=== PATIENT | male | born 1940 | race Caucasian/White ===

== ENCOUNTER → 2019-09-29 15:50 | Outpatient (BNVA) | payer MEDICARE, SELFPAY | PROVIDERS: Family Provider Internal Medicine; Visit Provider Nurse Practitioner Family | DX: N40.1 Benign prostatic hyperplasia with lower urinary tract symptoms (principal); N48.1 Balanitis; N41.1 Chronic prostatitis | CPT/HCPCS: 80053; 81001 ==

== ENCOUNTER 2020-02-07 10:56 | Inpatient (IN) | payer MEDICARE, SELFPAY ==
[2020-02-07] VITALS (21 sets, daily range): BP systolic 113–157; BP diastolic 75–99; PULSE 70–108; RESP 18–31; TEMP 36.5–37.3; O2SAT 87–95; BMI 27.8
--- NOTE | 2020-02-07 11:23 | XRR_ITS ---
PROCEDURE INFORMATION: Exam: XR Chest, 1 View Exam date and time: 02/07/2020 11:25 AM Age: 79 years old Clinical indication: Dyspnea; Patient HX: Positive covid TECHNIQUE: Imaging protocol: XR of the chest Views: 1 view. COMPARISON: CR Chest 1 [place] [id number] 09/14/2018 1:31 AM FINDINGS: Lungs: Bilateral pulmonary opacities predominantly peripherally oriented. No lobar consolidation. Pleural space: No pleural effusion. No pneumothorax. Heart/Mediastinum: Unremarkable. No cardiomegaly. Vasculature: Tortuosity of the thoracic aorta. Bones/joints: No acute findings. Sternotomy. XR/XR chest 1V portable [id number] IMPRESSION: Bilateral pneumonia consistent with COVID-19 pneumonia.
--- NOTE | 2020-02-07 11:24 | ECG_ITS ---
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 Measurements Intervals [place] Rate: 87 P: 11 SD: 190 QRS: -75 QRSD: 146 T: -9 QT: 394 QTc: 476 Interpretive Statements SINUS RHYTHM RIGHT BUNDLE BRANCH BLOCK [120+ ms QRS DURATION, UPRIGHT V1, 40+ ms S IN I/aVL/V4/V5/V6] POSSIBLE ANTERIOR MYOCARDIAL INFARCTION , OF INDETERMINATE AGE [30 ms Q WAVE IN V3/V4, OR R < 0.2 mV IN V4] INFERIOR MYOCARDIAL INFARCTION , OF INDETERMINATE AGE [40+ ms Q WAVE AND/OR ST/T ABNORMALITY IN II/aVF] Compared to ECG 09/14/2018 03:11:01 Sinus tachycardia no longer present Myocardial infarct finding still present Electronically Signed On 02-07-2020 18:30:41 CDT by Zaid Sharpe M.D. [id number]
--- NOTE | 2020-02-07 11:44 | ED_ITS ---
HPI - SOB/Dyspnea General: Chief Complaint: Shortness of Breath/Dyspnea Stated Complaint: SOB, POSITIVE COVID Time Seen by Provider: 02/07/20 11:16 History of Present Illness: HPI Narrative: This patient presents today with shortness of breath and weakness. Being that he is on covered precautions he presented alone and I had to call to later get history from his . He told me that he been tested for COVID but it was negative. Apparently that is not th e case. He has had a positive COVID test and is presenting today with worsening symptoms. MD elicited complaint: shortness of breath and cough Pertinent past history: diabetes Review of Systems General: Reports: ROS unobtainable due to mental status PFSH ED PFSH: Medical History Balanitis BPH NOS w ur obs/LUTS Chronic prostatitis Diabetes Erectile dysfunction GERD (gastroesophageal reflux disease) History of brain tumor Urinary incontinence Surgical History Hx of heart artery stent Hx of umbilical hernia repair S/P CABG (coronary artery bypass graft) Family History Father CAD (coronary artery disease) Diabetes Mother CAD (coronary artery disease) Diabetes Social History Smoking and tobacco status: never smoked Alcohol intake: current Alcohol intake frequency: 0-2 Drinks per Day Adopted: No Caregiver/support person: No Lives independently: No Household members: spouse Marital status: Current occupational status: retired History of recent travel: No Current gender identity: Male Physical Exam Const: COMMON NORMALS: no limitations and alert GENERAL APPEARANCE: cooperative ORIENTATION/CONSCIOUSNESS: Yes oriented to person and Yes oriented to place HENMT: HEAD & SCALP: normal to inspection FACE & SINUS: normal facial exam Eye: GENERAL EYE: appearance normal, both eyes and all related structures Neck/C-Spine: COMMON NORMALS: supple, no meningeal signs and no JVD Chest: COMMONS NORMALS: normal inspection of the chest Resp: EFFORT & INSPECTION: Yes tachypneic, Yes labored and Yes uses accessory muscles AUSCULTATION: diminished lung sounds Cardio: COMMON NORMALS: no JVD, regular rate, regular rhythm and No murmurs present (Cardio) RATE: regular rate RHYTHM: regular rhythm GI: COMMON NORMALS: Normal to inspection, nondistended, normoactive bowel sounds present, Soft to palpation and non-tender INSPECTION: Yes normal to inspection AUSCULTATION: Yes normoactive bowel sounds PALPATION: Yes Soft to palpation Back/Pelvis: COMMON NORMALS: thoracic and lumbar spine normal to inspection Extremity: COMMON NORMALS: normal to inspection Neuro: COMMON NORMALS: moves all extremities, no focal motor deficits and no sensory deficits noted SENSORIUM/ORIENTATION: Yes alert, Yes oriented to person and Yes oriented to place MENINGEAL SIGNS: Yes no meningeal signs Psych: COMMON NORMALS: mental status grossly normal, cooperative and normal affect Skin: COMMON NORMALS: no rashes or lesions noted and turgor normal GENERAL SKIN EXAM: no rashes or lesions noted and turgor normal Course ED course: This patient is COVID positive and is hypoxic. He reportedly was positive on the although I am working on getting the paper documentation of that test. He will require admission. I already started Decadron. I may start Lovenox and remdesivir based on lab values and report of his home medications. He meets criteria for admission to the COVID unit. Vital Signs: Vital signs: Vital Signs Temperature 99.1 F 02/07/20 11:02 Pulse Rate 80 02/07/20 13:30 Respiratory Rate 22 H 02/07/20 13:30 Blood Pressure 139/90 02/07/20 13:30 Pulse Oximetry 91 02/07/20 13:30 MDM - SOB/Dyspnea Lab Data: Labs: Lab Results 02/07/20 02/07/20 02/07/20 Range/Units 12:23 12:23 12:23 WBC 9.4 (4.0-10.0) 10^3/ uL RBC 4.76 (4.1-5.3) 10^6/u L Hgb 13.9 (11.7-16.6) g/dL Hct 42.4 (42.0-52.0) % MCV 89.1 (80-94) fL MCH 29.2 (28.0-34.0) pg MCHC 32.8 (30.0-36.0) g/dL RDW 13.6 (12.1-15.1) % Plt Count 224 (130-400) 10^3/c mm MPV 11.7 H (7.4-10.4) fL Neut % (Auto) 84.3 % Lymph % (Auto) 9.6 % [place] % (Auto) 5.3 % Eos % (Auto) 0.4 % Baso % (Auto) 0.2 % Neut # (Auto) 7.91 H (1.8-7.7) 10^3/u L Lymph # (Auto) 0.9 (0.8-4.8) 10^3/u L [place] # (Auto) 0.5 (0.2-0.9) 10^3/u L Eos # (Auto) 0.0 (0.0-0.8) 10^3/u L Baso # (Auto) 0.0 (0.0-0.1) 10^3/u L Nucleated RBC % (a uto) 0 % Nucleated RBCs # 0.0 /100WBC PT 13.60 (12.1-14.9) SECO NDS INR 1.01 (0.8-1.2) D-Dimer 1.49 H (0-0.59) ug/mIFE U Sodium 138 (136-145) mmol/L Potassium 4.0 (3.5-5.1) mmol/L Chloride 102 (98-107) mmol/L Carbon Dioxide 20 L (22-29) mmol/L Anion Gap 20.0 H (5-19) BUN 23 (8-23) mg/dL Creatinine 0.9 (0.7-1.2) mg/dL GFR Calculation Not Reportable Glucose 179 H (65-115) mg/dL Calculated Osmolal ity 294 (285-295) mOsm/k g Lactic Acid (0.5-2.2) mmol/L Calcium 8.6 (8.5-10.5) mg/dL Total Bilirubin 0.6 (0.15-1.2) mg/dL AST 59 H (0-40) U/L ALT 52 H (0-41) U/L Alkaline Phosphata se 61 (40-130) IU/L Troponin T Baselin e (0-15) ng/L Troponin T 120 Min [place] (0-15) ng/L Delta Troponin T (0-10) ABS# C-Reactive Protein 175.3 H (0.0-4.9) mg/L NT-Pro-B Natriuret Pep 1331 H (0-450) pg/mL Total Protein 7.8 (6.6-8.7) g/dL Albumin 3.3 L (3.5-5.2) g/dL Globulin 4.5 (1.3-4.6) g/dL Procalcitonin 0.10 (0-0.5) ng/mL Influenza Type A A g (Negative) Influenza Type B A g (Negative) 02/07/20 02/07/20 02/07/20 Range/Units 12:23 12:23 12:45 WBC (4.0-10.0) 10^3/ uL RBC (4.1-5.3) 10^6/u L Hgb (11.7-16.6) g/dL Hct (42.0-52.0) % MCV (80-94) fL MCH (28.0-34.0) pg MCHC (30.0-36.0) g/dL RDW (12.1-15.1) % Plt Count (130-400) 10^3/c mm MPV (7.4-10.4) fL Neut % (Auto) % Lymph % (Auto) % [place] % (Auto) % Eos % (Auto) % Baso % (Auto) % Neut # (Auto) (1.8-7.7) 10^3/u L Lymph # (Auto) (0.8-4.8) 10^3/u L [place] # (Auto) (0.2-0.9) 10^3/u L Eos # (Auto) (0.0-0.8) 10^3/u L Baso # (Auto) (0.0-0.1) 10^3/u L Nucleated RBC % (a uto) % Nucleated RBCs # /100WBC PT (12.1-14.9) SECO NDS INR (0.8-1.2) D-Dimer (0-0.59) ug/mIFE U Sodium (136-145) mmol/L Potassium (3.5-5.1) mmol/L Chloride (98-107) mmol/L Carbon Dioxide (22-29) mmol/L Anion Gap (5-19) BUN (8-23) mg/dL Creatinine (0.7-1.2) mg/dL GFR Calculation Glucose (65-115) mg/dL Calculated Osmolal ity (285-295) mOsm/k g Lactic Acid 1.7 (0.5-2.2) mmol/L Calcium (8.5-10.5) mg/dL Total Bilirubin (0.15-1.2) mg/dL AST (0-40) U/L ALT (0-41) U/L Alkaline Phosphata se (40-130) IU/L Troponin T Baselin e 22 H (0-15) ng/L Troponin T 120 Min [place] (0-15) ng/L Delta Troponin T (0-10) ABS# C-Reactive Protein (0.0-4.9) mg/L NT-Pro-B Natriuret Pep (0-450) pg/mL Total Protein (6.6-8.7) g/dL Albumin (3.5-5.2) g/dL Globulin (1.3-4.6) g/dL Procalcitonin (0-0.5) ng/mL Influenza Type A A g Negative (Negative) Influenza Type B A g Negative (Negative) 02/07/20 Range/Units 15:00 WBC (4.0-10.0) 10^3/ uL RBC (4.1-5.3) 10^6/u L Hgb (11.7-16.6) g/dL Hct (42.0-52.0) % MCV (80-94) fL MCH (28.0-34.0) pg MCHC (30.0-36.0) g/dL RDW (12.1-15.1) % Plt Count (130-400) 10^3/c mm MPV (7.4-10.4) fL Neut % (Auto) % Lymph % (Auto) % [place] % (Auto) % Eos % (Auto) % Baso % (Auto) % Neut # (Auto) (1.8-7.7) 10^3/u L Lymph # (Auto) (0.8-4.8) 10^3/u L [place] # (Auto) (0.2-0.9) 10^3/u L Eos # (Auto) (0.0-0.8) 10^3/u L Baso # (Auto) (0.0-0.1) 10^3/u L Nucleated RBC % (a uto) % Nucleated RBCs # /100WBC PT (12.1-14.9) SECO NDS INR (0.8-1.2) D-Dimer (0-0.59) ug/mIFE U Sodium (136-145) mmol/L Potassium (3.5-5.1) mmol/L Chloride (98-107) mmol/L Carbon Dioxide (22-29) mmol/L Anion Gap (5-19) BUN (8-23) mg/dL Creatinine (0.7-1.2) mg/dL GFR Calculation Glucose (65-115) mg/dL Calculated Osmolal ity (285-295) mOsm/k g Lactic Acid (0.5-2.2) mmol/L Calcium (8.5-10.5) mg/dL Total Bilirubin (0.15-1.2) mg/dL AST (0-40) U/L ALT (0-41) U/L Alkaline Phosphata se (40-130) IU/L Troponin T Baselin e (0-15) ng/L Troponin T 120 Min [place] 18.31 H (0-15) ng/L Delta Troponin T -3.69 L (0-10) ABS# C-Reactive Protein (0.0-4.9) mg/L NT-Pro-B Natriuret Pep (0-450) pg/mL Total Protein (6.6-8.7) g/dL Albumin (3.5-5.2) g/dL Globulin (1.3-4.6) g/dL Procalcitonin (0-0.5) ng/mL Influenza Type A A g (Negative) Influenza Type B A g (Negative) Discharge Plan Discharge Condition: Good Prescriptions: No Action famotidine 20 mg tablet 20 mg PO BID RF: 0 tamsulosin 0.4 mg capsule 0.4 mg PO BID RF: 0 Brilinta 90 mg tablet 90 mg PO BID RF: 0 metformin 500 mg tablet 500 mg PO BID RF: 0 metoprolol tartrate 50 mg tablet 50 mg PO DAILY RF: 0 finasteride 5 mg tablet 5 mg PO DAILY RF: 0 aspirin [Adult Low Dose Aspirin] 81 mg tablet,delayed release (DR/EC) 81 mg PO DAILY RF: 0 acetaminophen [Tylenol Extra Strength] 500 mg tablet 500 mg PO Q6H PRN (Reason: Pain) RF: 0 ciprofloxacin HCl 500 mg tablet 500 mg PO BID Qty: 60 RF: 1 zinc eik-idrcft-glp palm-gnsg 15-2-160 mg capsule 1 cap PO DAILY RF: 0 melatonin 10 mg capsule 10 mg PO DAILY RF: 0 triamcinolone acetonide 0.1 % cream 1 applic TOPICAL BID Qty: 30 RF: 1 nystatin 100,000 unit/gram cream 1 applic TOPICAL BID Qty: 30 RF: 1 vitamin A 8,000 unit Capsule 1 unit PO DAILY RF: 0 Cold and Flu Severe 4-80-349-200 mg Tablet 2 tab PO Q4H PRN (Reason: Cold Symptoms) RF: 0 Vitamin D3 25 mcg (1,000 unit) Tablet 25 mcg PO DAILY RF: 0 elderberry fruit-honey 0.7-3 gram/7.5 mL Liquid 7.5 ml PO DAILY RF: 0 Coding Level of Care Code ED Ob Scrub Tech for Chg Fwd Exam Comprehensive
[2020-02-07 12:30] LABS: Basophils % 0.2 %; Eosinophils % 0.4 %; Hematocrit 42.4 % (42.0-52.0); Hemoglobin 13.9 g/dL (11.7-16.6); Lymphocytes # 0.9 10^3/uL (0.8-4.8); Lymphocytes % 9.6 %; Mean Corpuscular HGB Conc 32.8 g/dL (30.0-36.0); Mean Corpuscular Hemoglobin 29.2 pg (28.0-34.0); Mean Corpuscular Volume 89.1 fL (80-94); Mean Platelet Volume 11.7 fL (7.4-10.4); Monocytes # 0.5 10^3/uL (0.2-0.9); Monocytes % 5.3 %; Neutrophils # 7.91 10^3/uL (1.8-7.7); Neutrophils % 84.3 %; Nucleated Red Blood Cells % 0 %; Platelet Count 224 10^3/cmm (130-400); Red Blood Count 4.76 10^6/uL (4.1-5.3); Red Cell Distribution Width 13.6 % (12.1-15.1); White Blood Count 9.4 10^3/uL (4.0-10.0)
[2020-02-07 12:39] LABS: INR 1.01 (0.8-1.2)
[2020-02-07 12:42] LABS: D Dimer 1.49 ug/mIFEU (0-0.59)
[2020-02-07 12:45] LABS: Lactic Sepsis W/Reflex 1.7 mmol/L (0.5-2.2)
[2020-02-07 12:50] LABS: Troponin(5th) Baseline 22 ng/L (0-15)
[2020-02-07] MEDS: sodium chloride 0.9% 1,000 ML 75 ML IV (12:50)
[2020-02-07] MEDS: acetaminophen 325 mg Tablet 650 MG PO (12:50)
[2020-02-07] MEDS: dexamethasone 10 mg/mL INJ IVP (12:50)
[2020-02-07 12:58] LABS: NT Pro B Type Natriuretic Pept 1331 pg/mL (0-450)
[2020-02-07 13:09] LABS: Alanine Aminotransferase 52 U/L (0-41); Albumin Level 3.3 g/dL (3.5-5.2); Alkaline Phosphatase 61 IU/L (40-130); Aspartate Amino Transferase 59 U/L (0-40); Blood Urea Nitrogen 23 mg/dL (8-23); C Reactive Protein 175.3 mg/L (0.0-4.9); Calcium 8.6 mg/dL (8.5-10.5); Carbon Dioxide 20 mmol/L (22-29); Chloride 102 mmol/L (98-107); Globulin 4.5 g/dL (1.3-4.6); Glucose 179 mg/dL (65-115); Osmolality Calculated 294 mOsm/kg (285-295); Sodium 138 mmol/L (136-145); Total Bilirubin 0.6 mg/dL (0.15-1.2); Total Protein 7.8 g/dL (6.6-8.7)
[2020-02-07 13:17] LABS: Influenza A by IFA Negative (Negative); Influenza B by IFA Negative (Negative)
--- NOTE | 2020-02-07 13:24 | ECG_ITS ---
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 Measurements Intervals [place] Rate: 71 P: 14 MO: 178 QRS: -69 QRSD: 155 T: -5 QT: 421 QTc: 460 Interpretive Statements SINUS RHYTHM RIGHT BUNDLE BRANCH BLOCK [120+ ms QRS DURATION, UPRIGHT V1, 40+ ms S IN I/aVL/V4/V5/V6] LEFT ANTERIOR FASCICULAR BLOCK [QRS AXIS <= -45, QR IN I, RS IN II] Compared to ECG 02/07/2020 12:17:16 Left anterior fascicular block now present Myocardial infarct finding no longer present Electronically Signed On 02-07-2020 18:39:28 CDT by Zaid Sharpe M.D. [id number]
[2020-02-07 15:24] LABS: Troponin 5 2HR 18.31 ng/L (0-15)
[2020-02-07 15:29] LABS: Troponin 5 2HR Delta -3.69 ABS# (0-10)
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
[2020-02-07] MEDS: enoxaparin 100 mg/mL Syringe 90 MG SUBCUT (18:40)
[2020-02-07 19:17] LABS: Glucose Point of Care 309 mg/dL (70-110)
[2020-02-07] MEDS: ciprofloxacin 500 mg Tablet PO (20:39)
[2020-02-07] MEDS: tamsulosin 0.4 mg Capsule PO (20:39)
[2020-02-07] MEDS: nystatin cream 30 gm 1 APPLIC TOPICAL (21:19)
[2020-02-07 21:55] LABS: Troponin 5 6HR 15.23 ng/L (0-15)
[2020-02-08] VITALS (27 sets, daily range): BP systolic 107–164; BP diastolic 73–108; PULSE 67–96; RESP 17–34; TEMP 36.1–37.1; O2SAT 90–95
--- NOTE | 2020-02-08 00:09 | PC.NURSE ---
Excoriation to scrotum, groin, coccyx. Nystatin cream mixed with Triamcinolone 1% cream 50/50 applied to the affected areas.
--- NOTE | 2020-02-08 00:15 | PC.NURSE ---
Oxygen changed to 8 liter/minute high flow.
--- NOTE | 2020-02-08 00:24 | PC.NURSE ---
Transferred patient care to Gen Mulligan RN @ 0000
[2020-02-08] MEDS: enoxaparin 100 mg/mL Syringe 90 MG SUBCUT ×2 (06:44→17:37)
[2020-02-08 07:17] LABS: Hemoglobin 13.3 g/dL (11.7-16.6); Lymphocytes # 0.6 10^3/uL (0.8-4.8); Lymphocytes % 11.8 %; Mean Corpuscular HGB Conc 32.4 g/dL (30.0-36.0); Mean Corpuscular Hemoglobin 29.1 pg (28.0-34.0); Mean Corpuscular Volume 89.7 fL (80-94); Mean Platelet Volume 12.3 fL (7.4-10.4); Monocytes # 0.3 10^3/uL (0.2-0.9); Monocytes % 6.4 %; Neutrophils # 4.33 10^3/uL (1.8-7.7); Neutrophils % 81.4 %; Nucleated Red Blood Cells % 0 %; Platelet Count 227 10^3/cmm (130-400); Red Blood Count 4.57 10^6/uL (4.1-5.3); Red Cell Distribution Width 13.7 % (12.1-15.1); White Blood Count 5.3 10^3/uL (4.0-10.0)
[2020-02-08 07:26] LABS: Glucose Point of Care 186 mg/dL (70-110)
[2020-02-08 07:29] LABS: Alanine Aminotransferase 53 U/L (0-41); Albumin Level 2.9 g/dL (3.5-5.2); Alkaline Phosphatase 63 IU/L (40-130); Aspartate Amino Transferase 47 U/L (0-40); Blood Urea Nitrogen 23 mg/dL (8-23); Calcium 8.9 mg/dL (8.5-10.5); Carbon Dioxide 20 mmol/L (22-29); Chloride 107 mmol/L (98-107); Globulin 3.9 g/dL (1.3-4.6); Glucose 199 mg/dL (65-115); Osmolality Calculated 295 mOsm/kg (285-295); Sodium 138 mmol/L (136-145); Total Bilirubin 0.3 mg/dL (0.15-1.2); Total Protein 6.8 g/dL (6.6-8.7)
[2020-02-08] MEDS: famotidine 20 mg Tablet PO ×2 (08:03→17:37)
[2020-02-08] MEDS: tamsulosin 0.4 mg Capsule PO ×2 (08:03→17:37)
[2020-02-08] MEDS: aspirin 81 mg EC Tablet PO (08:03)
[2020-02-08] MEDS: metoprolol tartrate 50 mg Tablet 25 MG PO (08:03)
[2020-02-08] MEDS: ciprofloxacin 500 mg Tablet PO ×2 (08:03→17:36)
[2020-02-08] MEDS: nystatin cream 30 gm 1 APPLIC TOPICAL ×2 (08:04→17:39)
[2020-02-08] MEDS: finasteride 5 mg Tablet PO (08:04)
[2020-02-08] MEDS: triamcinolone 0.1% cream 15 gm 1 APPLIC TOPICAL ×2 (08:04→17:40)
[2020-02-08] MEDS: cholecalciferol (vitamin D3) 1,000 unit Tablet 1000 UNIT PO (08:05)
[2020-02-08 11:17] LABS: Glucose Point of Care 180 mg/dL (70-110)
[2020-02-08 14:04] LABS: SARS Covid-2 Antigen Positive (Negative)
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
--- NOTE | 2020-02-08 15:31 | PC.NURSE ---
Report given to HAYDER Garcia, to assume care of this patient at this time.
[2020-02-08 16:32] LABS: Glucose Point of Care 110 mg/dL (70-110)
[2020-02-08] MEDS: dexamethasone 4 mg/mL INJ 6 MG IVP (17:35)
[2020-02-08 21:01] LABS: Glucose Point of Care 237 mg/dL (70-110)
[2020-02-09] VITALS (27 sets, daily range): BP systolic 111–166; BP diastolic 70–108; PULSE 63–112; RESP 12–30; TEMP 36.6–36.9; O2SAT 88–96
[2020-02-09 05:29] LABS: Hematocrit 41.3 % (42.0-52.0); Hemoglobin 13.5 g/dL (11.7-16.6); Lymphocytes # 0.6 10^3/uL (0.8-4.8); Lymphocytes % 7.2 %; Mean Corpuscular HGB Conc 32.7 g/dL (30.0-36.0); Mean Corpuscular Hemoglobin 29.5 pg (28.0-34.0); Mean Corpuscular Volume 90.2 fL (80-94); Mean Platelet Volume 12.5 fL (7.4-10.4); Monocytes # 0.3 10^3/uL (0.2-0.9); Monocytes % 3.2 %; Neutrophils # 7.07 10^3/uL (1.8-7.7); Neutrophils % 89.2 %; Nucleated Red Blood Cells % 0 %; Platelet Count 253 10^3/cmm (130-400); Red Blood Count 4.58 10^6/uL (4.1-5.3); Red Cell Distribution Width 13.8 % (12.1-15.1); White Blood Count 7.9 10^3/uL (4.0-10.0)
[2020-02-09 06:00] LABS: Alanine Aminotransferase 59 U/L (0-41); Albumin Level 2.9 g/dL (3.5-5.2); Alkaline Phosphatase 58 IU/L (40-130); Aspartate Amino Transferase 40 U/L (0-40); Blood Urea Nitrogen 27 mg/dL (8-23); Calcium 8.2 mg/dL (8.5-10.5); Carbon Dioxide 19 mmol/L (22-29); Chloride 106 mmol/L (98-107); Globulin 4.5 g/dL (1.3-4.6); Glucose 219 mg/dL (65-115); Osmolality Calculated 296 mOsm/kg (285-295); Sodium 137 mmol/L (136-145); Total Bilirubin 0.3 mg/dL (0.15-1.2); Total Protein 7.4 g/dL (6.6-8.7)
[2020-02-09 06:02] LABS: Anion Gap 16.2 (5-19); Potassium 4.2 mmol/L (3.5-5.1)
[2020-02-09] MEDS: enoxaparin 120 mg/0.8 mL Syringe 90 MG SUBCUT (06:03)
[2020-02-09] MEDS: OLANZapine 10 mg VIAL 2.5 MG IM (07:48)
[2020-02-09] MEDS: finasteride 5 mg Tablet PO (08:26)
[2020-02-09] MEDS: ciprofloxacin 500 mg Tablet PO ×2 (08:26→17:36)
[2020-02-09] MEDS: aspirin 81 mg EC Tablet PO (08:26)
[2020-02-09] MEDS: cholecalciferol (vitamin D3) 1,000 unit Tablet 1000 UNIT PO (08:26)
[2020-02-09] MEDS: metoprolol tartrate 50 mg Tablet 25 MG PO (08:26)
[2020-02-09] MEDS: nystatin cream 30 gm 1 APPLIC TOPICAL ×2 (08:26→17:36)
[2020-02-09] MEDS: famotidine 20 mg Tablet PO ×2 (08:26→17:36)
[2020-02-09] MEDS: tamsulosin 0.4 mg Capsule PO ×2 (08:27→17:36)
[2020-02-09] MEDS: triamcinolone 0.1% cream 15 gm 1 APPLIC TOPICAL ×2 (08:27→17:37)
[2020-02-09 08:39] LABS: Glucose Point of Care 213 mg/dL (70-110)
--- NOTE | 2020-02-09 08:45 | PC.NURSE ---
Patient agitated at shift change, refusing heart monitor, oxygen, and requesting to go home. Multiple attempts to redirect were unsuccessful. Medication given per MAR. Patient is now calm and cooperative. Patient was asked if his claustrophobia is causing him anxiety, he denied this. States, I'm claustrophobic on an airplane I can't get off of, not in this room.
--- NOTE | 2020-02-09 08:48 | PC.NURSE ---
Pt agitated at the beginning of shift, around 0700. Refused tie sawyer, oxygen, and hospital gown. Also removed IV. Multiple attempts to redirect were unsuccessful, medication given per MAR. Pt presently alert and calm. Asked patient if his claustrophobia was contributing to his agitation this morning, he denies that this is a factor. States, I'm claustrophobic if I'm somewhere like a plane I can't get out of, the hospital is ok. Asked patient he would like to move to a larger room if one becomes available later today, patient said, No, this room is ok unless my has to come in too.
[2020-02-09 11:15] LABS: Glucose Point of Care 215 mg/dL (70-110)
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
[2020-02-09 17:02] LABS: Glucose Point of Care 127 mg/dL (70-110)
[2020-02-09] MEDS: dexamethasone 4 mg/mL INJ 6 MG IVP (17:04)
[2020-02-09] MEDS: enoxaparin 100 mg/mL Syringe 90 MG SUBCUT (17:36)
[2020-02-09 20:55] LABS: Glucose Point of Care 308 mg/dL (70-110)
--- NOTE | 2020-02-09 21:30 | PC.NURSE ---
Shift Events: Rounded on patient and his upon arrival to unit. Patient's behavior fluctuates between angry, agitation and cooperative. No known triggers. states that he will frequently become agitated, verbally abusive and angry with her for no known reason when they are at home and has questions as to whether or not this is dementia. Patient knows he is in a hospital but states that no doctors have done a damn thing for me . Patient also refused his insulin with a blood sugar of 309. Educated patient and about the importance of keeping blood sugar within a normal range. Patient stated that he was going to one day . Asked patient why he feels this way but patient did not answer this specific questions. Patient has several times this shift disconnected ECG leads, SpO2, blood pressure cuff and stated that he was leaving and going home. States that we are not doing anything for him and has begun to mock this nurse when I ask him what he is doing. Attempts to redirect are not successful. Dr. Wahl notified and will try Benadryl IV for this agitation. Geodon was offered but was afraid that this would make things worse. Will continue to monitor.
[2020-02-09] MEDS: ziprasidone 20 mg/mL SDV 10 MG IM (23:00)
[2020-02-09] MEDS: diphenhydrAMINE 50 mg/mL SDV 1mL 25 MG IVP (23:30)
--- NOTE | 2020-02-09 23:30 | PC.NURSE ---
Shift Event: At approximately 2230, patient's called out using the call light to have this nurse assist with patient getting up to use the bathroom. When I went into the room, patient was standing at the bedside commode with the urinal and told me to get out of here . Patient's told patient that she had called me to help him with using the bathroom because he had almost fallen when getting up out of bed. When patient was finished, he put the urinal on the bedside table, sat down on the bed and started putting his shoes on. When asked what he was doing, he stated that he was walking home . I told patient that it would not be advisable for him to leave because he was sick and that he would be potentially infecting others with Covid. Patient stated good, I hope they all get sick . Attempted to redirect patient by asking him what was wrong and how I could help him. Patient continued to insist that he was leaving. I did not block patient from leaving the room but again told him that it was best if he stayed. Patient's told patient that he would be there, indicating home, by himself and she could not help him. Patient stated that a 22 gun could help me out . I asked patient if he was having thoughts about harming himself and he stated that it was none of your business . I told him that it was and that It was my job to keep him safe. Charge nurse, Miles, notified of suicidal ideation and that patient would need prn Geodon; informed patient that he would need to have a sitter to watch over him to keep him safe. Patient stated that no one loves me anyhow Patient and started arguing. Dr. Wahl notified that patient was very agitated and has suicidal ideations. No new orders received. Ning, powerhouse mechanic supervisor, notified of patient's intentions and resulting phone call to Dr. Whal. At this time, this nurse is sitting with patient and his to ensure safety for both.
[2020-02-10] VITALS (29 sets, daily range): BP systolic 133–191; BP diastolic 92–123; PULSE 64–112; RESP 14–29; TEMP 36.1–36.9; O2SAT 89–95
--- NOTE | 2020-02-10 01:19 | PC.NURSE ---
Due to patient's agitation and aggression, personal hygiene deferred.
[2020-02-10] MEDS: trazodone 50 mg Tablet PO (01:24)
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
[2020-02-10 05:30] LABS: Hematocrit 41.2 % (42.0-52.0); Hemoglobin 12.9 g/dL (11.7-16.6); Lymphocytes # 0.9 10^3/uL (0.8-4.8); Lymphocytes % 12.8 %; Mean Corpuscular HGB Conc 31.3 g/dL (30.0-36.0); Mean Corpuscular Volume 92.6 fL (80-94); Mean Platelet Volume 12.5 fL (7.4-10.4); Monocytes # 0.4 10^3/uL (0.2-0.9); Monocytes % 5.2 %; Neutrophils # 5.86 10^3/uL (1.8-7.7); Neutrophils % 81.6 %; Nucleated Red Blood Cells % 0 %; Platelet Count 280 10^3/cmm (130-400); Red Blood Count 4.45 10^6/uL (4.1-5.3); Red Cell Distribution Width 13.9 % (12.1-15.1); White Blood Count 7.2 10^3/uL (4.0-10.0)
[2020-02-10] MEDS: haloperidol inj 5 mg/mL INJ 1 mL 2 MG IM (05:30)
[2020-02-10 05:54] LABS: C Reactive Protein 48.7 mg/L (0.0-4.9)
[2020-02-10 05:55] LABS: Alanine Aminotransferase 45 U/L (0-41); Alkaline Phosphatase 58 IU/L (40-130); Blood Urea Nitrogen 26 mg/dL (8-23); Calcium 8.7 mg/dL (8.5-10.5); Carbon Dioxide 22 mmol/L (22-29); Chloride 106 mmol/L (98-107); Globulin 4.1 g/dL (1.3-4.6); Glucose 313 mg/dL (65-115); Osmolality Calculated 309 mOsm/kg (285-295); Sodium 141 mmol/L (136-145); Total Bilirubin 0.3 mg/dL (0.15-1.2); Total Protein 7.1 g/dL (6.6-8.7)
[2020-02-10] MEDS: enoxaparin 100 mg/mL Syringe 90 MG SUBCUT ×2 (05:57→17:12)
[2020-02-10 06:00] LABS: Anion Gap 17.2 (5-19); Aspartate Amino Transferase 28 U/L (0-40); Potassium 4.2 mmol/L (3.5-5.1)
[2020-02-10 06:50] LABS: D Dimer 0.92 ug/mIFEU (0-0.59)
[2020-02-10 07:46] LABS: Slide Review Slide Review Perform
[2020-02-10 07:47] LABS: Glucose Point of Care 230 mg/dL (70-110)
[2020-02-10] MEDS: aspirin 81 mg EC Tablet PO (08:33)
[2020-02-10] MEDS: metoprolol tartrate 50 mg Tablet 25 MG PO (08:33)
[2020-02-10] MEDS: famotidine 20 mg Tablet PO ×2 (08:33→17:13)
[2020-02-10] MEDS: tamsulosin 0.4 mg Capsule PO ×2 (08:33→17:13)
[2020-02-10] MEDS: cholecalciferol (vitamin D3) 1,000 unit Tablet 1000 UNIT PO (08:35)
[2020-02-10] MEDS: finasteride 5 mg Tablet PO (08:44)
[2020-02-10] MEDS: ciprofloxacin 500 mg Tablet PO ×2 (08:44→17:13)
[2020-02-10] MEDS: triamcinolone 0.1% cream 15 gm 1 APPLIC TOPICAL ×2 (08:44→17:15)
[2020-02-10] MEDS: nystatin cream 30 gm 1 APPLIC TOPICAL ×2 (08:45→17:15)
[2020-02-10 11:13] LABS: Glucose Point of Care 246 mg/dL (70-110)
[2020-02-10] MEDS: dexamethasone 4 mg/mL INJ 6 MG IVP (15:36)
--- NOTE | 2020-02-10 15:45 | PC.NURSE ---
pt woke up this morning calm and cooperative.remains confused to date,time,year.restraints removed for breakfast and have remained off all day.took all oral and subq meds.sat is chair.visited with in her room.has tried to get up out of bed several times.1:1 staff remains.
[2020-02-10 16:55] LABS: Glucose Point of Care 145 mg/dL (70-110)
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
[2020-02-10] MEDS: OLANZapine 10 mg VIAL 2.5 MG IM (17:43)
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
[2020-02-10 21:17] LABS: Glucose Point of Care 258 mg/dL (70-110)
[2020-02-10] MEDS: cetirizine 10 mg Tablet PO (21:34)
[2020-02-11] VITALS (27 sets, daily range): BP systolic 105–168; BP diastolic 67–108; PULSE 54–106; RESP 10–28; TEMP 36.2–36.9; O2SAT 91–97
[2020-02-11] MEDS: trazodone 100 mg Tablet PO (00:41)
[2020-02-11] MEDS: OLANZapine 10 mg VIAL 2.5 MG IM ×2 (02:07→21:52)
[2020-02-11] MEDS: LORazepam 2 mg/mL INJ 1 mL 1 MG IVP (02:58)
--- NOTE | 2020-02-11 03:01 | PC.NURSE ---
Pt recieved 1mg Lorazepam IVP, witnessed and documented by this nurse. Rosana Chawla RN administered medication.
[2020-02-11] MEDS: enoxaparin 100 mg/mL Syringe 90 MG SUBCUT ×2 (05:42→17:14)
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
[2020-02-11] MEDS: dexmedetomidine 400 MCG in sodium chloride 0.9% (100 ml) 100 ML 7.7 MCG IV (07:27)
[2020-02-11 07:57] LABS: Glucose Point of Care 209 mg/dL (70-110)
[2020-02-11] MEDS: finasteride 5 mg Tablet PO (08:57)
[2020-02-11] MEDS: ciprofloxacin 500 mg Tablet PO ×2 (08:57→17:16)
[2020-02-11] MEDS: aspirin 81 mg EC Tablet PO (08:57)
[2020-02-11] MEDS: famotidine 20 mg Tablet PO ×2 (08:57→17:15)
[2020-02-11] MEDS: cholecalciferol (vitamin D3) 1,000 unit Tablet 1000 UNIT PO (08:57)
[2020-02-11] MEDS: metoprolol tartrate 50 mg Tablet 25 MG PO (08:58)
[2020-02-11] MEDS: tamsulosin 0.4 mg Capsule PO ×2 (08:58→17:15)
[2020-02-11 09:56] LABS: D Dimer 0.81 ug/mIFEU (0-0.59)
[2020-02-11] MEDS: nystatin cream 30 gm 1 APPLIC TOPICAL ×2 (10:11→17:15)
[2020-02-11 10:12] LABS: Alanine Aminotransferase 52 U/L (0-41); Albumin Level 3.1 g/dL (3.5-5.2); Alkaline Phosphatase 61 IU/L (40-130); Anion Gap 14.9 (5-19); Aspartate Amino Transferase 38 U/L (0-40); Blood Urea Nitrogen 22 mg/dL (8-23); C Reactive Protein 27.5 mg/L (0.0-4.9); Calcium 8.8 mg/dL (8.5-10.5); Carbon Dioxide 22 mmol/L (22-29); Chloride 108 mmol/L (98-107); Globulin 3.9 g/dL (1.3-4.6); Glucose 206 mg/dL (65-115); Osmolality Calculated 301 mOsm/kg (285-295); Potassium 3.9 mmol/L (3.5-5.1); Sodium 141 mmol/L (136-145); Total Bilirubin 0.6 mg/dL (0.15-1.2)
[2020-02-11] MEDS: triamcinolone 0.1% cream 15 gm 1 APPLIC TOPICAL ×2 (10:12→17:15)
[2020-02-11 12:18] LABS: Glucose Point of Care 182 mg/dL (70-110)
[2020-02-11] MEDS: haloperidol inj 5 mg/mL INJ 1 mL IVP (13:44)
[2020-02-11] MEDS: dexamethasone 4 mg/mL INJ 6 MG IVP (16:17)
--- NOTE | 2020-02-11 16:44 | PM.PSYCN ---
Providers/Reason for Consult Consulting Physican/Specialty*: David Mclean M.D. Psychiatry. Reason for Consult*: Psychosis/delirium question of dementia. Attending Physician: Fran Pagan Primary Care Provider: APARNA Hernandez Psych Consult HPI History of Present Illness Delta Aparicio is a 79 year old male who presented to the ED with the following report: This patient presents today with shortness of breath and weakness. Being that he is on covered precautions he presented alone and I had to call to later get history from his . He told me that he been tested for COVID but it was negative. Apparently that is not the case. He has had a positive COVID test and is presenting today with worsening symptoms. MD elicited complaint: shortness of breath and cough Pertinent past history: diabetes. Delta was admitted the [facility] ICU for definitive treatment of his issues. Once in the ICU, he has had combative behavior, talking about fires and the hospital burning down, and a psychiatric consult was requested to evaluate his cognitive functioning. Additional information included that his was reporting that he has been more aggressive, in the past few months, and then the last week has been especially bad. She reports problems like him waking her up in the middle of the night, around 2 in the morning, and demanding sex. She reports that he has always been aggressive and demanding and in control of there relationship, but things have gotten even worse recently. She reports that there was some issue involving a gun, where he made some comment, and so she has been concerned recently with issues surrounding the gun, but supposedly one of the children is going to go in the house and get the guns. She reports that there was an incident recently where a person who they rent some farmland to came to pay the bill, and she reports that he was so nasty with him that she was embarrassed. Notable medical issues that could also be impacting her concerns about a dementing process are that he also had a tumor resection in his frontal lobe, in the past decade for sure, but the last several years nonetheless. So concerns were raised about a recurrence of something in the frontal lobe given his personality changes. She reports that things got worse then, when he had the resection. She was very tearful as she reports going to see him, from her room in the [facility] ICU to his room, just to tell him that she loves him and have him chew her out and yell at her and get derailed talking about fire and things burning down, and things not being safe. He was out of sorts during our conversation, basically saying he was kidnapped, upset that he was in soft restraints, and not having much respect for this investigative writer, but then asking this investigative writer to get close to him because I must be important and if there is a fire, and he is close to me, he might have a chance of making it. The steam of the fire talk continued throughout the interview. Ultimately, he did not have a real understanding of why he was there. He knew, in a sense, that it was COVID, but very much spoke in a conspiracy theory type fashion, that everyone was out to get him, and that he did not know if the hospital was the best place to be, and if left to his own device he would just go home. Tried to explore the tenets of capacity, but he really had no insight into options, what his condition was, what the challenges were, and so he was unable to demonstrate capacity, at this time. He denies any history of psychiatric care. He denies any history of depression. PSYCHIATRIC HISTORY: As above. SUBSTANCE ABUSE HISTORY: As above. They deny any significant addiction history in his past. FAMILY HISTORY: Non-contributory. There is no one with any issues of mental health or psychosis, or suicide attempts or completions. DEVELOPMENTAL HISTORY: The patient denies any issues with his mother?s or delivery of him. The patient met all developmental milestones on time. The patient denies speech therapy, learning support, emotional support, or special education classes. PSYCHOSOCIAL HISTORY: He and his have reportedly been for nearly sixty years. He could not identify how many times he had been but believes this is his second marriage, because he has a stepson with his . He was unable to tell me how many children he has, but he has children. He has never been in the . He has no significant lutheran belief system. 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 He currently lives in a house with his . LEGAL HISTORY: Denied. MEDICAL HISTORY: COVID positive. Diabetes. High blood pressure. History of BPH. Coronary artery disease. Meds Current Medications: Current Medications Generic Name Dose Route Start Last Admin Trade Name Freyaya PRN Reason Stop Dose Admin Aspirin 81 mg 02/08/20 09:00 02/10/20 08:33 Aspirin Ec PO 81 mg DAILY MALCOLM Administration Cetirizine HCl 10 mg 02/10/20 21:00 02/10/20 21:34 Zyrtec PO 10 mg BEDTIME MALCOLM Administration Ciprofloxacin HCl 500 mg 02/07/20 18:00 02/10/20 17:13 Cipro PO 500 mg BID MALCOLM Administration Protocol Dexamethasone 6 mg 02/08/20 15:45 02/10/20 15:36 Decadron IVP 6 mg Q24H MALCOLM Administration Enoxaparin Sodium 90 mg 02/09/20 18:00 02/10/20 17:12 Lovenox 1 mg/kg (90 mg) 90 mg SUBCUT Administration Q12H MALCOLM Famotidine 20 mg 02/08/20 09:00 02/10/20 17:13 Pepcid Tab PO 20 mg BID MALCOLM Administration Finasteride 5 mg 02/08/20 09:00 02/10/20 08:44 Proscar PO 5 mg DAILY MALCOLM Administration remdesivir (EUA) 1 00 mg/ 100 mls @ 100 mls /hr 02/08/20 15:00 02/10/20 15:07 Sodium Chloride IV 02/11/20 15:59 100 mls/hr Q24H MALCOLM Administration Insulin Aspart 0 unit 02/08/20 18:00 02/10/20 21:34 Novolog SUBCUT 8 unit WM&BEDTIME MALCOLM Administration Protocol Metoprolol Tartrat e 25 mg 02/08/20 09:00 02/10/20 08:33 Lopressor PO 25 mg DAILY MALCOLM Administration Non-Formulary Medi cation 10 mg 02/08/20 09:00 02/10/20 08:36 Melatonin PO Not Given DAILY MALCOLM Nystatin 1 applic 02/07/20 18:00 02/10/20 17:15 Nystatin Cream TOPICAL 1 applic BID MALCOLM Administration Olanzapine 2.5 mg 02/09/20 13:13 02/10/20 17:43 Zyprexa IM 2.5 mg TID PRN Administration SEVERE AGITATION Tamsulosin HCl 0.4 mg 02/07/20 18:00 02/10/20 17:13 Flomax PO 0.4 mg BID MALCOLM Administration Triamcinolone Acet onide 1 applic 02/08/20 09:00 02/10/20 17:15 Triamcinolone 0. 1% Cream TOPICAL 1 applic BID MALCOLM Administration Vitamin D 1,000 unit 02/08/20 09:00 02/10/20 08:35 Vitamin D3 PO 1,000 unit DAILY MALCOLM Administration PFSH NPU PFSH: Medical History (Updated 02/12/20 @ 12:46 by David Mclean MD) Balanitis BPH NOS w ur obs/LUTS Chronic prostatitis Diabetes Erectile dysfunction GERD (gastroesophageal reflux disease) History of brain tumor Urinary incontinence Surgical History (Updated 02/07/20 @ 17:21 by Fran Pagan MD) H/O brain surgery 2010 meningioma R Hx of heart artery stent Hx of umbilical hernia repair S/P CABG (coronary artery bypass graft) 2011 Family History Father CAD (coronary artery disease) Diabetes Mother CAD (coronary artery disease) Diabetes Social History Smoking and tobacco status: never smoked Alcohol intake: current Alcohol intake frequency: 0-2 Drinks per Day Adopted: No Caregiver/support person: No Lives independently: No Household members: spouse Marital status: Current occupational status: retired History of recent travel: No Current gender identity: Male Mental Status Exam MSE Comments: This is an obese, elderly, white male, in a hospital gown with a nasal cannula on, somewhat sweating and unkempt, with adequate eye contact. Limited cooperation with exam in mild to moderate distress. Speech was limited but decreased rate and volume, with some slurring. Mood described as frustrated; affect irritable. Thought process, linear to organized. Thought content: patient denied any suicidal or homicidal ideation; there were no delusions reported but clear paranoid and persecutory thinking existed that could represent delirium; some visual hallucinations were noted, no auditory hallucinations reported. Attention and concentration were limited, and memory was unreliable, but none were formally tested. He is alert and oriented times three. Insight and judgment are impaired. Impulse control is impaired. Vitals/I&O/Wt Last Vital Signs Temp 98.5 F 02/10/20 16:00 Pulse 85 02/11/20 00:00 Resp 24 H 02/11/20 00:00 BP 127/79 02/11/20 00:00 Pulse Ox 91 02/10/20 21:41 02/10/20 02/10/20 02/11/20 14:59 22:59 06:59 Intake Total 480 / 480 480 / 960 Output Total 200 / 200 Balance 480 / 480 280 / 760 Weight last 48 hrs Weight 111.13 kg Weight 99.337 kg A&P Assessment and plan (1) Suicidal ideation: Status: Acute (2) Agitation: Status: Acute (3) Dementia: Status: Acute (4) Delirium: Status: Acute Additional A&P Information This is an 79 year old, white male, with multiple medical comorbidities, who presents COVID positive with some breathing difficulties, and with some aggression and hostility as well as delusions, versus delirium, in the viral ICU. Continue current medication. I would feel comfortable giving Haldol q 6 hours with a max of 10 mg every 24 hours, he can get 5 mg increments of medication. Presentation could represent delirium, most likely with his illness( Covid-19) or the steroids he is being given being the culprits, this is likely superimposed on a dementing process, but could not rule out the fact that with his previous resection of a tumor in his frontal lobe, that there could be a recurrence of some frontal lobe phenomena. Would utilize the soft restraints but would use the Haldol primarily to help manage his acting out and aggressiveness. Patient lacks capacity for informed consent right now, and it is unclear whether this represents a phenomena in the hospital right now, and this is just his current presentation and he will resolve significantly and have full capacity once well. Will continue to follow. Attestations NPU Medical Necessity Statement*: N/A. Please see primary team note for decision on medical necessity for hospitalization. 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
[2020-02-11 17:27] LABS: Glucose Point of Care 107 mg/dL (70-110)
--- NOTE | 2020-02-11 18:24 | PM.PN ---
Subjective Subjective: Interval history: This morning again agitated, combative, making confused statements that the building is going to catch on fire, trying to grab and hit the nurse. Trying to kick. Had to be started on Precedex drip, however, oversedated, very lethargic, weaned off, awake, and again becoming hostile and agitated. Per psychiatry recommendation received Haldol. During my visit he is calm, resting, wakes up to voice, cooperates with exam, denies shortness of breath with nasal cannula, denies chest pain or pressure. No nausea vomiting or diarrhea. No headache. Vitals/I&O/Wt Last Vital Signs Temp 98.5 F 02/11/20 16:00 Pulse 80 02/11/20 17:05 Resp 18 02/11/20 17:05 BP 163/98 02/11/20 16:00 Pulse Ox 95 02/11/20 17:05 02/11/20 02/11/20 02/11/20 06:59 14:59 22:59 Intake Total 116.351 / 116.351 0 / 116.351 Balance 116.351 / 116.351 0 / 116.351 Weight last 48 hrs Weight 98.883 kg Weight 111.13 kg Physical Exam Narrative: EXAM NARRATIVE: One-to-one sitter at the entrance. Const: COMMON NORMALS: no acute distress GENERAL APPEARANCE: cooperative NUTRITIONAL APPEARANCE: overweight OTHER: Irritable, but answers review of systems questions and cooperates with exam. HENMT: COMMON NORMALS: oropharynx normal Neck/C-Spine: COMMON NORMALS: no JVD Resp: COMMON NORMALS: normal respiratory effort AUSCULTATION: rales (Minimal amount of scattered crackles at bases.) Cardio: COMMON NORMALS: no JVD, regular rhythm, S1 normal heart sound present, S2 normal heart sound present and No murmurs present (Cardio) RHYTHM: regular rhythm HEART SOUNDS: S1 normal heart sound present and S2 normal heart sound present GI: COMMON NORMALS: Normal to inspection, nondistended, normoactive bowel sounds present, Soft to palpation and non-tender PALPATION: Yes Soft to palpation Extremity: COMMON NORMALS: no joint enlargement and no pedal edema Neuro: COMMON NORMALS: moves all extremities Skin: COMMON NORMALS: no rashes or lesions noted GENERAL SKIN EXAM: no rashes or lesions noted Data : 02/10/20 04:15 02/11/20 08:27 A&P Assessment and plan (1) Agitation: Agitated again this morning, violent towards nursing staff. Started on Precedex drip, but too sedating for him even at lower rate. Discontinued. Again becoming hostile, received Haldol per psychiatry which appears to have helped. Ongoing psychiatric evaluation. Suspected delirium superimposed on perhaps developing chronic cognitive impairment or early dementia. Also has remote history of excision of meningioma from right frontal lobe. Appears to have some perhaps paranoid ideation. Status: Acute (2) Suicidal ideation: states they do have multiple guns at the house which she says her son has now taken out. Per report of nighttime physician vague with his plans when declared SI. Continue one-to-one sitter. Appreciate psychiatric assessment. Status: Acute (3) Pneumonia due to COVID-19 virus: Intermittently on oxygen, other times refuses to wear it. Sometimes actually does okay on room air with about 91% saturation. Denies chest pain or pressure. Denies subjective shortness of breath. Condition appears to be complicated with acute encephalopathy due to infection, possibly intermittent hypoxia leading to delirium superimposed on possibly chronic cognitive impairment, with history of also right frontal meningioma excision. D-dimer appears to be improving. CRP improving. Severe COVID-19 pneumonia. Intermittent hypoxia, but better. Completed remdesivir, will see if we can discontinue Decadron in case this may be contributing to his encephalopathy. Albuterol as needed. Haldol if severely agitated. Psychiatric assessment. Appears he has been having some more memory issues recently, possibly secondary to some mild encephalopathy. Has been irritable at baseline, and does report history of meningioma removal from right frontal lobe. Memory issues appears been somewhat worse with viral illness, poor oral intake. Appears with superimposed delirium. Discussed with his . Avoid Richardson if possible. He is also claustrophobic and has been in a bigger room. For now we will hold off on any antibiotics as suspicion is low for concomitant bacterial pneumonia, but monitor condition. He continues to be afebrile, without leukocytosis. Lovenox for DVT prophylaxis. Status: Acute (4) CAD (coronary artery disease): History of bypass surgery 2011. 1 year ago history of stent. Continue cardiac medications. Status: Acute (5) Chest pain: Mild elevation of troponin without positive delta. He has not had any chest pain here on multiple reassessments. says in the evenings he has been taking a nitroglycerin tablet due to some chest discomfort, although this appears to be triggered while sleeping on the left side. He gets a little bit more dyspneic that way. He does not have any chest pain currently. Troponin is minimally elevated. Monitor for any change in symptoms. Follow-up with cardiology after discharge. Status: Acute (6) Transaminitis: Minimal. Improving. No abdominal pain. With improvement. Normal alk phos, T bili. does say he drinks occasional beer at home. This may be secondary to COVID-19. Monitor while he is receiving Remdesivir. Status: Acute Additional A&P Information Diabetes: Sliding scale insulin, increase to moderate. Add nighttime dosing. BPH: Continue finasteride, tamsulosin. Avoid Richardson if possible. Monitor for any retention. Chronic prostatitis: Continue follow-up with urology. Continue Cipro. GERD: Continue famotidine History of brain tumor Attestations Medical Necessity Statement*: Continue admission for assessment management of severe COVID-19 pneumonia, encephalopathy and delirium. SI. 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
[2020-02-11] MEDS: diphenhydrAMINE 50 mg Capsule PO (21:38)
--- NOTE | 2020-02-11 21:57 | PC.NURSE ---
Pt was calm at initial assessment, pt had some intermittent agitation where pt was removing oxygen and wires and trying to shove past this nurse. pt had asked to see his , but was rude to when she came to visit. pt was able to be verbally redirected and pt sat back down in bed. pt had been calm again but had asked this nurse, Why don't you crawl over here in this bed and keep me warm? Pt was educated about being appropriate and nurse:patient relationship, pt was informed that pt could have another blanket if he was cold. Pt closed his eyes for a few minutes, then began trying to remove oxygen and wires again. This nurse let pt know that this nurse had pt's meds and that he would be helped to sat up. Pt began kicking at this nurse, stating, I'm tired of you farting around. Pt began addressing this nurse as, Bitch and was reeducated to this nurse's name. Pt was redirected when notified that this nurse had pt's sleeping pill.
[2020-02-12] VITALS (30 sets, daily range): BP systolic 87–158; BP diastolic 59–98; PULSE 61–128; RESP 13–31; TEMP 36.6–37; O2SAT 89–95
--- NOTE | 2020-02-12 03:48 | PC.NURSE ---
pt woken up for morning lab draw. pt stated he wanted a drink of water, in which this nurse raised the head of bed and handed pt his water. pt then stated he needed to pee. this nurse asked pt to allow this nurse to offer help. pt was struggling to move the edge of the bed from being caught on his gown. this nurse offered pt a hand to assist pt to side of bed and pt slapped this nurse's hand away. this nurse educated pt that this nurse was just trying to help. pt just replied, Uh huh, sure you are. This nurse offered the urinal to pt while pt was lying in bed, pt stated, You know I can't pee laying in bed, I have to stand. this nurse again offered pt a hand and pt slapped it away, stating, Now I'm peeing on myself. pt was cooperative enough to allow this nurse to change pt's brief without any aggression. pt offered another drink of water and was tucked back into bed.
[2020-02-12 04:44] LABS: Basophils % 0.1 %; Hematocrit 39.7 % (42.0-52.0); Hemoglobin 12.8 g/dL (11.7-16.6); Lymphocytes # 0.9 10^3/uL (0.8-4.8); Lymphocytes % 11.9 %; Mean Corpuscular HGB Conc 32.2 g/dL (30.0-36.0); Mean Corpuscular Hemoglobin 29.3 pg (28.0-34.0); Mean Corpuscular Volume 90.8 fL (80-94); Mean Platelet Volume 12.9 fL (7.4-10.4); Monocytes # 0.3 10^3/uL (0.2-0.9); Monocytes % 4.4 %; Neutrophils # 6.08 10^3/uL (1.8-7.7); Neutrophils % 83.2 %; Nucleated Red Blood Cells % 0 %; Platelet Count 281 10^3/cmm (130-400); Red Blood Count 4.37 10^6/uL (4.1-5.3); Red Cell Distribution Width 14.2 % (12.1-15.1); White Blood Count 7.3 10^3/uL (4.0-10.0)
[2020-02-12 05:00] LABS: D Dimer 0.61 ug/mIFEU (0-0.59)
[2020-02-12] MEDS: enoxaparin 100 mg/mL Syringe 90 MG SUBCUT ×2 (06:10→17:15)
[2020-02-12 06:31] LABS: Glucose Point of Care 213 mg/dL (70-110)
[2020-02-12] MEDS: aspirin 81 mg EC Tablet PO (08:18)
[2020-02-12] MEDS: tamsulosin 0.4 mg Capsule PO ×2 (08:18→17:15)
[2020-02-12] MEDS: metoprolol tartrate 50 mg Tablet 25 MG PO (08:18)
[2020-02-12] MEDS: famotidine 20 mg Tablet PO ×2 (08:18→17:15)
[2020-02-12] MEDS: finasteride 5 mg Tablet PO (08:18)
[2020-02-12] MEDS: ciprofloxacin 500 mg Tablet PO ×2 (08:18→17:14)
[2020-02-12] MEDS: cholecalciferol (vitamin D3) 1,000 unit Tablet 1000 UNIT PO (08:18)
[2020-02-12] MEDS: triamcinolone 0.1% cream 15 gm 1 APPLIC TOPICAL ×2 (08:19→17:15)
[2020-02-12] MEDS: nystatin cream 30 gm 1 APPLIC TOPICAL ×2 (08:19→17:15)
[2020-02-12] MEDS: albuterol 8 gm MDI 2 PUFF INHALATION ×2 (08:20→13:00)
[2020-02-12 08:52] LABS: Alanine Aminotransferase 60 U/L (0-41); Albumin Level 2.9 g/dL (3.5-5.2); Alkaline Phosphatase 55 IU/L (40-130); Anion Gap 14.2 (5-19); Aspartate Amino Transferase 37 U/L (0-40); Blood Urea Nitrogen 26 mg/dL (8-23); Calcium 8.6 mg/dL (8.5-10.5); Carbon Dioxide 22 mmol/L (22-29); Chloride 110 mmol/L (98-107); Globulin 3.5 g/dL (1.3-4.6); Glucose 232 mg/dL (65-115); Osmolality Calculated 306 mOsm/kg (285-295); Potassium 4.2 mmol/L (3.5-5.1); Sodium 142 mmol/L (136-145); Total Bilirubin 0.4 mg/dL (0.15-1.2); Total Protein 6.4 g/dL (6.6-8.7)
--- NOTE | 2020-02-12 09:03 | PC.SOCIAL ---
IMM Update Pg. 2 of IMM updated and reviewed with patient's via phone, who verbalized understanding.
[2020-02-12 10:04] LABS: Glucose Point of Care 255 mg/dL (70-110)
[2020-02-12 11:27] LABS: Glucose Point of Care 236 mg/dL (70-110)
[2020-02-12] MEDS: haloperidol inj 5 mg/mL INJ 1 mL IVP (13:31)
--- NOTE | 2020-02-12 13:57 | PC.NURSE ---
Dr Mclean evaluated patient. He advised that we could use haldol to help patient relax and be more cooperative. Patient has been better today, becoming a little more agitated this afternoon. Haldol was given and the sitter was DCd for the time being. Will continue to monitor closely.
[2020-02-12] MEDS: dexamethasone 4 mg/mL INJ 6 MG IVP (15:40)
[2020-02-12] MEDS: OLANZapine 10 mg VIAL 2.5 MG IM (17:17)
[2020-02-12 18:18] LABS: Glucose Point of Care 225 mg/dL (70-110)
--- NOTE | 2020-02-12 20:50 | PM.PN ---
Subjective Subjective: Interval history: He was again irritable this morning, but currently is doing better. Received a dose of Haldol several hours prior to my visit. Reports he does not have any chest pain. He is not short of breath on nasal cannula. No nausea vomiting or diarrhea. No headache. Intermittently has to be redirected by nursing staff back into his room after making trips into the hallway without a mask. Vitals/I&O/Wt Last Vital Signs Temp 98.6 F 02/12/20 20:00 Pulse 94 02/12/20 19:54 Resp 18 02/12/20 19:54 BP 106/89 02/12/20 17:00 Pulse Ox 94 02/12/20 19:54 02/12/20 02/12/20 02/12/20 06:59 14:59 22:59 Intake Total 360 / 476.351 500 / 500 520 / 1020 Output Total 275 / 450 200 / 200 380 / 580 Balance 85 / 26.351 300 / 300 140 / 440 Weight last 48 hrs Weight 98.838 kg Weight 98.883 kg Physical Exam Narrative: EXAM NARRATIVE: He is awake, alert. Appears calm. Reclined in bed. Const: COMMON NORMALS: no acute distress GENERAL APPEARANCE: cooperative NUTRITIONAL APPEARANCE: overweight OTHER: Does cooperate with exam today. HENMT: COMMON NORMALS: oropharynx normal Neck/C-Spine: COMMON NORMALS: no JVD Resp: COMMON NORMALS: normal respiratory effort and clear to auscultation bilaterally AUSCULTATION: clear to auscultation bilaterally and no wheezes Cardio: COMMON NORMALS: no JVD, regular rhythm, S1 normal heart sound present, S2 normal heart sound present and No murmurs present (Cardio) RHYTHM: regular rhythm HEART SOUNDS: S1 normal heart sound present and S2 normal heart sound present GI: COMMON NORMALS: Normal to inspection, nondistended, normoactive bowel sounds present, Soft to palpation and non-tender PALPATION: Yes Soft to palpation Extremity: COMMON NORMALS: no joint enlargement and no pedal edema Neuro: COMMON NORMALS: moves all extremities Skin: COMMON NORMALS: no rashes or lesions noted GENERAL SKIN EXAM: no rashes or lesions noted Data : 02/12/20 03:30 02/12/20 07:03 A&P Assessment and plan (1) Agitation: Today he is doing somewhat better, although still required Haldol. During my visit he is more cooperative. His was discharging from the hospital today, with him making a statement I will raise hell . Discussed with psychiatry. Continue to monitor and psychiatric reassessments. Haldol for episodes of agitation. Discussed with his . Suspected delirium superimposed on perhaps developing chronic cognitive impairment or early dementia. Also has remote history of excision of meningioma from right frontal lobe. Appears to have some perhaps paranoid ideation. Status: Acute (2) Suicidal ideation: states they do have multiple guns at the house which she says her son has now taken out. Per report of nighttime physician vague with his plans when declared SI. Continue one-to-one sitter. Appreciate psychiatric assessment. Status: Acute (3) Pneumonia due to COVID-19 virus: Today allowed himself to be examined. Lungs are sounding clear. Still requiring about 2 L of oxygen. Requirement appears to be gradually decreasing. Denies chest pain or pressure. Denies subjective shortness of breath. Condition appears to be complicated with acute encephalopathy due to infection, possibly intermittent hypoxia leading to delirium superimposed on possibly chronic cognitive impairment, with history of also right frontal meningioma excision. D-dimer appears to be improving. CRP improving. Severe COVID-19 pneumonia. Intermittent hypoxia, but better. Completed remdesivir, discontinued Decadron in case this may be contributing to his encephalopathy. Albuterol as needed. Continue supportive care. Haldol if severely agitated. Psychiatric assessment. Appears he has been having some more memory issues recently, possibly secondary to some mild encephalopathy. Has been irritable at baseline, and does report history of meningioma removal from right frontal lobe. Memory issues appears been somewhat worse with viral illness, poor oral intake. Appears with superimposed delirium. Discussed with his . Avoid Richardson if possible. He is also claustrophobic and has been in a bigger room. For now we will hold off on any antibiotics as suspicion is low for concomitant bacterial pneumonia, but monitor condition. He continues to be afebrile, without leukocytosis. Lovenox for DVT prophylaxis. Status: Acute (4) CAD (coronary artery disease): History of bypass surgery 2011. 1 year ago history of stent. Continue cardiac medications. Status: Acute (5) Chest pain: Mild elevation of troponin without positive delta. He has not had any chest pain here on multiple reassessments. says in the evenings he has been taking a nitroglycerin tablet due to some chest discomfort, although this appears to be triggered while sleeping on the left side. He gets a little bit more dyspneic that way. He does not have any chest pain currently. Troponin is minimally elevated. Monitor for any change in symptoms. Follow-up with cardiology after discharge. Status: Acute (6) Transaminitis: Minimal. Improving. No abdominal pain. With improvement. Normal alk phos, T bili. does say he drinks occasional beer at home. This may be secondary to COVID-19. Monitor while he is receiving Remdesivir. Status: Acute Additional A&P Information Diabetes: Sliding scale insulin, increase to moderate. Add nighttime dosing. BPH: Continue finasteride, tamsulosin. Avoid Richardson if possible. Monitor for any retention. Chronic prostatitis: Continue follow-up with urology. Continue Cipro. GERD: Continue famotidine History of brain tumor Attestations Medical Necessity Statement*: Continue admission for assessment and management of COVID-19 pneumonia, delirium with episodes of agitation, suicidal ideation. 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
[2020-02-12 21:12] LABS: Glucose Point of Care 315 mg/dL (70-110)
[2020-02-12] MEDS: cetirizine 10 mg Tablet PO (22:04)
[2020-02-12] MEDS: trazodone 100 mg Tablet PO (23:33)
[2020-02-13] VITALS (19 sets, daily range): BP systolic 97–143; BP diastolic 58–94; PULSE 70–111; RESP 6–28; TEMP 36.7–37.1; O2SAT 90–108
--- NOTE | 2020-02-13 02:01 | PC.NURSE ---
INTERACTION/ACTIVITY Nurse received in change of shift report that patient had been easily agitated throughout the day. Patient and nurse interactions have been pleasant and patient has been calm. Patient up to side of bed to urinate with nurse with minimal assistance. Patient requested sleeping pill shortly after. Physician notified and put in one time order for PO trazadone 100 MG. Patient received and has been resting since.
--- NOTE | 2020-02-13 02:04 | PC.NURSE ---
O2 TITRATION Patient weaned down to 1L NC from 2L at 0130. Patient has been at 93% since titration. Will continue to evaluate and attempt to turn O2 off to assess how patient does.
[2020-02-13] MEDS: haloperidol inj 5 mg/mL INJ 1 mL IVP (03:12)
[2020-02-13 04:16] LABS: Basophils % 0.1 %; Hematocrit 39.3 % (42.0-52.0); Hemoglobin 12.7 g/dL (11.7-16.6); Lymphocytes % 11.2 %; Mean Corpuscular HGB Conc 32.3 g/dL (30.0-36.0); Mean Corpuscular Volume 89.7 fL (80-94); Mean Platelet Volume 12.4 fL (7.4-10.4); Monocytes # 0.4 10^3/uL (0.2-0.9); Monocytes % 4.7 %; Neutrophils # 7.56 10^3/uL (1.8-7.7); Neutrophils % 83.3 %; Nucleated Red Blood Cells % 0 %; Platelet Count 342 10^3/cmm (130-400); Red Blood Count 4.38 10^6/uL (4.1-5.3); Red Cell Distribution Width 13.8 % (12.1-15.1); White Blood Count 9.1 10^3/uL (4.0-10.0)
[2020-02-13 04:45] LABS: Alanine Aminotransferase 54 U/L (0-41); Albumin Level 2.8 g/dL (3.5-5.2); Alkaline Phosphatase 56 IU/L (40-130); Aspartate Amino Transferase 29 U/L (0-40); Blood Urea Nitrogen 27 mg/dL (8-23); Calcium 8.6 mg/dL (8.5-10.5); Carbon Dioxide 21 mmol/L (22-29); Chloride 107 mmol/L (98-107); Globulin 3.5 g/dL (1.3-4.6); Glucose 206 mg/dL (65-115); Osmolality Calculated 295 mOsm/kg (285-295); Sodium 137 mmol/L (136-145); Total Bilirubin 0.4 mg/dL (0.15-1.2); Total Protein 6.3 g/dL (6.6-8.7)
[2020-02-13 04:53] LABS: Anion Gap 13.2 (5-19)
[2020-02-13 04:54] LABS: Potassium 4.2 mmol/L (3.5-5.1)
[2020-02-13 05:31] LABS: D Dimer 0.72 ug/mIFEU (0-0.59)
[2020-02-13 05:58] LABS: C Reactive Protein 15.6 mg/L (0.0-4.9)
[2020-02-13] MEDS: enoxaparin 100 mg/mL Syringe 90 MG SUBCUT (06:38)
[2020-02-13 07:57] LABS: Glucose Point of Care 232 mg/dL (70-110)
[2020-02-13] MEDS: albuterol 8 gm MDI 2 PUFF INHALATION (08:52)
[2020-02-13] MEDS: ciprofloxacin 500 mg Tablet PO ×2 (09:11→17:09)
[2020-02-13] MEDS: aspirin 81 mg EC Tablet PO (09:11)
[2020-02-13] MEDS: metoprolol tartrate 50 mg Tablet 25 MG PO (09:11)
[2020-02-13] MEDS: finasteride 5 mg Tablet PO (09:11)
[2020-02-13] MEDS: famotidine 20 mg Tablet PO ×2 (09:11→17:09)
[2020-02-13] MEDS: nystatin cream 30 gm 1 APPLIC TOPICAL ×2 (09:12→17:09)
[2020-02-13] MEDS: triamcinolone 0.1% cream 15 gm 1 APPLIC TOPICAL ×2 (09:12→17:10)
[2020-02-13] MEDS: tamsulosin 0.4 mg Capsule PO ×2 (09:12→17:09)
[2020-02-13] MEDS: cholecalciferol (vitamin D3) 1,000 unit Tablet 1000 UNIT PO (09:12)
[2020-02-13 10:59] LABS: Glucose Point of Care 233 mg/dL (70-110)
--- NOTE | 2020-02-13 11:56 | PM.PN ---
Subjective Subjective: Interval history: No acute events overnight. Patient is lying comfortably in bed. He is not agitated during visit with the patient. Denies of having any nausea, vomiting, headache. Still feels weak. Wants to go home. Discussed patient's care in detail with Dr. Mclean from psychiatry. As per Dr. Mlcean patient is not an imminent threat to himself. He does not have any active suicidal ideation. Patient is depressed but is most likely safe to be discharged home. Vitals/I&O/Wt Last Vital Signs Temp 98.0 F 02/12/20 23:23 Pulse 73 02/13/20 10:00 Resp 17 02/13/20 10:00 BP 127/94 02/13/20 10:00 Pulse Ox 90 02/13/20 10:00 02/12/20 02/13/20 02/13/20 22:59 06:59 14:59 Intake Total 760 / 1260 240 / 240 Output Total 520 / 720 200 / 920 Balance 240 / 540 -200 / 340 240 / 240 Weight last 48 hrs Weight 99.11 kg Weight 98.838 kg Physical Exam Narrative: EXAM NARRATIVE: He is awake, alert. Appears calm. Reclined in bed. Const: COMMON NORMALS: no acute distress GENERAL APPEARANCE: cooperative NUTRITIONAL APPEARANCE: overweight OTHER: Does cooperate with exam today. HENMT: COMMON NORMALS: oropharynx normal Neck/C-Spine: COMMON NORMALS: no JVD Resp: COMMON NORMALS: normal respiratory effort and clear to auscultation bilaterally AUSCULTATION: clear to auscultation bilaterally and no wheezes Cardio: COMMON NORMALS: no JVD, regular rhythm, S1 normal heart sound present, S2 normal heart sound present and No murmurs present (Cardio) RHYTHM: regular rhythm HEART SOUNDS: S1 normal heart sound present and S2 normal heart sound present GI: COMMON NORMALS: Normal to inspection, nondistended, normoactive bowel sounds present, Soft to palpation and non-tender PALPATION: Yes Soft to palpation Extremity: COMMON NORMALS: no joint enlargement and no pedal edema Neuro: COMMON NORMALS: moves all extremities Skin: COMMON NORMALS: no rashes or lesions noted GENERAL SKIN EXAM: no rashes or lesions noted Data : 02/13/20 04:00 02/13/20 04:00 A&P Assessment and plan (1) Pneumonia due to COVID-19 virus: Today allowed himself to be examined. Lungs are sounding clear. Patient saturating more than 90% on room air today.Denies chest pain or pressure. Denies subjective shortness of breath. He is already completed his course of antibiotic treatment for 5 days. Patient is on dexamethasone 6 mg IV daily. We will switch to prednisone 40 mg daily. Will most likely require slow steroid taper as an outpatient. Start patient on Advair, Spiriva. Vitamin C, zinc, Tessalon Perles. Oxygen supplementation keeping saturation over 90%. Patient is on full dose Lovenox. We will switch over to Eliquis. 5 mg twice daily. Patient's inflammatory markers are improving. D-dimer stable. CRP improving. Continue with incentive spirometry, flutter valve. Status: Acute (2) Agitation: Today he is doing somewhat better, although still required Haldol. During my visit he is more cooperative. Encephalopathy due to infection, possibly intermittent hypoxia leading to delirium superimposed on possibly chronic cognitive impairment, with history of also right frontal meningioma excision. Discussed with psychiatry. Continue to monitor and psychiatric reassessments. Haldol for episodes of agitation. Discussed with his . Status: Acute (3) Suicidal ideation: states they do have multiple guns at the house which she says her son has now taken out. Continue one-to-one sitter. Care discussed with Dr. Mclean of psychiatry. He states patient is most likely safe to be discharged home. States patient does not have any active suicidal or homicidal ideation. Also states that he is spoken to the and guns have been taken care of at home by the son. He states that patient's mentation is most likely due to given the current conditions from his stay in the viral ICU, delirium due to chronic steroids, delirium due to's sickness from COVID-19. Appreciate psychiatric assessment. Status: Acute (4) CAD (coronary artery disease): History of bypass surgery 2012. 1 year ago history of stent. Continue home dose of aspirin, metoprolol. For now we will hold off on Brilinta as patient would be on full dose Eliquis. Status: Acute (5) Chest pain: Mild elevation of troponin without positive delta. He has not had any chest pain here on multiple reassessments. says in the evenings he has been taking a nitroglycerin tablet due to some chest discomfort, although this appears to be triggered while sleeping on the left side. He gets a little bit more dyspneic that way. He does not have any chest pain currently. Troponin is minimally elevated. Monitor for any change in symptoms. Follow-up with cardiology after discharge. Status: Acute (6) Transaminitis: Minimal. Improving. No abdominal pain. With improvement. Normal alk phos, T bili. does say he drinks occasional beer at home. This may be secondary to COVID-19. Monitor while he is receiving Remdesivir. Status: Acute Additional A&P Information Diabetes: Continue with insulin sliding scale at moderate dose. BPH: Continue finasteride, tamsulosin. Avoid Richardson if possible. Monitor for any retention. Chronic prostatitis: Continue follow-up with urology. Continue Cipro. GERD: Continue famotidine History of brain tumor. Full code. Eliquis for also for DVT prophylaxis. Carb consistent cardiac diet. Famotidine for PUD prophylaxis. Discharge plan: If patient continues to remain on room air in next 24 to 48 hours will most likely discharge patient home if cleared from psychiatric point of view. Attestations Medical Necessity Statement*: Agitation, COVID-19 pneumonia, hypoxia Time Spent in Patient Care: Greater than 35 minutes (>than 50% of time spent in counselling and/or direct pt care on unit). Coding Level of Care Code Acute Geriatric Physical Therapist for [facility] Diagnoses Pneumonia due to COVID-19 virus U07.1; J12.89 Agitation R45.1 Suicidal ideation R45.851 CAD (coronary artery disease) I25.10 Chest pain R07.9 Transaminitis R74.0
[2020-02-13] MEDS: predniSONE 20 mg Tablet 40 MG PO (13:05)
[2020-02-13] MEDS: ascorbic acid 500 mg Tablet PO (13:05)
[2020-02-13] MEDS: benzonatate 100 mg Capsule PO ×2 (14:48→21:17)
[2020-02-13 17:00] LABS: Glucose Point of Care 195 mg/dL (70-110)
[2020-02-13] MEDS: apixaban 5 mg Tablet PO (17:09)
[2020-02-13 20:00] LABS: Glucose Point of Care 315 mg/dL (70-110)
[2020-02-13] MEDS: cetirizine 10 mg Tablet PO (21:18)
[2020-02-13] MEDS: trazodone 100 mg Tablet PO (22:25)
[2020-02-14] VITALS (11 sets, daily range): BP systolic 115–159; BP diastolic 67–88; PULSE 65–108; RESP 10–29; TEMP 36.4–36.8; O2SAT 89–96
[2020-02-14 06:01] LABS: Basophils % 0.1 %; Eosinophils % 0.1 %; Hematocrit 40.2 % (42.0-52.0); Hemoglobin 12.8 g/dL (11.7-16.6); Lymphocytes # 1.4 10^3/uL (0.8-4.8); Mean Corpuscular HGB Conc 31.8 g/dL (30.0-36.0); Mean Corpuscular Hemoglobin 29.2 pg (28.0-34.0); Mean Corpuscular Volume 91.8 fL (80-94); Mean Platelet Volume 13.4 fL (7.4-10.4); Monocytes # 0.5 10^3/uL (0.2-0.9); Monocytes % 5.8 %; Neutrophils # 7.31 10^3/uL (1.8-7.7); Neutrophils % 78.4 %; Nucleated Red Blood Cells % 0 %; Platelet Count 282 10^3/cmm (130-400); Red Blood Count 4.38 10^6/uL (4.1-5.3); Red Cell Distribution Width 14.4 % (12.1-15.1); White Blood Count 9.3 10^3/uL (4.0-10.0)
[2020-02-14 06:38] LABS: Slide Review Slide Review Perform
[2020-02-14 06:58] LABS: Glucose Point of Care 185 mg/dL (70-110)
[2020-02-14 08:38] LABS: Glucose Point of Care 209 mg/dL (70-110)
[2020-02-14 09:02] LABS: D Dimer 0.93 ug/mIFEU (0-0.59)
[2020-02-14 09:15] LABS: Alanine Aminotransferase 48 U/L (0-41); Albumin Level 2.7 g/dL (3.5-5.2); Alkaline Phosphatase 55 IU/L (40-130); Anion Gap 14.8 (5-19); Aspartate Amino Transferase 22 U/L (0-40); Blood Urea Nitrogen 29 mg/dL (8-23); C Reactive Protein 10.5 mg/L (0.0-4.9); Calcium 8.4 mg/dL (8.5-10.5); Carbon Dioxide 20 mmol/L (22-29); Chloride 109 mmol/L (98-107); Ferritin 692 ng/mL (30-400); Globulin 3.6 g/dL (1.3-4.6); Glucose 192 mg/dL (65-115); Lactate Dehydrogenase 340 U/L (135-225); Osmolality Calculated 301 mOsm/kg (285-295); Potassium 3.8 mmol/L (3.5-5.1); Sodium 140 mmol/L (136-145); Total Bilirubin 0.6 mg/dL (0.15-1.2); Total Protein 6.3 g/dL (6.6-8.7)
[2020-02-14] MEDS: metoprolol tartrate 50 mg Tablet 25 MG PO (09:28)
[2020-02-14] MEDS: ciprofloxacin 500 mg Tablet PO (09:28)
[2020-02-14] MEDS: zinc gluconate 50 mg Tablet PO (09:28)
[2020-02-14] MEDS: ascorbic acid 500 mg Tablet PO (09:28)
[2020-02-14] MEDS: tamsulosin 0.4 mg Capsule PO (09:28)
[2020-02-14] MEDS: aspirin 81 mg EC Tablet PO (09:28)
[2020-02-14] MEDS: apixaban 5 mg Tablet PO (09:28)
[2020-02-14] MEDS: finasteride 5 mg Tablet PO (09:28)
[2020-02-14] MEDS: cholecalciferol (vitamin D3) 1,000 unit Tablet 1000 UNIT PO (09:28)
[2020-02-14] MEDS: benzonatate 100 mg Capsule PO ×2 (09:28→14:22)
[2020-02-14] MEDS: famotidine 20 mg Tablet PO (09:29)
[2020-02-14] MEDS: predniSONE 20 mg Tablet 40 MG PO (09:29)
[2020-02-14] MEDS: nystatin cream 30 gm 1 APPLIC TOPICAL (09:31)
--- NOTE | 2020-02-14 09:32 | P.CONIM_ITS ---
Providers/Reason for Consult Consulting Physican/Specialty*: Psychiatry ; Stephane Hale MD Reason for Consult*: Assess for imminent risk to self or others Attending Physician: Pancho Yoo MD Primary Care Provider: APARNA Hernandez Psych Consult HPI History of Present Illness Delta Aparicio is a 79 year old male who was encountered by this physician in the intensive care unit on hospital day #9 at the request of treating staff. Details regarding his admission and progress are listed below. Apparently, psychiatry was engaged because of some delirium resulting in agitation that threatened the status of his care while he was in the intensive care unit. The agitation has resolved. He is approaching a state of medical stability that would allow him to be discharged. I have been asked to assess the patient whether he is an imminent risk to himself or others. Admission note:Delta Aparicio is a 79 year old male tested positive on thu for COVID19, has been weak, has had diarrhea. Poor appetite. Diarrhea. Has needed to take nitro pills in the evening for several nights. Laying on L side struggles with breathing a litte, breathes better on R side. Does not normally wear oxygen. Has not needed to sleep in a chair. No edema. If laying on L side that's when he gets chest pain. has not been measuring temperature. He has been overall feeling bad for over a week. His had tested positive for coronavirus as well but has been doing well. says he has had some mild memory issues and this has been worse recently with his viral illness and not eating. has beenhaving to force feed him scrambled eggs this morning. Has chronic urinary bladder problems and gets very irritated with urinary catheter. states he also gets very easily claustrophobic. says that he does not get irritated somewhat easily, and has always been a grumpy old man . Has not taken his medications in the last 2-3 days. Most of the history obtained from ER physician and patient's . He himself when asked why he is here stated because he had let his document coming here. States that he has been feeling unwell for several days, but does not provide more information. says that he did not want to come to the hospital, and finally agreed today after several days of feeling worse. In ER found to have pneumonia on chest x-ray, low-grade temp 99.1. No leukocytosis. Initially hypoxic 89% on room air, with some improvement up to mid 90s on low flow oxygen. Rapid flu is negative. Minimal elevation of troponin. The patient was seen on hospital day #6 by the psychiatry service and recommendations were given to deal with delirium and agitation. Hospital day #7: Care discussed with Dr. Mclean of psychiatry. He states patient is most likely safe to be discharged home. States patient does not have any active suicidal or homicidal ideation. Also states that he is spoken to the and guns have been taken care of at home by the son. He states that patient's mentation is most likely due to given the current conditions from his stay in the viral ICU, delirium due to chronic steroids, delirium due to's sickness from COVID-19. Discharge plan: If patient continues to remain on room air in next 24 to 48 hours will most likely discharge patient home if cleared from psychiatric point of view. On interview today, the patient states that he is ready to be discharged. He feels uncomfortable in the setting and is looking forward to going home and having his truck fixed. 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 He stated accurately his reasons for coming into the hospital though he believed he had been here 2 weeks. He says that his left a few days ago and he is looking forward to getting home and being with her. Meds Current Medications: Current Medications Generic Name Dose Route Start Last Admin Trade Name Radha PRN Reason Stop Dose Admin Albuterol Sulfate 2 puff 02/08/20 00:22 02/13/20 08:52 Ventolin INHALATION 2 puff Q4H.RESPIRATORY P RN Administration SHORTNESS OF OLGA TH Apixaban 5 mg 02/13/20 18:00 02/14/20 09:28 Eliquis PO 5 mg BID MALCOLM Administration Ascorbic Acid 500 mg 02/13/20 12:15 02/14/20 09:28 Vitamin C PO 500 mg DAILY MALCOLM Administration Aspirin 81 mg 02/08/20 09:00 02/14/20 09:28 Aspirin Ec PO 81 mg DAILY MALCOLM Administration Benzonatate 100 mg 02/13/20 15:00 02/14/20 09:28 Tessalon Pearls PO 100 mg TID MALCOLM Administration Cetirizine HCl 10 mg 02/10/20 21:00 02/13/20 21:18 Zyrtec PO 10 mg BEDTIME MALCOLM Administration Ciprofloxacin HCl 500 mg 02/07/20 18:00 02/14/20 09:28 Cipro PO 500 mg BID MALCOLM Administration Protocol Famotidine 20 mg 02/08/20 09:00 02/14/20 09:29 Pepcid Tab PO 20 mg BID MALCOLM Administration Finasteride 5 mg 02/08/20 09:00 02/14/20 09:28 Proscar PO 5 mg DAILY MALCOLM Administration Haloperidol Lactat e 5 mg 02/12/20 02:00 02/13/20 03:12 Haldol Inj IVP 5 mg Q12H PRN Administration AGITATION Dexmedetomidine HC l 400 mcg/ 104 mls @ 0 mls/h r 02/11/20 07:30 02/11/20 12:20 Sodium Chloride IV 0 mcg/kg/hr .Q0M MALCOLM 0 mls/hr Titration Protocol Per Protocol Insulin Aspart 0 unit 02/08/20 18:00 02/14/20 09:29 Novolog SUBCUT 6 unit WM&BEDTIME MALCOLM Administration Protocol Metoprolol Tartrat e 25 mg 02/08/20 09:00 02/14/20 09:28 Lopressor PO 25 mg DAILY MALCOLM Administration Non-Formulary Medi cation 10 mg 02/08/20 09:00 02/14/20 09:30 Melatonin PO Not Given DAILY MALCOLM Nystatin 1 applic 02/07/20 18:00 02/14/20 09:31 Nystatin Cream TOPICAL 1 applic BID MALCOLM Administration Olanzapine 2.5 mg 02/09/20 13:13 02/12/20 17:17 Zyprexa IM 2.5 mg TID PRN Administration SEVERE AGITATION Prednisone 40 mg 02/13/20 12:15 02/14/20 09:29 Prednisone PO 40 mg DAILY MALCOLM Administration Fluticasone/Salmet yg 1 puff 02/13/20 20:00 02/13/20 20:16 Advair Diskus 25 0-50 INHALATION 1 puff BID.RESPIRATORY S CH Administration Tamsulosin HCl 0.4 mg 02/07/20 18:00 02/14/20 09:28 Flomax PO 0.4 mg BID MALCOLM Administration Trazodone HCl 100 mg 02/13/20 20:52 02/13/20 22:25 Desyrel PO 100 mg BEDTIME PRN Administration INSOMNIA Triamcinolone Acet onide 1 applic 02/08/20 09:00 02/13/20 17:10 Triamcinolone 0. 1% Cream TOPICAL 1 applic BID MALCOLM Administration Vitamin D 1,000 unit 02/08/20 09:00 02/14/20 09:28 Vitamin D3 PO 1,000 unit DAILY MALCOLM Administration Zinc Gluconate 50 mg 02/14/20 09:00 02/14/20 09:28 Zinc Gluconate PO 50 mg DAILY MALCOLM Administration PFSH NPU PFSH: Medical History (Updated 02/12/20 @ 12:46 by David Mclean MD) Balanitis BPH NOS w ur obs/LUTS Chronic prostatitis Diabetes Erectile dysfunction GERD (gastroesophageal reflux disease) History of brain tumor Urinary incontinence Surgical History (Updated 02/07/20 @ 17:21 by Fran Pagan MD) H/O brain surgery 2010 meningioma R Hx of heart artery stent Hx of umbilical hernia repair S/P CABG (coronary artery bypass graft) 2011 Family History Father CAD (coronary artery disease) Diabetes Mother CAD (coronary artery disease) Diabetes Social History Smoking and tobacco status: never smoked Alcohol intake: current Alcohol intake frequency: 0-2 Drinks per Day Adopted: No Caregiver/support person: No Lives independently: No Household members: spouse Marital status: Current occupational status: retired History of recent travel: No Current gender identity: Male Mental Status Exam MSE Comments: This is an elderly, white male, in a hospital gown laying in bed in viral isolation. Eye contact is good. He is interpersonally engaged. Speech is of normal rate and rhythm and easily understood.. He is oriented in all spheres. Memory was not fully tested but immediate and short-term memory are intact. Mood described as normal; affect is consistent though constricted in range. Thought process, linear and organized. Thought content: patient denied any suicidal or homicidal ideation; there were no delusions reported . He was no longer demonstrating paranoid or persecutory thinking. no auditory hallucinations reported. Attention and concentration were within normal limits, He is alert and oriented times three. Insight and judgment are adequate for safety. Impulse control is within normal limits Vitals/I&O/Wt Last Vital Signs Temp 98.2 F 02/14/20 04:57 Pulse 101 H 02/14/20 09:27 Resp 10 L 02/14/20 09:27 BP 115/88 02/14/20 09:27 Pulse Ox 89 L 02/14/20 09:27 02/13/20 02/14/20 02/14/20 22:59 06:59 14:59 Intake Total 240 / 680 240 / 240 Output Total 650 / 650 100 / 100 Balance -410 / 30 140 / 140 Weight last 48 hrs Weight 99.337 kg Weight 99.11 kg A&P Additional A&P Information Assessment: Patient's delirium appears to have been resolved coincident with improved medical status. The patient is not an imminent risk to self or others. No diagnosis at this time. Attestations NPU Medical Necessity Statement*: Further medical attention will be assessed by physician of record. 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
[2020-02-14] MEDS: triamcinolone 0.1% cream 15 gm 1 APPLIC TOPICAL (10:00)
[2020-02-14] MEDS: albuterol 8 gm MDI 2 PUFF INHALATION (10:10)
[2020-02-14 11:39] LABS: Glucose Point of Care 235 mg/dL (70-110)
--- NOTE | 2020-02-14 12:57 | PC.RESP ---
Patient refused home O2 eval. Patient stated that he did not need home oxygen at home and that it was ridiculous.
--- NOTE | 2020-02-14 13:25 | PC.SOCIAL ---
IMM Updated Updated pt's on Pg 2 IMM. No questions voiced. Signed, dated, & timed the copy in chart.
--- NOTE | 2020-02-14 13:45 | P.DS_ITS ---
Discharge Providers Date of Admission: 02/07/20 13:28 Date of Discharge: February 14, 2020 Attending Provider at Admission: Fran Pagan Attending Provider at Discharge: Pancho Yoo MD Consults: Psych: Dr. Mclean/Dr. Hale Primary Care Provider: APARNA Hernandez Diagnoses at Discharge Discharge Diagnosis (1) Pneumonia due to COVID-19 virus: Status: Acute (2) Agitation: Status: Acute (3) Suicidal ideation: Status: Acute (4) CAD (coronary artery disease): Status: Acute (5) Chest pain: Status: Acute (6) Transaminitis: Status: Acute (7) Dementia: Status: Acute (8) Delirium: Status: Acute Reason for Visit Reason for Visit: SOB, POSITIVE COVID Hospital Course Discharge Summary: Delta Aparicio is a 79 year old male tested positive on thu for COVID19, has been weak, has had diarrhea. Poor appetite. Diarrhea. Has needed to take nitro pills in the evening for several nights. Laying on L side struggles with breathing a litte, breathes better on R side. Does not normally wear oxygen. Has not needed to sleep in a chair. No edema. If laying on L side that's when he gets chest pain. has not been measuring temperature. He has been overall feeling bad for over a week. His had tested positive for coronavirus as well but has been doing well. says he has had some mild memory issues and this has been worse recently with his viral illness and not eating. has beenhaving to force feed him scrambled eggs this morning. Has chronic urinary bladder problems and gets very irritated with urinary catheter. states he also gets very easily claustrophobic. says that he does not get irritated somewhat easily, and has always been a grumpy old man . Has not taken his medications in the last 2-3 days. Most of the history obtained from ER physician and patient's . He himself when asked why he is here stated because he had let his document coming here. States that he has been feeling unwell for several days, but does not provide more information. says that he did not want to come to the hospital, and finally agreed today after several days of feeling worse. In ER found to have pneumonia on chest x-ray, low-grade temp 99.1. No leukocytosis. Initially hypoxic 89% on room air, with some improvement up to mid 90s on low flow oxygen. Rapid flu is negative. He is admitted to the viral ICU. He had at least moderate COVID-19 pneumonia as per the oxygen requirement. He was started on antiviral treatment with Remdesevir along with Decadron and finished a 5-day course. He responded to the treatment well and was on room air for last 3 days. During hospitalization patient was extremely irritable and wanted to go home regularly. His was also admitted with COVID-19 pneumonia and they were both sharing the same room. His hospital stay was complicated with patient having agitation, belligerent behavior and some suicidal ideation when he stated he has guns at home which he can use. Psychiatry was consulted. 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 His behavior improved quite a bit once the dose of steroid was decreased. And he has been calm without any agitation or repeat suicidal ideation for last 2 to 3 days. As per patient's guns have been removed out of the house by the son. Patient has remained hemodynamically stable, afebrile and on room air for last 2 to 3 days. He is been discharged hemodynamically stable condition after clearance from psychiatry with advice to take anticoagulation with Eliquis for next 2 weeks along with Advair and Spiriva for next 2 weeks. Discharge planning has been discussed in detail with patient's . Home oxygen evaluation was done prior to discharge and patient did not qualify any oxygen as he is saturating around 93% both at rest and on exertion. Physical Exam Narrative: EXAM NARRATIVE: He is awake, alert. Appears calm. Reclined in bed. Const: COMMON NORMALS: no acute distress GENERAL APPEARANCE: cooperative NUTRITIONAL APPEARANCE: overweight OTHER: Does cooperate with exam today. HENMT: COMMON NORMALS: oropharynx normal Neck/C-Spine: COMMON NORMALS: no JVD Resp: COMMON NORMALS: normal respiratory effort and clear to auscultation bilaterally AUSCULTATION: clear to auscultation bilaterally and no wheezes Cardio: COMMON NORMALS: no JVD, regular rhythm, S1 normal heart sound present, S2 normal heart sound present and No murmurs present (Cardio) RHYTHM: regular rhythm HEART SOUNDS: S1 normal heart sound present and S2 normal heart sound present GI: COMMON NORMALS: Normal to inspection, nondistended, normoactive bowel sounds present, Soft to palpation and non-tender PALPATION: Yes Soft to palpation Extremity: COMMON NORMALS: no joint enlargement and no pedal edema Neuro: COMMON NORMALS: moves all extremities Skin: COMMON NORMALS: no rashes or lesions noted GENERAL SKIN EXAM: no rashes or lesions noted Discharge Data Data Completed and Pending: Completed Studies During Hospitalization Category Date Time Status XR chest 1V mauricio ble [id number] Stat Exams 02/07/20 11:23 Completed Pending at discharge Category Date Time Status C Reactive Protei n AM LABS Lab 02/15/20 04:00 Ordered C Reactive Protei n AM LABS Lab 02/16/20 04:00 Ordered Comprehensive Met abolic Panel AM LA BS Lab 02/15/20 04:00 Ordered Comprehensive Met abolic Panel AM LA BS Lab 02/16/20 04:00 Ordered D Dimer AM LABS Lab 02/15/20 04:00 Ordered D Dimer AM LABS Lab 02/16/20 04:00 Ordered Ferritin AM LABS Lab 02/15/20 04:00 Ordered Ferritin AM LABS Lab 02/16/20 04:00 Ordered Lactate Dehydroge nase AM LABS Lab 02/15/20 04:00 Ordered Lactate Dehydroge nase AM LABS Lab 02/16/20 04:00 Ordered Labs from last 24 hours 02/14/20 02/14/20 02/14/20 11:01 08:22 07:58 WBC RBC Hgb Hct MCV MCH MCHC RDW Plt Count MPV Neut % (Auto) Lymph % (Auto) [place] % (Auto) Eos % (Auto) Baso % (Auto) Neut # (Auto) Lymph # (Auto) [place] # (Auto) Eos # (Auto) Baso # (Auto) Nucleated RBC % (a uto) Nucleated RBCs # D-Dimer 0.93 H Sodium Potassium Chloride Carbon Dioxide Anion Gap BUN Creatinine GFR Calculation Glucose POC Glucose 235 209 Calculated Osmolal ity Calcium Ferritin Total Bilirubin AST ALT Alkaline Phosphata se Lactate Dehydrogen ase C-Reactive Protein Total Protein Albumin Globulin 02/14/20 02/14/20 02/14/20 07:58 06:52 05:10 WBC RBC Hgb Hct MCV MCH MCHC RDW Plt Count MPV Neut % (Auto) Lymph % (Auto) [place] % (Auto) Eos % (Auto) Baso % (Auto) Neut # (Auto) Lymph # (Auto) [place] # (Auto) Eos # (Auto) Baso # (Auto) Nucleated RBC % (a uto) Nucleated RBCs # D-Dimer Sodium 140 Potassium 3.8 Chloride 109 H Carbon Dioxide 20 L Anion Gap 14.8 BUN 29 H Creatinine 0.8 GFR Calculation Not Reportable Glucose 192 H POC Glucose 185 Calculated Osmolal ity 301 H Calcium 8.4 L Ferritin 692 H Cancelled Total Bilirubin 0.6 AST 22 ALT 48 H Alkaline Phosphata se 55 Lactate Dehydrogen ase 340 H Cancelled C-Reactive Protein 10.5 H Cancelled Total Protein 6.3 L Albumin 2.7 L Globulin 3.6 02/14/20 02/14/20 02/14/20 05:10 05:10 05:10 WBC 9.3 RBC 4.38 Hgb 12.8 Hct 40.2 L MCV 91.8 MCH 29.2 MCHC 31.8 RDW 14.4 Plt Count 282 MPV 13.4 H Neut % (Auto) 78.4 Lymph % (Auto) 15.0 [place] % (Auto) 5.8 Eos % (Auto) 0.1 Baso % (Auto) 0.1 Neut # (Auto) 7.31 Lymph # (Auto) 1.4 [place] # (Auto) 0.5 Eos # (Auto) 0.0 Baso # (Auto) 0.0 Nucleated RBC % (a uto) 0 Nucleated RBCs # 0.0 D-Dimer Cancelled Sodium Cancelled Potassium Cancelled Chloride Cancelled Carbon Dioxide Cancelled Anion Gap Cancelled BUN Cancelled Creatinine Cancelled GFR Calculation Cancelled Glucose Cancelled POC Glucose Calculated Osmolal ity Cancelled Calcium Cancelled Ferritin Total Bilirubin Cancelled AST Cancelled ALT Cancelled Alkaline Phosphata se Cancelled Lactate Dehydrogen ase C-Reactive Protein Total Protein Cancelled Albumin Cancelled Globulin Cancelled 02/13/20 02/13/20 19:55 16:46 WBC RBC Hgb Hct MCV MCH MCHC RDW Plt Count MPV Neut % (Auto) Lymph % (Auto) [place] % (Auto) Eos % (Auto) Baso % (Auto) Neut # (Auto) Lymph # (Auto) [place] # (Auto) Eos # (Auto) Baso # (Auto) Nucleated RBC % (a uto) Nucleated RBCs # D-Dimer Sodium Potassium Chloride Carbon Dioxide Anion Gap BUN Creatinine GFR Calculation Glucose POC Glucose 315 195 Calculated Osmolal ity Calcium Ferritin Total Bilirubin AST ALT Alkaline Phosphata se Lactate Dehydrogen ase C-Reactive Protein Total Protein Albumin Globulin Vitals: Last Vital Signs Temp 97.6 F 02/14/20 12:00 Pulse 107 H 02/14/20 10:07 Resp 18 02/14/20 10:07 BP 120/88 02/14/20 10:07 Pulse Ox 90 02/14/20 10:07 Discharge Plan Discharge Patient Disposition: Home Condition: Stable Prescriptions: New Advair Diskus 250-50 mcg/dose Blister With Device 1 puff inhalation BID.RESPIRATORY Qty: 30 RF: 0 Vitamin C 500 mg Tablet 500 mg PO DAILY Qty: 30 RF: 0 trazodone 100 mg Tablet 100 mg PO BEDTIME PRN (Reason: Insomnia) Qty: 10 RF: 0 benzonatate 100 mg Capsule 100 mg PO TID PRN (Reason: Cough) Qty: 15 RF: 0 zinc gluconate 50 mg Tablet 50 mg PO DAILY Qty: 30 RF: 0 Spiriva with HandiHaler 18 mcg Capsule, W/Inhalation Device 18 mcg inhalation DAILY.RESPIRATORY Qty: 30 RF: 0 Eliquis 5 mg Tablet 5 mg PO BID 14 Days Qty: 28 RF: 0 Medrol (Stanley) 4 mg tablets,dose pack See Rx Instructions .ROUTE .COMPLEX Qty: 21 RF: 0 Continued famotidine 20 mg tablet 20 mg PO BID RF: 0 tamsulosin 0.4 mg capsule 0.4 mg PO BID RF: 0 metformin 500 mg tablet 500 mg PO BID RF: 0 metoprolol tartrate 50 mg tablet 50 mg PO DAILY RF: 0 finasteride 5 mg tablet 5 mg PO DAILY RF: 0 aspirin [Adult Low Dose Aspirin] 81 mg tablet,delayed release (DR/EC) 81 mg PO DAILY RF: 0 acetaminophen [Tylenol Extra Strength] 500 mg tablet 500 mg PO Q6H PRN (Reason: Pain) RF: 0 ciprofloxacin HCl 500 mg tablet 500 mg PO BID Qty: 60 RF: 1 zinc [id number]-ksz palm-gnsg 15-2-160 mg capsule 1 cap PO DAILY RF: 0 melatonin 10 mg capsule 10 mg PO DAILY RF: 0 triamcinolone acetonide 0.1 % cream 1 applic TOPICAL BID Qty: 30 RF: 1 nystatin 100,000 unit/gram cream 1 applic TOPICAL BID Qty: 30 RF: 1 vitamin A 8,000 unit Capsule 1 unit PO DAILY RF: 0 Cold and Flu Severe [id number] mg Tablet 2 tab PO Q4H PRN (Reason: Cold Symptoms) RF: 0 Vitamin D3 25 mcg (1,000 unit) Tablet 25 mcg PO DAILY RF: 0 elderberry fruit-honey 0.7-3 gram/7.5 mL Liquid 7.5 ml PO DAILY RF: 0 Held Brilinta 90 mg tablet 90 mg PO BID RF: 0 Hold Instructions: Resume on 02/29/20. Discharge Orders: Discharge Order (Routine); Ordered 02/14/20 Ordered By: Pancho oYo Referrals: Delicia Finn MD [Family Provider] - 1-3 days Cherry Abraham FNP [Primary Care Provider] - 4-7 days Discharge Diet: Cardiac Discharge Activity: Resume usual activity Activity Restrictions/Additional Instructions: Please follow-up with a primary care provider within next 1 to 3 days. Please follow-up at behavioral health clinic within next 1 month. You will be on Eliquis which is a blood thinner for next 14 days. Till then Hold off on Brilinta but to continue taking aspirin. You will be on 2 inhalation treatment for next 2 weeks. Those medications are Spiriva and Advair. Please continue to maintain social distancing. Whenever you are in company with anybody else please make sure that you are wearing a mask. Discharge Attestations Time Spent in Discharge Care*: greater than 30 min Specific Discharge Activities: Specific discharge activities: educating patient, educating and/or supporting family/caregiver, discussing with pcp/other providers, discussing with shelter case manager/social workers/dc planners, documenting/other paperwork and evaluating patient/reviewing data Status at Discharge: Cognitive status at discharge: mildly impaired cognition , Behavioral status at discharge: cooperative and can be uncooperative , Func tional status at discharge: uses cane/walker Overall status at discharge: patient is progressing back to baseline Quality Metrics Clinical Quality Measures During this hospital stay, did patient experience: None Coding Level of Care Code Acute Radiophone Operator for [facility] Fwd Diagnoses Pneumonia due to COVID-19 virus U07.1; J12.89 Agitation R45.1 Suicidal ideation R45.851 CAD (coronary artery disease) I25.10 Chest pain R07.9 Transaminitis R74.0 Dementia F03.90 Delirium R41.0
--- NOTE | 2020-02-14 14:56 | PC.NURSE ---
[facility] and requested the medications be delivered to the room.
--- NOTE | 2020-02-14 16:39 | PC.NURSE ---
patient taken to private vehicle via wheelchair. medications were delivered [place] [facility] and patient has meds in hand on discharge
--- NOTE | 2020-02-16 12:21 | PC.SOCIAL ---
This music writer spoke with the patients Simi [phone]. She stated that her was a little better today compared to last night. Last night the patient was refusing to use his inhaler and spit out his medications as he was having trouble taking them. I asked if the patient was set up with his PCP Cherry Abraham, she stated that there was not an appointment set up because her told them he sees a [facility]lita at [facility], Dr. Finn. This is not right, the patient sees Cherry BARUN at [facility] [phone]. I asked the if the patient had been set up at all with Home Health, she stated that he did not but she would not mind if he was to help her out with him taking his meds and such. This music writer informed her that I would call over to his PCP and see if I can update them and possibly get Mrs. Abraham to write an order for HH for nursing at least. The was fine with this action. while on the phone I discussed ways to help prevent the spread of COVID 29. we discussed social distancing especially while out in public, washing hands for 20 seconds or longer with a good lather, wearing a mask either a disposable mask or washable mask, if washable, wash often and allow to air dry before use. We discussed the benefits of sanitizing surfaces, avoiding contact such as hand shaking or touching own face. It was also discussed what signs and symptoms to look for that can be troublesome and could use a call top the PCP or a visit to the ED. these signs were trouble breathing or shortness of breath, fever of 104 or higher, pain or tightness in chest lasting longer than 5 minutes, confusion or trouble waking up, if lips or face turn blue. The stated that he was having a lot of difficulty breathing last night and refused the inhaler but is doing better today. I asked if she was able to check his oxygen level at this time, she stated that she was not but would have her son buy an O2 checkerer hand. This music writer spoke w while about way to help improve his immune system. I asked if he was drinking and eating okay, she stated that he has been eating well, she made him potato soup and he has been eating it well, as for his drinking, she is concerned because he wants to drink beer instead. I asked if she was pushing the fluids on him other than the beer, she stated that she was trying. I asked if it would be possible to see if he would at least drink a glass of water with each beer he takes, she stated that she would try to ask but do not foresee him agreeing o that. These concerns have all been addressed with his PCP office. I spoke with Josefa. I gained permission from the to speak with them. I also faxed over the patients H&P ad DC paperwork so they could be informed about the patients hospital stay. Cherry Abraham does not currently see COVID patients and does not do teleheath at this time but Josefa stated that she will be calling often and following up with the patient and his as well as working on getting HH in the home. She also stated that the patients son is very involved with his care, she will also be touching base with him. At the end of the call with the patients , this music writer discussed the benefits of Plasms donation. She stated that they will have to pass at this time as she knows for a fact her would not be interested in giving plasma.
== END 2020-02-14 16:42 | disposition home or self-care (01) | DRG 177 ==
LOC: ER 11:16 → ICU 18:02
PROVIDERS: Emergency Medicine; Admitting Provider Internal Medicine; Family Provider Internal Medicine; PCP Nurse Practitioner Family; Visit Provider Student in an Organized Health Care Education/Training Program
DX: U07.1 COVID-19 (principal); J12.89 Other viral pneumonia; J96.91 Respiratory failure, unspecified with hypoxia; R45.851 Suicidal ideations; G93.40 Encephalopathy, unspecified; I25.10 Atherosclerotic heart disease of native coronary artery without angina pectoris; F03.90 Unspecified dementia, unspecified severity, without behavioral disturbance, psychotic disturbance, mood disturbance, and anxiety; N41.1 Chronic prostatitis; R19.7 Diarrhea, unspecified; Z79.82 Long term (current) use of aspirin; Z79.84 Long term (current) use of oral hypoglycemic drugs; E11.9 Type 2 diabetes mellitus without complications; K21.9 Gastro-esophageal reflux disease without esophagitis; Z95.1 Presence of aortocoronary bypass graft
CPT/HCPCS: 12345; 36415; 36416; 71045; 80053; 82728; 82962; 83605; 83615; 83880; 84145; 84484; 85025; 85378; 85610; 86140; 87426; 87804; 93005; 94640; 94664; 96372; 96375; 99284; A4570; J1100; J1200; J1630; J1650; J1815; J2060; J3486; J3490; J7030; J7512; Q0163

== ENCOUNTER 2020-07-27 11:58 | Emergency (ER) | payer MEDICARE, SELFPAY ==
[2020-07-27 12:03] VITALS: BP 149/102; PULSE 101; RESP 15; TEMP 36.6; O2SAT 92; BMI 32.3
--- NOTE | 2020-07-27 12:28 | CT_ITS ---
WS: [id number] CT HEAD TECHNIQUE: Noncontrast CT of the head obtained from the skullbase to the vertex. CLINICAL INFORMATION: AMS/hx brain CA COMPARISON: MRI May 17, 2015 DLP: 949.[address] scans at [facility] use at least one of these dose optimization techniques: automat ed exposure control; mA and/or kV adjustment per patient size (includes targeted exams where dose is matched to clinical indication); or iterative reconstruction. FINDINGS: Prior postoperative changes right frontotemporal craniotomy. Postoperative changes resection cavity i n right frontal lobe. Encephalomalacia in the right frontal lobe with ex vacuo dilatation right front al horn. Dural calcification overlying the right frontal lobe due to treatment-related changes. Chronic lacunar infarcts left cerebellum. Encephalomalacia left cerebellum likely due to prior infarc t. Cavernous carotid calcification. Paranasal sinuses and mastoid air cells are well aerated. .Normal visualized soft tissues. CT/CT head wo con* [id number] IMPRESSION: 1. Postoperative changes right frontal craniotomy with resection cavity in the right frontal lobe. Encephalomalacia right frontal lobe. This is similar in ap pearance to 2015. 2. No evidence of increasing edema or mass effect. 3. Chronic infarct with encephalomalacia left cerebellum. 4. Moderate small vessel changes with moderate parenchymal volume loss. 5. Chronic lacunar infarcts left cerebellum. 6. No acute intracranial findings.
--- NOTE | 2020-07-27 12:28 | ECG_ITS ---
[facility] Test Date: 2020-07-27 Pat Name: Delta Aparicio Department: Room: Gender: Male School Secretary: : 1940 Requested By: Duc Hines Order Number: [id number] Reading MD: CAITLYN CASIANO Measurements Intervals Hope Rate: 96 P: 46 WI: 211 QRS: -75 QRSD: 157 T: 43 QT: 383 QTc: 485 Interpretive Statements SINUS RHYTHM WITH FIRST DEGREE AV BLOCK WITH OCCASIONAL VENTRICULAR PREMATURE COMPLEXES LEFT AXIS DEVIATION [QRS AXIS < -30] RIGHT BUNDLE BRANCH BLOCK [120+ ms QRS DURATION, UPRIGHT V1, 40+ ms S IN I/aVL/V4/V5/V6] Compared to ECG 02/07/2020 15:49:54 Ventricular premature complex(es) now present First degree AV block now present Left-axis deviation now present Left anterior fascicular block no longer present Electronically Signed On 07-27-2020 19:23:53 CHIEF NURSE ANESTHETIST by CAITLYN CASIANO [id number]
--- NOTE | 2020-07-27 12:29 | XR_ITS ---
WS: [id number] Portable AP upright chest, 07/27/2020 Clinical Data: dyspnea/cough Comparison: Portable chest, 02/07/2020. Findings: No nodules, masses or effusions are seen. The heart is enlarged. The pulmonary vascularity is not increased. No pneumonia or pneumothorax is seen. There is minimal opacity in both costophrenic angles which is probably chronic change. The aortic arch and descending aorta are tortuous. Midline sternotomy sutures are present. Monitor leads are on the chest wall. 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 XR/XR chest 1V portable [id number] Impression: Cardiomegaly and atherosclerosis.
--- NOTE | 2020-07-27 12:30 | ED_ITS ---
HPI - Seizure General: Chief Complaint: Seizure Stated Complaint: SEIZURE Time Seen by Provider: 07/27/20 12:06 History of Present Illness: HPI Narrative: 79-year-old male presents emergency room after reported seizure at home. He was sitting on his in a chair aches tended his neck and back and had shaking of his head arms and legs for approximately a minute. He also supposedly bit his tongue. He is confused and disoriented does not remember any of these episodes today. He has a history of an unknown type of brain cancer per the he also has a history of heart disease. He denies any difficulty breathing denies any shortness of breath or abdominal pain. No history of previous seizures no history of headaches or recent neurologic deficits MD complaint: possible seizure Onset (ago): minute(s) Description of Episode: loss of consciousness and tonic-clonic movement Duration of episode: 1 -: minutes(s) Witnessed: Yes - by Bystander Trauma: No Seizure History: No Place: Home Possible Precipitating Event: none Associated symptoms: Deny chest pain, chills, confusion, cough, diaphoresis, fever(s), anorexia, malaise, rash, short of breath, syncope or weakness Treatments prior to arrival: none Review of Systems Const: Denies: fever(s), chills, malaise or diaphoresis ENMT: Denies: throat pain, ear or mastoid pain, nasal discharge or nasal congestion Card: Denies: chest pain or syncope Resp: Denies: dyspnea, productive cough or non-productive cough GI: Denies: abdominal pain, nausea, vomiting, hematemesis, coffee ground emesis, diarrhea, constipation, bloating, hematochezia or melena : Denies: flank pain, dysuria, urinary frequency or urinary urgency Skin/Breast: Denies: rash or pruritus Neuro: Denies: confusion PFSH ED PFSH: Medical History Balanitis BPH NOS w ur obs/LUTS Chronic prostatitis Diabetes Erectile dysfunction GERD (gastroesophageal reflux disease) History of brain tumor Urinary incontinence Surgical History H/O brain surgery 2010 meningioma R Hx of heart artery stent Hx of umbilical hernia repair S/P CABG (coronary artery bypass graft) 2011 Family History Father CAD (coronary artery disease) Diabetes Mother CAD (coronary artery disease) Diabetes Social History Smoking and tobacco status: never smoked Alcohol intake: current Alcohol intake frequency: 0-2 Drinks per Day Adopted: No Caregiver/support person: No Lives independently: No Household members: spouse Marital status: Current occupational status: retired History of recent travel: No Current gender identity: Male Physical Exam Const: COMMON NORMALS: no acute distress GENERAL APPEARANCE: cooperative and comfortable ORIENTATION/CONSCIOUSNESS: Yes awake, Yes oriented to person, Yes oriented to place and Yes oriented to time HENMT: COMMON NORMALS: normocephalic, atraumatic and hearing grossly normal bilaterally HEAD & SCALP: normocephalic and atraumatic Neck/C-Spine: COMMON NORMALS: no JVD Resp: COMMON NORMALS: normal respiratory effort, No retractions, No use of accessory muscles and clear to auscultation bilaterally AUSCULTATION: clear to auscultation bilaterally Cardio: COMMON NORMALS: no JVD, regular rate, regular rhythm and No murmurs present (Cardio) RATE: regular rate RHYTHM: regular rhythm GI: COMMON NORMALS: Soft to palpation and No hepatosplenomegaly present AUSCULTATION: Yes normoactive bowel sounds PALPATION: Yes Soft to palpation, No Tenderness to palpation present (GI), No Guarding due to palpation present (GI) and Yes No hepatosplenomegaly present Extremity: COMMON NORMALS: normal to inspection, capillary refill normal, no clubbing, cyanosis or edema, no calf tenderness and no pedal edema Neuro: SENSORIUM/ORIENTATION: Yes oriented to person, Yes oriented to place and Yes oriented to time Skin: COMMON NORMALS: no rashes or lesions noted GENERAL SKIN EXAM: no rashes or lesions noted Course Vital Signs: Vital signs: Vital Signs Temperature 98 F 07/27/20 12:03 Pulse Rate 103 H 07/27/20 14:00 Respiratory Rate 15 07/27/20 14:00 Blood Pressure 173/93 07/27/20 14:00 Pulse Oximetry 96 07/27/20 14:00 MDM - Seizure MDM Narrative: Medical decision making narrative: I recommended the patient be admitted with new onset seizures with loaded him with Keppra and made arrangements for admission orders are written. He had agreed to stay and then after this he changed his mind and wished to leave. Extensive discussion with him and his his was encouraging him to stay as well he continues to refuse and insists upon leaving he expressed understanding that he may get worse may have a recurrent seizure. He is aware of the risks and wishes to go anyway. He is alert oriented he can answer questions regarding his history recalls all the details his previous hospitalization in January of last year and does not want to be hospitalized again. mentions he is having trouble with his urine and we were attempting to collect a urine sample but he left without leaving a sample Lab Data: Labs: Lab Results 07/27/20 07/27/20 Range/Units 11:40 11:40 WBC 10.3 H (4.0-10.0) 10^3/ uL RBC 5.12 (4.1-5.3) 10^6/u L Hgb 15.2 (11.7-16.6) g/dL Hct 46.4 (42.0-52.0) % MCV 90.6 (80-94) fL MCH 29.7 (28.0-34.0) pg MCHC 32.8 (30.0-36.0) g/dL RDW 13.4 (12.1-15.1) % Plt Count 271 (130-400) 10^3/c mm MPV 12.1 H (7.4-10.4) fL Neut % (Auto) 67.0 % Lymph % (Auto) 20.4 % [place] % (Auto) 8.1 % Eos % (Auto) 3.2 % Baso % (Auto) 0.6 % Neut # (Auto) 6.91 (1.8-7.7) 10^3/u L Lymph # (Auto) 2.1 (0.8-4.8) 10^3/u L [place] # (Auto) 0.8 (0.2-0.9) 10^3/u L Eos # (Auto) 0.3 (0.0-0.8) 10^3/u L Baso # (Auto) 0.1 (0.0-0.1) 10^3/u L Nucleated RBC % (a uto) 0 % Nucleated RBCs # 0.0 /100WBC Sodium 134 L (136-145) mmol/L Potassium 4.4 (3.5-5.1) mmol/L Chloride 100 (98-107) mmol/L Carbon Dioxide 13 L (22-29) mmol/L Anion Gap 25.4 H (5-19) BUN 22 (8-23) mg/dL Creatinine 1.1 (0.7-1.2) mg/dL GFR Calculation Not Reportable Glucose 169 H (65-115) mg/dL Calculated Osmolal ity 285 (285-295) mOsm/k g Calcium 8.9 (8.5-10.5) mg/dL Total Bilirubin 0.3 (0.15-1.2) mg/dL AST 13 (0-40) U/L ALT 13 (0-41) U/L Alkaline Phosphata se 92 (40-130) IU/L Creatine Kinase 71 (39-308) U/L Total Protein 7.5 (6.6-8.7) g/dL Albumin 3.8 (3.5-5.2) g/dL Globulin 3.7 (1.3-4.6) g/dL Discharge Plan Discharge Patient Disposition: Left Against Medical Advice Clinical Impression: New onset seizure Condition: Stable Coding Level of Care Code ED Shot[employer] 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
[2020-07-27 12:50] LABS: Basophils # 0.1 10^3/uL (0.0-0.1); Basophils % 0.6 %; Eosinophils # 0.3 10^3/uL (0.0-0.8); Eosinophils % 3.2 %; Hematocrit 46.4 % (42.0-52.0); Hemoglobin 15.2 g/dL (11.7-16.6); Lymphocytes # 2.1 10^3/uL (0.8-4.8); Lymphocytes % 20.4 %; Mean Corpuscular HGB Conc 32.8 g/dL (30.0-36.0); Mean Corpuscular Hemoglobin 29.7 pg (28.0-34.0); Mean Corpuscular Volume 90.6 fL (80-94); Mean Platelet Volume 12.1 fL (7.4-10.4); Monocytes # 0.8 10^3/uL (0.2-0.9); Monocytes % 8.1 %; Neutrophils # 6.91 10^3/uL (1.8-7.7); Nucleated Red Blood Cells % 0 %; Platelet Count 271 10^3/cmm (130-400); Red Blood Count 5.12 10^6/uL (4.1-5.3); Red Cell Distribution Width 13.4 % (12.1-15.1); White Blood Count 10.3 10^3/uL (4.0-10.0)
[2020-07-27 13:01] LABS: Alanine Aminotransferase 13 U/L (0-41); Albumin Level 3.8 g/dL (3.5-5.2); Alkaline Phosphatase 92 IU/L (40-130); Anion Gap 25.4 (5-19); Aspartate Amino Transferase 13 U/L (0-40); Blood Urea Nitrogen 22 mg/dL (8-23); Calcium 8.9 mg/dL (8.5-10.5); Carbon Dioxide 13 mmol/L (22-29); Chloride 100 mmol/L (98-107); Creatine Phosphokinase 71 U/L (39-308); Globulin 3.7 g/dL (1.3-4.6); Glucose 169 mg/dL (65-115); Osmolality Calculated 285 mOsm/kg (285-295); Potassium 4.4 mmol/L (3.5-5.1); Sodium 134 mmol/L (136-145); Total Bilirubin 0.3 mg/dL (0.15-1.2); Total Protein 7.5 g/dL (6.6-8.7)
[2020-07-27 13:13] VITALS: BP 123/80; PULSE 90; RESP 16; O2SAT 92
[2020-07-27] MEDS: sodium chloride 0.9% 500 ML IV (13:46)
[2020-07-27 14:00] VITALS: BP 173/93; PULSE 103; RESP 15; O2SAT 96
[2020-07-27 15:00] VITALS: BP 139/69; PULSE 103; RESP 15; O2SAT 99
[2020-07-27 15:42] VITALS: BP 160/90; PULSE 95; RESP 18; O2SAT 96
[2020-07-27 15:44] VITALS: BP 160/90; PULSE 95; RESP 18; O2SAT 96
[2020-07-27 15:57] LABS: Lactic Sepsis W/Reflex 2.4 mmol/L (0.5-2.2)
[2020-07-27 16:18] LABS: Procalcitonin 0.07 ng/mL (0-0.5)
[2020-07-27 17:16] LABS: Reflex Lactate Order REFLEX LACTIC ORDERD
== END 2020-07-27 15:44 | disposition left against medical advice (07) ==
LOC: ER 14:42 → ICU 15:21
PROVIDERS: Emergency Provider Family Medicine; PCP Family Medicine
DX: G40.89 Other seizures (principal); Z53.21 Procedure and treatment not carried out due to patient leaving prior to being seen by health care provider; E11.9 Type 2 diabetes mellitus without complications
CPT/HCPCS: 36415; 70450; 71045; 80053; 82550; 83605; 84145; 85025; 87040; 93005; 96361; 96374; 99284; J1953; J7040

== ENCOUNTER → 2020-09-13 11:34 | Outpatient (BNVA) | payer MEDICARE, SELFPAY | PROVIDERS: PCP Family Medicine; Visit Provider Urology | DX: N41.1 Chronic prostatitis (principal); R33.9 Retention of urine, unspecified; N40.1 Benign prostatic hyperplasia with lower urinary tract symptoms; N48.1 Balanitis | CPT/HCPCS: 81003; 87086 ==

== ENCOUNTER → 2020-09-26 08:23 | Outpatient (BNVA) | payer MEDICARE, SELFPAY | PROVIDERS: PCP Family Medicine; Visit Provider Urology | DX: N41.1 Chronic prostatitis (principal); R33.9 Retention of urine, unspecified; N40.1 Benign prostatic hyperplasia with lower urinary tract symptoms | CPT/HCPCS: 81003; 87086 ==

== ENCOUNTER → 2020-10-10 16:58 | Outpatient (BNVA) | payer MEDICARE, SELFPAY | PROVIDERS: PCP Family Medicine; Visit Provider Urology | DX: R33.9 Retention of urine, unspecified (principal) | CPT/HCPCS: 81003; 87086 ==

== ENCOUNTER 2020-10-31 14:39 | Outpatient (CLI) | payer MEDICARE, SELFPAY ==
--- NOTE | 2020-10-31 14:00 | XR_ITS ---
WS: [id number] Exam: XR KUB [id number] Date/Time of Exam: 10/31/2020 2:00 PM Reason For Exam: R33.9 - Retention of urine, unspecified No bowel obstruction or free air. Visualized organ margins are intact. Tiny calcifications superimpos e both renal silhouettes and may represent renal calculi. Nonspecific pelvic calcifications. Advanced degenerative changes and dextroscoliosis of lumbar spine. XR/XR KUB [id number] IMPRESSION: 1. No acute finding. 2. Small calcification superimpose both kidneys and may represent renal calculi .
== END 2020-10-31 14:40 | disposition home or self-care (01) ==
LOC: RAD 14:48
PROVIDERS: PCP Family Medicine; Visit Provider Urology
DX: R33.9 Retention of urine, unspecified (principal); N20.0 Calculus of kidney
CPT/HCPCS: 74018; 81003

== ENCOUNTER → 2020-11-21 14:17 | Outpatient (BNVA) | payer MEDICARE, SELFPAY | PROVIDERS: PCP Family Medicine; Visit Provider Urology | DX: R31.0 Gross hematuria (principal); N30.20 Other chronic cystitis without hematuria; R33.9 Retention of urine, unspecified; N40.1 Benign prostatic hyperplasia with lower urinary tract symptoms; R82.81 Pyuria | CPT/HCPCS: 81003 ==

== ENCOUNTER → 2020-12-21 16:08 | Outpatient (BNVA) | payer MEDICARE, SELFPAY | PROVIDERS: PCP Family Medicine; Visit Provider Urology | DX: R33.9 Retention of urine, unspecified (principal) | CPT/HCPCS: 81003 ==

== ENCOUNTER → 2021-08-20 10:51 | Outpatient (BNVA) | payer MEDICARE, SELFPAY | PROVIDERS: PCP Family Medicine; Visit Provider Urology | DX: R33.9 Retention of urine, unspecified (principal); N41.1 Chronic prostatitis; N40.1 Benign prostatic hyperplasia with lower urinary tract symptoms; B37.49 Other urogenital candidiasis | CPT/HCPCS: 81003; 87077; 87086; 87184 ==

== ENCOUNTER → 2021-09-27 09:53 | Outpatient (BNVA) | payer MEDICARE, SELFPAY | PROVIDERS: PCP Family Medicine; Visit Provider Urology | DX: N40.1 Benign prostatic hyperplasia with lower urinary tract symptoms (principal); N30.20 Other chronic cystitis without hematuria; B37.49 Other urogenital candidiasis; R33.9 Retention of urine, unspecified; F03.90 Unspecified dementia, unspecified severity, without behavioral disturbance, psychotic disturbance, mood disturbance, and anxiety; Z78.9 Other specified health status | CPT/HCPCS: 81003; 87077; 87086; 87186; 99213 ==

== ENCOUNTER → 2022-04-24 15:28 | Outpatient (BNVA) | payer MEDICARE, SELFPAY | PROVIDERS: PCP Family Medicine; Visit Provider Family Medicine | DX: J02.9 Acute pharyngitis, unspecified (principal); U07.1 COVID-19 | CPT/HCPCS: 87400; 87426; 87880 ==

== ENCOUNTER 2022-08-16 19:55 | Observation (INO) | payer MEDICARE, SELFPAY ==
[2022-08-16 20:14] VITALS: BP 166/95; PULSE 126; RESP 18; TEMP 36.6; O2SAT 94; BMI 35.9
--- NOTE | 2022-08-16 20:20 | ED_ITS ---
HPI - Male Genitourinary General: Chief complaint: Urogenital-Male Stated complaint: can not urinate Time Seen by Provider: 08/16/22 20:20 History of Present Illness: Mr. Aparicio is an 82-year-old gentleman with history of chronic cystitis with self cath at home presenting department due to inability to urinate. He reports increased penile pain and suprapubic pain started yesterday. That was last time that he was able to urinate. He reports being able to pass a catheter however still not had any urine output. Intensity symptoms is moderate. Course has worsened. No other specific changes in health, exacerbating, or alleviating factors identified. Onset (ago): day(s) Duration: progressively worsening Location: penis Radiation: abdomen Severity: moderate Quality: aching, burning and sharp Relieving factors: none Exacerbating factors: none Associated symptoms: Reports urinary retention Review of Systems General: Reports: 10 or more systems reviewed and unremarkable except in HPI and below PFSH ED PFSH: Medical History Balanitis BPH NOS w ur obs/LUTS Chronic cystitis Chronic prostatitis Diabetes Erectile dysfunction GERD (gastroesophageal reflux disease) History of brain tumor Incomplete bladder emptying Pyuria Urinary incontinence Urinary retention Surgical History H/O brain surgery 2010 meningioma R Hx of heart artery stent Hx of umbilical hernia repair S/P CABG (coronary artery bypass graft) 2011 Family History Father CAD (coronary artery disease) Diabetes Cancer unknown Mother CAD (coronary artery disease) Diabetes Other Dementia Denies family history of Clotting disorder Hyperlipidemia Psychiatric illness Chronic kidney disease (CKD) Anesthesia complication Bleeding disorder Lung disease Hypertension Stroke Social History Smoking and tobacco status: never smoked Alcohol intake: current Alcohol intake frequency: 0-2 Drinks per Day Adopted: No Caregiver/support person: No Lives independently: No Household members: spouse Marital status: Current occupational status: retired Current gender identity: Male Physical Exam Const: COMMON NORMALS: alert GENERAL APPEARANCE: cooperative and well developed HENMT: COMMON NORMALS: normocephalic and atraumatic HEAD & SCALP: normocephalic and atraumatic Eye: COMMON NORMALS: conjunctivae normal CONJUNCTIVA: Yes conjunctivae normal SCLERA: sclerae normal Neck/C-Spine: COMMON NORMALS: supple GENERAL: Yes trachea midline Resp: COMMON NORMALS: clear to auscultation bilaterally EFFORT & INSPECTION: Yes able to speak in complete sentences AUSCULTATION: clear to auscultation bilaterally Cardio: COMMON NORMALS: regular rhythm RATE: tachycardic RHYTHM: regular rhythm GI: COMMON NORMALS: Soft to palpation PALPATION: Yes Soft to palpation, Yes Tenderness to palpation present (GI) (Suprapubic), No Guarding due to palpation present (GI) and No Rigid due to palpation : OTHER: Mild balanoposthitis Extremity: GENERAL: Yes normal exam except as noted and No edema Neuro: COMMON NORMALS: moves all extremities SENSORIUM/ORIENTATION: Yes alert and No Orientation impaired Psych: COMMON NORMALS: mental status grossly normal and Normal thought process present THOUGHT PROCESS: Normal thought process present Course Vital Signs: Vital signs: Vital Signs Temperature 98.7 F 08/18/22 08:00 Pulse Rate 109 H 08/18/22 14:25 Respiratory Rate 24 H 08/18/22 14:25 Blood Pressure 130/83 08/18/22 14:25 Pulse Oximetry 93 08/17/22 20:00 Oxygen Delivery Me thod Room Air 08/17/22 20:00 Oxygen Flow Rate 2 08/17/22 00:20 [facility] - Male Medical Decision Making 82-year-old gentleman with complex history presenting to the emergency depart ment for inability to urinate/not producing urine in the context of intermittent self cath. Exam as above with tachycardia and generalized illness. Labs notable for leukocytosis, normal hemoglobin and platelet count. Metabolic panel with hyponatremia, anion gap elevation with decreased bicarb, elevated creatinine and blood glucose. Initial lactic acid is elevated with improvement on repeat. Ketones are negative and ABG pH is normal. Urinalysis is concerning for urinary tract infection. Chest x-ray with left basilar pneumonia and right basilar pneumonia which is new. No pneumothorax. Patient treated during ED course with IV fluids, broad-spectrum antibiotics, antifungal, analgesia. Most likely etiology of patient's symptoms is multifactorial including uncontrolled hyperglycemia in the context of elevated creatinine, UTI, pneumonia with sepsis. The results of ED evaluation were discussed with the patient including plan for admission due to requirement for level of care not available if discharged to prevent significant worsening/deterioration. Patient agreeable with plan. Discussed with hospitalist service who was agreeable to admit patient. Medical Records I reviewed the patient's medical records. Lab Data I reviewed the patient's lab results. 08/17/22 06:35 08/18/22 10:40 Radiology Impressions Chest X-Ray 08/16/22 21:17 IMPRESSION: Stable mild left basilar pneumonia with interval appearance of mild right basilar pneumonia. Renal Ultrasound 08/16/22 22:42 IMPRESSION: 1. 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 2. Richardson balloon catheter in the urinary bladder. 3. Simple bilateral renal cysts. 4. No medical renal disease or hydronephrosis. Laboratory Results WBC 11.2 10^3/uL (4.0-10.0) H 08/16/22 20:55 RBC 5.14 10^6/uL (4.1-5.3) 08/16/22 20:55 Hgb 15.3 g/dL (11.7-16.6) 08/16/22 20:55 Hct 47.7 % (42.0-52.0) 08/16/22 20:55 MCV 92.8 fl (80-94) 08/16/22 20:55 MCH 29.8 pg (28.0-34.0) 08/16/22 20:55 MCHC 32.1 g/dL (30.0-36.0) 08/16/22 20:55 RDW 13.1 % (12.1-15.1) 08/16/22 20:55 Plt Count 213 10^3/cmm (130-400) 08/16/22 20:55 MPV 12.5 fL (7.4-10.4) H 08/16/22 20:55 Neut % (Auto) 84.0 % 08/16/22 20:55 Lymph % (Auto) 9.1 % 08/16/22 20:55 [place] % (Auto) 6.0 % 08/16/22 20:55 Eos % (Auto) 0.2 % 08/16/22 20:55 Baso % (Auto) 0.3 % 08/16/22 20:55 Neut # (Auto) 9.37 10^3/uL (1.8-7.7) H 08/16/22 20:55 Lymph # (Auto) 1.0 10^3/uL (0.8-4.8) 08/16/22 20:55 [place] # (Auto) 0.7 10^3/uL (0.2-0.9) 08/16/22 20:55 Eos # (Auto) 0.0 10^3/uL (0.0-0.8) 08/16/22 20:55 Baso # (Auto) 0.0 10^3/uL (0.0-0.1) 08/16/22 20:55 Nucleated RBC % (auto) 0 % 08/16/22 20:55 Nucleated RBCs # 0.0 /100WBC 08/16/22 20:55 Specimen Type Arterial 08/16/22 21:45 Sample Site Radial, right 08/16/22 21:45 ABG pH 7.36 (7.35-7.45) 08/16/22 21:45 ABG pCO2 35.3 mmHg (35-45) 08/16/22 21:45 ABG pO2 89.4 mmHg (80.0-100.0) 08/16/22 21:45 ABG HCO3 19.9 mmol/L (22-26) L 08/16/22 21:45 ABG Base Excess -4.8 mmol/L (-2.0-2.0) L 08/16/22 21:45 Rao Test Pos 08/16/22 21:45 Hematocrit 46.2 % (42-52) 08/16/22 21:45 O2 Delivery Device Nc 08/16/22 21:45 O2 Liters/Min 2.0 % 08/16/22 21:45 [employer]orer [employer] ID Kae 08/16/22 21:45 Sodium 128 mmol/L (136-145) L 08/16/22 20:55 Potassium 4.1 mmol/L (3.5-5.1) 08/16/22 20:55 Chloride 94 mmol/L (98-107) L 08/16/22 20:55 Carbon Dioxide 16 mmol/L (22-29) L 08/16/22 20:55 Anion Gap 22.1 (5-19) H 08/16/22 20:55 BUN 18 mg/dL (8-23) 08/16/22 20:55 Creatinine 1.3 mg/dL (0.7-1.2) H 08/16/22 20:55 GFR Calculation Not Reportable 08/16/22 20:55 Glucose 630 mg/dL (65-115) H* 08/16/22 20:55 Calculated Osmolality 297 mOsm/kg (285-295) H 08/16/22 20:55 Lactic Acid 3.4 mmol/L (0.5-2.2) H 08/16/22 20:55 Calcium 8.9 mg/dL (8.5-10.5) 08/16/22 20:55 Total Bilirubin 0.5 mg/dL (0.15-1.2) 08/16/22 20:55 AST 11 U/L (0-40) 08/16/22 20:55 ALT 8 U/L (0-41) 08/16/22 20:55 Alkaline Phosphatase 136 U/L (40-130) H 08/16/22 20:55 Total Protein 7.4 g/dL (6.6-8.7) 08/16/22 20:55 Albumin 3.3 g/dL (3.5-5.2) L 08/16/22 20:55 Globulin 4.1 g/dL (1.3-4.6) 08/16/22 20:55 Lipase 14 U/L (13-60) 08/16/22 20:55 Urine Color Colorless (Yellow) 08/16/22 20:55 Urine Appearance Cloudy (CLEAR) A 08/16/22 20:55 Urine pH 5 (5-7) 08/16/22 20:55 Ur Specific [place] 1.015 (1.005-1.030) 08/16/22 20:55 Urine Protein Trace (Negative) 08/16/22 20:55 Urine Glucose (UA) 4+ (Normal) H 08/16/22 20:55 Urine Ketones 1+ (Negative) H 08/16/22 20:55 Urine Blood 2+ (Negative) H 08/16/22 20:55 Urine Nitrate Positive (Negative) H 08/16/22 20:55 Urine Bilirubin Neg (Negative) 08/16/22 20: Urine Urobilinogen Norm mg/dL (Negative) 08/16/22 20:55 Ur Leukocyte Esterase 2+ (Negative) H 08/16/22 20:55 Urine RBC 5-10 /hpf (0-2) H 08/16/22 20:55 Urine WBC >100 /hpf (0-5) H 08/16/22 20:55 Ur Squamous Epith Cells 0-4 /hpf (0-5) H 08/16/22 20:55 Amorphous Sediment Not Reportable 08/16/22 20:55 Urine Bacteria 3+ /hpf (NONE) H 08/16/22 20:55 Urine Yeast 4+ /hpf H 08/16/22 20:55 Serum Ketones Negative (Negative) 08/16/22 20:55 Critical Care Time Critical Care Time: Critical Care Time: Yes Total Critical Care Time: 35 Attestation: Due to a high probability of clinically significant, possibly life threatening deterioration, the patient required my highest level of attention and preparedness to intervene emergently and I personally spent this critical care time directly and personally managing the patient. This critical care time included obtaining a history; examining the patient; pulse oximetry; ordering and review of laboratory and imaging studies; arranging urgent treatment with development of a management plan; evaluation of patient's response to treatment; frequent reassessment; and, discussions with other providers as applicable. It was exclusive of separately billable procedures. Primary system involved is infectious disease Discharge Plan Discharge Patient Disposition: Admitted As Inpatient Admit Provider: Kaela Pham Clinical Impression: Pneumonia, Urinary tract infection, Sepsis, Hyperglycemia due to type 2 diabetes mellitus, Acidosis, lactic, Candidal balanoposthitis Condition: Fair Discharge Diet: Usual diet Discharge Activity: Resume usual activity Coding Level of Care Code ED Manager Systems for Starr Cobb
[2022-08-16] MEDS: sodium chloride 0.9% 500 ML IV (20:58)
[2022-08-16 21:05] VITALS: RESP 19
[2022-08-16] MEDS: morphine 4 mg/mL SDV 1 mL IVP (21:05)
[2022-08-16 21:06] LABS: Basophils % 0.3 %; Eosinophils % 0.2 %; Hematocrit 47.7 % (42.0-52.0); Hemoglobin 15.3 g/dL (11.7-16.6); Lymphocytes % 9.1 %; Mean Corpuscular HGB Conc 32.1 g/dL (30.0-36.0); Mean Corpuscular Hemoglobin 29.8 pg (28.0-34.0); Mean Corpuscular Volume 92.8 fl (80-94); Mean Platelet Volume 12.5 fL (7.4-10.4); Monocytes # 0.7 10^3/uL (0.2-0.9); Neutrophils # 9.37 10^3/uL (1.8-7.7); Nucleated Red Blood Cells % 0 %; Platelet Count 213 10^3/cmm (130-400); Red Blood Count 5.14 10^6/uL (4.1-5.3); Red Cell Distribution Width 13.1 % (12.1-15.1); White Blood Count 11.2 10^3/uL (4.0-10.0)
--- NOTE | 2022-08-16 21:17 | XRR_ITS ---
PROCEDURE INFORMATION: Exam: XR Chest Exam date and time: 08/16/2022 9:23 PM Age: 82 years old Clinical indication: Other: Tachycardia TECHNIQUE: Imaging protocol: Radiologic exam of the chest. Views: 1 view. COMPARISON: CR XR chest 1V portable [id number] 07/27/2020 1:51 PM FINDINGS: Lungs: Stable mild left basilar pneumonia with interval appearance of mild right basilar pneumonia. Pleural spaces: Unremarkable. No pleural effusion. No pneumothorax. Heart/Mediastinum: Unremarkable. No cardiomegaly. Bones/joints: Stable sternotomy. Moderate left primary glenohumeral osteoarthritis. XR/XR chest 1V portable [id number] IMPRESSION: Stable mild left basilar pneumonia with interval appearance of mild right basilar pneumonia.
[2022-08-16 21:18] LABS: Add Urine Microscopic? YES; Bilirubin Urine Neg (Negative); Blood Urine 2+ (Negative); Glucose Urine UA 4+ (Normal); Ketones Urine 1+ (Negative); Leukocyte Esterase Urine 2+ (Negative); Nitrate Urine Positive (Negative); Protein Urine Trace (Negative); Specific Gravity, Urine 1.015 (1.005-1.030); Urine Appearance Cloudy (CLEAR); Urine Color Colorless (Yellow); Urobilinogen Urine Norm (Negative); pH Urine 5 (5-7)
[2022-08-16 21:21] VITALS: BP 157/97; PULSE 115; RESP 20; O2SAT 94
[2022-08-16 21:24] LABS: Alanine Aminotransferase 8 U/L (0-41); Albumin Level 3.3 g/dL (3.5-5.2); Alkaline Phosphatase 136 U/L (40-130); Anion Gap 22.1 (5-19); Aspartate Amino Transferase 11 U/L (0-40); Blood Urea Nitrogen 18 mg/dL (8-23); Calcium 8.9 mg/dL (8.5-10.5); Carbon Dioxide 16 mmol/L (22-29); Chloride 94 mmol/L (98-107); Globulin 4.1 g/dL (1.3-4.6); Lactic Sepsis W/Reflex 3.4 mmol/L (0.5-2.2); Lipase 14 U/L (13-60); Osmolality Calculated 297 mOsm/kg (285-295); Potassium 4.1 mmol/L (3.5-5.1); Sodium 128 mmol/L (136-145); Total Bilirubin 0.5 mg/dL (0.15-1.2); Total Protein 7.4 g/dL (6.6-8.7); WBC Urine >100 /hpf (0-5)
[2022-08-16 21:26] LABS: Bacteria Urine 3+ /hpf; Squamous Epithelial Cell Urine 0-4 /hpf (0-5)
[2022-08-16 21:29] LABS: Add Urine Culture? Yes
[2022-08-16 21:39] LABS: Glucose 630 mg/dL (65-115)
[2022-08-16] MEDS: piperacillin-tazobactam 4.5 GM in sodium chloride 0.9% (plus) 50 ML IV (21:49)
[2022-08-16 21:56] LABS: ABG PCO2 35.3 mmHg (35-45); ABG PH Result 7.36 (7.35-7.45); Arterial Blood Gas Hematocrit 46.2 % (42-52); Base Excess ABG -4.8 mmol/L (-2.0-2.0); Blood Gas Allen Test Pos; Blood Gas Sample Site Radial, right; Blood Gas Sample Type Arterial; HCO3 ABG 19.9 mmol/L (22-26); Oxygen Device NC; PO2 ABG 89.4 mmHg (80.0-100.0)
[2022-08-16 22:12] LABS: Ketone (Acetest) Serum Negative (Negative)
--- NOTE | 2022-08-16 22:20 | P.HP_ITS ---
Providers/Chief Complaint Chief Complaint: can not urinate History of Present Illness 82-year-old male with history of chronic cystitis with self catheterizes at home, CAD, Dementia, chronic prostatitis, diabetes, GERD, urinary retention, BPH, diabetes, alcohol drinker 2 drinks per day presented to the hospital today due to inability urinate. He reported pain in this penis and also had suprapubic pain associated with it that started yesterday. His last time when he voided was yesterday. He says he can still pass a urinary catheter however has had no urine output. He feels worse compared to yesterday and therefore presented to the hospital. Patient is oriented but somewhat confused. Unable to confirm code status at this time. Very poor historian ED course: Blood pressure 166/95, pulse oximetry 94% on room air, respirate 18, tachycardic at 126, temperature 97.9, WBC 128, chloride 94, bicarb 16, anion gap 22.1, creatinine 1.3, glucose 630. Lactic acid 3.4, UA shows WBC greater than 100, RBC 5-10, 3+ bacteria, 4+ yeast, nitrates positive, positive leukocyte esterase, WBC 11.2, hemoglobin 15.3, serum ketones are pending at this time. ABG checked pH 7.36 CO2 35.3, PO2 89.4, bicarb 19.9. Patient is on 2 L nasal cannula. Chest x-ray shows stable mild left basilar pneumonia with interval appearance of mild right basilar pneumonia. Blood cultures were obtained in the ER. Urine culture was sent to the lab. He was given fluconazole 400 mg IV x1, sepsis bolus, vancomycin, Zosyn, morphine [address] abdomen pelvis without contrast was ordered stat however patient refused to have that done. Medications/Allergies Home Medications Medication Instructions Recorded Confirmed Last Taken Type acetaminophen 500 mg tablet 500 mg PO Q6H PRN Pain 09/01/19 04/24/22 07/27/20 History (Tylenol Extra Strength) aspirin 81 mg tablet,delayed 81 mg PO DAILY@0730 09/01/19 09/27/21 07/27/20 H istory release (Adult Low Dose Aspirin) famotidine 20 mg tablet 20 mg PO BID 09/01/19 09/27/21 07/27/20 History melatonin 10 mg capsule 10 mg PO DAILY@2100 05/09/27/21 07/27/20 History cholecalciferol (vitamin D3) 25 25 mcg PO DAILY@0730 02/07/20 09/27/21 07/27/20 History mcg (1,000 unit) tablet (Vitamin D3) vitamin A 2,400 mcg capsule 1 unit PO DAILY@0730 02/07/20 09/27/21 07/27/20 History ascorbic acid (vitamin C) 500 mg 500 mg PO DAILY@0730 07/27/20 09/27/21 Unknown History tablet (Vitamin C) cetirizine 10 mg tablet (Allergy 10 mg PO DAILY PRN Allergy Symptoms 07/27/20 09/27/21 07/27/20 History Relief (cetirizine)) nitroglycerin 0.4 mg sublingual 0.4 mg sublingual Q2M PRN Chest 07/27/20 09/27/21 Unknown History tablet Pain metformin 500 mg tablet 500 mg PO BID@0730,2100 09/13/20 08/20/21 Unknown History metoprolol succinate 50 mg 25 mg PO DAILY@0730 09/13/20 08/20/21 Unknown History tablet,extended release 24 hr nystatin 100,000 unit/gram topical See Rx Instructions .Route 02/04/21 09/27/21 Unknown Rx cream .COMPLEX #30 grams triamcinolone acetonide 0.1 % See Rx Instructions .Route 02/04/21 09/27/21 Unknown Rx topical cream .COMPLEX #30 grams fluconazole 100 mg tablet 100 mg PO DAILY 21 days #21 tabs 08/20/21 08/20/21 Unknown Rx prostate vitamin PO DAILY 08/20/21 09/27/21 Unknown History finasteride 5 mg tablet 5 mg PO DAILY@0730 #30 tabs 09/27/21 09/27/21 Unknown Rx tamsulosin 0.4 mg capsule 0.4 mg PO BID #60 caps 09/27/21 09/27/21 Unknown Rx zinc 50 mg tablet 50 mg PO DAILY 09/27/21 09/27/21 Unknown History doxycycline hyclate 100 mg capsule 100 mg PO BID #60 caps 10/04/21 Unknown Rx Allergies Allergy/AdvReac Type Severity Reaction Status Date / Time erythromycin base Allergy ALGY-Hives Verified 09/27/21 10:11 [From E-Mycin] sulfamethoxazole Allergy ALGY-Bliste Verified 09/27/21 10:11 [From Bactrim] r trimethoprim [From Bactrim] Allergy CIPRIANOY-Bliste Verified 09/27/21 10:11 r PFSH Acute PFSH: Medical History Balanitis BPH NOS w ur obs/LUTS Chronic cystitis Chronic prostatitis Diabetes Erectile dysfunction GERD (gastroesophageal reflux disease) History of brain tumor Incomplete bladder emptying Pyuria Urinary incontinence Urinary retention Surgical History H/O brain surgery 2010 meningioma R Hx of heart artery stent Hx of umbilical hernia repair S/P CABG (coronary artery bypass graft) 2011 Family History Father CAD (coronary artery disease) Diabetes Mother CAD (coronary artery disease) Diabetes Social History Smoking and tobacco status: never smoked Alcohol intake: current Alcohol intake frequency: 0-2 Drinks per Day Adopted: No Caregiver/support person: No Lives independently: No Household members: spouse Marital status: Current occupational status: retired Current gender identity: Male Vitals/I&O/Wt Last Vital Signs Temp 97.9 F 08/16/22 20:14 Pulse 115 H 08/16/22 21:21 Resp 20 H 08/16/22 21:21 BP 157/97 08/16/22 21:21 Pulse Ox 94 08/16/22 21:21 O2 Del Method 08/16/22 21:21 O2 Flow Rate 2 08/16/22 21:21 Weight last 48 hrs Weight 113.398 kg Physical Exam Narrative: General: Alert oriented x2, patient seen laying in bed, somewhat confused. underlying dementia HEENT: Normocephalic, atraumatic, EOMI, breathing normally Cardio: Regular rate rhythm, normal S1-S2 Respiratory: CTA b/l, no wheezes or ronchi GI: Abdomen soft, nontender, nondistended, bowel sounds + Extremities: no edema Mild swelling noted at penile head Urinary Catheter Management: Richardson: Cath Placed During This Visit: yes Reason for Continuing Indwelling Catheter: Acute Urinary Retention or Obstruction Urinary Catheter Date of Insertion: 08/16/22 Urinary Catheter Time of Insertion: 21:03 Data 08/16/22 20:55 08/16/22 20:55 Micro: Microbiology 08/16/22 20:59 Blood Culture - Preliminary Blood SPECIMEN COLLECTED 08/16/22 20:55 Blood Culture - Preliminary Blood SPECIMEN COLLECTED A&P Assessment and plan (1) Chronic prostatitis: (2) BPH NOS w ur obs/LUTS: (3) CAD (coronary artery disease): (4) Chest pain: (5) Dementia: (6) Delirium: (7) Incomplete bladder emptying: (8) Chronic cystitis: (9) Urinary retention: (10) Balanitis: (11) UTI (urinary tract infection): (12) Sepsis: (13) Hyponatremia: (14) Diabetes mellitus: (15) Elevated lactic acid level: (16) Alcohol use: (17) Acute kidney injury: (18) High anion gap metabolic acidosis: (19) Pneumonia: (20) Admitted to intensive care unit: (21) Yeast infection: (22) Hyperglycemia: Plan #Sepsis secondary to UTI #Bilateral pneumonia #Chronic UTI history #Neurogenic bladder, self catheterizes at home #Chronic prostatitis history #Diabetes mellitus type 2 #GERD #BPH #Alcohol use, drinks 2 drinks per day #Hyponatremia secondary to hyperglycemia #Hyperglycemia with elevated anion gap, [place], ketones negative #Elevated lactic acid #High anion gap metabolic acidosis secondary to high blood sugar and acute renal failure #Acute kidney injury with oliguria, creatinine 1.3, baseline 1.1 #Dementia ? WBC 11.1. Patient has not had much urine output since yesterday possibly secondary to sepsis however obstruction cannot be ruled out at this time. ? Patient has refused CT abdomen pelvis. We will check a renal ultrasound to rule out hydronephrosis or any other pathology ? We will admit to ICU at this time and start on insulin drip protocol ? BMP every 4 hours ? Sodium 128. Corrected sodium 136 ? Continue aspirin, famotidine, finasteride, metoprolol succinate 25 mg daily, tamsulosin 0.4 twice daily. ? Hold metformin at this time, hold cetirizine, zinc vitamin A ? Check blood cultures, urine culture, sputum Gram stain culture ? Renally dose vancomycin, Zosyn, till culture data available. Antibiotics to cover pneumonia and UTI - fluconazole 200 IV daily x10 days ? Blood sugar check as per insulin drip protocol. ? Monitor for alcohol withdrawal. May need to add on CIWA protocol at a later time ? Place Richardson catheter for accurate urine output ? Consider nephrology consult ? Check hemoglobin A1c, TSH, lipid profile - Place on IV fluids DVT prophylaxis: Heparin SQ twice daily, SCDs Full code. Code status to be confirmed from family. Attestations Medical Necessity Statement*: admit to icu will cross > 2 midnight stay for management of [place], sepsis 2/2 UTI Other Coding Information Focused coding review requested Diagnoses Chronic prostatitis N41.1 BPH NOS w ur obs/LUTS N40.1 CAD (coronary artery disease) I25.10 Chest pain R07.9 Dementia F03.90 Delirium R41.0 Incomplete bladder emptying R33.9 Chronic cystitis N30.20 Urinary retention R33.9 Balanitis N48.1 UTI (urinary tract infection) N39.0 Sepsis A41.9 Hyponatremia E87.1 Diabetes mellitus E11.9 Elevated lactic acid level R79.89 Alcohol use Z78.9 Acute kidney injury N17.9 High anion gap metabolic acidosis E87.29 Pneumonia J18.9 Admitted to intensive care unit Z78.9 Yeast infection B37.9 Hyperglycemia R73.9
--- NOTE | 2022-08-16 22:42 | USR_ITS ---
PROCEDURE INFORMATION: Exam: US Retroperitoneal; Complete; Kidneys and Bladder Exam date and time: 08/16/2022 11:01 PM Age: 82 years old Clinical indication: Condition or disease; Kidney or ureter condition; Acute renal insufficiency and other: Oliguric; Additional info: Oluguric gina TECHNIQUE: Imaging protocol: Real-time ultrasound of the retroperitoneum with image documentation. Complete exam focused on the kidneys and bladder. COMPARISON: US renal BI* [id number] 11/16/2018 1:41 PM FINDINGS: Right kidney: 12.7 x 6.1 x 6.8 cm right kidney with 1.2 cm right renal cortex. Partially exophytic 3.1 x 3.9 cm simple cyst upper pole right kidney. Left kidney: 12.5 x 5.5 x 8.3 cm left kidney with 1.5 cm left renal cortex. Small 1.5 cm simple left renal cyst with the larger 2.5 cm simple left renal cyst. Urinary bladder: Large 6.0 x 5.0 x 2.2 cm right posterolateral urinary bladder diverticulum. Richardson balloon catheter in the urinary bladder. Other findings: Smaller 1.5 x 1.5 x 1.4 cm midpole kidney simple cyst. US/US renal BI* [id number] IMPRESSION: 1. 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 2. Richardson balloon catheter in the urinary bladder. 3. Simple bilateral renal cysts. 4. No medical renal disease or hydronephrosis.
[2022-08-16 22:51] LABS: Reflex Lactate Order REFLEX LACTIC ORDERD
[2022-08-16] MEDS: sodium chloride 0.9% 2,190 ML 2190 ML IV (22:55)
[2022-08-16] MEDS: fluconazole premix 400 MG/200 ML PIGGYBACK 200 MG IV (22:56)
[2022-08-16 23:11] VITALS: BP 157/97; PULSE 103; RESP 32; O2SAT 98
[2022-08-16 23:18] LABS: Glucose Point of Care 445 mg/dL (70-110)
[2022-08-17] VITALS (101 sets, daily range): BP systolic 89–154; BP diastolic 52–93; PULSE 62–124; RESP 11–39; TEMP 36.4–36.9; O2SAT 87–98; BMI 25.7
[2022-08-17] MEDS: insulin regular-human 250 UNIT in sodium chloride 0.9% 250 ML 11.6 UNIT IV (00:38)
[2022-08-17] MEDS: sodium chlor 0.9% + KCl 20 mEq 20 MEQ/1,000 ML BAG 125 MEQ IV (00:40)
[2022-08-17 00:58] LABS: Lactic Acid level (Lactate) 2.1 mmol/L (0.5-2.2)
[2022-08-17 01:05] LABS: Procalcitonin 0.43 ng/mL (0-0.5)
[2022-08-17 01:17] LABS: Anion Gap 17.2 (5-19); Blood Urea Nitrogen 17 mg/dL (8-23); Calcium 8.4 mg/dL (8.5-10.5); Carbon Dioxide 21 mmol/L (22-29); Chloride 100 mmol/L (98-107); Glucose 462 mg/dL (65-115); Osmolality Calculated 300 mOsm/kg (285-295); Potassium 4.2 mmol/L (3.5-5.1); Sodium 134 mmol/L (136-145)
[2022-08-17 01:47] LABS: Glucose Point of Care 544 mg/dL (70-110)
--- NOTE | 2022-08-17 02:35 | PC.NURSE ---
Patient arrived on unit from ED, AOX4 w/ delayed speech. Patient is hard of hearing and denies any current treatment for Diabetes. BG 630 on admission.
[2022-08-17 02:42] LABS: Glucose Point of Care > 600 mg/dL (70-110)
[2022-08-17 02:49] LABS: Glucose Point of Care 234 mg/dL (70-110)
[2022-08-17 03:19] LABS: Blood Urea Nitrogen 15 mg/dL (8-23); Calcium 8.4 mg/dL (8.5-10.5); Carbon Dioxide 16 mmol/L (22-29); Chloride 101 mmol/L (98-107); Glucose 230 mg/dL (65-115); Magnesium 1.9 mg/dL (1.7-2.3); Osmolality Calculated 278 mOsm/kg (285-295); Phosphorus 2.3 mg/dL (2.5-4.5); Sodium 130 mmol/L (136-145)
[2022-08-17] MEDS: piperacillin-tazobactam 3.375 GM in sodium chloride 0.9% (plus) 50 ML IV ×3 (03:27→19:43)
[2022-08-17] MEDS: dextrose 5%-ns + KCl 20 20 MEQ/1,000 ML BAG 125 MEQ IV (03:27)
[2022-08-17 03:40] LABS: Anion Gap 17.2 (5-19); Potassium 4.2 mmol/L (3.5-5.1)
[2022-08-17 04:01] LABS: Glucose Point of Care 218 mg/dL (70-110)
[2022-08-17 04:52] LABS: Glucose Point of Care 139 mg/dL (70-110)
[2022-08-17 04:53] LABS: Adenovirus Not Detected (NOT DETECT); Chlamydia Pneumoniae Not Detected (NOT DETECT); Coronavirus 229E,HKU1,NL63,OC4 Not Detected (NOT DETECT); Human Metapneumovirus Not Detected (NOT DETECT); Human Rhinovirus/Enterovirus Not Detected (NOT DETECT); Influenza A Not Detected (NOT DETECT); Influenza A H1 Not Detected (NOT DETECT); Influenza A H1-2009 Not Detected (NOT DETECT); Influenza A H3 Not Detected (NOT DETECT); Influenza B Not Detected (NOT DETECT); Mycoplasma Pneumoniae Not Detected (NOT DETECT); Parainfluenza Virus Type 1 Not Detected (NOT DETECT); Parainfluenza Virus Type 2 Not Detected (NOT DETECT); Parainfluenza Virus Type 3 Not Detected (NOT DETECT); Parainfluenza Virus Type 4 Not Detected (NOT DETECT); Respiratory Syncytial Virus A Not Detected (NOT DETECT); Respiratory Syncytial Virus B Not Detected (NOT DETECT); SARS-COV-2 Not Detected (NOT DETECT)
[2022-08-17 06:00] LABS: Glucose Point of Care 109 mg/dL (70-110)
--- NOTE | 2022-08-17 06:01 | PC.NURSE ---
Patient asked for a drink and was offered sponge as diet order was NPO except meds. Patient responded with foul language and disbelief. Verbalized I might as well just leave then . Hospitalist was notified and order to advance to diet to water only received. Patient has remained solemn since this instance.
[2022-08-17 06:51] LABS: Basophils % 0.4 %; Eosinophils # 0.1 10^3/uL (0.0-0.8); Eosinophils % 0.9 %; Hematocrit 42.4 % (42.0-52.0); Hemoglobin 13.3 g/dL (11.7-16.6); Lymphocytes # 1.4 10^3/uL (0.8-4.8); Lymphocytes % 12.2 %; Mean Corpuscular HGB Conc 31.4 g/dL (30.0-36.0); Mean Corpuscular Hemoglobin 29.6 pg (28.0-34.0); Mean Corpuscular Volume 94.2 fl (80-94); Monocytes # 1.1 10^3/uL (0.2-0.9); Monocytes % 9.6 %; Neutrophils # 8.68 10^3/uL (1.8-7.7); Neutrophils % 76.5 %; Nucleated Red Blood Cells % 0 %; Platelet Count 200 10^3/cmm (130-400); Red Cell Distribution Width 13.2 % (12.1-15.1); White Blood Count 11.3 10^3/uL (4.0-10.0)
--- NOTE | 2022-08-17 07:19 | PC.NURSE ---
Dr. Pham requested to hold Insulin until 0600 BMP results. Contact Daytime hospitalist for confirmation on continuation care. See critical message to nurse.
[2022-08-17 07:32] LABS: ABG PH Result 7.45 (7.35-7.45); Arterial Blood Gas Hematocrit 43.4 % (42-52); Base Excess ABG -0.1 mmol/L (-2.0-2.0); Blood Gas Allen Test Pos; Blood Gas Operator Identificat MONRO; Blood Gas Sample Site Radial, right; Blood Gas Sample Type Arterial; HCO3 ABG 23.4 mmol/L (22-26); Oxygen Device ROOM AIR; PO2 ABG 77.7 mmHg (80.0-100.0)
[2022-08-17 07:41] LABS: Anion Gap 11.3 (5-19); Blood Urea Nitrogen 14 mg/dL (8-23); Calcium 8.2 mg/dL (8.5-10.5); Carbon Dioxide 24 mmol/L (22-29); Chloride 111 mmol/L (98-107); Glucose 95 mg/dL (65-115); Osmolality Calculated 296 mOsm/kg (285-295); Potassium 3.3 mmol/L (3.5-5.1); Sodium 143 mmol/L (136-145)
[2022-08-17] MEDS: pantoprazole 40 mg SDV IVP (07:59)
[2022-08-17] MEDS: finasteride 5 mg Tablet PO (07:59)
[2022-08-17] MEDS: heparin 5,000 unit/mL INJ 1 mL 5000 UNIT SUBCUT ×2 (07:59→19:44)
[2022-08-17] MEDS: tamsulosin 0.4 mg Capsule PO ×2 (07:59→18:13)
[2022-08-17] MEDS: aspirin 81 mg EC Tablet PO (07:59)
[2022-08-17] MEDS: D5-NS 0.45% + KCL 20 mEq 20 MEQ/1,000 ML BAG 150 MEQ IV (08:00)
[2022-08-17 08:16] LABS: Glucose Point of Care 136 mg/dL (70-110)
[2022-08-17 08:49] LABS: Estmated Average Glucose 372; Hemoglobin A1C 14.6 % (4.0-6.0)
--- NOTE | 2022-08-17 08:49 | PC.PHAR ---
pts amando [phone] verified pts medications-states the pt hasnt been taking his otc meds for 2-3 days-states the pt is only taking rx meds of finasteride 5mg qam and flomax 0.4mg bid-pts states the pt dced his metformin 500mg bid and metoprolol succinate 25mg qam states pt not taken for a year-states the pt has been out of nystatin and triamcinolone cream for a while-
[2022-08-17 10:59] LABS: Glucose Point of Care 268 mg/dL (70-110)
[2022-08-17 11:05] LABS: Anion Gap 17.1 (5-19); Blood Urea Nitrogen 13 mg/dL (8-23); Calcium 8.2 mg/dL (8.5-10.5); Carbon Dioxide 19 mmol/L (22-29); Chloride 111 mmol/L (98-107); Creatinine Clr Calc Pharmacy 67.9736; Glucose 255 mg/dL (65-115); Osmolality Calculated 305 mOsm/kg (285-295); Potassium 4.1 mmol/L (3.5-5.1); Sodium 143 mmol/L (136-145)
[2022-08-17] MEDS: insulin lispro 100 unit/1 mL SUBCUT ×3 (11:29→20:53)
[2022-08-17 14:01] LABS: Glucose Point of Care 195 mg/dL (70-110)
[2022-08-17] MEDS: acetaminophen 325 mg Tablet 650 MG PO (14:51)
--- NOTE | 2022-08-17 17:41 | PM.PN ---
Subjective Subjective: Patient was seen and examined this morning, initially was lethargic, but later it was the day he started, becoming very agitated, pulling his lines, asking to leave the hospital, and go home, he was counseled that, he needs to stay in the hospital for treatment, as going home will not be a good idea, once he become more stable he can always go home. Medications: Medication Review Details: Generic Name Dose Route Start Last Admin Trade Name Radha PRN Reason Stop Dose Admin Acetaminophen 650 mg 08/16/22 22:42 08/17/22 14:51 Acetaminophen 32 5 Mg Tablet PO 650 mg Q6H PRN Administration MILD PAIN Aspirin 81 mg 08/17/22 07:30 08/17/22 07:59 Aspirin 81 Mg Ec Tablet PO 81 mg DAILY@0730 MALCOLM Administration Finasteride 5 mg 08/17/22 07:30 08/17/22 07:59 Finasteride 5 Mg Tablet PO 5 mg DAILY@0730 [facility] Administration Heparin Sodium (Po rcine) 5,000 unit 08/17/22 07:30 08/17/22 07:59 Heparin 5,000 Un it/Ml Inj 1 Ml SUBCUT 5,000 unit Q12H [facility] Administration Piperacillin Sod/T azobactam 50 mls @ 12.5 mls /hr 08/17/22 04:00 08/17/22 15:29 Sod 3.375 gm/ So dium Chloride IV Infused Q8H MALCOLM Infusion Insulin Human Lisp ro 0 unit 08/17/22 12:00 08/17/22 11:29 Insulin Lispro 1 00 Unit/1 Ml SUBCUT 1 unit WM&BEDTIME MALCOLM Administration Protocol Pantoprazole Sodiu m 40 mg 08/17/22 09:00 08/17/22 07:59 Pantoprazole 40 Mg Sdv IVP 40 mg DAILY MALCOLM Administration Tamsulosin HCl 0.4 mg 08/17/22 09:00 08/17/22 07:59 Tamsulosin 0.4 M g Capsule PO 0.4 mg BID MALCOLM Administration Vitals/I&O/Wt Last Vital Signs Temp 98.4 F 08/17/22 07:30 Pulse 89 08/17/22 15:00 Resp 19 H 08/17/22 15:00 BP 109/66 08/17/22 15:30 Pulse Ox 94 08/17/22 12:00 O2 Del Method 08/17/22 07:26 O2 Flow Rate 2 08/17/22 00:20 08/17/22 08/17/22 08/17/22 06:59 14:59 22:59 Intake Total 987.958 / 987.958 Output Total 1450 / 1450 Balance -462.042 / -462.042 Weight last 48 hrs Weight 83.688 kg Weight 83.688 kg Weight 113.398 kg Physical Exam Const: COMMON NORMALS: patient oriented x3 HENMT: COMMON NORMALS: normocephalic and atraumatic HEAD & SCALP: normocephalic and atraumatic Resp: COMMON NORMALS: clear to auscultation bilaterally AUSCULTATION: clear to auscultation bilaterally Cardio: COMMON NORMALS: regular rate, regular rhythm, S1 normal heart sound present, S2 normal heart sound present, No gallops present (Cardio), No murmurs present (Cardio), No rub (Cardio) and Peripheral pulses 2+ throughout RATE: regular rate RHYTHM: regular rhythm HEART SOUNDS: S1 normal heart sound present and S2 normal heart sound present PERIPHERAL PULSES: Peripheral pulses 2+ throughout GI: COMMON NORMALS: Normal to inspection, nondistended, normoactive bowel sounds present, Soft to palpation, non-tender, No hepatosplenomegaly present and no masses AUSCULTATION: Yes normoactive bowel sounds PALPATION: Yes Soft to palpation and Yes No hepatosplenomegaly present RECTAL EXAM: Yes deferred Extremity: COMMON NORMALS: no clubbing, cyanosis or edema and no pedal edema Neuro: COMMON NORMALS: patient oriented x3 Urinary Catheter Management: Richardson: Cath Placed During This Visit: yes Reason for Continuing Indwelling Catheter: Accurate Measurement of Urinary Output in Critically Ill Patients Urinary Catheter Date of Insertion: 08/16/22 Urinary Catheter Time of Insertion: 21:03 Data 08/17/22 06:35 08/17/22 10:15 Micro: Microbiology 08/16/22 20:55 Legionella Urinary Antigen - Final Urine,Clean Catch Bacterial Antigens - Final 08/17/22 02:50 MRSA Culture - Final Nose 08/16/22 20:59 Blood Culture - Preliminary Blood SPECIMEN COLLECTED 08/16/22 20:55 Blood Culture - Preliminary Blood SPECIMEN COLLECTED A&P Assessment and plan (1) Chronic prostatitis: (2) BPH NOS w ur obs/LUTS: (3) CAD (coronary artery disease): (4) Chest pain: (5) Dementia: (6) Delirium: (7) Incomplete bladder emptying: (8) Chronic cystitis: (9) Urinary retention: (10) Balanitis: (11) UTI (urinary tract infection): (12) Sepsis: (13) Hyponatremia: (14) Diabetes mellitus: (15) Elevated lactic acid level: (16) Alcohol use: (17) Acute kidney injury: (18) High anion gap metabolic acidosis: (19) Pneumonia: (20) Admitted to intensive care unit: (21) Yeast infection: (22) Hyperglycemia: Plan 82-year-old male with past medical history of CAD, chronic cystitis with self-catheterization, diabetes BPH, alcohol use 2 drinks per day, chronic prostatitis, dementia was brought in with chief complaint of inability to urinate since yesterday, associated with suprapubic pain. Currently is being managed for: Assessment: Severe sepsis secondary to UTI: Possible pneumonia Patient meets sepsis criteria currently as he has elevated white count hypotensive, elevated lactic acid, tachycardic, tachypneic, endorgan dysfunction in the presence of GWEN. Patient has received aggressive fluid resuscitation, so far blood pressure has appropriately responded. Patient refused CT abdomen and pelvis Renal ultrasound has shown: Large 6.0 x 5.0 x 2.2 cm right posterolateral urinary bladder diverticulum. Will need urology input on the finding. Can be discussed tomorrow Follow urine culture Blood culture Continue broad-spectrum antibiotics Vanco and Zosyn for now Possible pneumonia: X-ray chest has shown: Stable mild left basilar pneumonia with interval appearance of mild right basilar pneumonia. Appropriately covered with broad-spectrum antibiotics Hyperglycemia: Due to uncontrolled diabetes: HbA1c is around 14 Initially was on insulin drip, has been discontinued. Monitor fingerstick glucose Continue LDSSI GWEN: Admission serum creatinine is 1.3 Baseline serum creatinine is normal Monitor intake output charting Monitor BMP Avoid nephrotoxic's Pseudohyponatremia secondary to hyperglycemia: Monitor serum sodium for now #Neurogenic bladder, self catheterizes at home #Chronic prostatitis history #Diabetes mellitus type 2 #GERD #BPH #Alcohol use, drinks 2 drinks per day: Monitor CIWA #Hyperglycemia with elevated anion gap, [place], ketones negative #Elevated lactic acid #High anion gap metabolic acidosis secondary to high blood sugar and acute renal failure #Dementia ? DVT prophylaxis: Heparin SQ twice daily, SCDs Full code. Code status to be confirmed from family. Attestations Medical Necessity Statement*: Patient is in hospital for management of sepsis, need for IV antibiotics. Critical Care Time: The high probability of a clinically significant, sudden or life threatening deterioration of the patient's [] system(s) required my full and direct attention, intervention and personal management. The critical care time is as shown. This time is in addition to time spent performing any reported procedures but includes the following: [x] Data and vital sign review and interpretation [x] Patient assessment, examination and intervention [x] Documentation [x] Medication orders and management Critical Care Time (min): 35 Coding Level of Care Code Critical Care >/= 30 minutes Diagnoses Chronic prostatitis N41.1 BPH NOS w ur obs/LUTS N40.1 CAD (coronary artery disease) I25.10 Chest pain R07.9 Dementia F03.90 Delirium R41.0 Incomplete bladder emptying R33.9 Chronic cystitis N30.20 Urinary retention R33.9 Balanitis N48.1 UTI (urinary tract infection) N39.0 Sepsis A41.9 Hyponatremia E87.1 Diabetes mellitus E11.9 Elevated lactic acid level R79.89 Alcohol use Z78.9 Acute kidney injury N17.9 High anion gap metabolic acidosis E87.29 Pneumonia J18.9 Admitted to intensive care unit Z78.9 Yeast infection B37.9 Hyperglycemia R73.9
[2022-08-17 18:05] LABS: Glucose Point of Care 190 mg/dL (70-110)
[2022-08-17 19:49] LABS: Anion Gap 14.6 (5-19); Blood Urea Nitrogen 13 mg/dL (8-23); Calcium 8.1 mg/dL (8.5-10.5); Carbon Dioxide 20 mmol/L (22-29); Chloride 109 mmol/L (98-107); Creatinine Clr Calc Pharmacy 67.9736; Glucose 265 mg/dL (65-115); Osmolality Calculated 299 mOsm/kg (285-295); Potassium 3.6 mmol/L (3.5-5.1); Sodium 140 mmol/L (136-145)
[2022-08-17] MEDS: fluconazole premix 200 MG/100 ML PREMIX 100 MG IV (22:08)
[2022-08-17 23:20] LABS: Anion Gap 12.3 (5-19); Blood Urea Nitrogen 12 mg/dL (8-23); Calcium 8.3 mg/dL (8.5-10.5); Carbon Dioxide 22 mmol/L (22-29); Chloride 110 mmol/L (98-107); Glucose 130 mg/dL (65-115); Osmolality Calculated 294 mOsm/kg (285-295); Potassium 3.3 mmol/L (3.5-5.1); Sodium 141 mmol/L (136-145)
[2022-08-18] VITALS (29 sets, daily range): BP systolic 101–136; BP diastolic 62–83; PULSE 80–109; RESP 12–38; TEMP 36.7–37.1; BMI 25.7
[2022-08-18] MEDS: vancomycin 1,500 MG/300 ML PIGGYBACK 200 MG IV (00:10)
[2022-08-18 03:24] LABS: Anion Gap 14.8 (5-19); Blood Urea Nitrogen 13 mg/dL (8-23); Calcium 8.1 mg/dL (8.5-10.5); Carbon Dioxide 19 mmol/L (22-29); Chloride 106 mmol/L (98-107); Creatinine Clr Calc Pharmacy 67.9736; Glucose 238 mg/dL (65-115); Osmolality Calculated 290 mOsm/kg (285-295); Potassium 3.8 mmol/L (3.5-5.1); Sodium 136 mmol/L (136-145)
[2022-08-18] MEDS: piperacillin-tazobactam 3.375 GM in sodium chloride 0.9% (plus) 50 ML IV (03:47)
[2022-08-18 06:42] LABS: Anion Gap 17.9 (5-19); Blood Urea Nitrogen 13 mg/dL (8-23); Calcium 8.2 mg/dL (8.5-10.5); Carbon Dioxide 17 mmol/L (22-29); Chloride 106 mmol/L (98-107); Glucose 275 mg/dL (65-115); Osmolality Calculated 294 mOsm/kg (285-295); Potassium 3.9 mmol/L (3.5-5.1); Sodium 137 mmol/L (136-145)
[2022-08-18 07:17] LABS: Glucose Point of Care 247 mg/dL (70-110)
[2022-08-18] MEDS: insulin lispro 100 unit/1 mL SUBCUT ×2 (07:39→11:56)
[2022-08-18] MEDS: aspirin 81 mg EC Tablet PO (07:39)
[2022-08-18] MEDS: heparin 5,000 unit/mL INJ 1 mL 5000 UNIT SUBCUT (07:39)
[2022-08-18] MEDS: finasteride 5 mg Tablet PO (07:39)
[2022-08-18 08:20] LABS: Glucose Point of Care 246 mg/dL (70-110)
[2022-08-18] MEDS: pantoprazole 40 mg SDV IVP (09:01)
[2022-08-18] MEDS: tamsulosin 0.4 mg Capsule PO (09:01)
[2022-08-18 11:28] LABS: Blood Urea Nitrogen 13 mg/dL (8-23); Calcium 8.2 mg/dL (8.5-10.5); Carbon Dioxide 15 mmol/L (22-29); Chloride 104 mmol/L (98-107); Creatinine Clr Calc Pharmacy 76.5586; Glucose 316 mg/dL (65-115); Osmolality Calculated 286 mOsm/kg (285-295); Sodium 132 mmol/L (136-145)
[2022-08-18 11:29] LABS: Anion Gap 16.8 (5-19); Potassium 3.8 mmol/L (3.5-5.1)
[2022-08-18 11:43] LABS: Glucose Point of Care 333 mg/dL (70-110)
--- NOTE | 2022-08-18 12:56 | P.DS_ITS ---
Discharge Providers Date of Admission: 08/16/22 22:26 Date of Discharge: August 18, 2022 Attending Provider at Admission: Kaela Pham MD Attending Provider at Discharge: Sindhu Arana MD Diagnoses at Discharge Discharge Diagnosis (1) Chronic prostatitis: Status: Acute (2) BPH NOS w ur obs/LUTS: Status: Acute (3) CAD (coronary artery disease): Status: Acute (4) Chest pain: Status: Acute (5) Dementia: Status: Acute (6) Delirium: Status: Acute (7) Incomplete bladder emptying: Status: Acute (8) Chronic cystitis: Status: Acute (9) Urinary retention: Status: Acute (10) Balanitis: Status: Acute (11) UTI (urinary tract infection): Status: Acute (12) Sepsis: Status: Acute (13) Hyponatremia: Status: Acute (14) Diabetes mellitus: Status: Acute (15) Elevated lactic acid level: Status: Acute (16) Alcohol use: Status: Acute (17) Acute kidney injury: Status: Acute (18) High anion gap metabolic acidosis: Status: Acute (19) Pneumonia: Status: Acute (20) Admitted to intensive care unit: Status: Acute (21) Yeast infection: Status: Acute (22) Hyperglycemia: Status: Acute Reason for Visit Reason for Visit: can not urinate Hospital Course Hospital Course 82-year-old male with history of chronic cystitis with self catheterizes at home, CAD, Dementia, chronic prostatitis, diabetes, GERD, urinary retention, BPH, diabetes, alcohol drinker 2 drinks per day presented to the hospital today due to inability urinate. ED course: Blood pressure 166/95, pulse oximetry 94% on room air, respirate 18, tachycardic at 126, temperature 97.9, WBC 128, chloride 94, bicarb 16, anion gap 22.1, creatinine 1.3, glucose 630.? Lactic a thomas 3.4, UA shows WBC greater than 100, RBC 5-10, 3+ bacteria, 4+ yeast, nitrates positive, positive leukocyte esterase, WBC 11.2, hemoglobin 15.3. CT abdomen pelvis without contrast was ordered stat however patient refused to have that done. He is grossly noncompliant with his medications at home. He does not take the Flomax and finasteride as prescribed by urology. He takes them when he feels they are necessary which is not often. He has not been taking his medications at least over the last 1 week. He also has a history of diabetes mellitus, however refuses to take any medications for the same. On this current admission he had high anion gap hyperosmolar state for which he was started on an insulin drip upon admission. His anion gap resolved and he was taken off the drip on August 17, 2022. His HbA1c is at 14. Again he is not interested in taking any medications. He declined a CT abdomen but did agree to a renal ultrasound which showed bladder diverticulum posteriorly. Urology consult was offered, however patient and declined. Per discussion with and review of prior inpatient notes from 2019 when patient was admitted for COVID, patient has a history of making extremely poor medical decisions, he likely has underlying dementia with behavior issues. He was confused upon admission. Though he is able to answer all orientation questions correctly, he does not appear to have insight into his medical conditions at all. I raised the issue of him having capacity to deny medical interventions, however his is a surrogate decision maker who is currently at bedside and states that she will ensure he takes his medications provided he is able to leave the hospital today. She believes he will do better from a behavior standpoint at home and is eager to take him home today. She states that patient has always had a difficult behavior and does not trust medicines or physicians. She states that he has always been an angry old man who is depressed , however she does not specify any specific reason. I offered to consult psychiatry, however declines the same. I have explained that with an HbA1c of 14, ideally patient should be started on a long-acting and short-acting Premeal insulin, however does not believe that she will be able to convince him to do insulin 4 times a day. Therefore we will start him currently on metformin 500 mg daily and Lantus 10 units once a day, with the understanding that this may very well be suboptimal. I have also recommended that she get a glucometer and check his blood sugar at least twice a day. Explained the symptoms of hypoglycemia and indication for glucose for blood sugar less than 60. He should follow-up with his primary care physician as scheduled on August 21, 2022. I have also explained extensively to the that starting insulin and other medications for diabetes without any monitoring there after could be a dangerous intervention and it is very important that she follows up with appropriate physicians. She agrees to take him to his primary care physician on the scheduled appointment. Explained to patient and quite extensively the risk of stroke, and adverse cardiovascular outcomes with uncontrolled diabetes. With regards to his urine culture, it is showing gram-negative rods, 2 separate species, not identified till date. I have explained to the that in the a bsence of a urine culture, I can only choose an antibiotic empirically to go home with. Based on the prior culture data I am going to select levofloxacin 750 mg p.o. daily. However it is possible that the empiric choice may not be the appropriate choice once urine culture returns. If this is the case then patient will probably need to return to the hospital. Ideally he should stay until urine culture is resulted so we can select the appropriate antibiotic for him, however again patient's believes that patient will continue to be increasingly agitated if he remains in the hospital and request to just take him home. Patient's CODE STATUS was clarified with the , he is a DNR and DNI. It has accordingly been changed in the system. Highly encouraged to discuss his overall halfway goals of care at home. Again extensively counseled that discharged today on oral antibiotics and once daily insulin is likely suboptimal, expresses understanding of the situation and limitations, however again states that she believes it would be best to take him home today in the interest of his agitation and unhappiness at being in the hospital. Physical Exam Narrative: General: No acute distress, AO x3 HEENT: PERRLA, pupils bilaterally equal and reactive, pallors not present Chest: Normal vesicular breath sounds, no added sounds, equal good air entry bilaterally CVS: S1-S2 regular, no murmurs, no tachycardia, no gallops, no rubs Abdomen: Soft, nontender, no organomegaly, bowel sounds present Neuro: No focal deficits, no facial deformity, AO x3, power 5/5 in all limbs Urinary Catheter Management: Richardson: Cath Placed During This Visit: yes Reason for Continuing Indwelling Catheter: Accurate Measurement of Urinary Output in Critically Ill Patients Urinary Catheter Date of Insertion: 08/16/22 Urinary Catheter Time of Insertion: 21:03 Discharge Data Studies Completed and Pending Completed Studies During Hospitalization Category Date Time Status XR chest 1V portable [id number] Stat Exams 08/16/22 21:17 Completed US renal BI* [id number] Urgent Ultrasound 08/16/22 22:42 Completed Pending at discharge Category Date Time Status Blood Culture Stat Lab 08/16/22 20:59 Results Sputum Culture and Gram Stain Stat Lab 08/16/22 22:42 Uncollected Urine Culture Stat Lab 08/16/22 20:55 Results Vancomycin Trough Timed Lab 08/19/22 22:00 Ordered Radiology Impressions Chest X-Ray 08/16/22 21:17 IMPRESSION: Stable mild left basilar pneumonia with interval appearance of mild right basilar pneumonia. Renal Ultrasound 08/16/22 22:42 IMPRESSION: 1. 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 2. Richardson balloon catheter in the urinary bladder. 3. Simple bilateral renal cysts. 4. No medical renal disease or hydronephrosis. Laboratory Results WBC 11.3 10^3/uL (4.0-10.0) H 08/17/22 06:35 Corrected WBC Cancelled 08/17/22 02:50 RBC 4.50 10^6/uL (4.1-5.3) 08/17/22 06:35 Hgb 13.3 g/dL (11.7-16.6) 08/17/22 06:35 Hct 42.4 % (42.0-52.0) 08/17/22 06:35 MCV 94.2 fl (80-94) H 08/17/22 06:35 MCH 29.6 pg (28.0-34.0) 08/17/22 06:35 MCHC 31.4 g/dL (30.0-36.0) 08/17/22 06:35 RDW 13.2 % (12.1-15.1) 08/17/22 06:35 Plt Count 200 10^3/cmm (130-400) 08/17/22 06:35 MPV 12.0 fL (7.4-10.4) H 08/17/22 06:35 Gran % Cancelled 08/17/22 02:50 Neut % (Auto) 76.5 % 08/17/22 06:35 Lymph % (Auto) 12.2 % 08/17/22 06:35 [place] % (Auto) 9.6 % 08/17/22 06:35 Eos % (Auto) 0.9 % 08/17/22 06:35 Baso % (Auto) 0.4 % 08/17/22 06:35 Neut # (Auto) 8.68 10^3/uL (1.8-7.7) H 08/17/22 06:35 Lymph # (Auto) 1.4 10^3/uL (0.8-4.8) 08/17/22 06:35 [place] # (Auto) 1.1 10^3/uL (0.2-0.9) H 08/17/22 06:35 Eos # (Auto) 0.1 10^3/uL (0.0-0.8) 08/17/22 06:35 Baso # (Auto) 0.0 10^3/uL (0.0-0.1) 08/17/22 06:35 Absolute Gran (auto) Cancelled 08/17/22 02:50 Nucleated RBC % (auto) 0 % 08/17/22 06:35 Nucleated RBCs # 0.0 /100WBC 08/17/22 06:35 Specimen Type Arterial 08/17/22 07:19 Sample Site Radial, right 08/17/22 07:19 ABG pH 7.45 (7.35-7.45) 08/17/22 07:19 ABG pCO2 34.0 mmHg (35-45) L 08/17/22 07:19 ABG pO2 77.7 mmHg (80.0-100.0) L 08/17/22 07:19 ABG HCO3 23.4 mmol/L (22-26) 08/17/22 07:19 ABG Base Excess -0.1 mmol/L (-2.0-2.0) 08/17/22 07:19 Rao Test Pos 08/17/22 07:19 Hematocrit 43.4 % (42-52) 08/17/22 07:19 O2 Delivery Device Room air 08/17/22 07:19 O2 Liters/Min 2.0 % 08/16/22 21:45 FiO2 21.0 % 08/17/22 07:19 [employer] Safety Engineer ID [place] 08/17/22 07:19 Sodium 132 mmol/L (136-145) L 08/18/22 10:40 Potassium 3.8 mmol/L (3.5-5.1) 08/18/22 10:40 Chloride 104 mmol/L (98-107) 08/18/22 10:40 Carbon Dioxide 15 mmol/L (22-29) L 08/18/22 10:40 Anion Gap 16.8 (5-19) 08/18/22 10:40 BUN 13 mg/dL (8-23) 08/18/22 10:40 Creatinine 0.8 mg/dL (0.7-1.2) 08/18/22 10:40 GFR Calculation Not Reportable 08/18/22 10:40 Glucose 316 mg/dL (65-115) H 08/18/22 10:40 POC Glucose 333 mg/dL (70-110) H 08/18/22 11:38 Estimat Average Glucose 372 08/17/22 06:35 Hemoglobin A1c 14.6 % (4.0-6.0) H 08/17/22 06:35 Calculated Osmolality 286 mOsm/kg (285-295) 08/18/22 10:40 Lactic Acid 3.4 mmol/L (0.5-2.2) H 08/16/22 20:55 Lactic Acid (Sepsis) 2.1 mmol/L (0.5-2.2) 08/16/22 23:44 Calcium 8.2 mg/dL (8.5-10.5) L 08/18/22 10:40 Phosphorus 2.3 mg/dL (2.5-4.5) L 08/17/22 02:50 Magnesium 1.9 mg/dL (1.7-2.3) 08/17/22 02:50 Total Bilirubin 0.5 mg/dL (0.15-1.2) 08/16/22 20:55 AST 11 U/L (0-40) 08/16/22 20:55 ALT 8 U/L (0-41) 08/16/22 20:55 Alkaline Phosphatase 136 U/L (40-130) H 08/16/22 20:55 Total Protein 7.4 g/dL (6.6-8.7) 08/16/22 20:55 Albumin 3.3 g/dL (3.5-5.2) L 08/16/22 20:55 Globulin 4.1 g/dL (1.3-4.6) 08/16/22 20:55 Lipase 14 U/L (13-60) 08/16/22 20:55 Procalcitonin 0.43 ng/mL (0-0.5) 08/16/22 23:44 Urine Color Colorless (Yellow) 08/16/22 20:55 Urine Appearance Cloudy (CLEAR) A 08/16/22 20:55 Urine pH 5 (5-7) 08/16/22 20:55 Ur Specific [place] 1.015 (1.005-1.030) 08/16/22 20:55 Urine Protein Trace (Negative) 08/16/22 20:55 Urine Glucose (UA) 4+ (Normal) H 08/16/22 20:55 Urine Ketones 1+ (Negative) H 08/16/22 20:55 Urine Blood 2+ (Negative) H 08/16/22 20:55 Urine Nitrate Positive (Negative) H 08/16/22 20:55 Urine Bilirubin Neg (Negative) 08/16/22 20:55 Urine Urobilinogen Norm mg/dL (Negative) 08/16/22 20:55 Ur Leukocyte Esterase 2+ (Negative) H 08/16/22 20:55 Urine RBC 5-10 /hpf (0-2) H 08/16/22 20:55 Urine WBC >100 /hpf (0-5) H 08/16/22 20:55 Ur Squamous Epith Cells 0-4 /hpf (0-5) H 08/16/22 20:55 Amorphous Sediment Not Reportable 08/16/22 20:55 Urine Bacteria 3+ /hpf (NONE) H 08/16/22 20:55 Urine Yeast 4+ /hpf H 08/16/22 20:55 Nasal Influ A H1 2008 PCR Not detected (NOT DETECT) 08/17/22 02:50 Serum Ketones Negative (Negative) 08/16/22 20:55 Adenovirus (PCR) Not detected (NOT DETECT) 08/17/22 02:50 C. pneumoniae DNA (PCR) Not detected (NOT DETECT) 08/17/22 02:50 Coronavirus 229E (PCR) Not detected (NOT DETECT) 08/17/22 02:50 Human Metapneumovir PCR Not detected (NOT DETECT) 08/17/22 02:50 Influenza A (H1) PCR Not detected (NOT DETECT) 08/17/22 02:50 Influenza A (H3) PCR Not detected (NOT DETECT) 08/17/22 02:50 Influenza Type A (PCR) Not detected (NOT DETECT) 08/17/22 02:50 Influenza Type B (PCR) Not detected (NOT DETECT) 08/17/22 02:50 M. pneumoniae (PCR) Not detected (NOT DETECT) 08/17/22 02:50 Parainfluenza 1 (PCR) Not detected (NOT DETECT) 08/17/22 02:50 Parainfluenza 2 (PCR) Not detected (NOT DETECT) 08/17/22 02:50 Parainfluenza 3 (PCR) Not detected (NOT DETECT) 08/17/22 02:50 Parainfluenza 4 (PCR) Not detected (NOT DETECT) 08/17/22 02:50 RSV Type A (PCR) Not detected (NOT DETECT) 08/17/22 02:50 RSV Type B (PCR) Not detected (NOT DETECT) 08/17/22 02:50 Entero/Rhino (PCR) Not detected (NOT DETECT) 08/17/22 02:50 SARS-CoV-2 (PCR) Not detected (NOT DETECT) 08/17/22 02:50 Vitals Last Vital Signs Temp 98.7 F 08/18/22 08:00 Pulse 99 08/18/22 10:00 Resp 26 H 08/18/22 10:00 BP 136/80 08/18/22 10:00 Pulse Ox 93 08/17/22 20:00 O2 Del Method 08/17/22 20:00 O2 Flow Rate 2 08/17/22 00:20 Discharge Plan Discharge Patient Disposition: Home Condition: Fair Prescriptions: New levofloxacin 750 mg tablet 750 mg PO DAILY 7 Days Qty: 7 0RF metformin 500 mg tablet 500 mg PO DAILY Qty: 30 0RF Lantus Solostar U-100 Insulin 100 unit/mL (3 mL) insulin pen 10 unit SUBCUT QAM 30 Days Qty: 3 0RF (DME) Pen Needle 29 gauge x 1/2 needle See Rx Instructions .Route Qty: 100 0RF Rx Instructions: As directed Continued acetaminophen [Tylenol Extra Strength] 500 mg tablet 500 mg PO Q6H PRN (Reason: Pain) melatonin 10 mg capsule 10 mg PO BEDTIME PRN (Reason: Sleep) prostate vitamin 1 cap PO DAILY tamsulosin 0.4 mg capsule 0.4 mg PO BID Qty: 60 12RF finasteride 5 mg tablet 5 mg PO DAILY@0730 Qty: 30 12RF ascorbic acid (vitamin C) [Vitamin C] 500 mg tablet 500 mg PO QAM cetirizine [Allergy Relief (cetirizine)] 10 mg Tablet 10 mg PO BEDTIME cholecalciferol (vitamin D3) [Vitamin D3] 25 mcg (1,000 unit) Tablet 25 mcg PO QAM zinc acetate 50 mg (zinc) Capsule 50 mg PO QAM Vitamin B-12 1,000 mcg Tablet 2,000 mcg PO QAM Nitrostat 0.4 mg Tablet, Sublingual 0.4 mg SUBLINGUAL Q5M PRN (Reason: Chest Pain) Rx Instructions: do not exceed 3 doses per episode vitamin B complex Tablet 1 tab PO QAM Discharge Orders: Discharge Order (Routine); Ordered 08/18/22 Ordered By: Sindhu Arana Referrals: Byron Donis MD [Physician] - 08/21/22 1:00 pm Discharge Diet: Usual diet Discharge Activity: Resume usual activity Patient Instructions: Metformin (By mouth), Levofloxacin (By mouth), Insulin Glargine (By injection) (Lantus, Lantus SoloStar, Toujeo, Semglee), Hyperglycemia, Pneumonia (DC), Opioid Safety Discharge Attestations Time Spent in Discharge Care*: greater than 30 min Status at Discharge: Cognitive status at discharge: mildly impaired cognition , Behavioral status at discharge: cooperative and can be uncooperative , Quality Metrics Clinical Quality Measures [ No reported AMI, CVA or VTE this stay] Coding Level of Care Code Acute Code for Chg Fwd Diagnoses Chronic prostatitis N41.1 BPH NOS w ur obs/LUTS N40.1 CAD (coronary artery disease) I25.10 Chest pain R07.9 Dementia F03.90 Delirium R41.0 Incomplete bladder emptying R33.9 Chronic cystitis N30.20 Urinary retention R33.9 Balanitis N48.1 UTI (urinary tract infection) N39.0 Sepsis A41.9 Hyponatremia E87.1 Diabetes mellitus E11.9 Elevated lactic acid level R79.89 Alcohol use Z78.9 Acute kidney injury N17.9 High anion gap metabolic acidosis E87.29 Pneumonia J18.9 Admitted to intensive care unit Z78.9 Yeast infection B37.9 Hyperglycemia R73.9
--- NOTE | 2022-08-18 14:48 | PC.NURSE ---
Discharged Patient. Richardson removed. IV catheter removed. Upcoming appointments, new medications, and activity/diet education provided to . Patient was very resistant to teaching, not listening to medication instructions, and stated he will refuse to go to the followup anointment. Discharge teaching discussed with .
== END 2022-08-18 14:56 | disposition home or self-care (01) ==
LOC: ER 22:21 → ICU 08-17 00:36
PROVIDERS: Internal Medicine; Admitting Provider Internal Medicine; Emergency Provider Emergency Medicine; Visit Provider Student in an Organized Health Care Education/Training Program
DX: N30.20 Other chronic cystitis without hematuria (principal); N40.1 Benign prostatic hyperplasia with lower urinary tract symptoms; N39.498 Other specified urinary incontinence; R33.8 Other retention of urine; R39.14 Feeling of incomplete bladder emptying; F10.90 Alcohol use, unspecified, uncomplicated; Z79.82 Long term (current) use of aspirin; Z79.84 Long term (current) use of oral hypoglycemic drugs; R00.0 Tachycardia, unspecified; J18.9 Pneumonia, unspecified organism; K21.9 Gastro-esophageal reflux disease without esophagitis; N31.9 Neuromuscular dysfunction of bladder, unspecified; Z87.440 Personal history of urinary (tract) infections; E87.1 Hypo-osmolality and hyponatremia; E11.65 Type 2 diabetes mellitus with hyperglycemia; E87.20 Acidosis, unspecified; N17.9 Acute kidney failure, unspecified; R34 Anuria and oliguria; F03.90 Unspecified dementia, unspecified severity, without behavioral disturbance, psychotic disturbance, mood disturbance, and anxiety; R82.71 Bacteriuria; B96.1 Klebsiella pneumoniae [K. pneumoniae] as the cause of diseases classified elsewhere; Z66 Do not resuscitate
CPT/HCPCS: 36415; 36416; 36600; 51702; 51798; 71045; 76770; 80048; 80053; 81001; 82009; 82803; 82962; 83036; 83605; 83690; 83735; 84100; 84145; 85025; 86403; 87040; 87077; 87086; 87106; 87186; 87205; 87449; 87486; 87581; 87633; 87641; 96365; 96366; 96367; 96372; 96375; 96376; 99285; C9113; G0378; J1450; J1644; J1815; J2270; J2543; J3370; J3480; J7030; J7040; J7050

== ENCOUNTER 2022-09-01 21:31 | Inpatient (IN) | payer MEDICARE, SELFPAY ==
[2022-09-01 21:35] VITALS: BP 110/74; PULSE 113; RESP 20; TEMP 36.7; O2SAT 93
[2022-09-01 21:44] VITALS: BP 96/72; PULSE 111; RESP 20; O2SAT 93
--- NOTE | 2022-09-01 21:54 | W.ED.MALEGU ---
HPI - Male Genitourinary General: Chief complaint: Urogenital-Male Stated complaint: cant void Time Seen by Provider: 09/01/22 21:54 History of Present Illness: Mr. Aparicio is an 82-year-old gentleman with history of chronic cystitis with self cath at home presenting department due to inability to urinate.? He reports increased penile pain and suprapubic pain started earlier today. Last urine output approximately 4 PM today.? That was last time that he was able to urinate.? He reports being able to pass a catheter however still not had any urine output and does have increased discomfort. also noticed generalized weakness, fevers, cough, congestion.? Intensity symptoms is moderate.? Course has worsened.? No other specific changes in health, exacerbating, or alleviating factors identified. Patient was discharged to complete a 7-day course of Levaquin which he did. Subsequently also saw primary care and has a prescription for cefuroxime 500 mg twice daily which includes 60 tabs. Onset (ago): hour(s) Duration: progressively worsening Location: penis and abdomen Severity: moderate Relieving factors: none Exacerbating factors: palpation and other Context: other Review of Systems General: Reports: 10 or more systems reviewed and unremarkable except in HPI and below PFSH ED PFSH: Medical History Ascending aortic aneurysm Balanitis BPH NOS w ur obs/LUTS Chronic cystitis Chronic prostatitis Diabetes Erectile dysfunction GERD (gastroesophageal reflux disease) History of brain tumor Incomplete bladder emptying Pyuria Urinary incontinence Urinary retention Surgical History H/O brain surgery 2010 meningioma R Hx of heart artery stent Hx of umbilical hernia repair S/P CABG (coronary artery bypass graft) 2012 Family History Father CAD (coronary artery disease) Diabetes Cancer unknown Mother CAD (coronary artery disease) Diabetes Other Dementia Denies family history of Clotting disorder Hyperlipidemia Psychiatric illness Chronic kidney disease (CKD) Anesthesia complication Bleeding disorder Lung disease Hypertension Stroke Social History Smoking and tobacco status: never smoked Alcohol intake: current Alcohol intake frequency: 0-2 Drinks per Day Substance/Drug Use: never Adopted: No Caregiver/support person: No Lives independently: No Household members: spouse Marital status: Current occupational status: retired Current gender identity: Male Physical Exam Const: COMMON NORMALS: alert GENERAL APPEARANCE: cooperative and well developed HENMT: COMMON NORMALS: normocephalic and atraumatic HEAD & SCALP: normocephalic and atraumatic Eye: COMMON NORMALS: conjunctivae normal CONJUNCTIVA: Yes conjunctivae normal SCLERA: sclerae normal Neck/C-Spine: COMMON NORMALS: supple GENERAL: Yes trachea midline Resp: COMMON NORMALS: clear to auscultation bilaterally EFFORT & INSPECTION: Yes able to speak in complete sentences AUSCULTATION: clear to auscultation bilaterally Cardio: COMMON NORMALS: regular rhythm RATE: tachycardic RHYTHM: regular rhythm GI: COMMON NORMALS: Soft to palpation PALPATION: Yes Soft to palpation, Yes Tenderness to palpation present (GI), No Guarding due to palpation present (GI) and No Rigid due to palpation Back/Pelvis: OTHER: Stage I pressure injury on the gluteal region Extremity: GENERAL: Yes normal exam except as noted and No edema Neuro: COMMON NORMALS: moves all extremities SENSORIUM/ORIENTATION: Yes alert and No Orientation impaired Psych: COMMON NORMALS: mental status grossly normal and Normal thought process present THOUGHT PROCESS: Normal thought process present Course Vital Signs: Vital signs: Vital Signs Temperature 98.6 F 09/04/22 04:00 Pulse Rate 112 H 09/04/22 18:00 Respiratory Rate 27 H 09/04/22 18:00 Blood Pressure 143/102 09/04/22 18:00 Pulse Oximetry 84 L 09/04/22 18:00 Oxygen Delivery Me thod Room Air 09/04/22 08:01 Oxygen Flow Rate 5 09/03/22 09:23 [facility] - Male Medical Decision Making 82-year-old gentleman with complex history presenting due to concern about inability to urinate. Patient intermittent self cath at home. He recently was hospitalized for UTI and appears to not be on chronic suppressive therapy though somewhat unclear. provides most clinical history. He is ill in appearance, tachycardia is noted as well as supplemental oxygen. EKG demonstrates atrial fibrillation with rapid ventricular response. No STEMI Labs demonstrate leukocytosis, normal hemoglobin and platelet count. Metabolic panel demonstrates dehydration with metabolic stress. Lactic acid is elevated with improvement after fluid resuscitation. Hypomagnesemia present. Initial troponin elevated likely secondary to demand ischemia in the absence of chest pain. Urinalysis is once again concerning for urinary tract infection. Chest x-ray with cardiomegaly and mild pulmonary vascular congestion. CT with no PE, possible patchy bilateral infiltrate for atelectasis, urinary bladder edema consistent with cystitis, incidental findings noted. Most likely etiology of patient's symptoms is recurrent urosepsis with A-fib with RVR. Given relatively sustained rate in the 110 region I will hold on her control as the patient may have physiologic increase in and for cardiac output given illness. Patient treated with antibiotics, IV fluids meeting 30 cc/kg requirement, magnesium replenishment. The results of ED evaluation were discussed with the patient including plan for admission due to requirement for level of care not available if discharged to prevent significant worsening/deterioration. Patient agreeable with plan. Discussed with hospitalist service who was agreeable to admit patient. Medical Records I reviewed the patient's medical records. Lab Data I reviewed the patient's lab results. 09/04/22 01:45 09/04/22 01:45 Radiology Impressions Chest/Abdomen/Pelvis CT 09/01/22 22:52 IMPRESSION: 1. Negative for pulmonary embolus. 2. Cardiomegaly. 3. Sternotomy wires. 4. Coronary artery atherosclerotic calcifications. 5. Patchy bilateral atelectasis versus minimal infiltrate. 6. Scattered prominent subcentimeter short axis nonspecific mediastinal lymph nodes. 7. Ascending thoracic aorta dilated to 4.3 cm. IMPRESSION: 1. Edema seen about the urinary bladder, please correlate for cystitis. 2. Richardson catheter in the urinary bladder with air presumed iatrogenic. 3. Prostate gland enlarged with a 6.8 cm cystic component, perhaps reflecting an infectious process, please correlate clinically. 4. Cholelithiasis. 5. Constipation. 6. Bilateral renal cysts, negative for follow up advised. 7. Diverticulosis without diverticulitis. 8. Small hiatal hernia. 9. Right adrenal 2.7 cm indeterminate nodule, dedicated nonemergent adrenal imaging could further characterize this. COMMENTS: Consistent with the [employer]'s Incidental Findings Committee white paper (J Am Leilani Radiol 2018): Any incidental renal lesion less than 1 cm or classified as too small to characterize, or any incidental cystic renal lesion characterized as simple-appearing, is likely benign. No follow-up imaging is recommended for these lesions per consensus recommendations based on imaging criteria. Chest X-Ray 09/03/22 17:52 IMPRESSION: No acute findings. Laboratory Results WBC 23.8 10^3/uL (4.0-10.0) H 09/01/22 22:20 RBC 4.53 10^6/uL (4.1-5.3) 09/01/22 22:20 Hgb 13.7 g/dL (11.7-16.6) 09/01/22 22:20 Hct 42.2 % (42.0-52.0) 09/01/22 22:20 MCV 93.2 fl (80-94) 09/01/22 22:20 MCH 30.2 pg (28.0-34.0) 09/01/22 22:20 MCHC 32.5 g/dL (30.0-36.0) 09/01/22 22:20 RDW 13.2 % (12.1-15.1) 09/01/22 22:20 Plt Count 239 10^3/cmm (130-400) 09/01/22 22:20 MPV 11.3 fL (7.4-10.4) H 09/01/22 22:20 Neut % (Auto) 93.0 % 09/01/22 22:20 Lymph % (Auto) 1.2 % 09/01/22 22:20 Stark % (Auto) 4.3 % 09/01/22 22:20 Eos % (Auto) 0.2 % 09/01/22 22:20 Baso % (Auto) 0.3 % 09/01/22 22:20 Neut # (Auto) 22.17 10^3/uL (1.8-7.7) H 09/01/22 22:20 Lymph # (Auto) 0.3 10^3/uL (0.8-4.8) L 09/01/22 22:20 Stark # (Auto) 1.0 10^3/uL (0.2-0.9) H 09/01/22 22:20 Eos # (Auto) 0.1 10^3/uL (0.0-0.8) 09/01/22 22:20 Baso # (Auto) 0.1 10^3/uL (0.0-0.1) 09/01/22 22:20 Nucleated RBC % (auto) 0 % 09/01/22 22:20 Nucleated RBCs # 0.0 /100WBC 09/01/22 22:20 Sodium 134 mmol/L (136-145) L 09/01/22 22:20 Potassium 4.4 mmol/L (3.5-5.1) 09/01/22 22:20 Chloride 97 mmol/L (98-107) L 09/01/22 22:20 Carbon Dioxide 20 mmol/L (22-29) L 09/01/22 22:20 Anion Gap 21.4 (5-19) H 09/01/22 22:20 BUN 28 mg/dL (8-23) H 09/01/22 22:20 Creatinine 1.1 mg/dL (0.7-1.2) 09/01/22 22:20 GFR Calculation Not Reportable 09/01/22 22:20 Glucose 278 mg/dL (65-115) H 09/01/22 22:20 POC Glucose 270 mg/dL (70-110) H 09/01/22 22:20 Calculated Osmolality 293 mOsm/kg (285-295) 09/01/22 22:20 Lactic Acid 3.0 mmol/L (0.5-2.2) H 09/01/22 22:20 Lactic Acid (Sepsis) 2.2 mmol/L (0.5-2.2) 09/02/22 00:38 Calcium 9.1 mg/dL (8.5-10.5) 09/01/22 22:20 Magnesium 1.4 mg/dL (1.7-2.3) L 09/01/22 22:20 Total Bilirubin 0.3 mg/dL (0.15-1.2) 09/01/22 22:20 AST 20 U/L (0-40) 09/01/22 22:20 ALT 15 U/L (0-41) 09/01/22 22:20 Alkaline Phosphatase 87 U/L (40-130) 09/01/22 22:20 Troponin T Baseline 120 ng/L (0-15) H* 09/01/22 22:20 Troponin T 120 Minute 150.2 ng/L (0-15) H 09/02/22 00:38 Delta Troponin T 30.2 ABS# (0-10) H* 09/02/22 00:38 Total Protein 6.3 g/dL (6.6-8.7) L 09/01/22 22:20 Albumin 2.9 g/dL (3.5-5.2) L 09/01/22 22: Globulin 3.4 g/dL (1.3-4.6) 09/01/22 22: TSH 2.39 uIU/mL (0.27-4.20) 09/01/22 22:20 Urine Color Yellow (Yellow) 09/01/22 22: Urine Appearance Turbid (CLEAR) A 09/01/22: Urine pH 5 (5-7) 09/01/22 22: Ur Specific [place] 1.015 (1.005-1.030) 09/01/22 22: Urine Protein Trace (Negative) 09/01/22 22: Urine Glucose (UA) 2+ (Normal) H 09/01/22 22: Urine Ketones 1+ (Negative) H 09/01/22 22: Urine Blood 3+ (Negative) H 09/01/22 22: Urine Nitrate Negative (Negative) 09/01/22 22: Urine Bilirubin Neg (Negative) 09/01/22 22: Urine Urobilinogen Norm mg/dL (Negative) 09/01/22 22:29 Ur Leukocyte Esterase 2+ (Negative) H 09/01/22 22:29 Urine RBC 0-4 /hpf (0-2) H 09/01/22 22:29 Urine WBC Too numerous to cnt /hpf (0-5) H 09/01/22 22:29 Ur Squamous Epith Cells 0-4 /hpf (0-5) H 09/01/22 22: Amorphous Sediment Not Reportable 09/01/22 22: Urine Bacteria Trace /hpf (NONE) 09/01/22: Urine Yeast 4+ /hpf H 09/01/22 22:29 Critical Care Time Critical Care Time: Critical Care Time: Yes Total Critical Care Time: 50 Attestation: Due to a high probability of clinically significant, possibly life threatening deterioration, the patient required my highest level of attention and preparedness to intervene emergently and I personally spent this critical care time directly and personally managing the patient. This critical care time included obtaining a history; examining the patient; pulse oximetry; ordering and review of laboratory and imaging studies; arranging urgent treatment with development of a management plan; evaluation of patient's response to treatment; frequent reassessment; and, discussions with other providers as applicable. It was exclusive of separately billable procedures. Primary system involved is infectious disease and cardiac Discharge Plan Discharge Patient Disposition: Admitted As Inpatient Admit Provider: Trell Champagne Clinical Impression: UTI (urinary tract infection), Chronic prostatitis, Sepsis, Elevated lactic acid level, Acute kidney injury, Bed sore, Atrial fibrillation with rapid ventricular response Condition: Stable Coding Level of Care Code ED Flying I Instructor for Starr Cobb
--- NOTE | 2022-09-01 22:02 | XRR_ITS ---
PROCEDURE INFORMATION: Exam: XR Chest Exam date and time: 09/01/2022 10:11 PM Age: 82 years old Clinical indication: Other: Cant void; Prior surgery; Surgery date: 6+ months; Surgery type: Open heart; Additional info: Cough TECHNIQUE: Imaging protocol: Radiologic exam of the chest. Views: 1 view. COMPARISON: CR (CHEST, ) 08/16/2022 9:23 PM FINDINGS: Lungs: Left mid lung calcified granuloma. Pleural spaces: Unremarkable. No pleural effusion. No pneumothorax. Heart/Mediastinum: Cardiomegaly and mild pulmonary vascular congestion. Bones/joints: Sternotomy wires. XR/XR chest 1V portable [id number] IMPRESSION: 1. Cardiomegaly and mild pulmonary vascular congestion. 2. Sternotomy wires. 3. Left mid lung calcified granuloma.
--- NOTE | 2022-09-01 22:03 | ECG_ITS ---
[facility] Test Date: 2022-09-01 Pat Name: Delta Aparicio Department: Room: Gender: Male Curriculum And Instruction Specialist: : [id number] Requested By: Jose A Stone Order Number: [id number] Tiffanei MD: Adolfo Hardin M.D. Measurements Intervals [place] Rate: 133 P: 0 MA: 0 QRS: -75 QRSD: 149 T: 75 QT: 336 QTc: 501 Interpretive Statements ATRIAL FIBRILLATION WITH RAPID VENTRICULAR RESPONSE WITH ABERRANT CONDUCTION OR VENTRICULAR PREMATURE COMPLEXES LEFT AXIS DEVIATION [QRS AXIS < -30] RIGHT BUNDLE BRANCH BLOCK [120+ ms QRS DURATION, UPRIGHT V1, 40+ ms S IN I/aVL/V4/V5/V6] Compared to ECG 07/27/2020 13:01:07 Ventricular premature complex(es) now present Aberrant conduction of supraventricular beat(s) now present Sinus rhythm no longer present First degree AV block no longer present Electronically Signed On 09-02-2022 14:49:52 CDT by Adolfo Hardin M.D. [email or web address]
[2022-09-01 22:34] LABS: Glucose Point of Care 270 mg/dL (70-110)
[2022-09-01] MEDS: sodium chloride 0.9% 1,000 ML 999 ML IV (22:37)
[2022-09-01 22:41] LABS: Basophils # 0.1 10^3/uL (0.0-0.1); Basophils % 0.3 %; Eosinophils # 0.1 10^3/uL (0.0-0.8); Eosinophils % 0.2 %; Hematocrit 42.2 % (42.0-52.0); Hemoglobin 13.7 g/dL (11.7-16.6); Lymphocytes # 0.3 10^3/uL (0.8-4.8); Lymphocytes % 1.2 %; Mean Corpuscular HGB Conc 32.5 g/dL (30.0-36.0); Mean Corpuscular Hemoglobin 30.2 pg (28.0-34.0); Mean Corpuscular Volume 93.2 fl (80-94); Mean Platelet Volume 11.3 fL (7.4-10.4); Monocytes % 4.3 %; Neutrophils # 22.17 10^3/uL (1.8-7.7); Nucleated Red Blood Cells % 0 %; Platelet Count 239 10^3/cmm (130-400); Red Blood Count 4.53 10^6/uL (4.1-5.3); Red Cell Distribution Width 13.2 % (12.1-15.1); White Blood Count 23.8 10^3/uL (4.0-10.0)
[2022-09-01 22:49] LABS: Urine Appearance Turbid (CLEAR); Urine Color Yellow (Yellow); pH Urine 5 (5-7)
[2022-09-01 22:50] LABS: Add Urine Culture? Yes; Add Urine Microscopic? YES; Bacteria Urine TRACE /hpf; Bilirubin Urine Neg (Negative); Blood Urine 3+ (Negative); Glucose Urine UA 2+ (Normal); Ketones Urine 1+ (Negative); Leukocyte Esterase Urine 2+ (Negative); Nitrate Urine Negative (Negative); Protein Urine Trace (Negative); RBC Urine 0-4 /hpf (0-2); Specific Gravity, Urine 1.015 (1.005-1.030); Squamous Epithelial Cell Urine 0-4 /hpf (0-5); Urobilinogen Urine Norm (Negative); WBC Urine TOO NUMEROUS TO CNT /hpf (0-5)
--- NOTE | 2022-09-01 22:52 | CTR_ITS ---
PROCEDURE INFORMATION: Exam: CTA Chest With Contrast Exam date and time: 09/01/2022 11:24 PM Age: 82 years old Clinical indication: Abdominal pain; Acute; Chest pressure; Prior surgery; Surgery date: 6+ months; Surgery type: Open heart; Additional info: Cough, SOB, tachycardia, abd pain TECHNIQUE: Imaging protocol: Computed tomographic angiography of the chest with contrast. 3D rendering (Not supervised by radiologist): MIP and/or 3D reconstructed images were created by the technologist. Radiation optimization: All CT scans at this facility use at least one of these dose optimization techniques: automated exposure control; mA and/or kV adjustment per patient size (includes targeted exams where dose is matched to clinical indication); or iterative reconstruction. Contrast material: OMNI 350; Contrast volume: 100 ml; Contrast route: INTRAVENOUS (IV); REPORTING DATA: Count of CT and Cardiac NM exams in prior 12 months: This patient has received 0 known CTs and 0 known cardiac nuclear medicine studies in the 12 months prior to the current study. COMPARISON: CR (CHEST, ) 09/01/2022 10:11 PM RADIATION DOSE METRICS: Total DLP (mGy-cm): 1359.85 FINDINGS: Pulmonary arteries: Normal. No pulmonary emboli. Aorta: Ascending thoracic aorta dilated to 4.3 cm. Lungs: Patchy bilateral atelectasis versus minimal infiltrate. Pleural spaces: Unremarkable. No pneumothorax. No pleural effusion. Heart: Cardiomegaly. Coronary arteries: Coronary artery atherosclerotic calcifications. Lymph nodes: Scattered prominent subcentimeter short axis nonspecific mediastinal lymph nodes. Bones/joints: Sternotomy wires. Soft tissues: Unremarkable. PROCEDURE INFORMATION: Exam: CT Abdomen And Pelvis With Contrast Exam date and time: 09/01/2022 11:24 PM Age: 82 years old Clinical indication: Abdominal pain; Acute; Chest pressure; Prior surgery; Surgery date: 6+ months; Surgery type: Open heart; Additional info: Cough, SOB, tachycardia, abd pain TECHNIQUE: Imaging protocol: Computed tomography of the abdomen and pelvis with contrast. Radiation optimization: All CT scans at this facility use at least one of these dose optimization techniques: automated exposure control; mA and/or kV adjustment per patient size (includes targeted exams where dose is matched to clinical indication); or iterative reconstruction. Contrast material: OMNI 350; Contrast volume: 100 ml; Contrast route: INTRAVENOUS (IV); REPORTING DATA: Count of CT and Cardiac NM exams in prior 12 months: This patient has received 0 known CTs and 0 known cardiac nuclear medicine studies in the 12 months prior to the current study. COMPARISON: CR XR KUB [id number] 10/31/2020 3:12 PM RADIATION DOSE METRICS: Total DLP (mGy-cm): 1359.85 FINDINGS: Liver: Normal. No mass. Gallbladder and bile ducts: Cholelithiasis. Pancreas: Normal. No ductal dilation. Spleen: Normal. No splenomegaly. Adrenal glands: Right adrenal 2.7 cm indeterminate nodule, dedicated nonemergent adrenal imaging could further characterize this. Kidneys and ureters: Bilateral renal cysts, negative for follow up advised. Stomach and bowel: Constipation. Diverticulosis without diverticulitis. Small hiatal hernia. Appendix: No evidence of appendicitis. Intraperitoneal space: Unremarkable. No free air. No significant fluid collection. Vasculature: Unremarkable. No abdominal aortic aneurysm. Lymph nodes: Unremarkable. No enlarged lymph nodes. Urinary bladder: Edema seen about the urinary bladder, please correlate for cystitis. Richardson catheter in the urinary bladder with air presumed iatrogenic. Reproductive: Prostate gland enlarged with a 6.8 cm cystic component, perhaps reflecting an infectious process, please correlate clinically. Bones/joints: Unremarkable. No acute fracture. Soft tissues: Unremarkable. CT/CT angio chest w abd pel w con IMPRESSION: 1. Negative for pulmonary embolus. 2. Cardiomegaly. 3. Sternotomy wires. 4. Coronary artery atherosclerotic calcifications. 5. Patchy bilateral atelectasis versus minimal infiltrate. 6. Scattered prominent subcentimeter short axis nonspecific mediastinal lymph nodes. 7. Ascending thoracic aorta dilated to 4.3 cm. IMPRESSION: 1. Edema seen about the urinary bladder, please correlate for cystitis. 2. Richardson catheter in the urinary bladder with air presumed iatrogenic. 3. Prostate gland enlarged with a 6.8 cm cystic component, perhaps reflecting an infectious process, please correlate clinically. 4. Cholelithiasis. 5. Constipation. 6. Bilateral renal cysts, negative for follow up advised. 7. Diverticulosis without diverticulitis. 8. Small hiatal hernia. 9. Right adrenal 2.7 cm indeterminate nodule, dedicated nonemergent adrenal imaging could further characterize this. COMMENTS: Consistent with the [employer]'s Incidental Findings Committee white paper (J Am Leilani Radiol 2018): Any incidental renal lesion less than 1 cm or classified as too small to characterize, or any incidental cystic renal lesion characterized as simple-appearing, is likely benign. No follow-up imaging is recommended for these lesions per consensus recommendations based on imaging criteria.
[2022-09-01] MEDS: meropenem 1,000 MG in sodium chloride 0.9% (plus) 50 ML 100 MG IV (23:11)
[2022-09-01 23:14] VITALS: BP 116/70; PULSE 124; RESP 18; O2SAT 93
[2022-09-01 23:14] LABS: Troponin(5th) Baseline 120 ng/L (0-15)
[2022-09-01 23:17] LABS: Alanine Aminotransferase 15 U/L (0-41); Albumin Level 2.9 g/dL (3.5-5.2); Alkaline Phosphatase 87 U/L (40-130); Anion Gap 21.4 (5-19); Aspartate Amino Transferase 20 U/L (0-40); Blood Urea Nitrogen 28 mg/dL (8-23); Calcium 9.1 mg/dL (8.5-10.5); Carbon Dioxide 20 mmol/L (22-29); Chloride 97 mmol/L (98-107); Globulin 3.4 g/dL (1.3-4.6); Glucose 278 mg/dL (65-115); Magnesium 1.4 mg/dL (1.7-2.3); Osmolality Calculated 293 mOsm/kg (285-295); Potassium 4.4 mmol/L (3.5-5.1); Sodium 134 mmol/L (136-145); Thyroid Stimulating Hormone 2.39 uIU/mL (0.27-4.20); Total Bilirubin 0.3 mg/dL (0.15-1.2); Total Protein 6.3 g/dL (6.6-8.7)
[2022-09-01] MEDS: iohexol 350 mg/mL 500 mL Btl (per mL) IV (23:30)
[2022-09-01] MEDS: magnesium sulfate premix 2 GM/50 ML PIGGYBACK IV (23:55)
[2022-09-01 23:57] VITALS: BP 115/54; PULSE 121; RESP 24; O2SAT 92
[2022-09-02] VITALS (156 sets, daily range): BP systolic 76–124; BP diastolic 49–86; PULSE 61–120; RESP 12–36; TEMP 36.5–37.1; O2SAT 90–98; BMI 11.2
[2022-09-02] MEDS: sodium chloride 0.9% 1,000 ML 999 ML IV (00:09)
[2022-09-02 00:15] LABS: Reflex Lactate Order REFLEX LACTIC ORDERD
[2022-09-02] MEDS: sodium chloride 0.9% 500 ML 999 ML IV (00:30)
--- NOTE | 2022-09-02 00:51 | P.HP_ITS ---
Providers/Chief Complaint Admitting Physician: Trell Champagne MD Primary Care Provider: Byron Donis MD Chief Complaint: cant void History of Present Illness Delta Aparicio is a 82 year old male with a past medical history of BPH, chronic cystitis, self caths, CAD, dementia,Chronic prostatitis, GERD, urinary retention, noninsulin-dependent type 2 diabetes mellitus, recent hospitalization for urinary tract infection who presents to [facility] due to weakness, fatigue, poor appetite, chills, inability to self catheterize, increased confusion. Patient's tells me that over the last few days he has been feeling increasingly fatigued, loss of taste, poor appetite, chills, intermittent episodes of confusion. Today he was not able to self catheterize himself, increased confusion, more significant weakness. Currently patient is alert to person, to place, not to time, he can follow commands, but most of the history was provided by at bedside, he denies any chest pain, denies any shortness of breath, but does report increased cough, productive cough, has been complaining of back pain, Review of Systems Const: Reports: chills Eyes: Denies: change in vision Card: Denies: chest pain Resp: Reports: productive cough GI: Denies: abdominal pain, nausea or vomiting : Reports: flank pain and difficulty urinating Musc: Reports: back pain Neuro: Reports: dizziness and confusion Medications/Allergies Home Medications Medication Instructions Recorded Confirmed Last Taken Type acetaminophen 500 mg tablet 500 mg PO Q6H PRN Pain 09/01/19 08/27/22 07/27/20 History (Tylenol Extra Strength) melatonin 10 mg capsule 10 mg PO BEDTIME PRN Sleep 09/29/19 08/27/22 07/27/20 History cholecalciferol (vitamin D3) 25 25 mcg PO QAM 02/07/20 08/27/22 3 Days Ago History mcg (1,000 unit) tablet (Vitamin ~08/14/22 D3) ascorbic acid (vitamin C) 500 mg 500 mg PO QAM 07/27/20 08/27/22 3 Days Ago History tablet (Vitamin C) ~08/14/22 cetirizine 10 mg tablet (Allergy 10 mg PO BEDTIME 07/27/20 08/27/22 3 Days Ago History Relief (cetirizine)) ~08/14/22 prostate vitamin 1 cap PO DAILY 08/20/21 08/27/22 2 Weeks Ago History ~08/03/22 finasteride 5 mg tablet 5 mg PO DAILY@0730 #30 tabs 09/27/21 08/27/22 Unknown Rx tamsulosin 0.4 mg capsule 0.4 mg PO BID #60 caps 09/27/21 08/27/22 Unknown Rx cyanocobalamin (vitamin B-12) 2,000 mcg PO QAM 08/17/22 08/27/22 Unknown History 1,000 mcg tablet (Vitamin B-12) nitroglycerin 0.4 mg sublingual 0.4 mg sublingual Q5M PRN Chest 08/17/22 08/27/22 Unknown History tablet (Nitrostat) Pain vitamin B complex 1 tab PO QAM 08/17/22 08/27/22 3 Days Ago History ~08/14/22 zinc acetate 50 mg (zinc) capsule 50 mg PO QAM 08/17/22 08/27/22 3 Days Ago History ~08/14/22 metformin 500 mg tablet 500 mg PO DAILY #30 tabs 08/18/22 08/27/22 Unknown Rx pen needle, diabetic 29 gauge x #100 ea 08/18/22 08/27/22 Unknown Rx 1/2 (Pen Needle) cefuroxime axetil 500 mg tablet 500 mg PO BID #60 tabs 08/27/22 08/27/22 Unknown Rx fluconazole 100 mg tablet 100 mg PO DAILY 21 days #21 tabs 08/27/22 08/27/22 Unknown Rx insulin glargine 100 unit/mL (3 25 unit (0.25 mL) SUBCUT QAM 30 08/27/22 3 Unknown Rx mL) subcutaneous pen (Lantus days #7.5 mL Solostar U-100 Insulin) Allergies Allergy/AdvReac Type Severity Reaction Status Date / Time erythromycin base Allergy ALGY-Hives Verified 08/27/22 10:03 [From E-Mycin] sulfamethoxazole Allergy ALGY-Bliste Verified 08/27/22 10:03 [From Bactrim] r trimethoprim [From Bactrim] Allergy ALGY-Bliste Verified 08/27/22 10:03 r PFSH Acute PFSH: Medical History Balanitis BPH NOS w ur obs/LUTS Chronic cystitis Chronic prostatitis Diabetes Erectile dysfunction GERD (gastroesophageal reflux disease) History of brain tumor Incomplete bladder emptying Pyuria Urinary incontinence Urinary retention Surgical History H/O brain surgery 2010 meningioma R Hx of heart artery stent Hx of umbilical hernia repair S/P CABG (coronary artery bypass graft) 2011 Family History Father CAD (coronary artery disease) Diabetes Cancer unknown Mother CAD (coronary artery disease) Diabetes Other Dementia Denies family history of Clotting disorder Hyperlipidemia Psychiatric illness Chronic kidney disease (CKD) Anesthesia complication Bleeding disorder Lung disease Hypertension Stroke Social History Smoking and tobacco status: never smoked Alcohol intake: current Alcohol intake frequency: 0-2 Drinks per Day Adopted: No Caregiver/support person: No Lives independently: No Household members: spouse Marital status: Current occupational status: retired Current gender identity: Male Vitals/I&O/Wt Last Vital Signs Temp 98.0 F 09/01/22 21:35 Pulse 120 H 09/02/22 00:00 Resp 30 H 09/02/22 00:00 BP 124/68 09/02/22 00:00 Pulse Ox 95 09/02/22 00:00 O2 Del Method Room Air 09/02/22 00:00 Physical Exam Const: COMMON NORMALS: no acute distress HENMT: COMMON NORMALS: normocephalic HEAD & SCALP: normocephalic Eye: COMMON NORMALS: Equal, round and reactive pupils present and EOMs intact bilaterally Neck/C-Spine: COMMON NORMALS: full ROM and no lymphadenopathy Lymph: LYMPHATIC: no lymphadenopathy noted Chest: COMMONS NORMALS: normal inspection of the chest Resp: COMMON NORMALS: normal respiratory effort, No retractions, No use of accessory muscles and clear to auscultation bilaterally AUSCULTATION: clear to auscultation bilaterally Cardio: COMMON NORMALS: S1 normal heart sound present and S2 normal heart sound present RATE: tachycardic RHYTHM: abnormal rhythm irregularly irregular HEART SOUNDS: S1 normal heart sound present and S2 normal heart sound present GI: COMMON NORMALS: Normal to inspection, nondistended, normoactive bowel sounds present, Soft to palpation and non-tender : COMMON NORMALS: Yes no CVA tenderness Back/Pelvis: OTHER: Sacral DTI, stage I Extremity: COMMON NORMALS: no pedal edema Neuro: OTHER: Does not follow neurologic testing Data 09/01/22 22:20 09/01/22 22:20 Other data: EKG reviewed by me shows A-fib with RVR Chest x-ray no focal pneumonia Blood work was reviewed A&P Assessment and plan (1) Atrial fibrillation with rapid ventricular response: (2) Deep tissue injury: (3) Dementia: (4) Acute kidney injury: (5) Diabetes mellitus: Qualifiers: Diabetes mellitus type: type 2 Diabetes mellitus skilled nursing insulin use: without skilled nursing use (6) Sepsis: (7) UTI (urinary tract infection): (8) Chronic prostatitis: (9) BPH NOS w ur obs/LUTS: (10) CAD (coronary artery disease): (11) Acute encephalopathy: (12) NSTEMI (non-ST elevated myocardial infarction): (13) Hypomagnesemia: (14) Prostate abscess: (15) Lactic acidosis: (16) High anion gap metabolic acidosis: (17) Goals of care, counseling/discussion: Plan Acute encephalopathy -Likely sec to urinary tract infection, sepsis -Monitor mentation closely -Neurochecks, aspiration precautions Urinary tract infection -Recurrent -Continue meropenem, vancomycin -We will add fluconazole -IV fluids Sepsis -Evidence of sepsis given leukocytosis, elevated troponin, A-fib with RVR, acute encephalopathy, evidence of UTI -Follow urine cultures, blood cultures CT scan shows Prostate gland enlarged with a 6.8 cm cystic component, perhaps reflecting an infectious process, -Possible prostatic abscess? -We will have to discuss with urology in the morning A-fib with RVR -Likely secondary to sepsis -Continue Cardizem 30 mg every 6 hours Non-ST elevation IA -Likely type II NSTEMI, related to A-fib with RVR, sepsis, UTI -However cannot rule out underlying cardiac etiology -Serial EKGs, troponins, telemetry monitoring Lactic acidosis -Likely secondary to sepsis, UTI High anion gap metabolic acidosis History of CAD, no complaints of chest pain Hypomagnesemia, monitor has been replaced Type 2 diabetes mellitus -Lantus 10 units every morning -Low-dose sliding scale Goals of care discussion patient and 's states that he is a DNR/DNI Lovenox for DVT prophylaxis We will monitor in ICU Attestations Medical Necessity Statement*: Patient requires hospitalization, inpatient, greater than 2 midnights for sepsis, urinary tract infection, acute encephalopathy, lactic acidosis, A-fib with RVR, NSTEMI, Diagnoses Atrial fibrillation with rapid ventricular response I48.91 Deep tissue injury T14.8XXA Dementia F03.90 Acute kidney injury N17.9 Diabetes mellitus E11.9 Diabetes mellitus type: type 2 Diabetes mellitus skilled nursing insulin use: without ferry terminal supervisor use Sepsis A41.9 UTI (urinary tract infection) N39.0 Chronic prostatitis N41.1 BPH NOS w ur obs/LUTS N40.1 CAD (coronary artery disease) I25.10 Acute encephalopathy G93.40 NSTEMI (non-ST elevated myocardial infarction) I21.4 Hypomagnesemia E83.42 Prostate abscess N41.2 Lactic acidosis E87.20 High anion gap metabolic acidosis E87.29 Goals of care, counseling/discussion Z71.89
--- NOTE | 2022-09-02 01:00 | USCV_ITS ---
Delta Aparicio Age: 82 Gender: M : 1940 Exam Date: 09/02/2022 11:49 Ordering Phys: Trell Champagne MD Technologist: PATRICIO Exam Location: [facility] [place] Indication: NSTEMI BP: 96 / 59 HR: 65 Rhythm: Atrial fibrillation Technical Quality: Adequate MEASUREMENTS (Male / Female) Normal Values 2D ECHO LVOT Diameter 2.0 cm LV Ejection Fraction MOD 2C 78.0 % LV Ejection Fraction 2C AL 78.9 % LA Diameter 4.0 cm LA Width 2.5 cm LA Height 5.6 cm RA Width 3.9 cm RA Height 5.1 cm Aorta at Sinotubular Diameter 2.9 cm IVC Diameter 1.3 cm M-MODE Aortic Annulus Diameter 3.9 cm LA Ao Ratio MM 1.0 MV E Point Septal Separation 0.6 cm DOPPLER AV Peak Velocity 130.3 cm/s LVOT Peak Velocity 72.0 cm/s AV Area Cont Eq vti 1.9 cm squared AV Area Cont Eq pk 1.7 cm squared MV Peak Velocity 88.0 cm/s MV Area PHT 3.1 cm squared Mitral E to A Ratio 1.5 MV E' Velocity 57.0 cm/s Mitral E to MV E' Ratio 7.9 Mitral E to LV E' Lateral Ratio 9.6 Mitral E to LV E' Septal Ratio 6.8 TR Peak Velocity 224.6 cm/s TR Peak Gradient 20.2 mmHg TR Mean Velocity 190.2 cm/s TR Mean Gradient 15.1 mmHg TR Velocity Time Integral 77.4 cm TV Peak E Velocity 44.0 cm/s Right Atrial Pressure 3.0 mmHg Pulmonary Artery Systolic Pressu 23.2 mmHg PV Peak Velocity 82.0 cm/s RV Acceleration Time 0.1 s RV Ejection Time 0.3 s RV AcT/ET 0.4 FINDINGS Left Ventricle The study is suboptimal due to the patient's inability to move. The rhythm is unknown. The ventricle appears to be at least mildly enlarged. There appears to be global hypokinesis though this is not well seen. The apex may be slightly more hypokinetic. A very rough estimate of the ejection fraction would be 35 to 40%. No specific wall motion abnormalities can be identified due to the poor quality of the study. Grade 2 diastolic dysfunction. Right Ventricle The right ventricle is poorly seen but appears to be mildly enlarged.normal right ventricular systolic pressure. Right Atrium Mildly increased right atrial size. Left Atrium Mildly increased left atrial size. Mitral Valve Mitral valve not well visualized. Structurally normal mitral valve. Mild mitral valve regurgitation. Aortic Valve The valve is poorly seen. No obvious regurgitation or stenosis. Tricuspid Valve Tricuspid valve not well visualized. Pulmonic Valve Pulmonic valve not well visualized. Pericardium Normal pericardium without effusion. Aorta Normal ascending aorta dimension. IVC Inferior vena cava not visualized. CONCLUSIONS The study is suboptimal due to the patient's inability to move. The rhythm is unknown. The ventricle appears to be at least mildly enlarged. There appears to be global hypokinesis though this is not well seen. The apex may be slightly more hypokinetic. A very rough estimate of the ejection fraction would be 35 to 40%. No specific wall motion abnormalities can be identified due to the poor quality of the study. Grade 2 diastolic dysfunction. Mildly increased right atrial size. Mildly increased left atrial size. Mitral valve not well visualized. Structurally normal mitral valve. Mild mitral valve regurgitation. There are no prior echocardiogram studies to compare. Dr. Alcides Vital MD (Electronically Signed) Final Date: 02 September 2022 16:31 S
[2022-09-02 01:04] LABS: Lactic Acid level (Lactate) 2.2 mmol/L (0.5-2.2)
[2022-09-02 01:05] LABS: Troponin 5 2HR 150.2 ng/L (0-15)
[2022-09-02 01:06] LABS: Troponin 5 2HR Delta 30.2 ABS# (0-10)
--- NOTE | 2022-09-02 01:45 | ECG_ITS ---
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 Measurements Intervals [place] Rate: 99 P: 0 GA: 0 QRS: -71 QRSD: 166 T: 18 QT: 385 QTc: 495 Interpretive Statements ATRIAL FIBRILLATION WITH ABERRANT CONDUCTION OR VENTRICULAR PREMATURE COMPLEXES LEFT AXIS DEVIATION [QRS AXIS < -30] RIGHT BUNDLE BRANCH BLOCK [120+ ms QRS DURATION, UPRIGHT V1, 40+ ms S IN I/aVL/V4/V5/V6] POSSIBLE ANTERIOR MYOCARDIAL INFARCTION , OF INDETERMINATE AGE [30 ms Q WAVE IN V3/V4, OR R < 0.2 mV IN V4] Compared to ECG 09/01/2022 22:17:02 Myocardial infarct finding now present Electronically Signed On 09-02-2022 15:05:57 CDT by Adolfo Hardin M.D. [id number]
[2022-09-02] MEDS: dilTIAZem 30 mg Tablet PO (01:52)
[2022-09-02] MEDS: pantoprazole 40 mg SDV IVP (01:53)
[2022-09-02] MEDS: sodium chloride 0.9% 1,000 ML 75 ML IV ×2 (01:53→14:05)
[2022-09-02] MEDS: fluconazole premix 200 MG/100 ML PREMIX 100 MG IV (01:54)
[2022-09-02] MEDS: heparin drip 25,000 UNIT/500 ML PREMIX 23 UNIT IV (02:38)
[2022-09-02] MEDS: heparin 5,000 unit/mL INJ 1 mL IV (02:39)
--- NOTE | 2022-09-02 02:51 | PC.PHAR ---
Pharmacokinetic dosing service Date: 09/02/22 Time: 251 Objective: Patient: Delta Aparicio Floor: ICU-7 Age: 82 yo Serum creatinine: 1.1 mg/dL Height: 72.0 Inches Weight (kg): 82.7 Diagnosis: Relevant medical/social history: Cultures and sensitivities: Other labs: Assessment: IBW (kg): 77.60 Dosing wt(kg): 82.7 Estimated Creatinine clearance (ml/min): 54.9 CRCL method: Cockcroft and Gault using ibw(default). Drug selected: Vancomycin Loading dose (mg): 0 Vd (liters): 74.4 (factor used: 0.9 L/kg) Aneudy (hr-1): 0.050 Half life (hrs): 13.86 Recommended dose: 1500 mg Interval: 18 hrs Infusion time (hrs): 1.5 Predicted peak (mcg/mL): 32.7 Predicted trough (mcg/mL): 14.33 Total body weight is being used for vancomycin dosing. Renal function is stable [ ] /unstable [ ] Recommendations: Give Vancomycin 1500 mg q 18 hrs with an expected Cpeak of 32.7 mcg/ml and an expected Ctrough of 14.33 mcg/ml Renal dosing of other antibiotics (review renal dosing of other medications and list guidelines here): Thank you for the consult, will continue to follow. Signature: Susan Mauro [facility]
[2022-09-02] MEDS: vancomycin 1,500 MG/300 ML PIGGYBACK 200 MG IV ×2 (03:29→21:25)
--- NOTE | 2022-09-02 03:32 | ECG_ITS ---
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 Measurements Intervals [place] Rate: 93 P: 0 GA: 0 QRS: -73 QRSD: 151 T: -11 QT: 402 QTc: 502 Interpretive Statements ATRIAL FIBRILLATION WITH ABERRANT CONDUCTION OR VENTRICULAR PREMATURE COMPLEXES LEFT AXIS DEVIATION [QRS AXIS < -30] RIGHT BUNDLE BRANCH BLOCK [120+ ms QRS DURATION, UPRIGHT V1, 40+ ms S IN I/aVL/V4/V5/V6] ANTEROSEPTAL MYOCARDIAL INFARCTION , OF INDETERMINATE AGE [40+ ms Q WAVE IN V1-V4] Compared to ECG 09/02/2022 01:45:38 No significant changes Electronically Signed On 09-02-2022 15:05:39 CDT by Adolfo Hardin M.D. [id number]
[2022-09-02] MEDS: meropenem 1,000 MG in sodium chloride 0.9% (plus) 50 ML 100 MG IV ×3 (05:35→21:30)
[2022-09-02] MEDS: ascorbic acid 500 mg Tablet PO (05:35)
[2022-09-02] MEDS: insulin glargine 100 units/1 mL 10 UNIT SUBCUT (05:40)
[2022-09-02 05:50] LABS: Troponin 5 6HR 267.5 ng/L (0-15); Troponin 5 6HR Delta 147.5 ng/L (0-12)
[2022-09-02 06:17] LABS: Glucose Point of Care 246 mg/dL (70-110)
[2022-09-02 07:16] LABS: Glucose Point of Care 247 mg/dL (70-110)
[2022-09-02] MEDS: lactated ringers 1,000 ML 999 ML IV (07:44)
[2022-09-02] MEDS: finasteride 5 mg Tablet PO (07:44)
--- NOTE | 2022-09-02 08:25 | PC.PHAR ---
pts amando [phone] verified pts medications-pts states she has been giving the pt lantus 24 units qam-rx written 08/27/22 25 units qam and ext shows last filled 08/18/22 10 units qam-
[2022-09-02] MEDS: aspirin 81 mg EC Tablet PO (08:43)
[2022-09-02] MEDS: insulin lispro 100 unit/1 mL SUBCUT ×3 (08:43→17:35)
[2022-09-02] MEDS: tamsulosin 0.4 mg Capsule PO ×2 (08:43→17:35)
[2022-09-02 09:23] LABS: Partial Thromboplastin Time 55.8 SECONDS (23.9-36.7)
[2022-09-02 09:33] LABS: Lactate (Lactic Acid level) 1.9 mmol/L (0.5-2.2)
[2022-09-02 11:16] LABS: Glucose Point of Care 201 mg/dL (70-110)
[2022-09-02 15:31] LABS: Partial Thromboplastin Time 66.2 SECONDS (23.9-36.7)
--- NOTE | 2022-09-02 17:29 | P.CONIM_ITS ---
Providers/Reason For Consult Consulting Physician/Specialty*: Cardiovascular medicine Reason for Consult*: Elevated troponin, presurgical evaluation. Requesting Physician: Hospitalist Attending Physician: Fran Pagan Primary Care Provider: Byron Donis MD History of Present Illness History of Present Illness Delta Aparicio is a 82 year old male who is chronically unwell. He sees Dr. Cowan regularly for a variety of urinary tract issues including prostatic hypertrophy, urinary incontinence, urinary retention, chronic cystitis, chronic prostatitis and balanitis. He performs self-catheterization. He has frequent visits to the urology clinic to manage all of this. Patient was admitted very early this morning with an encephalopathy associated with confusion, weakness, fatigue, poor appetite, chills and was unable to self catheterize. He was brought to the emergency room where he was found to be in atrial fibrillation with a rapid ventricular response and a creatinine of 1.1 elevated from previous baseline. He was found to be septic. He has been started on antibiotics. His troponin is elevated. The first 1 was 120, the second 150 and the third 267. It is unclear if the patient has been having chest pain. His daughter who was in the room says that he has been confused intermittently and his baseline confusion seems to be steadily getting a little worse. Whenever he has an infection or an acute illness the encephalopathy worsened significantly. He did mention to the jig builder that he had taken some nitroglycerin a couple nights ago. He had an echocardiogram a short while ago which was suboptimal because he was unable to move. His ejection fraction is about 40%. There are no obvious wall motion disturbances but it was a poor quality study. He had mild mitral regurgitation. His white blood cell count is almost 24,000 with a left shift. Serum bicarbonate is 20 with a creatinine of 1.1 and a glucose of 278. He has had a multitude of radiologic studies to include a chest x-ray shows mild pulmonary vascular congestion, renal ultrasound is negative other than a bladder diverticulum and a chest, abdomen and pelvis CT. There is no pulmonary embolism. There is an enlarged prostate with the possibility of an abscess. He has an ascending aortic aneurysm 4.3 cm. His EKG reveals atrial fibrillation with a rapid ventricular response, right bundle branch block, left axis deviation and possible old anterior wall [place]. Patient is a diabetic with a history of GERD, a brain tumor which I assume is a meningioma, coronary artery disease and bypass surgery approximately [address] [facility] in [place]. We do not have any of those details. He apparently had a stent placed after the bypass surgery. He told me in no uncertain terms he does not want any more angiograms or stents. Virtually the entire history is taken from his daughter who lives in a suburb of [place]. The patient is confused enough that he cannot provide a cogent history. Review of Systems Narrative: The review of systems cannot be taken due to the patient's mental status. Medications/Allergies Home Medications Medication Instructions Recorded Confirmed Last Taken Type acetaminophen 500 mg tablet 500 mg PO Q6H PRN Pain 09/01/19 09/02/22 07/27/20 History (Tylenol Extra Strength) melatonin 10 mg capsule 10 mg PO BEDTIME PRN Sleep 09/29/19 09/02/22 07/27/20 History cholecalciferol (vitamin D3) 25 25 mcg PO QAM 02/07/20 09/02/22 3 Days Ago History mcg (1,000 unit) tablet (Vitamin ~08/14/22 D3) ascorbic acid (vitamin C) 500 mg 500 mg PO QAM 07/27/20 09/02/22 3 Days Ago History tablet (Vitamin C) ~08/14/22 cetirizine 10 mg tablet (Allergy 10 mg PO BEDTIME 07/27/20 09/02/22 3 Days Ago History Relief (cetirizine)) ~08/14/22 finasteride 5 mg tablet 5 mg PO DAILY@0730 #30 tabs 09/27/21 09/02/22 Unknown Rx tamsulosin 0.4 mg capsule 0.4 mg PO BID #60 caps 09/27/21 09/02/22 Unknown Rx nitroglycerin 0.4 mg sublingual 0.4 mg sublingual Q5M PRN Chest 08/17/22 09/02/22 Unknown History tablet (Nitrostat) Pain vitamin B complex 1 tab PO QAM 08/17/22 09/02/22 3 Days Ago History ~08/14/22 zinc acetate 50 mg (zinc) capsule 50 mg PO QAM 08/17/22 09/02/22 3 Days Ago History ~08/14/22 metformin 500 mg tablet 500 mg PO DAILY #30 tabs 08/18/22 09/02/22 Unknown Rx pen needle, diabetic 29 gauge x #100 ea 08/18/22 09/02/22 Unknown Rx 1/2 (Pen Needle) cefuroxime axetil 500 mg tablet 500 mg PO BID #60 tabs 08/27/22 09/02/22 Unknown Rx fluconazole 100 mg tablet 100 mg PO DAILY 21 days #21 tabs 08/27/22 09/02/22 Unknown Rx cyanocobalamin (vitamin B-12) 2,500 mcg sublingual DAILY 09/02/22 09/02/22 Unknown History 2,500 mcg sublingual tablet (Vitamin B-12) insulin glargine 100 unit/mL (3 24 unit SUBCUT QAM 09/02/22 09/02/22 Unknown History mL) subcutaneous pen vitamin A 2,400 mcg capsule 2,400 mcg PO DAILY 09/02/22 09/02/22 Unknown History Allergies Allergy/AdvReac Type Severity Reaction Status Date / Time erythromycin base Allergy ALGY-Hives Verified 09/02/22 08:17 [From E-Mycin] sulfamethoxazole Allergy ALGY-Bliste Verified 09/02/22 08:17 [From Bactrim] r trimethoprim [From Bactrim] Allergy ALGY-Bliste Verified 09/02/22 08:17 r Current Medications Generic Name Dose Route Start Last Admin Trade Name Freq PRN Reason Stop Dose Admin Ascorbic Acid 500 mg 09/02/22 06:00 09/02/22 05:35 Ascorbic Acid 500 Mg Tablet PO 500 mg QAM MALCOLM Administration Aspirin 81 mg 09/02/22 09:00 09/02/22 08:43 Aspirin 81 Mg Ec Tablet PO 81 mg DAILY MALCOLM Administration Diltiazem HCl 30 mg 09/02/22 01:00 09/02/22 01:52 Diltiazem 30 Mg Tablet PO 30 mg Q6H MALCOLM Administration Finasteride 5 mg 09/02/22 07:30 09/02/22 07:44 Finasteride 5 Mg Tablet PO 5 mg DAILY@0730 MALCOLM Administration Heparin Sodium (Porcine) 0 unit 09/02/22 01:25 09/02/22 02:39 Heparin 5,000 Unit/Ml Inj 1 Ml IV 4,100 unit PRN PRN Administration Heparin weight-base protocol Protocol Sodium Chloride 1,000 mls @ 75 mls/hr 09/02/22 01:00 09/02/22 14:05 Sodium Chloride 0.9% IV 75 mls/hr .[id number] MALCOLM Administration Meropenem 1,000 mg/ Sodium 50 mls @ 100 mls/hr 09/02/22 06:00 09/02/22 14:44 Chloride IV Infused Q8H MALCOLM Infusion Protocol Fluconazole 200 mg in 100 mls @ 100 mls/hr 09/02/22 01:15 09/02/22 03:00 Diflucan Premix IV Infused Q24H MALCOLM Infusion Heparin Sodium/Sodium Chloride 25,000 unit in 500 mls @ 0 mls/hr 09/02/22 02:45 09/02/22 02:38 Heparin Drip IV 13.91 unit/kg/hr .Q0M MALCOLM 23 mls/hr Administration Protocol Per Protocol Vancomycin/PEG/NADA/Lysine/Water 1,500 mg in 300 mls @ 200 mls/hr 09/02/22 03:00 09/02/22 05:00 Vancocin IV Infused Q18H MALCOLM Infusion Insulin Glargine 10 unit 09/02/22 06:00 09/02/22 05:40 Insulin Glargine 100 Units/1 Ml SUBCUT 10 unit QAM MALCOLM Administration Insulin Human Lispro 0 unit 09/02/22 08:00 09/02/22 12:46 Insulin Lispro 100 Unit/1 Ml SUBCUT 4 unit TIDWM MALCOLM Administration Protocol Pantoprazole Sodium 40 mg 09/02/22 01:00 09/02/22 01:53 Pantoprazole 40 Mg Sdv IVP 40 mg Q24H MALCOLM Administration Tamsulosin HCl 0.4 mg 09/02/22 09:00 09/02/22 08:43 Tamsulosin 0.4 Mg Capsule PO 0.4 mg BID MALCOLM Administration PFSH Acute PFSH: Medical History (Updated 09/02/22 @ 17:40 by Alcides Vital MD) Ascending aortic aneurysm Balanitis BPH NOS w ur obs/LUTS Chronic cystitis Chronic prostatitis Diabetes Erectile dysfunction GERD (gastroesophageal reflux disease) History of brain tumor Incomplete bladder emptying Pyuria Urinary incontinence Urinary retention Surgical History (Updated 09/02/22 @ 17:40 by Alcides Vital MD) H/O brain surgery 2010 meningioma R Hx of heart artery stent Hx of umbilical hernia repair S/P CABG (coronary artery bypass graft) 2012 Family History Father CAD (coronary artery disease) Diabetes Cancer unknown Mother CAD (coronary artery disease) Diabetes Other Dementia Denies family history of Clotting disorder Hyperlipidemia Psychiatric illness Chronic kidney disease (CKD) Anesthesia complication Bleeding disorder Lung disease Hypertension Stroke Social History Smoking and tobacco status: never smoked Alcohol intake: current Alcohol intake frequency: 0-2 Drinks per Day Adopted: No Caregiver/support person: No Lives independently: No Household members: spouse Marital status: Current occupational status: retired Current gender identity: Male Vitals/I&O/Wt Last Vital Signs Temp 97.7 F 09/02/22 13:45 Pulse 82 09/02/22 16:15 Resp 21 H 09/02/22 16:15 BP 94/57 09/02/22 16:15 Pulse Ox 96 09/02/22 16:15 O2 Del Method Room Air 09/02/22 16:15 09/02/22 09/02/22 09/02/22 06:59 14:59 22:59 Intake Total 1550 / 1550 1964 Output Total 600 / 600 Balance 950 / 950 1964 Weight last 48 hrs Weight 182 lb 5.156 oz Weight 82 lb 11.2 oz Weight 216 lb 14.958 oz Physical Exam Narrative: GENERAL: In general he is confused but in no distress. He is not in any pain. HEENT: Exam within normal limits. NECK: Supple without jugular vein distention. The carotid upstroke is normal without bruits. BACK: Exam normal. LUNGS: Clear. HEART: Irregular rate and rhythm ABDOMEN: Benign without organomegaly or tenderness. EXTREMITIES: No edema. NEUROLOGIC: Exam not done SKIN: Unremarkable. Urinary Catheter Management: Richardson: Cath Placed During This Visit: yes Reason for Continuing Indwelling Catheter: Acute Urinary Retention or Obstruction Urinary Catheter Date of Insertion: 09/02/22 Urinary Catheter Time of Insertion: 00:59 Data 09/01/22 22:20 09/01/22 22:20 A&P Assessment and plan (1) Lactic acidosis: (2) Prostate abscess: (3) NSTEMI (non-ST elevated myocardial infarction): (4) Acute encephalopathy: (5) Atrial fibrillation with rapid ventricular response: (6) Dementia: (7) Hyperglycemia: (8) Acute kidney injury: (9) Elevated lactic acid level: (10) Diabetes mellitus: Qualifiers: Diabetes mellitus type: type 2 Diabetes mellitus chcf insulin use: without technician terminal and repeater use (11) Sepsis: (12) Chronic prostatitis: (13) BPH NOS w ur obs/LUTS: (14) Balanitis: (15) CAD (coronary artery disease): (16) Dementia: (17) Delirium: (18) Self-catheterizes urinary bladder: (19) Hx of heart artery stent: (20) S/P CABG (coronary artery bypass graft): (21) Ascending aortic aneurysm: Plan He has a complex set of problems. I think no matter what we do his risk of surgery will be high if it is necessary. Patient did tell me that he did not want any more angiograms. I am not sure he could tolerate a stress test given his underlying mental status. His troponin could be under coronary disease or graft disease given his history. It could also be a type II infarct related to the sepsis, urinary tract infection and atrial fibrillation with rapid rate. He has so many underlying comorbidities these alone make his risk of surgery high. His daughter tells me that he does not want any more angiograms especially if it involves a stent. I will need to speak with Dr. Cowan to see if he believes the patient needs surgery. If not, we will simplify things. If he does need surgery and the patient agrees to it, then we will likely send him to surgery without further testing as a high risk patient. I have warned him about this however I am not sure he understands it completely. His daughter is in the room and she does understand. Consult Attestations Medical Necessity Statement: Hospitalization for sepsis, atrial fibrillation, urinary tract infection, elevated troponin. and High Time for a total of 50 minutes, includes reviewing past or interval history, examining/interviewing patient, counseling patient/family/other support, updating patient/family/other support, discussing plan of care with staff, co mmunicating with other healthcare providers and documenting encounter Other Coding Information Prolonged care (total time indicated above or notated here) Diagnoses Lactic acidosis E87.20 Prostate abscess N41.2 NSTEMI (non-ST elevated myocardial infarction) I21.4 Acute encephalopathy G93.40 Atrial fibrillation with rapid ventricular response I48.91 Dementia F03.90 Hyperglycemia R73.9 Acute kidney injury N17.9 Elevated lactic acid level R79.89 Diabetes mellitus E11.9 Diabetes mellitus type: type 2 Diabetes mellitus technician terminal and repeater insulin use: without technician terminal and repeater use Sepsis A41.9 Chronic prostatitis N41.1 BPH NOS w ur obs/LUTS N40.1 Balanitis N48.1 CAD (coronary artery disease) I25.10 Delirium R41.0 Self-catheterizes urinary bladder Z78.9 Hx of heart artery stent Z95.5 S/P CABG (coronary artery bypass graft) Z95.1 Ascending aortic aneurysm I71.21 Time Spent (min) 50
[2022-09-02 17:33] LABS: Glucose Point of Care 167 mg/dL (70-110)
--- NOTE | 2022-09-02 18:15 | PC.NURSE ---
Shift Note Frequent safety and comfort rounds continue. Orders and/or nursing care completed as indicated. Patient monitored for response to intervention and treatment(s). Education provided includes blood pressure management, diet and I/O, importance of position changes to prevent pressure injury, lab work and importance of blood draws, heparin drip and all other medications given throughout this shift. Patient and/or cash posting representative verbalized understanding of all teachings. Patient and family at bedside had no questions. Overall uneventful shift. Patient to undergo procedure tomorrow morning to drain prostate abscess.
--- NOTE | 2022-09-02 18:16 | P.CONIM_ITS ---
Providers/Reason For Consult Consulting Physician/Specialty*: Urology/[place] Reason for Consult*: Prostate abscess Requesting Physician: Dr. Pagan Attending Physician: Fran Pagan Primary Care Provider: Byron Donis MD History of Present Illness History of Present Illness Delta Aparicio is a 82 year old male who I have followed in the past for BPH/obstruction with urinary retention and history of prostatitis. He has perform self-catheterization since initial evaluation in 2020 due to refractory chronic urinary retention. Had a terrible time with a previous catheter and struggled with self-catheteriz ation as well. There was concerned about the possibility of detrusor dysfunction secondary to potentially diabetes effect chronic distention etc. His last office visit was on 09/27/2021. He grew Enterobacter cloacae a sensitive to Cipro, Levaquin, tetracycline and Bactrim. Had been on CEFUROXIME and that was changed to DOXYCYCLINE. Was scheduled to follow-up in 3 months but it does not look like that occurred Last night he presented to the emergency department with complaints of increasing penile pain suprapubic pain beginning earlier that day. Was having decreased ability to spontaneously void and when he did pass catheter there was not much output. Also complained of increasing weakness, fever, decreased mentation. Work-up: * White count was 23.8, creatinine 1.1, normal LFTs. * Urinalysis: Too numerous to count white cells, nitrite negative, trace bacteria, 4+ yeast in the urine. * CT scan abdomen and pelvis: Evidence of a large prostatic abscess measuring almost 7 cm consistent still appeared to be contained within the prostatic capsule with some question of extension into the perineum Admitted for further evaluation and treatment. Was placed on IV antibiotics (meropenem and vancomycin) I was consulted this afternoon for further evaluation and treatment Cardiology was consulted for evaluation for preop considerations. Patient was deemed a very high risk related to general anesthesia. Was felt that MAC would be much preferred. Physical findings were bland. I could not see any obvious pointing of the abscess in the perineum. There was some hint of fluctuance on rectal exam but not as dramatic as I expected it would be based on the CT scan findings. Possibly some purulence on glove on rectal exam. No evidence of scrotal involvement. Catheter draining clear urine. I reviewed the films with the patient and his daughter. Reviewed the severity of prostatic abscess and the likelihood that if there was not spontaneous drainage that he would have to be drained surgically. Percutaneous route of transperineal versus transrectal with ultrasound guidance was discussed in detail. We also reviewed transurethral unroofing. The former 2 could be performed under MAC anesthesia the latter would require more extensive anesthesia. After detailed discussion of benefits risk potential complications expectations potential need for staged and repetitive draining it was decided to proceed with transrectal ultrasound of the prostate with drainage and cystoscopy under MAC anesthesia. Informed consent was obtained Review of Systems Const: Reports: fever(s), chills and malaise Eyes: Denies: change in vision or eye discharge ENMT: Denies: hoarseness Card: Denies: chest pain or palpitations Resp: Denies: productive cough GI: Reports: abdominal pain; Denies: vomiting : Reports: difficulty urinating, dysuria and other (Perineal pain, suprapubic pain); Denies: flank pain, penile discharge or scrotal swelling Musc: Reports: joint pain Skin/Breast: Denies: rash Neuro: Reports: confusion Psych: Reports: depression Tam/Lymph: Denies: easy bleeding All/Imm: Denies: acute wheezing Medications/Allergies Home Medications Medication Instructions Recorded Confirmed Last Taken Type acetaminophen 500 mg tablet 500 mg PO Q6H PRN Pain 09/01/19 09/02/22 07/27/20 History (Tylenol Extra Strength) melatonin 10 mg capsule 10 mg PO BEDTIME PRN Sleep 09/29/19 09/02/22 07/27/20 History cholecalciferol (vitamin D3) 25 25 mcg PO QAM 02/07/20 09/02/22 3 Days Ago History mcg (1,000 unit) tablet (Vitamin ~08/14/22 D3) ascorbic acid (vitamin C) 500 mg 500 mg PO QAM 07/27/20 09/02/22 3 Days Ago History tablet (Vitamin C) ~08/14/22 cetirizine 10 mg tablet (Allergy 10 mg PO BEDTIME 07/27/20 09/02/22 3 Days Ago History Relief (cetirizine)) ~08/14/22 finasteride 5 mg tablet 5 mg PO DAILY@0730 #30 tabs 09/27/21 09/02/22 Unknown Rx tamsulosin 0.4 mg capsule 0.4 mg PO BID #60 caps 09/27/21 09/02/22 Unknown Rx nitroglycerin 0.4 mg sublingual 0.4 mg sublingual Q5M PRN Chest 08/17/22 09/02/22 Unknown History tablet (Nitrostat) Pain vitamin B complex 1 tab PO QAM 08/17/22 09/02/22 3 Days Ago History ~08/14/22 zinc acetate 50 mg (zinc) capsule 50 mg PO QAM 08/17/22 09/02/22 3 Days Ago History ~08/14/22 metformin 500 mg tablet 500 mg PO DAILY #30 tabs 08/18/22 09/02/22 Unknown Rx pen needle, diabetic 29 gauge x #100 ea 08/18/22 09/02/22 Unknown Rx 1/2 (Pen Needle) cefuroxime axetil 500 mg tablet 500 mg PO BID #60 tabs 08/27/22 09/02/22 Unknown Rx fluconazole 100 mg tablet 100 mg PO DAILY 21 days #21 tabs 08/27/22 09/02/22 Unknown Rx cyanocobalamin (vitamin B-12) 2,500 mcg sublingual DAILY 09/02/22 09/02/22 Unknown History 2,500 mcg sublingual tablet (Vitamin B-12) insulin glargine 100 unit/mL (3 24 unit SUBCUT QAM 09/02/22 09/02/22 Unknown History mL) subcutaneous pen vitamin A 2,400 mcg capsule 2,400 mcg PO DAILY 09/02/22 09/02/22 Unknown History Allergies Allergy/AdvReac Type Severity Reaction Status Date / Time erythromycin base Allergy ALGY-Hives Verified 09/02/22 08:17 [From E-Mycin] sulfamethoxazole Allergy ALGY-Bliste Verified 09/02/22 08:17 [From Bactrim] r trimethoprim [From Bactrim] Allergy ALGY-Bliste Verified 09/02/22 08:17 r Current Medications Generic Name Dose Route Start Last Admin Trade Name Freq PRN Reason Stop Dose Admin Ascorbic Acid 500 mg 09/02/22 06:00 09/02/22 05:35 Ascorbic Acid 500 Mg Tablet PO 500 mg QAM MALCOLM Administration Aspirin 81 mg 09/02/22 09:00 09/02/22 08:43 Aspirin 81 Mg Ec Tablet PO 81 mg DAILY MALCOLM Administration Diltiazem HCl 30 mg 09/02/22 01:00 09/02/22 01:52 Diltiazem 30 Mg Tablet PO 30 mg Q6H MALCOLM Administration Finasteride 5 mg 09/02/22 07:30 09/02/22 07:44 Finasteride 5 Mg Tablet PO 5 mg DAILY@0730 MALCOLM Administration Heparin Sodium (Porcine) 0 unit 09/02/22 01:25 09/02/22 02:39 Heparin 5,000 Unit/Ml Inj 1 Ml IV 4,100 unit PRN PRN Administration Heparin weight-base protocol Protocol Sodium Chloride 1,000 mls @ 75 mls/hr 09/02/22 01:00 09/02/22 14:05 Sodium Chloride 0.9% IV 75 mls/hr .[id number] MALCOLM Administration Meropenem 1,000 mg/ Sodium 50 mls @ 100 mls/hr 09/02/22 06:00 09/02/22 14:44 Chloride IV Infused Q8H MALCOLM Infusion Protocol Fluconazole 200 mg in 100 mls @ 100 mls/hr 09/02/22 01:15 09/02/22 03:00 Diflucan Premix IV Infused Q24H [facility]COLM Infusion Heparin Sodium/Sodium Chloride 25,000 unit in 500 mls @ 0 mls/hr 09/02/22 02:45 09/02/22 02:38 Heparin Drip IV 13.91 unit/kg/hr .Q0M MALCOLM 23 mls/hr Administration Protocol Per Protocol Vancomycin/PEG/NADA/Lysine/Water 1,500 mg in 300 mls @ 200 mls/hr 09/02/22 03: 00 09/02/22 05:00 Vancocin IV Infused Q18H MALCOLM Infusion Insulin Glargine 10 unit 09/02/22 06:00 09/02/22 05:40 Insulin Glargine 100 Units/1 Ml SUBCUT 10 unit QAM MALCOLM Administration Insulin Human Lispro 0 unit 09/02/22 08:00 09/02/22 17:35 Insulin Lispro 100 Unit/1 Ml SUBCUT 2 unit TIDWM MALCOLM Administration Protocol Pantoprazole Sodium 40 mg 09/02/22 01:00 09/02/22 01:53 Pantoprazole 40 Mg Sdv IVP 40 mg Q24H MALCOLM Administration Tamsulosin HCl 0.4 mg 09/02/22 09:00 09/02/22 17:35 Tamsulosin 0.4 Mg Capsule PO 0.4 mg BID MALCOLM Administration PFSH Acute PFSH: Medical History Ascending aortic aneurysm Balanitis BPH NOS w ur obs/LUTS Chronic cystitis Chronic prostatitis Diabetes Erectile dysfunction GERD (gastroesophageal reflux disease) History of brain tumor Incomplete bladder emptying Pyuria Urinary incontinence Urinary retention Surgical History H/O brain surgery 2010 meningioma R Hx of heart artery stent Hx of umbilical hernia repair S/P CABG (coronary artery bypass graft) 2011 Family History Father CAD (coronary artery disease) Diabetes Cancer unknown Mother CAD (coronary artery disease) Diabetes Other Dementia Denies family history of Clotting disorder Hyperlipidemia Psychiatric illness Chronic kidney disease (CKD) Anesthesia complication Bleeding disorder Lung disease Hypertension Stroke Social History Smoking and tobacco status: never smoked Alcohol intake: current Alcohol intake frequency: 0-2 Drinks per Day Adopted: No Caregiver/support person: No Lives independently: No Household members: spouse Marital status: Current occupational status: retired Current gender identity: Male Vitals/I&O/Wt Last Vital Signs Temp 97.7 F 09/02/22 13:45 Pulse 82 09/02/22 16:15 Resp 21 H 09/02/22 16:15 BP 94/57 09/02/22 16:15 Pulse Ox 96 09/02/22 16:15 O2 Del Method Room Air 09/02/22 16:15 09/02/22 09/02/22 09/02/22 06:59 14:59 22:59 Intake Total 1550 / 1550 1964 / 1964 Output Total 600 / 600 600 / 600 Balance 950 / 950 1964 / 1965 -600 / 1365 Weight last 48 hrs Weight 182 lb 5.156 oz Weight 82 lb 11.2 oz Weight 216 lb 14.958 oz Physical Exam Const: COMMON NORMALS: no acute distress, alert and well nourished GENERAL APPEARANCE: well developed HENMT: COMMON NORMALS: normocephalic HEAD & SCALP: normocephalic Eye: COMMON NORMALS: no scleral icterus Neck/C-Spine: GENERAL: Yes normal visual inspection Resp: COMMON NORMALS: normal respiratory effort EFFORT & INSPECTION: Yes able to speak in complete sentences, No labored and No Actively coughing Cardio: OTHER: Irregular rhythm GI: COMMON NORMALS: Soft to palpation, non-tender and no masses PALPATION: Yes Soft to palpation : COMMON NORMALS: Yes no CVA tenderness BLADDER/KIDNEY EXAM: Yes no CVA tenderness OTHER: Normal phallus. Catheter in place. Clear urine. Scrotum grossly normal without evidence of fluctuance. Testicles descended. Perineum without any obvious fluctuance or pointing. Digital rectal exam: Normal sphincter tone, no gross blood. There was some mucousy discharge material on the glove. Prostate was enlarged. I could not feel definite fluctuance but there was fullness in the prostatic area Back/Pelvis: COMMON NORMALS: no CVA tenderness Neuro: COMMON NORMALS: no focal motor deficits SENSORIUM/ORIENTATION: Yes alert Psych: COMMON NORMALS: mental status grossly normal APPEARANCE: Yes grossly normal ATTITUDE: Yes calm and Yes engaged Skin: COMMON NORMALS: no jaundice Urinary Catheter Management: Richardson: Cath Placed During This Visit: yes Reason for Continuing Indwelling Catheter: Accurate Measurement of Urinary Output in Critically Ill Patients Urinary Catheter Date of Insertion: 09/02/22 Urinary Catheter Time of Insertion: 00:59 Data 09/01/22 22:20 09/01/22 22:20 A&P Assessment and plan (1) Prostate abscess: See HPI. Plan for transrectal ultrasound prostate with prostatic abscess drainage (2) Chronic retention of urine: Catheter in place currently. (3) Chronic prostatitis: (4) BPH NOS w ur obs/LUTS: (5) Yeast infection: Plan To the OR in the morning for drainage of prostate abscess. Consult Attestations Medical Necessity Statement: See attending Coding Level of Care Code Acute Code for g Fwd Diagnoses Prostate abscess N41.2 Chronic retention of urine R33.9 Chronic prostatitis N41.1 BPH NOS w ur obs/LUTS N40.1 Yeast infection B37.9 Time Spent (min) 75 Comment X-ray review, chart and old records review, exam and counseling (>50% face-to-fa ce), docum
[2022-09-02] MEDS: hyDROXYzine 25 mg Capsule PO (21:24)
[2022-09-02] MEDS: atorvastatin 40 mg Tablet PO (21:25)
[2022-09-02] MEDS: metoprolol tartrate 25 mg Tablet 12.5 MG PO (21:27)
[2022-09-02 21:43] LABS: Partial Thromboplastin Time 54.2 SECONDS (23.9-36.7)
--- NOTE | 2022-09-02 21:45 | P.PN_ITS ---
Subjective Subjective: Denies chest pain. Denies abdominal pain. Has been having pain on sitting down. Vitals/I&O/Wt Last Vital Signs Temp 97.7 F 09/02/22 13:45 Pulse 82 09/02/22 16:15 Resp 21 H 09/02/22 16:15 BP 94/57 09/02/22 16:15 Pulse Ox 96 09/02/22 16:15 O2 Del Method Room Air 09/02/22 16:15 09/02/22 09/02/22 09/02/22 06:59 14:59 22:59 Intake Total 1550 / 1550 1964 Output Total 600 / 600 600 / 600 Balance 950 / 950 1964 -600 / 1365 Weight last 48 hrs Weight 82.7 kg Weight 37.512 kg Weight 98.4 kg Physical Exam Narrative: Irritable. On second visit family, , daughter and son-in-law at bedside. Const: COMMON NORMALS: alert GENERAL APPEARANCE: cooperative ORIENTATION/CONSCIOUSNESS: Yes awake HENMT: COMMON NORMALS: oropharynx normal Neck/C-Spine: COMMON NORMALS: no JVD Resp: COMMON NORMALS: normal respiratory effort and clear to auscultation bilaterally AUSCULTATION: clear to auscultation bilaterally Cardio: COMMON NORMALS: no JVD, regular rhythm, S1 normal heart sound present, S2 normal heart sound present and No murmurs present (Cardio) RHYTHM: regular rhythm HEART SOUNDS: S1 normal heart sound present and S2 normal heart sound present GI: COMMON NORMALS: Normal to inspection, nondistended, normoactive bowel so unds present, Soft to palpation and non-tender PALPATION: Yes Soft to pal pation Extremity: COMMON NORMALS: no joint enlargement and no pedal edema Neuro: COMMON NORMALS: moves all extremities SENSORIUM/ORIENTATION: Yes alert Skin: COMMON NORMALS: no rashes or lesions noted GENERAL SKIN EXAM: no rashes or lesions noted Urinary Catheter Management: Richardson: Cath Placed During This Visit: yes Reason for Continuing Indwelling Catheter: Accurate Measurement of Urinary Output in Critically Ill Patients Urinary Catheter Date of Insertion: 09/02/22 Urinary Catheter Time of Insertion: 00:59 Data 09/01/22 22:20 09/01/22 22:20 A&P Assessment and plan (1) Atrial fibrillation with rapid ventricular response: (2) Deep tissue injury: (3) Dementia: (4) Acute kidney injury: (5) Diabetes mellitus: Qualifiers: Diabetes mellitus type: type 2 Diabetes mellitus joint terminal attack controller insulin use: without joint terminal attack controller use (6) Sepsis: (7) UTI (urinary tract infection): (8) Chronic prostatitis: (9) BPH NOS w ur obs/LUTS: (10) CAD (coronary artery disease): (11) Acute encephalopathy: (12) NSTEMI (non-ST elevated myocardial infarction): (13) Hypomagnesemia: (14) Prostate abscess: (15) Lactic acidosis: (16) High anion gap metabolic acidosis: (17) Goals of care, counseling/discussion: Plan Acute encephalopathy Continue treatment of underlying conditions as below. Reorient. Today visiting with family by bedside. History obtained from family. Urinary tract infection Complicated UTI with prostate abscess Clinical condition complicated also by history of CAD, NSTEMI, possible type I or type II. Continues on antibiotic with, but requires definitive treatment. Discussed with urology. Discussed with patient and family high risk for procedure given his multiple comorbidities including possible NSTEMI, discussed with family, obtaining c ardiology consultation, discussed with cardiology. Overall goals of care are also limited, discussed option of nonaggressive management and/or comfort measures, avoiding aggressive procedure, potentially complications, potential prolonged hospitalization, but likely would lead to spread of infection and monitor earlier demise. On further discussion by patient and family with cardiology and urology consensus is to proceed with transrectal ultrasound prostate drainage and cystoscopy under MAC anesthesia. -Continue meropenem, vancomycin fluconazole -IV fluids Heparin drip to be held before procedure. Urology note appreciated. Sepsis Source control, antibiotics as above. Follow-up cultures. New A-fib with RVR Blood pressure soft, held Cardizem. Switched to low-dose metoprolol. On heparin drip. Telemetry monitoring. Potassium noted 4.4, magnesium 1.4, received magnesium supplementation. Non-ST elevation CT Troponin noted elevated 120 and baseline up to 267.5 at 6 hours. Several days ago reports he had to take a nitroglycerin for chest pain. Currently chest pain-free. Discussed with cardiology, appreciate documentation. Possible type I and/or type II NSTEMI. On heparin drip, aspirin, BB, statin. Cardiology and patient and family considered options prior to proceeding to definitive source control. History of CAD, CABG, stent not on aspirin at home. Cardiology note appreciated. Lactic acidosis -Likely secondary to sepsis, UTI High anion gap metabolic acidosis History of CAD, no complaints of chest pain Hypomagnesemia, monitor has been replaced Type 2 diabetes mellitus -Lantus 10 units every morning -Low-dose sliding scale Ascending aortic aneurysm 4.3 cm will need follow-up. Goals of care discussion patient and 's states that he is a DNR/DNI Lovenox for DVT prophylaxis We will monitor in ICU Attestations Medical Necessity Statement*: Continue admission for assessment management of sepsis, prostate abscess, complicated UTI, NSTEMI Diagnoses Atrial fibrillation with rapid ventricular response I48.91 Deep tissue injury T14.8XXA Dementia F03.90 Acute kidney injury N17.9 Diabetes mellitus E11.9 Diabetes mellitus type: type 2 Diabetes mellitus joint terminal attack controller insulin use: without shelter use Sepsis A41.9 UTI (urinary tract infection) N39.0 Chronic prostatitis N41.1 BPH NOS w ur obs/LUTS N40.1 CAD (coronary artery disease) I25.10 Acute encephalopathy G93.40 NSTEMI (non-ST elevated myocardial infarction) I21.4 Hypomagnesemia E83.42 Prostate abscess N41.2 Lactic acidosis E87.20 High anion gap metabolic acidosis E87.29 Goals of care, counseling/discussion Z71.89
[2022-09-02] MEDS: morphine 4 mg/mL SDV 1 mL 1 MG IVP (22:39)
[2022-09-02] MEDS: heparin drip 25,000 UNIT/500 ML PREMIX 25 UNIT IV (22:39)
[2022-09-03] VITALS (24 sets, daily range): BP systolic 107–150; BP diastolic 66–93; PULSE 63–106; RESP 8–24; TEMP 36.3–36.9; O2SAT 90–99
[2022-09-03] MEDS: pantoprazole 40 mg SDV IVP (01:12)
[2022-09-03] MEDS: fluconazole premix 200 MG/100 ML PREMIX 100 MG IV (01:12)
[2022-09-03] MEDS: morphine 4 mg/mL SDV 1 mL 1 MG IVP (02:29)
[2022-09-03] MEDS: sodium chloride 0.9% 1,000 ML 75 ML IV ×2 (03:41→11:45)
[2022-09-03 04:00] LABS: Basophils # 0.1 10^3/uL (0.0-0.1); Basophils % 0.3 %; Eosinophils # 0.1 10^3/uL (0.0-0.8); Eosinophils % 0.7 %; Hematocrit 33.1 % (42.0-52.0); Hemoglobin 10.6 g/dL (11.7-16.6); Lymphocytes # 2.2 10^3/uL (0.8-4.8); Lymphocytes % 11.7 %; Mean Corpuscular Hemoglobin 29.3 pg (28.0-34.0); Mean Corpuscular Volume 91.4 fl (80-94); Mean Platelet Volume 12.4 fL (7.4-10.4); Monocytes # 1.1 10^3/uL (0.2-0.9); Monocytes % 6.1 %; Neutrophils # 14.86 10^3/uL (1.8-7.7); Neutrophils % 80.7 %; Nucleated Red Blood Cells % 0 %; Platelet Count 217 10^3/cmm (130-400); Red Blood Count 3.62 10^6/uL (4.1-5.3); Red Cell Distribution Width 13.3 % (12.1-15.1); White Blood Count 18.4 10^3/uL (4.0-10.0)
[2022-09-03 04:16] LABS: Partial Thromboplastin Time 54.8 SECONDS (23.9-36.7)
[2022-09-03 04:22] LABS: Lactic Sepsis W/Reflex 1.2 mmol/L (0.5-2.2)
[2022-09-03 04:33] LABS: NT Pro B Type Natriuretic Pept 4556 pg/mL (0-450); Procalcitonin 23.42 ng/mL (0-0.5); Thyroid Stimulating Hormone 2.06 uIU/mL (0.27-4.20)
[2022-09-03 04:44] LABS: Alanine Aminotransferase 11 U/L (0-41); Albumin Level 2.2 g/dL (3.5-5.2); Alkaline Phosphatase 75 U/L (40-130); Anion Gap 13.6 (5-19); Aspartate Amino Transferase 15 U/L (0-40); Blood Urea Nitrogen 15 mg/dL (8-23); C Reactive Protein 172.4 mg/L (0.0-4.9); Calcium 7.8 mg/dL (8.5-10.5); Carbon Dioxide 20 mmol/L (22-29); Chloride 105 mmol/L (98-107); Creatine Phosphokinase 28 U/L (39-308); Globulin 3.2 g/dL (1.3-4.6); Glucose 167 mg/dL (65-115); Magnesium 1.8 mg/dL (1.7-2.3); Osmolality Calculated 285 mOsm/kg (285-295); Potassium 3.6 mmol/L (3.5-5.1); Sodium 135 mmol/L (136-145); Total Bilirubin 0.3 mg/dL (0.15-1.2); Total Protein 5.4 g/dL (6.6-8.7)
[2022-09-03] MEDS: meropenem 1,000 MG in sodium chloride 0.9% (plus) 50 ML 100 MG IV ×3 (05:29→23:35)
[2022-09-03] MEDS: ascorbic acid 500 mg Tablet PO (05:31)
[2022-09-03] MEDS: insulin glargine 100 units/1 mL 10 UNIT SUBCUT (05:32)
--- NOTE | 2022-09-03 06:54 | ANES.PREANE2 ---
Pre-Anesthetic Assessment Height/Weight: Height 1.83 m Weight 82.7 kg Temp Pulse Resp BP Pulse Ox O2 Del Method 97.9 F 68 8 L 107/66 96 Room Air 09/03/22 03:00 09/03/22 06:00 09/03/22 04:00 09/03/22 04:00 09/03/22 04:00 09/02/22 16:15 Preop Diagnosis: prostate abcess and NSTEMI Operation Date: 09/03/22 07:00 Proposed Procedures p Transrectal Ultrasound Prostate W/Biospy- Abcess drainage and Cystoscopy(Not Applicable) - Gabe Cowan MD s Cystoscopy(Not Applicable) - Gabe Cowan MD Familial anesthetic complications: none Was Beta Kory taken within 24 hours: Yes Was Clonidine taken within 24 hours: N/A Last Intake: 23:00 Social No alcohol and No tobacco Exam alert and clear to auscultation bilaterally not orientated to place and time. afib noted on monitor with murmor noted Airway Submandibular: within normal limits Cervical ROM: within normal limits Mallampati: Class II Dentition: full Pulmonary None reported CV/HEM Atrial Fibrillation, Arrythmia, Coronary Artery Disease (HX CABG, stent with elevated troponin this am), Congestive Heart Failure, Hypertension and Murmur Chronic Renal Insufficiency prostate abcess Hepatic None reported GI None reported Metabolic Diabetes Mellitus Musc/skel Weakness Neuropsych Anxiety, Dementia and Depression Anesthetic Plan ASA status: 4E Anesthesia: MAC Other: Spoke with pt and family of high risk with anesthesia with NJ and . Family agreed to proceed Risk of > 500 ml blood loss (7ml/kg in children): No Medications/Allergies Home Medications Medication Instructions Recorded Confirmed Last Taken Type acetaminophen 500 mg tablet 500 mg PO Q6H PRN Pain 09/01/19 09/02/22 07/27/20 History (Tylenol Extra Strength) melatonin 10 mg capsule 10 mg PO BEDTIME PRN Sleep 09/29/19 09/02/22 07/27/20 History cholecalciferol (vitamin D3) 25 25 mcg PO QAM 02/07/20 09/02/22 3 Days Ago History mcg (1,000 unit) tablet (Vitamin ~08/14/22 D3) ascorbic acid (vitamin C) 500 mg 500 mg PO QAM 07/27/20 09/02/22 3 Days Ago History tablet (Vitamin C) ~08/14/22 cetirizine 10 mg tablet (Allergy 10 mg PO BEDTIME 07/27/20 09/02/22 3 Days Ago History Relief (cetirizine)) ~08/14/22 finasteride 5 mg tablet 5 mg PO DAILY@0730 #30 tabs 09/27/21 09/02/22 Unknown Rx tamsulosin 0.4 mg capsule 0.4 mg PO BID #60 caps 09/27/21 09/02/22 Unknown Rx nitroglycerin 0.4 mg sublingual 0.4 mg sublingual Q5M PRN Chest 08/17/22 09/02/22 Unknown History tablet (Nitrostat) Pain vitamin B complex 1 tab PO QAM 08/17/22 09/02/22 3 Days Ago History ~08/14/22 zinc acetate 50 mg (zinc) capsule 50 mg PO QAM 08/17/22 09/02/22 3 Days Ago History ~08/14/22 metformin 500 mg tablet 500 mg PO DAILY #30 tabs 08/18/22 09/02/22 Unknown Rx pen needle, diabetic 29 gauge x #100 ea 08/18/22 09/02/22 Unknown Rx 1/2 (Pen Needle) cefuroxime axetil 500 mg tablet 500 mg PO BID #60 tabs 08/27/22 09/02/22 Unknown Rx fluconazole 100 mg tablet 100 mg PO DAILY 21 days #21 tabs 08/27/22 09/02/22 Unknown Rx cyanocobalamin (vitamin B-12) 2,500 mcg sublingual DAILY 09/02/22 09/02/22 Unknown History 2,500 mcg sublingual tablet (Vitamin B-12) insulin glargine 100 unit/mL (3 24 unit SUBCUT QAM 09/02/22 09/02/22 Unknown History mL) subcutaneous pen vitamin A 2,400 mcg capsule 2,400 mcg PO DAILY 09/02/22 09/02/22 Unknown History Allergies Allergy/AdvReac Type Severity Reaction Status Date / Time erythromycin base Allergy ALGY-Hives Verified 09/02/22 08:17 [From E-Mycin] sulfamethoxazole Allergy ALGY-Bliste Verified 09/02/22 08:17 [From Bactrim] r trimethoprim [From Bactrim] Allergy ALGY-Bliste Verified 09/02/22 08:17 r Current Medications Generic Name Dose Route Start Last Admin Trade Name Freq PRN Reason Stop Dose Admin Ascorbic Acid 500 mg 09/02/22 06:00 09/03/22 05:31 Ascorbic Acid 500 Mg Tablet PO 500 mg QAM MALCOLM Administration Aspirin 81 mg 09/02/22 09:00 09/02/22 08:43 Aspirin 81 Mg Ec Tablet PO 81 mg DAILY MALCOLM Administration Atorvastatin Calcium 40 mg 09/02/22 21:00 09/02/22 21:25 Atorvastatin 40 Mg Tablet PO 40 mg BEDTIME MALCOLM Administration Diltiazem HCl 30 mg 09/02/22 01:00 09/02/22 01:52 Diltiazem 30 Mg Tablet PO 30 mg Q6H MALCOLM Administration Finasteride 5 mg 09/02/22 07:30 09/02/22 07:44 Finasteride 5 Mg Tablet PO 5 mg DAILY@0730 MALCOLM Administration Heparin Sodium (Porcine) 0 unit 09/02/22 01:25 09/02/22 02:39 Heparin 5,000 Unit/Ml Inj 1 Ml IV 4,100 unit PRN PRN Administration Heparin weight-base protocol Protocol Sodium Chloride 1,000 mls @ 75 mls/hr 09/02/22 01:00 09/03/22 03:41 Sodium Chloride 0.9% IV 75 mls/hr .[id number] MALCOLM Administration Meropenem 1,000 mg/ Sodium 50 mls @ 100 mls/hr 09/02/22 06:00 09/03/22 06:04 Chloride IV Infused Q8H MALCOLM Infusion Protocol Fluconazole 200 mg in 100 mls @ 100 mls/hr 09/02/22 01:15 09/03/22 02:30 Diflucan Premix IV Infused Q24H MALCOLM Infusion Heparin Sodium/Sodium Chloride 25,000 unit in 500 mls @ 0 mls/hr 09/02/22 02:45 09/03/22 03:00 Heparin Drip IV 0 unit/kg/hr .Q0M MALCOLM 0 mls/hr Titration Protocol Per Protocol Vancomycin/PEG/NADA/Lysine/Water 1,500 mg in 300 mls @ 200 mls/hr 09/02/22 03:00 09/02/22 23:15 Vancocin IV Infused Q18H MALCOLM Infusion Insulin Glargine 10 unit 09/02/22 06:00 09/03/22 05:32 Insulin Glargine 100 Units/1 Ml SUBCUT 10 unit QAM MALCOLM Administration Insulin Human Lispro 0 unit 09/02/22 08:00 09/02/22 17:35 Insulin Lispro 100 Unit/1 Ml SUBCUT 2 unit TIDWM MALCOLM Administration Protocol Metoprolol Tartrate 12.5 mg 09/02/22 21:00 09/02/22 21:27 Metoprolol Tartrate 25 Mg Tablet PO 12.5 mg BID@0900,2100 MALCOLM Administration Morphine Sulfate 1 mg 09/02/22 01:00 09/03/22 02:29 Morphine 4 Mg/Ml Sdv 1 Ml IVP 1 mg Q4H PRN Administration SEVERE PAIN Pantoprazole Sodium 40 mg 09/02/22 01:00 09/03/22 01:12 Pantoprazole 40 Mg Sdv IVP 40 mg Q24H MALCOLM Administration Tamsulosin HCl 0.4 mg 09/02/22 09:00 09/02/22 17:35 Tamsulosin 0.4 Mg Capsule PO 0.4 mg BID MALCOLM Administration PFSH Anesthesia Medical History Ascending aortic aneurysm Balanitis BPH NOS w ur obs/LUTS Chronic cystitis Chronic prostatitis Diabetes Erectile dysfunction GERD (gastroesophageal reflux disease) History of brain tumor Incomplete bladder emptying Pyuria Urinary incontinence Urinary retention Surgical History H/O brain surgery 2010 meningioma R Hx of heart artery stent Hx of umbilical hernia repair S/P CABG (coronary artery bypass graft) 2011 Family History Father CAD (coronary artery disease) Diabetes Cancer unknown Mother CAD (coronary artery disease) Diabetes Other Dementia Denies family history of Clotting disorder Hyperlipidemia Psychiatric illness Chronic kidney disease (CKD) Anesthesia complication Bleeding disorder Lung disease Hypertension Stroke Social History Smoking and tobacco status: never smoked Alcohol intake: current Alcohol intake frequency: 0-2 Drinks per Day Adopted: No Caregiver/support person: No Lives independently: No Household members: spouse Marital status: Current occupational status: retired Current gender identity: Male Data Anesthesia 09/03/22 03:16 09/03/22 03:16 Short CBC 09/01/22 09/03/22 Range/Units 22:20 03:16 WBC 23.8 H 18.4 H (4.0-10.0) 10^3/uL Hgb 13.7 10.6 L (11.7-16.6) g/dL Hct 42.2 33.1 L (42.0-52.0) % MCV 93.2 91.4 (80-94) fl Plt Count 239 217 (130-400) 10^3/cmm Neut % (Auto) 93.0 80.7 % Neut # (Auto) 22.17 H 14.86 H (1.8-7.7) 10^3/uL BMP 09/01/22 09/03/22 22:20 03:16 Sodium 134 L 135 L Potassium 4.4 3.6 Chloride 97 L 105 Carbon Dioxide 20 L 20 L BUN 28 H 15 Creatinine 1.1 0.6 L Glucose 278 H 167 H Calcium 9.1 7.8 L Cardiac Enzymes 09/01/22 09/02/22 09/02/22 Range/Units 22:20 00:38 05:15 Creatine Kinase (39-308) U/L Troponin T Baseline 120 H* (0-15) ng/L Troponin T 120 Minute 150.2 H (0-15) ng/L Delta Troponin T 30.2 H* (0-10) ABS# Troponin T Hi Sens 6Hr 267.5 H (0-15) ng/L Troponin T Hi Sens 6Hr Delta 147.5 H* (0-12) ng/L NT-Pro-B Natriuret Pep (0-450) pg/mL 09/03/22 Range/Units 03:16 Creatine Kinase 28 L (39-308) U/L Troponin T Baseline (0-15) ng/L Troponin T 120 Minute (0-15) ng/L Delta Troponin T (0-10) ABS# Troponin T Hi Sens 6Hr (0-15) ng/L Troponin T Hi Sens 6Hr Delta (0-12) ng/L NT-Pro-B Natriuret Pep 4556 H (0-450) pg/mL Liver Function 09/01/22 09/03/22 Range/Units 22:20 03:16 Total Bilirubin 0.3 0.3 (0.15-1.2) mg/dL AST 20 15 (0-40) U/L ALT 15 11 (0-41) U/L Alkaline Phosphatase 87 75 (40-130) U/L Albumin 2.9 L 2.2 L (3.5-5.2) g/dL Urine 09/01/22 Range/Units 22:29 Urine Color Yellow (Yellow) Urine Appearance Turbid A (CLEAR) Urine pH 5 (5-7) Ur Specific [place] 1.015 (1.005-1.030) Urine Protein Trace (Negative) Urine Glucose (UA) 2+ H (Normal) Urine Ketones 1+ H (Negative) Urine Nitrate Negative (Negative) Urine Bilirubin Neg (Negative) Ur Leukocyte Esterase 2+ H (Negative) Urine RBC 0-4 H (0-2) /hpf Urine WBC Too numerous to cnt H (0-5) /hpf Coags 09/02/22 09/02/22 09/02/22 08:58 15:07 21:23 APTT 55.8 H 66.2 H 54.2 H C-Reactive Protein 09/03/22 09/03/22 03:16 03:16 APTT 54.8 H C-Reactive Protein 172.4 H Cardiac Studies: Echocardiogram 09/02/22
[2022-09-03 07:11] LABS: Glucose Point of Care 136 mg/dL (70-110)
--- NOTE | 2022-09-03 07:19 | PC.NURSE ---
Patient in care of Surgery team at this time.
--- NOTE | 2022-09-03 07:43 | P.MISC_ITS ---
Miscellaneous Note Purpose of Documentation: Update Note: Last night after speaking to the patient and his family for quite some time he agreed to proceed with transrectal ultrasound and prostatic abscess drainage this AM. His white count has improved with continuation of antibiotics. His vital signs have been stable. There have been no significant cardiac events or infectious events last night. Apparently after his family left note last night he was telling the nurse that he did not want to do anything. He wanted to go home and . This morning when he was with his family in ICU before transport to the operating room he was in agreement to proceed as consented and explained last night. Upon arriving in the operative suite he stated that he did not want to do the procedure and wanted to go to [facility] to have it done. I spoke with the family and they wanted to proceed. I told him if I could not get to the same place we were last night with him agreeing to proceed (he has not been sedated) and that they still feel that he is competent to make his own decisions that I would not proceed.. They agreed to meet with him and talk with him so he was wheeled out of the operating room to a private area where he could discuss with the family. The family had a prolonged conversation with the patient and ultimately he agreed with them to proceed as planned.
[2022-09-03] MEDS: ceFAZolin 1,000 mg SDV 2000 MG IRRIGATION ×2 (09:00→09:26)
--- NOTE | 2022-09-03 09:06 | P.OP_ITS ---
Operative Report Date of procedure: September 03, 2022 Pre-op diagnosis: Large prostatic abscess, sepsis Post-op diagnosis: Large prostatic abscess, sepsis Procedure done: 1. Transrectal ultrasound of the prostate 2. Ultrasound-guided prostatic abscess drainage Implants: None Specimens removed/disposition: Approximately 150 cc of greenish purulent fluid drained Pathology: Cultures Surgeon: Camryn Silk Printer: Talia Wellington RN Estimated blood loss: Minimal Urine output: Not measured Complications: None Findings: Anesthesia: General Condition: Stable Disposition: PACU Intraoperative findings: * Large abscess easily defined on transrectal ultrasound of the prostate. Anatomy was consistent with the CT scan findings. * Abscess cavity was multiloculated. Required several areas aspirated to clear. * Approximately 150 cc of purulent material drained. * No significant bleeding Brief History: Mr. Aparicio is a very ill 82-year-old white male with severe cardiac disease who was found to have a prostatic abscess when evaluated for mental status changes and evidence of sepsis. He was initially treated with IV antibiotics and scheduled for prostatic abscess drainage via transrectal ultrasound the prostate. Was taken to the operating room where he demanded before being put to sleep to stop and to be transferred elsewhere. He was brought back to his family and they discussed the options and he ultimately relented to proceed with prostate abscess drainage as he had consented to previously. Procedure: After urgent evaluation examination and obtaining of informed consent he was taken to the operating suite on 09/03/2022 where MAC anesthesia was administered without difficulty after appropriate timeout was performed, SCDs confirmed to be functioning, preoperative antibiotics administered, beta-malachi protocol confirmed. Anesthesia was well aware of his cardiac conditions having prepared based on cardiology recommendations. Placed in left lateral decubitus position. Rectal exam revealed a fluctuance consistent with a persistent abscess. The bladder had about 180 cc of sterile water instilled and a catheter plug was placed. Transrectal ultrasound probe was then passed into the rectum and the anatomy was ascertained. The Richardson catheter was readily identified. The balloon was also identified easily. The normal prostatic tissue cephalad to the abscess was clearly distinguished from the large abscess cavity. Utilizing the biopsy guide an 18-gauge biopsy needle was passed to the more proximal aspect of the abscess and the inner trocar was removed. A total of about 100 cc of green purulent thickened fluid was drained. Minimal bleeding. The needle was positioned slightly more caudally with small amount of fluid obtained. There was a separate cavity identified more distally and this was drained in the same fashion. A total of about 150 cc was obtained. Proximally 125 cc of injectable saline with 2 g of Ancef mixed was prepared. A small amount was instilled into the abscess cavity with some irrigation. No additional purulent material was obtained. On final ultrasound evaluation no additional cavities could be identified. Rectal exam revealed no residual fluctuant findings Catheter was placed back to dependent drainage. He was awakened in the operating room and returned to the ICU in critical but stable condition PLANS: 1. Continue IV antibiotic 2. Consider reimaging pending clinical response.
--- NOTE | 2022-09-03 09:16 | PC.NURSE ---
Patient back to ICU 7, 5L via mask, patient temperature 97.7 Axillary. Patient is resting in bed with even respirations. Current vitals HR 74, Oxygen is 97%, BP 118/80.
[2022-09-03 11:10] LABS: Glucose Point of Care 166 mg/dL (70-110)
[2022-09-03] MEDS: metoprolol tartrate 25 mg Tablet 12.5 MG PO ×2 (11:43→23:34)
[2022-09-03] MEDS: vancomycin 1,500 MG/300 ML PIGGYBACK 200 MG IV ×3 (11:44→23:39)
[2022-09-03] MEDS: insulin lispro 100 unit/1 mL SUBCUT (11:44)
[2022-09-03] MEDS: finasteride 5 mg Tablet PO (11:44)
[2022-09-03] MEDS: tamsulosin 0.4 mg Capsule PO ×2 (11:44→18:14)
[2022-09-03] MEDS: aspirin 81 mg EC Tablet PO (11:44)
--- NOTE | 2022-09-03 12:36 | ANE.PACU2 ---
Inpatient post-anesthesia follow up: Airway intact: Yes Vital signs: Temperature 98.4 F Pulse Rate 96 Respiratory Rate 18 Blood Pressure 150/92 Pulse Oximetry 96 Oxygen Delivery Me thod [Rate & Nasal Cannula Delivery Changed T o] Oxygen Delivery Me thod [ Simple Mask Current Rate & Del roderick] Oxygen Delivery Me thod Room Air Oxygen Flow Rate [ Rate & 4 Delivery Changed T o] Oxygen Flow Rate [ Current Rate 5 & Delivery] Fraction of Inspir ed Oxygen Hydration adequate: Yes Nausea and vomiting: No Pain level: 2 Mental status: Baseline
--- NOTE | 2022-09-03 14:34 | P.PN_ITS ---
Subjective Subjective: I reviewed Dr. Cowan's note. Patient tolerated the procedure well. He does not have any recollection of it. There were no cardiac complications. No hemodynamic complications. Vitals/I&O/Wt Last Vital Signs Temp 98.4 F 09/03/22 12:19 Pulse 96 09/03/22 12:00 Resp 18 09/03/22 12:00 BP 150/92 09/03/22 12:00 Pulse Ox 96 09/03/22 11:00 O2 Del Method Simple Mask 09/03/22 09:23 O2 Flow Rate 5 09/03/22 09:23 09/02/22 09/03/22 09/03/22 22:59 06:59 14:59 Intake Total 512.683 / 2477.683 1558.75 / 4036.433 905 / 905 Output Total 600 / 600 Balance -87.317 / 2714.771 9733.75 / 3436.433 905 / 905 Weight last 48 hrs Weight 182 lb 5.156 oz Weight 82 lb 11.2 oz Weight 216 lb 14.958 oz Physical Exam Narrative: GENERAL: In general he is awake but sleepy. HEENT: Exam within normal limits. NECK: Supple without jugular vein distention. The carotid upstroke is normal without bruits. BACK: Exam normal. LUNGS: Clear. HEART: Irregular rate and rhythm ABDOMEN: Benign without organomegaly or tenderness. EXTREMITIES: No edema. NEUROLOGIC: Exam normal. SKIN: Unremarkable. Urinary Catheter Management: Richardson: Cath Placed During This Visit: yes Reason for Continuing Indwelling Catheter: Accurate Measurement of Urinary Output in Critically Ill Patients Urinary Catheter Date of Insertion: 09/02/22 Urinary Catheter Time of Insertion: 00:59 Data 09/03/22 03:16 09/03/22 03:16 Micro: Microbiology 09/03/22 08:45 Gram Stain - Final Prostate 09/01/22 22:29 Urine Culture - Final Urine,Clean Catch A&P Assessment and plan (1) Chronic prostatitis: (2) BPH NOS w ur obs/LUTS: (3) S/P CABG (coronary artery bypass graft): (4) Hx of heart artery stent: (5) CAD (coronary artery disease): (6) Transaminitis: (7) Agitation: (8) Dementia: (9) Sepsis: (10) Diabetes mellitus: Qualifiers: Diabetes mellitus type: type 2 Diabetes mellitus long term care phlebotomist insulin use: without long term care phlebotomist use (11) Elevated lactic acid level: (12) Atrial fibrillation with rapid ventricular response: (13) NSTEMI (non-ST elevated myocardial infarction): (14) Ascending aortic aneurysm: Plan Continue present plan. No changes. Fortunately he tolerated the procedure from a cardiac standpoint. Attestations Medical Necessity Statement*: Requires continued hospitalization for management of prostate abscess. Sepsis. Coding Level of Care Code Acute Code for g Fwd Diagnoses Chronic prostatitis N41.1 BPH NOS w ur obs/LUTS N40.1 S/P CABG (coronary artery bypass graft) Z95.1 Hx of heart artery stent Z95.5 CAD (coronary artery disease) I25.10 Transaminitis R74.0 Agitation R45.1 Dementia F03.90 Sepsis A41.9 Diabetes mellitus E11.9 Diabetes mellitus type: type 2 Diabetes mellitus long term care phlebotomist insulin use: without long term care phlebotomist use Elevated lactic acid level R79.89 Atrial fibrillation with rapid ventricular response I48.91 NSTEMI (non-ST elevated myocardial infarction) I21.4 Ascending aortic aneurysm I71.21
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
--- NOTE | 2022-09-03 17:46 | PM.PN ---
Subjective Subjective: When asked how he is feeling jokingly states not worth much, and different terms. He denies pain though. No chest pain or trouble breathing. He is visited by his son. Vitals/I&O/Wt Last Vital Signs Temp 98.4 F 09/03/22 12:19 Pulse 93 09/03/22 16:00 Resp 17 09/03/22 16:00 BP 121/86 09/03/22 16:00 Pulse Ox 97 09/03/22 16:00 O2 Del Method Simple Mask 09/03/22 09:23 O2 Flow Rate 5 09/03/22 09:23 09/03/22 09/03/22 09/03/22 06:59 14:59 22:59 Intake Total 1558.75 / 4036.433 905 / 905 50 / 955 Output Total 650 / 650 Balance 1558.75 / 3436.433 905 / 905 -600 / 305 Weight last 48 hrs Weight 82.7 kg Weight 37.512 kg Weight 98.4 kg Physical Exam Narrative: Son at bedside. Const: COMMON NORMALS: alert GENERAL APPEARANCE: cooperative ORIENTATION/CONSCIOUSNESS: Yes awake HENMT: COMMON NORMALS: oropharynx normal Neck/C-Spine: COMMON NORMALS: no JVD Resp: COMMON NORMALS: normal respiratory effort and clear to auscultation bilaterally AUSCULTATION: clear to auscultation bilaterally Cardio: COMMON NORMALS: no JVD, regular rhythm, S1 normal heart sound present, S2 normal heart sound present and No murmurs present (Cardio) RHYTHM: regular rhythm HEART SOUNDS: S1 normal heart sound present and S2 normal heart sound present GI: COMMON NORMALS: Normal to inspection, nondistended, normoactive bowel sounds present, Soft to palpation and non-tender PALPATION: Yes Soft to palpation Extremity: COMMON NORMALS: no joint enlargement and no pedal edema Neuro: COMMON NORMALS: moves all extremities SENSORIUM/ORIENTATION: Yes alert Skin: COMMON NORMALS: no rashes or lesions noted GENERAL SKIN EXAM: no rashes or lesions noted Urinary Catheter Management: Richardson: Cath Placed During This Visit: yes Reason for Continuing Indwelling Catheter: Acute Urinary Retention or Obstruction Urinary Catheter Date of Insertion: 09/02/22 Urinary Catheter Time of Insertion: 00:59 Data 09/03/22 03:16 09/03/22 03:16 Micro: Microbiology 09/03/22 08:45 Gram Stain - Final Prostate 09/01/22 22:29 Urine Culture - Final Urine,Clean Catch A&P Assessment and plan (1) Atrial fibrillation with rapid ventricular response: (2) Deep tissue injury: (3) Dementia: (4) Acute kidney injury: (5) Diabetes mellitus: Qualifiers: Diabetes mellitus type: type 2 Diabetes mellitus senior care insulin use: without technician terminal and repeater use (6) Sepsis: (7) UTI (urinary tract infection): (8) Chronic prostatitis: (9) BPH NOS w ur obs/LUTS: (10) CAD (coronary artery disease): (11) Acute encephalopathy: (12) NSTEMI (non-ST elevated myocardial infarction): (13) Hypomagnesemia: (14) Prostate abscess: (15) Lactic acidosis: (16) High anion gap metabolic acidosis: (17) Goals of care, counseling/discussion: Plan Acute encephalopathy Seems to be less irritable after the procedure. In better spirits. Continue treatment of underlying conditions as below. Reorient. Urinary tract infection Complicated UTI with prostate abscess Status post abscess drainage this morning. 150 mL purulent material. Follow-up specimen culture. Gram stain with moderate gram-negative rods. Continue broad-spectrum coverage for now with meropenem, vancomycin pending cultures. For now continue fluconazole. Stop IV fluid. Noted worsening in oxygen requirement, currently on 5 L. Check chest x-ray. Urology and cardiology documentation reviewed. Clinical condition complicated also by history of CAD, NSTEMI, possible type I or type II, but did well through the procedure. Heparin drip held for several hours following procedure as per discussion with urology. Resumed at 1 PM. Risk of bleeding with heparin drip. Monitor with PTT. Sepsis Cytosis noted with improvement down to 18.4. Afebrile. Source control, antibiotics as above. Follow-up cultures. On review so far no growth on blood culture. Urine culture final growth. Prostate abscess purulent drainage culture 09/03 Gram stain with few gram-negative rods. New A-fib with RVR Low-dose metoprolol. Resumed on heparin drip. Telemetry monitoring. Potassium noted 4.4, magnesium 1.4, received magnesium supplementation. Non-ST elevation NV Chest pain-free. Resumed on heparin drip, aspirin, BB, statin. Continue telemetry monitoring. History of CAD, CABG, stent not on aspirin at home. Cardiology note appreciated. Lactic acidosis -Likely secondary to sepsis, UTI High anion gap metabolic acidosis History of CAD, no complaints of chest pain Hypomagnesemia, monitor has been replaced Type 2 diabetes mellitus -Lantus 10 units every morning -Low-dose sliding scale Ascending aortic aneurysm 4.3 cm will need follow-up. Goals of care discussion patient and 's states that he is a DNR/DNI Lovenox for DVT prophylaxis We will monitor in ICU Attestations Medical Necessity Statement*: Continue admission for assessment and management of complicated GWEN, prostate abscess, improving sepsis, NSTEMI, and a gentleman with underlying coronary artery disease and other comorbidities as above. Diagnoses Atrial fibrillation with rapid ventricular response I48.91 Deep tissue injury T14.8XXA Dementia F03.90 Acute kidney injury N17.9 Diabetes mellitus E11.9 Diabetes mellitus type: type 2 Diabetes mellitus senior care insulin use: without senior care use Sepsis A41.9 UTI (urinary tract infection) N39.0 Chronic prostatitis N41.1 BPH NOS w ur obs/LUTS N40.1 CAD (coronary artery disease) I25.10 Acute encephalopathy G93.40 NSTEMI (non-ST elevated myocardial infarction) I21.4 Hypomagnesemia E83.42 Prostate abscess N41.2 Lactic acidosis E87.20 High anion gap metabolic acidosis E87.29 Goals of care, counseling/discussion Z71.89
--- NOTE | 2022-09-03 17:52 | XRR_ITS ---
PROCEDURE INFORMATION: Exam: XR Chest Exam date and time: 09/03/2022 5:11 PM Age: 82 years old Clinical indication: Shortness of breath; Additional info: Hypox TECHNIQUE: Imaging protocol: Radiologic exam of the chest. Views: 1 view. COMPARISON: CR (CHEST, ) 09/01/2022 10:11 PM FINDINGS: Lungs: Unremarkable. No consolidation. Pleural spaces: Unremarkable. No pleural effusion. No pneumothorax. Heart/Mediastinum: Unremarkable. No cardiomegaly. Bones/joints: Stable sternotomy. Stable moderate left primary glenohumeral osteoarthritis. XR/XR chest 1V portable [id number] IMPRESSION: No acute findings.
[2022-09-03 19:05] LABS: Glucose Point of Care 183 mg/dL (70-110)
[2022-09-03 19:24] LABS: Partial Thromboplastin Time 55.5 SECONDS (23.9-36.7)
--- NOTE | 2022-09-03 21:07 | PC.NURSE ---
Walked into patients room to give medications. Patient stated get out of my room now . Informed patient why I was in his room and the importance of him taking his medications. Informed patient I am here to help him. Patient repeatedly refused medications and yelled with profanity at nurse. Daughter witnessed at bedside. Medications marked as not done due to patient refusing ( metoprolol, Lipitor, merrem ) and finger stick blood glucose. Medications returned per policy.
[2022-09-03] MEDS: atorvastatin 40 mg Tablet PO ×2 (23:36→23:37)
--- NOTE | 2022-09-03 23:39 | PC.NURSE ---
Addendum entered by Maura Concepcion RN 09/04/22 06:37: Notified Dr. Champagne that since patient took meds last night. Merrem order was messed up and reading that 0600 am dose was given last night. Put in order for one time dose 0600 AM Merrem and charted. Original Note: Patients daughter came out of the room and stated patient has now agreed to take medications, but no sticks. Patient received Merrem, Vanc, Lipitor, and Metoprolol. Refused insulin.
[2022-09-04] VITALS (26 sets, daily range): BP systolic 116–157; BP diastolic 66–102; PULSE 77–112; RESP 12–30; TEMP 36.8–37; O2SAT 82–99; BMI 24.4
[2022-09-04] MEDS: pantoprazole 40 mg SDV IVP (01:39)
[2022-09-04] MEDS: fluconazole premix 200 MG/100 ML PREMIX 100 MG IV (01:39)
[2022-09-04 02:11] LABS: Basophils # 0.1 10^3/uL (0.0-0.1); Basophils % 0.4 %; Eosinophils # 0.1 10^3/uL (0.0-0.8); Hematocrit 34.8 % (42.0-52.0); Lymphocytes # 1.9 10^3/uL (0.8-4.8); Lymphocytes % 14.2 %; Mean Corpuscular HGB Conc 31.6 g/dL (30.0-36.0); Mean Corpuscular Hemoglobin 29.3 pg (28.0-34.0); Mean Corpuscular Volume 92.6 fl (80-94); Mean Platelet Volume 12.1 fL (7.4-10.4); Monocytes # 0.9 10^3/uL (0.2-0.9); Monocytes % 6.8 %; Neutrophils # 10.02 10^3/uL (1.8-7.7); Neutrophils % 77.1 %; Nucleated Red Blood Cells % 0 %; Platelet Count 213 10^3/cmm (130-400); Red Blood Count 3.76 10^6/uL (4.1-5.3); Red Cell Distribution Width 13.4 % (12.1-15.1)
[2022-09-04 02:28] LABS: Partial Thromboplastin Time 56.9 SECONDS (23.9-36.7)
[2022-09-04 02:30] LABS: Lactate (Lactic Acid level) 1.4 mmol/L (0.5-2.2)
[2022-09-04] MEDS: morphine 4 mg/mL SDV 1 mL 1 MG IVP (02:32)
[2022-09-04 02:40] LABS: NT Pro B Type Natriuretic Pept 6369 pg/mL (0-450); Procalcitonin 11.62 ng/mL (0-0.5)
[2022-09-04] MEDS: heparin drip 25,000 UNIT/500 ML PREMIX 25 UNIT IV ×2 (02:45→22:02)
[2022-09-04 02:52] LABS: Alanine Aminotransferase 12 U/L (0-41); Albumin Level 2.2 g/dL (3.5-5.2); Alkaline Phosphatase 96 U/L (40-130); Anion Gap 14.8 (5-19); Aspartate Amino Transferase 15 U/L (0-40); Blood Urea Nitrogen 12 mg/dL (8-23); C Reactive Protein 133.5 mg/L (0.0-4.9); Calcium 7.8 mg/dL (8.5-10.5); Carbon Dioxide 18 mmol/L (22-29); Chloride 107 mmol/L (98-107); Creatine Phosphokinase 19 U/L (39-308); Globulin 3.3 g/dL (1.3-4.6); Glucose 205 mg/dL (65-115); Magnesium 1.7 mg/dL (1.7-2.3); Osmolality Calculated 288 mOsm/kg (285-295); Phosphorus 1.6 mg/dL (2.5-4.5); Potassium 3.8 mmol/L (3.5-5.1); Sodium 136 mmol/L (136-145); Total Bilirubin 0.2 mg/dL (0.15-1.2); Total Protein 5.5 g/dL (6.6-8.7)
[2022-09-04] MEDS: ascorbic acid 500 mg Tablet PO (06:03)
[2022-09-04] MEDS: meropenem 1,000 MG in sodium chloride 0.9% (plus) 50 ML 100 MG IV ×3 (06:19→21:27)
--- NOTE | 2022-09-04 07:25 | PM.PN ---
Subjective Subjective: He has had an uneventful night. He is somewhat groggy today. He wants to go home. No cardiac problems. Blood pressure and heart rate have been stable. Remains in atrial fibrillation. Still on heparin. Vitals/I&O/Wt Last Vital Signs Temp 98.6 F 09/04/22 04:00 Pulse 86 09/04/22 06:00 Resp 13 09/04/22 06:00 BP 143/74 09/04/22 06:00 Pulse Ox 92 09/04/22 06:00 O2 Del Method Room Air 09/03/22 20:00 O2 Flow Rate 5 09/03/22 09:23 09/03/22 09/04/22 09/04/22 22:59 06:59 14:59 Intake Total 50 / 955 460 / 1415 Output Total 650 / 650 Balance -600 / 305 460 / 765 Weight last 48 hrs Weight 180 lb Physical Exam Narrative: GENERAL: In general he appears comfortable but is groggy and slightly confused. HEENT: Exam within normal limits. NECK: Supple without jugular vein distention. The carotid upstroke is normal without bruits. BACK: Exam normal. LUNGS: Clear. HEART: Irregular rate and rhythm ABDOMEN: Benign without organomegaly or tenderness. EXTREMITIES: No edema. NEUROLOGIC: Exam normal. SKIN: Unremarkable. Urinary Catheter Management: Richardson: Cath Placed During This Visit: yes Reason for Continuing Indwelling Catheter: Accurate Measurement of Urinary Output in Critically Ill Patients Urinary Catheter Date of Insertion: 09/02/22 Urinary Catheter Time of Insertion: 00:59 Data 09/04/22 01:45 09/04/22 01:45 Micro: Microbiology 09/01/22 22:22 Blood Culture - Preliminary Blood 09/01/22 22:20 Blood Culture - Preliminary Blood 09/03/22 08:45 Gram Stain - Final Prostate 09/01/22 22:29 Urine Culture - Final Urine,Clean Catch A&P Assessment and plan (1) S/P CABG (coronary artery bypass graft): (2) Balanitis: (3) BPH NOS w ur obs/LUTS: (4) Chronic prostatitis: (5) Hx of heart artery stent: (6) CAD (coronary artery disease): (7) Dementia: (8) Diabetes mellitus: Qualifiers: Diabetes mellitus type: type 2 Diabetes mellitus [facility] insulin use: without [facility] use (9) Acute kidney injury: (10) High anion gap metabolic acidosis: (11) Atrial fibrillation with rapid ventricular response: (12) Acute encephalopathy: (13) NSTEMI (non-ST elevated myocardial infarction): (14) Ascending aortic aneurysm: Plan No change. Spoke to the daughter and detail. Attestations Medical Necessity Statement*: Requires continued hospitalization for management of sepsis, prostatic abscess and atrial fibrillation. and Moderate Time for a total of 20 minutes, includes reviewing past or interval history, examining/interviewing patient, updating patient/family/other support and documenting encounter Diagnoses S/P CABG (coronary artery bypass graft) Z95.1 Balanitis N48.1 BPH NOS w ur obs/LUTS N40.1 Chronic prostatitis N41.1 Hx of heart artery stent Z95.5 CAD (coronary artery disease) I25.10 Dementia F03.90 Diabetes mellitus E11.9 Diabetes mellitus type: type 2 Diabetes mellitus [facility] insulin use: without long term care phlebotomist use Acute kidney injury N17.9 High anion gap metabolic acidosis E87.29 Atrial fibrillation with rapid ventricular response I48.91 Acute encephalopathy G93.40 NSTEMI (non-ST elevated myocardial infarction) I21.4 Ascending aortic aneurysm I71.21
--- NOTE | 2022-09-04 08:31 | PC.CHAP ---
Pastoral Care Encounter/Spiritual Assessment Type of Contact [] Declined rv body mechanic visit [] Patient/Family/Request visit [] Outpatient visit [] Follow-up visit [] Physician referral [] Code/Alert [x] Routine visit [] Staff referral [] Actively dying [] Patient sleeping [x] Family support [] [] Out of room [] Palliative care [] [] Receiving care in room [] Pre-surgical visit [] Trauma [] Long length of stay [] ICU visit [] Other: Relational/Emotional Strength [x] Patient feels connected with others/family/visitors/staff [] Distress [] Loneliness/isolation [] Abandonment Spirituality of Patient [x] Person of Rachell [] Attends Bahai of their Rachell [x] Believes in Prayer [] Reads Bible or Lutheran materials [] There are Spiritual issues to be addressed Senior Communications Engineer Interventions [x] Prayer [x] Active listening [x] Non-anxious presence [] Spiritual/emotional support [] Crisis/trauma care [] Spiritual counseling [] Bereavement support [] Provided bereavement packet [] Provided Bible/devotional materials [] Provided toy/stuffed animal, coloring book to patient or family member [] Provided Communion [] Anointing/[place] [] Salvation [x] Completed spiritual assessment [] Other: Impact on Illness or Injury [] Angry [] Fearful [] Anxious [] Often cries [] Exhaustion [] Unable to work [] Unable to attend confucianist [] Unable to walk/stand [] Unable to read [] Unable to drive [] Unable to eat/drink [] Unable to sleep [] Unable to be with family [] Patient intubated [] Other: Summary patient doing much better today Time spent with patient 10 min
[2022-09-04 09:52] LABS: Partial Thromboplastin Time 66.7 SECONDS (23.9-36.7)
[2022-09-04] MEDS: metoprolol tartrate 25 mg Tablet 12.5 MG PO ×2 (09:53→21:27)
[2022-09-04] MEDS: finasteride 5 mg Tablet PO (09:54)
[2022-09-04] MEDS: aspirin 81 mg EC Tablet PO (09:54)
[2022-09-04] MEDS: tamsulosin 0.4 mg Capsule PO ×2 (09:54→17:40)
[2022-09-04] MEDS: magnesium sulfate premix 2 GM/50 ML PIGGYBACK IV (09:57)
[2022-09-04] MEDS: phosphorus 250 mg Tablet PO ×2 (09:57→17:40)
[2022-09-04 11:06] LABS: Vancomycin Trough 13.2 ug/mL (10-15)
[2022-09-04] MEDS: vancomycin 1,500 MG/300 ML PIGGYBACK 200 MG IV ×2 (11:37→22:05)
--- NOTE | 2022-09-04 13:19 | PC.NURSE ---
pt continues to refuse accuchecks......or lab draws.able to pull labs through [facility].pt has taken daily meds by mouth and iv.
--- NOTE | 2022-09-04 15:28 | PC.OT ---
OT EVALUATION ATTEMPTED. PATIENT SLEEPING AND NURSING REQUEST HOLD AT THIS TIME.
[2022-09-04 15:33] LABS: Partial Thromboplastin Time 53.3 SECONDS (23.9-36.7)
--- NOTE | 2022-09-04 16:59 | PM.PN ---
Subjective Subjective: Urology follow-up: Significant clinical improvement since preop. Was hungry today. Ate a good meal. Seems to be in a little better mood. White count has decreased. His vital signs of been stable and he has been afebrile. No evidence of septic progression. Urine is clear Reviewed with patient and the findings. Discussed that he is in for a long course of antibiotics based on the severity of the infection. We will also review the options for bladder management. He has been doing self-catheterization and struggling with that. Would consider suprapubic tube long-term if he prefers. Vitals/I&O/Wt Last Vital Signs Temp 98.6 F 09/04/22 04:00 Pulse 79 09/04/22 13:00 Resp 20 H 09/04/22 13:00 BP 116/78 09/04/22 13:00 Pulse Ox 95 09/04/22 13:00 O2 Del Method Room Air 09/04/22 08:01 O2 Flow Rate 5 09/03/22 09:23 09/04/22 09/04/22 09/04/22 06:59 14:59 22:59 Intake Total 460 / 1415 50 / 50 Output Total 650 / 650 Balance 460 / 765 -600 / -600 Weight last 48 hrs Weight 180 lb Physical Exam Const: COMMON NORMALS: no acute distress, alert and well nourished GENERAL APPEARANCE: well developed Resp: COMMON NORMALS: normal respiratory effort EFFORT & INSPECTION: Yes able to speak in complete sentences, No labored and No Actively coughing GI: COMMON NORMALS: Soft to palpation, non-tender and no masses PALPATION: Yes Soft to palpation Neuro: COMMON NORMALS: no focal motor deficits SENSORIUM/ORIENTATION: Yes alert Psych: ATTITUDE: Yes calm and Yes engaged Urinary Catheter Management: Richardson: Cath Placed During This Visit: yes Reason for Continuing Indwelling Catheter: Accurate Measurement of Urinary Output in Critically Ill Patients Urinary Catheter Date of Insertion: 09/02/22 Urinary Catheter Time of Insertion: 00:59 Data 09/04/22 01:45 09/04/22 01:45 Micro: Microbiology 09/01/22 22:22 Blood Culture - Preliminary Blood 09/01/22 22:20 Blood Culture - Preliminary Blood 09/03/22 08:45 Gram Stain - Final Prostate A&P Assessment and plan (1) Prostate abscess: Doing better after drainage (2) Dementia: (3) Chronic retention of urine: (4) Chronic prostatitis: Attestations Medical Necessity Statement*: See attending Coding Level of Care Code Acute Code for g Fwd Diagnoses Prostate abscess N41.2 Dementia F03.90 Chronic retention of urine R33.9 Chronic prostatitis N41.1
--- NOTE | 2022-09-04 22:14 | P.PN_ITS ---
Subjective Subjective: When asked how he is feeling, states with my fingers . Denies chest pain or pressure. No shortness of breath. Denies abdominal pain or discomfort. Vitals/I&O/Wt Last Vital Signs Temp 98.6 F 09/04/22 04:00 Pulse 112 H 09/04/22 18:00 Resp 27 H 09/04/22 18:00 BP 143/102 09/04/22 18:00 Pulse Ox 84 L 09/04/22 18:00 O2 Del Method Room Air 09/04/22 08:01 O2 Flow Rate 5 09/03/22 09:23 09/04/22 09/04/22 09/04/22 06:59 14:59 22:59 Intake Total 460 / 1415 400 / 400 722.083 / 1122.083 Output Total 650 / 650 650 / 1300 Balance 460 / 765 -250 / -250 72.083 / -177.917 Weight last 48 hrs Weight 81.647 kg Physical Exam Narrative: Son at bedside. Const: COMMON NORMALS: alert GENERAL APPEARANCE: cooperative ORIENTATION/CONSCIOUSNESS: Yes awake HENMT: COMMON NORMALS: oropharynx normal Neck/C-Spine: COMMON NORMALS: no JVD Resp: COMMON NORMALS: normal respiratory effort and clear to auscultation bilaterally AUSCULTATION: clear to auscultation bilaterally Cardio: COMMON NORMALS: no JVD, regular rhythm, S1 normal heart sound present, S2 normal heart sound present and No murmurs present (Cardio) RHYTHM: regular rhythm HEART SOUNDS: S1 normal heart sound present and S2 normal heart sound present GI: COMMON NORMALS: Normal to inspection, nondistended, normoactive bowel sounds present, Soft to palpation and non-tender PALPATION: Yes Soft to palpation Extremity: COMMON NORMALS: no joint enlargement and no pedal edema Neuro: COMMON NORMALS: moves all extremities SENSORIUM/ORIENTATION: Yes alert Skin: COMMON NORMALS: no rashes or lesions noted GENERAL SKIN EXAM: no rashes or lesions noted Urinary Catheter Management: Richardson: Cath Placed During This Visit: yes Reason for Continuing Indwelling Catheter: Accurate Measurement of Urinary Output in Critically Ill Patients Urinary Catheter Date of Insertion: 09/02/22 Urinary Catheter Time of Insertion: 00:59 Data 09/04/22 01:45 09/04/22 01:45 Micro: Microbiology 09/03/22 08:45 Gram Stain - Final Prostate Abscess Culture - Preliminary Strep species, alpha hemolytic 09/01/22 22:22 Blood Culture - Preliminary Blood 09/01/22 22:20 Blood Culture - Preliminary Blood A&P Assessment and plan (1) Atrial fibrillation with rapid ventricular response: (2) Deep tissue injury: (3) Dementia: (4) Acute kidney injury: (5) Diabetes mellitus: Qualifiers: Diabetes mellitus type: type 2 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 Alert, cooperative. In better spirits. Continue treatment of underlying conditions as below. Reorient. Urinary tract infection Abscess drainage culture noted. Gram-negative rods on Gram stain, cultures so far growing heavy alphahemolytic strep species. Follow culture. Continue IV antibiotics. Will need a longer antibiotic course after discharge. Continue broad-spectrum coverage for now with meropenem, vancomycin pending cultures. For now continue fluconazole. Chest x-ray noted, unremarkable. Urology and cardiology documentation reviewed. Clinical condition complicated also by history of CAD, NSTEMI, possible type I or type II, but did well through the procedure. Remains chest pain-free. Sepsis Improving leukocytosis, WBC down to 13, neutrophils elevated at 10. Follow-up CBC. Afebrile. Source control, antibiotics as above. Follow-up cultures. On review so far no growth on blood culture. Urine culture final growth. Prostate abscess purulent drainage culture 09/03 Gram stain with few gram- negative rods. New A-fib with RVR Low-dose metoprolol. Resumed on heparin drip. Hemoglobin noted at 11. Follow-up CBC. Telemetry monitoring. Potassium 3.8. Magnesium 1.7. Given additional magnesium replacement. Follow- up chemistry and magnesium. Hypophosphatemia: Neutra-Phos Non-ST elevation DE Chest pain-free. Resumed on heparin drip, aspirin, BB, statin. Continue telemetry monitoring. History of CAD, CABG, stent not on aspirin at home. Cardiology note appreciated. Lactic acidosis -Likely secondary to sepsis, UTI High anion gap metabolic acidosis History of CAD, no complaints of chest pain Hypomagnesemia, monitor has been replaced Type 2 diabetes mellitus -Lantus 10 units every morning -Low-dose sliding scale Ascending aortic aneurysm 4.3 cm will need follow-up. Goals of care discussion patient and 's states that he is a DNR/DNI Lovenox for DVT prophylaxis In ICU as overflow. Cardiology, urology documentation reviewed. Discussed with urology. Attestations Medical Necessity Statement*: Continue admit for assessment) of complicated, prostate abscess. Electrolyte replacement. 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
[2022-09-04 22:18] LABS: Partial Thromboplastin Time 69.2 SECONDS (23.9-36.7)
[2022-09-05] VITALS (21 sets, daily range): BP systolic 118–151; BP diastolic 74–99; PULSE 81–126; RESP 12–29; TEMP 36.6–37.2; O2SAT 87–97; BMI 25.0
[2022-09-05] MEDS: fluconazole premix 200 MG/100 ML PREMIX 100 MG IV (01:17)
[2022-09-05] MEDS: pantoprazole 40 mg SDV IVP (01:17)
[2022-09-05 04:50] LABS: Basophils # 0.1 10^3/uL (0.0-0.1); Basophils % 0.5 %; Eosinophils # 0.2 10^3/uL (0.0-0.8); Hematocrit 36.9 % (42.0-52.0); Hemoglobin 11.6 g/dL (11.7-16.6); Lymphocytes # 1.9 10^3/uL (0.8-4.8); Lymphocytes % 18.9 %; Mean Corpuscular HGB Conc 31.4 g/dL (30.0-36.0); Mean Corpuscular Hemoglobin 29.9 pg (28.0-34.0); Mean Corpuscular Volume 95.1 fl (80-94); Mean Platelet Volume 12.2 fL (7.4-10.4); Monocytes # 0.8 10^3/uL (0.2-0.9); Monocytes % 7.5 %; Neutrophils # 7.05 10^3/uL (1.8-7.7); Neutrophils % 70.3 %; Nucleated Red Blood Cells % 0 %; Platelet Count 214 10^3/cmm (130-400); Red Blood Count 3.88 10^6/uL (4.1-5.3)
[2022-09-05 05:03] LABS: Partial Thromboplastin Time 51.5 SECONDS (23.9-36.7)
[2022-09-05 05:09] LABS: Alanine Aminotransferase 10 U/L (0-41); Albumin Level 1.9 g/dL (3.5-5.2); Alkaline Phosphatase 67 U/L (40-130); Anion Gap 15.7 (5-19); Aspartate Amino Transferase 10 U/L (0-40); Blood Urea Nitrogen 9 mg/dL (8-23); C Reactive Protein 96.2 mg/L (0.0-4.9); Calcium 7.7 mg/dL (8.5-10.5); Carbon Dioxide 19 mmol/L (22-29); Chloride 106 mmol/L (98-107); Globulin 3.5 g/dL (1.3-4.6); Glucose 197 mg/dL (65-115); Magnesium 1.8 mg/dL (1.7-2.3); Osmolality Calculated 288 mOsm/kg (285-295); Phosphorus 1.8 mg/dL (2.5-4.5); Potassium 3.7 mmol/L (3.5-5.1); Sodium 137 mmol/L (136-145); Total Bilirubin 0.3 mg/dL (0.15-1.2); Total Protein 5.4 g/dL (6.6-8.7)
[2022-09-05 05:10] LABS: Creatinine Clr Calc Pharmacy 77.0183
[2022-09-05 05:11] LABS: Lactate (Lactic Acid level) 1.9 mmol/L (0.5-2.2)
[2022-09-05] MEDS: meropenem 1,000 MG in sodium chloride 0.9% (plus) 50 ML 100 MG IV ×3 (06:00→21:35)
[2022-09-05] MEDS: ascorbic acid 500 mg Tablet PO (06:01)
[2022-09-05] MEDS: heparin 5,000 unit/mL INJ 1 mL 1600 UNIT IV (06:01)
[2022-09-05 06:09] LABS: Creatine Phosphokinase 15 U/L (39-308); NT Pro B Type Natriuretic Pept 9165 pg/mL (0-450)
--- NOTE | 2022-09-05 08:01 | PM.PN ---
Subjective Subjective: Delta is more alert this morning. He is more vigorously demanding to go home. He is not in any pain. No chest pain. He remains in atrial fibrillation. He is still on intravenous heparin. Vitals/I&O/Wt Last Vital Signs Temp 98 F 09/05/22 04:00 Pulse 93 09/05/22 06:00 Resp 27 H 09/05/22 06:00 BP 138/90 09/05/22 06:00 Pulse Ox 89 L 09/05/22 05:00 O2 Del Method Room Air 09/04/22 20:00 O2 Flow Rate 5 09/03/22 09:23 09/04/22 09/05/22 09/05/22 22:59 06:59 14:59 Intake Total 972.083 / 1372.083 100 / 1472.083 Output Total 1650 / 2300 1000 / 3300 Balance -677.917 / -927.917 -900 / -1827.917 Weight last 48 hrs Weight 185 lb Weight 180 lb Physical Exam Narrative: GENERAL: In general he is more comfortable. Still slightly confused HEENT: Exam within normal limits. NECK: Supple without jugular vein distention. The carotid upstroke is normal without bruits. BACK: Exam normal. LUNGS: Clear. HEART: Irregularly irregular rhythm ABDOMEN: Benign without organomegaly or tenderness. EXTREMITIES: No edema. NEUROLOGIC: Exam normal. SKIN: Unremarkable. Urinary Catheter Management: Richardson: Cath Placed During This Visit: yes Reason for Continuing Indwelling Catheter: Accurate Measurement of Urinary Output in Critically Ill Patients Urinary Catheter Date of Insertion: 09/02/22 Urinary Catheter Time of Insertion: 00:59 Data 09/05/22 03:57 09/05/22 03:57 Micro: Microbiology 09/03/22 08:45 Gram Stain - Final Prostate Abscess Culture - Preliminary Strep species, alpha hemolytic A&P Assessment and plan (1) Chronic prostatitis: (2) BPH NOS w ur obs/LUTS: (3) S/P CABG (coronary artery bypass graft): (4) Hx of heart artery stent: (5) CAD (coronary artery disease): (6) Transaminitis: (7) Dementia: (8) Sepsis: (9) Diabetes mellitus: Qualifiers: Diabetes mellitus type: type 2 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 We will stop the heparin. He has done well from a cardiac standpoint. He should go home on low-dose aspirin and low-dose Eliquis. As long as his heart rate is okay I would not more specifically treat the atrial fibrillation. Hopefully it will resolve as things calm down. Attestations Medical Necessity Statement*: Continued hospitalization for management of prostate abscess, non-ST segment elevation NC, atrial fibrillation. and Moderate Time for a total of 20 minutes, includes reviewing past or interval history, examining/interviewing patient, placing orders, counseling patient/family/other support and documenting encounter Diagnoses Chronic prostatitis N41.1 BPH NOS w ur obs/LUTS N40.1 S/P CABG (coronary artery bypass graft) Z95.1 Hx of heart artery stent Z95.5 CAD (coronary artery disease) I25.10 Transaminitis R74.0 Dementia F03.90 Sepsis A41.9 Diabetes mellitus E11.9 Diabetes mellitus type: type 2 Diabetes mellitus senior living insulin use: without senior living use Alcohol use Z78.9 Acute kidney injury N17.9 Atrial fibrillation with rapid ventricular response I48.91 NSTEMI (non-ST elevated myocardial infarction) I21.4 Ascending aortic aneurysm I71.21
[2022-09-05] MEDS: tamsulosin 0.4 mg Capsule PO ×2 (08:39→20:19)
[2022-09-05] MEDS: finasteride 5 mg Tablet PO (08:39)
[2022-09-05] MEDS: aspirin 81 mg EC Tablet PO (08:39)
[2022-09-05] MEDS: phosphorus 250 mg Tablet PO ×2 (08:39→18:06)
[2022-09-05] MEDS: metoprolol tartrate 25 mg Tablet 12.5 MG PO ×2 (08:42→20:19)
[2022-09-05] MEDS: apixaban 5 mg Tablet 2.5 MG PO ×2 (08:42→20:20)
--- NOTE | 2022-09-05 08:46 | PC.NURSE ---
Pt refused his insulin this am. He stated I am not going to get poked with those needles. I am tired of that.
[2022-09-05 08:49] LABS: Glucose Point of Care 212 mg/dL (70-110)
--- NOTE | 2022-09-05 09:40 | PC.NURSE ---
Pt transferred himself back to bed.
--- NOTE | 2022-09-05 10:15 | PC.NURSE ---
Pt requested help with call light. Pt stated You should know what I need Explained to pt we did not read minds, if he verbalized his want/need I could help. Pt started to complain about how we the staff did not know anything then called this nurse a fucking bitch . Explained to patient that we were here to help him and we wanted to help him, this help sometimes meant blood draws, needles and /or medicine, he was not being held here against his will. Pt settled down.
[2022-09-05] MEDS: vancomycin 1,500 MG/300 ML PIGGYBACK 200 MG IV ×2 (11:44→22:07)
[2022-09-05 11:51] LABS: Glucose Point of Care 209 mg/dL (70-110)
[2022-09-05] MEDS: insulin lispro 100 unit/1 mL SUBCUT ×2 (11:53→18:06)
--- NOTE | 2022-09-05 16:04 | PC.NURSE ---
Report called to [facility]. Report given to HAYDER Parra. No skin problems although his gluteal cleft is purplish.
--- NOTE | 2022-09-05 17:01 | PC.NURSE ---
Addendum entered by Bailey Rapp RN 09/05/22 17:05: Further update given to HAYDER Carey Original Note: After assisting pt to [facility], no results.. Pt demanding to get back in bed and calling staff bitches. Pt transferred to Room 278-1 with all belongings Pt's packed the belongings. Pt wearing his glasses.
--- NOTE | 2022-09-05 17:33 | PC.OT ---
OT Phuc Held - Patient asleep at first attempt, refused second attempt secondary to pain and fatigue from moving rooms.
[2022-09-05] MEDS: acetaminophen 325 mg Tablet 650 MG PO (18:07)
[2022-09-05 18:29] LABS: Glucose Point of Care 232 mg/dL (70-110)
--- NOTE | 2022-09-05 19:36 | P.PN_ITS ---
Subjective Subjective: States he is doing okay, although reportedly is mildly confused today, but he himself appears to be in good spirits, pleasant and conversant. Denies chest discomfort or trouble breathing. Vitals/I&O/Wt Last Vital Signs Temp 98.4 F 09/05/22 19:32 Pulse 95 09/05/22 19:32 Resp 29 H 09/05/22 19:32 BP 135/90 09/05/22 19:32 Pulse Ox 94 09/05/22 19:32 O2 Del Method Room Air 09/05/22 19:32 O2 Flow Rate 5 09/03/22 09:23 09/05/22 09/05/22 09/05/22 06:59 14:59 22:59 Intake Total 400 / 1772.083 698.35 / 698.35 640 / 1338.35 Output Total 1000 / 3300 1375 / 1375 Balance -600 / -1527.917 698.35 / 698.35 -735 / -36.65 Weight last 48 hrs Weight 83.915 kg Weight 81.647 kg Physical Exam Narrative: at bedside. Const: COMMON NORMALS: alert GENERAL APPEARANCE: cooperative ORIENTATION/CONSCIOUSNESS: Yes awake HENMT: COMMON NORMALS: oropharynx normal Neck/C-Spine: COMMON NORMALS: no JVD Resp: COMMON NORMALS: normal respiratory effort and clear to auscultation bilaterally AUSCULTATION: clear to auscultation bilaterally Cardio: COMMON NORMALS: no JVD, regular rhythm, S1 normal heart sound present, S2 normal heart sound present and No murmurs present (Cardio) RHYTHM: regular rhythm HEART SOUNDS: S1 normal heart sound present and S2 normal heart sound present GI: COMMON NORMALS: Normal to inspection, nondistended, normoactive bowel sounds present, Soft to palpation and non-tender PALPATION: Yes Soft to palpation Extremity: COMMON NORMALS: no joint enlargement and no pedal edema Neuro: COMMON NORMALS: moves all extremities SENSORIUM/ORIENTATION: Yes alert Skin: COMMON NORMALS: no rashes or lesions noted GENERAL SKIN EXAM: no rashes or lesions noted Urinary Catheter Management: Richardson: Cath Placed During This Visit: yes Reason for Continuing Indwelling Catheter: Not indwelling catheter Urinary Catheter Date of Insertion: 09/02/22 Urinary Catheter Time of Insertion: 00:59 Data 09/05/22 03:57 09/05/22 03:57 Micro: Microbiology 09/03/22 08:45 Gram Stain - Final Prostate Abscess Culture - Preliminary Strep species, alpha hemolytic A&P Assessment and plan (1) Atrial fibrillation with rapid ventricular response: (2) Deep tissue injury: (3) Dementia: (4) Acute kidney injury: (5) Diabetes mellitus: Qualifiers: Diabetes mellitus type: type 2 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 Continue treatment of underlying conditions as below. Reorient. is concerned for possible dementia as well, may benefit from further assessment after discharge with neurology once out of acute illness. Urinary tract infection Culture reviewed, not yet identified alphahemolytic strep species. Follow culture. Continue broad-spectrum IV antibiotics. Will need a longer antibiotic course after discharge. Urology deciding regarding serial imaging. Stop fluconazole. Discussed with urology. Clinical condition complicated also by history of CAD, NSTEMI, possible type I or type II, but did well through the procedure. Remains chest pain-free. Sepsis Leukocytosis now noted resolved, down to 10. Follow-up CBC. Afebrile. Source control, antibiotics as above. Follow-up cultures. On review so far no growth on blood culture. Urine culture final growth. Prostate abscess purulent drainage culture 09/03 Gram stain with few gram- negative rods. New A-fib with RVR Low-dose metoprolol. Cardiology has switched him from heparin drip to low-dose Eliquis. Hemoglobin maintained at 11.6. Follow-up CBC. Telemetry monitoring. Hypomagnesemia: Received supplementation. Follow-up magnesium level. Hypophosphatemia: Additionally give K-Phos with potassium soft at 3.7. Follow- up phosphorus. Non-ST elevation [place] Heparin drip has been discontinued, he switched to low-dose Eliquis. Chest pain-free. Cont aspirin, BB, statin. Continue telemetry monitoring. History of CAD, CABG, stent not on aspirin at home. Cardiology documentation noted. Lactic acidosis -Likely secondary to sepsis, UTI High anion gap metabolic acidosis improved History of CAD, no complaints of chest pain Hypomagnesemia, monitor has been replaced Type 2 diabetes mellitus -Lantus 10 units every morning -Low-dose sliding scale Ascending aortic aneurysm 4.3 cm will need follow-up. Goals of care discussion patient and 's states that he is a DNR/DNI Lovenox for DVT prophylaxis He has been doing well, heart rates have been under control, no chest pain. Continue care on medical surgical floor. Attestations Medical Necessity Statement*: Continue admission for assessment management of complicated GI with prostate abscess and gentleman with suspected NSTEMI, adjustment of atrial fibrillation medications, with additional comorbidities as above. Diagnoses Atrial fibrillation with rapid ventricular response I48.91 Deep tissue injury T14.8XXA Dementia F03.90 Acute kidney injury N17.9 Diabetes mellitus E11.9 Diabetes mellitus type: type 2 Diabetes mellitus [facility] insulin use: without [facility] use Sepsis A41.9 UTI (urinary tract infection) N39.0 Chronic prostatitis N41.1 BPH NOS w ur obs/LUTS N40.1 CAD (coronary artery disease) I25.10 Acute encephalopathy G93.40 NSTEMI (non-ST elevated myocardial infarction) I21.4 Hypomagnesemia E83.42 Prostate abscess N41.2 Lactic acidosis E87.20 High anion gap metabolic acidosis E87.29 Goals of care, counseling/discussion Z71.89
[2022-09-05] MEDS: atorvastatin 40 mg Tablet PO (20:19)
[2022-09-05] MEDS: haloperidol inj 5 mg/mL INJ 1 mL 1 MG IM (22:48)
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
[2022-09-06] MEDS: pantoprazole 40 mg SDV IVP (01:42)
[2022-09-06] MEDS: haloperidol inj 5 mg/mL INJ 1 mL 1 MG IM (03:50)
--- NOTE | 2022-09-06 03:59 | PC.NURSE ---
FRANKLIN Diaz attempted to get patient's blood pressure. Patient stated, I wish you bitches would leave me alone. Patient was educated that it is inappropriate to talk with nursing staff that way. This nurse educated the patient that we needed to get his blood pressure since he is in the hospital with an infection. Patient started becoming more agitated and aggressive, by way of hitting and slapping, with this nurse and FRANKLIN Diaz when the both of us attempted to place patient's blood pressure cuff upon his arm. Haldol was given by this nurse safely with assistance from HAYDER Carlson Charge, and FRANKLIN Diaz. When this nurse educated that patient was receiving the medication due to him being uncooperative and aggressive toward staff, patient stated, Oh, piss off!
[2022-09-06 04:00] VITALS: BP 148/76; PULSE 75; RESP 23; TEMP 37.1; O2SAT 92
[2022-09-06 05:07] LABS: Basophils % 0.5 %; Eosinophils # 0.1 10^3/uL (0.0-0.8); Eosinophils % 1.7 %; Hematocrit 34.7 % (42.0-52.0); Hemoglobin 11.2 g/dL (11.7-16.6); Lymphocytes # 1.9 10^3/uL (0.8-4.8); Mean Corpuscular HGB Conc 32.3 g/dL (30.0-36.0); Mean Corpuscular Hemoglobin 29.5 pg (28.0-34.0); Mean Corpuscular Volume 91.3 fl (80-94); Mean Platelet Volume 11.5 fL (7.4-10.4); Monocytes # 0.8 10^3/uL (0.2-0.9); Monocytes % 10.1 %; Neutrophils # 5.18 10^3/uL (1.8-7.7); Neutrophils % 63.8 %; Nucleated Red Blood Cells % 0 %; Platelet Count 250 10^3/cmm (130-400); Red Cell Distribution Width 13.2 % (12.1-15.1); White Blood Count 8.1 10^3/uL (4.0-10.0)
[2022-09-06 05:36] LABS: Anion Gap 14.8 (5-19); Blood Urea Nitrogen 8 mg/dL (8-23); Calcium 8.4 mg/dL (8.5-10.5); Carbon Dioxide 24 mmol/L (22-29); Chloride 105 mmol/L (98-107); Glucose 171 mg/dL (65-115); Magnesium 1.8 mg/dL (1.7-2.3); Osmolality Calculated 292 mOsm/kg (285-295); Phosphorus 2.4 mg/dL (2.5-4.5); Potassium 3.8 mmol/L (3.5-5.1); Sodium 140 mmol/L (136-145)
[2022-09-06 05:39] LABS: Creatinine Clr Calc Pharmacy 77.9003
[2022-09-06 06:00] VITALS: PULSE 95
[2022-09-06] MEDS: ascorbic acid 500 mg Tablet PO (06:31)
[2022-09-06] MEDS: insulin glargine 100 units/1 mL 10 UNIT SUBCUT (06:31)
[2022-09-06] MEDS: finasteride 5 mg Tablet PO (06:31)
[2022-09-06] MEDS: meropenem 1,000 MG in sodium chloride 0.9% (plus) 50 ML 100 MG IV ×3 (06:31→20:31)
[2022-09-06 06:38] LABS: Glucose Point of Care 179 mg/dL (70-110)
[2022-09-06 08:00] VITALS: BP 151/86; PULSE 90; RESP 16; O2SAT 94
--- NOTE | 2022-09-06 08:26 | PM.PN ---
Subjective Subjective: Delta continues to improve. He is more alert today and is not complaining of any pain. He wants to go home. He is been transferred up to the second floor. Vitals/I&O/Wt Last Vital Signs Temp 98.8 F 09/06/22 04:00 Pulse 90 09/06/22 08:00 Resp 16 09/06/22 08:00 BP 151/86 09/06/22 08:00 Pulse Ox 94 09/06/22 08:00 O2 Del Method Room Air 09/06/22 04:00 O2 Flow Rate 5 09/03/22 09:23 09/05/22 09/06/22 09/06/22 22:59 06:59 14:59 Intake Total 790 / 1488.35 300 / 1788.35 50 / 50 Output Total 1725 / 1725 1050 / 2775 Balance -935 / -236.65 -750 / -986.65 50 / 50 Weight last 48 hrs Weight 185 lb Physical Exam Narrative: GENERAL: In general he is awake and alert and appears only slightly confused. HEENT: Exam within normal limits. NECK: Supple without jugular vein distention. The carotid upstroke is normal without bruits. BACK: Exam normal. LUNGS: Clear. HEART: Irregular rate and rhythm ABDOMEN: Benign without organomegaly or tenderness. EXTREMITIES: No edema. NEUROLOGIC: Exam normal. SKIN: Unremarkable. Urinary Catheter Management: Richardson: Cath Placed During This Visit: yes Reason for Continuing Indwelling Catheter: Not indwelling catheter Urinary Catheter Date of Insertion: 09/02/22 Urinary Catheter Time of Insertion: 00:59 Data 09/06/22 04:39 09/06/22 04:39 Micro: Microbiology 09/03/22 08:45 Gram Stain - Final Prostate Abscess Culture - Preliminary Strep species, alpha hemolytic A&P Assessment and plan (1) Chronic prostatitis: (2) BPH NOS w ur obs/LUTS: (3) S/P CABG (coronary artery bypass graft): (4) Hx of heart artery stent: (5) CAD (coronary artery disease): (6) Transaminitis: (7) Acute encephalopathy: (8) Ascending aortic aneurysm: Plan His cardiac status is stable. I will sign off. Call for further questions. I would continue the low-dose Eliquis because of the atrial fibrillation. I would not make any attempt to convert him back. He is stable with the atrial fibrillation. Attestations Medical Necessity Statement*: Continued hospitalization for management of atrial fibrillation and prostate abscess. and Moderate Time for a total of 20 minutes, includes reviewing past or interval history, examining/interviewing patient, placing orders, counseling patient/family/other support, updating patient/family/other support, discussing plan of care with staff, communicating with other healthcare providers, documenting encounter and coordinating care Diagnoses Chronic prostatitis N41.1 BPH NOS w ur obs/LUTS N40.1 S/P CABG (coronary artery bypass graft) Z95.1 Hx of heart artery stent Z95.5 CAD (coronary artery disease) I25.10 Transaminitis R74.0 Acute encephalopathy G93.40 Ascending aortic aneurysm I71.21
--- NOTE | 2022-09-06 09:01 | PM.PN ---
Subjective Subjective: Urology follow-up: Postop day #3 He has remained afebrile. His vital signs have been stable. Some tachypnea. Preliminary culture results grew strep species. Preliminary culture results only. He did have gram-negative rods on his Gram stain White count is continuing to decrease. 8.1 now. Stable hemoglobin Creatinine 0.6 Seems comfortable today. Denies any significant complaints Reviewed with the family and the patient. See assessment and plan Vitals/I&O/Wt Last Vital Signs Temp 98.8 F 09/06/22 04:00 Pulse 90 09/06/22 08:00 Resp 16 09/06/22 08:00 BP 151/86 09/06/22 08:00 Pulse Ox 94 09/06/22 08:00 O2 Del Method Room Air 09/06/22 04:00 O2 Flow Rate 5 09/03/22 09:23 09/05/22 09/06/22 09/06/22 22:59 06:59 14:59 Intake Total 790 / 1488.35 300 / 1788.35 50 / 50 Output Total 1725 / 1725 1050 / 2775 Balance -935 / -236.65 -750 / -986.65 50 / 50 Weight last 48 hrs Weight 185 lb Physical Exam Narrative: Alert, responsive, reasonably oriented No acute distress Neck good range of motion Catheter functioning well. Good range of motion of the extremity No labored respiration or wheezes Urinary Catheter Management: Richardson: Cath Placed During This Visit: yes Reason for Continuing Indwelling Catheter: Not indwelling catheter Urinary Catheter Date of Insertion: 09/02/22 Urinary Catheter Time of Insertion: 00:59 Data 09/06/22 04:39 09/06/22 04:39 Micro: Microbiology 09/03/22 08:45 Gram Stain - Final Prostate Abscess Culture - Preliminary Strep species, alpha hemolytic A&P Assessment and plan (1) Prostate abscess: Clinically doing well following abscess drainage. Final cultures pending. 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 Bladder currently managed by urethral Richardson with initial conversation today about possible suprapubic tube to take the foreign body out of the urethra and prostate (3) BPH NOS w ur obs/LUTS: Longstanding Plan 1. Son was present today. Reviewed with both the patient and his son where we have been aware we are now. I did not recommend a repeat CT scan at this point but probably will at the end of his course of antibiotics or if he starts having clinical evidence of progression of infection. 2. I also introduced the topic of long-term bladder management. He has been on self-catheterization now for some time and has preferred that over an indwelling Richardson catheter. An indwelling suprapubic tube may make more sense in the end of the day to try to avoid instrumentation of the urethra. No recommendations made but I wanted to get that topic out early to make some plans for that if it seems to make the most sense. Attestations Medical Necessity Statement*: Requiring IV antibiotics. Recovering from potentially life-threatening infection. Coding Level of Care Code Acute Code for [facility] Fwd Diagnoses Prostate abscess N41.2 Urinary retention R33.9 BPH NOS w ur obs/LUTS N40.1
[2022-09-06] MEDS: tamsulosin 0.4 mg Capsule PO ×2 (09:20→20:31)
[2022-09-06] MEDS: metoprolol tartrate 25 mg Tablet 12.5 MG PO ×2 (09:21→20:31)
[2022-09-06] MEDS: apixaban 5 mg Tablet 2.5 MG PO ×2 (09:21→20:31)
[2022-09-06] MEDS: aspirin 81 mg EC Tablet PO (09:23)
[2022-09-06 12:01] LABS: Glucose Point of Care 237 mg/dL (70-110)
[2022-09-06] MEDS: vancomycin 1,500 MG/300 ML PIGGYBACK 150 MG IV ×2 (12:05→23:58)
[2022-09-06] MEDS: insulin lispro 100 unit/1 mL SUBCUT ×2 (12:05→17:53)
[2022-09-06 16:00] VITALS: BP 127/70; PULSE 88; RESP 18; TEMP 36.9; O2SAT 93
[2022-09-06] MEDS: magnesium sulfate premix 2 GM/50 ML PIGGYBACK IV (16:50)
[2022-09-06 17:21] LABS: Glucose Point of Care 233 mg/dL (70-110)
[2022-09-06 20:00] VITALS: BP 130/81; PULSE 97; RESP 17; TEMP 37.1; O2SAT 94
--- NOTE | 2022-09-06 20:23 | PM.PN ---
Subjective Subjective: Slight soreness in his back he states if he is not Moving about in bed. Denies chest pain or pressure. No trouble breathing. Denies any groin pain. Vitals/I&O/Wt Last Vital Signs Temp 98.4 F 09/06/22 16:00 Pulse 88 09/06/22 16:00 Resp 18 09/06/22 16:00 BP 127/70 09/06/22 16:00 Pulse Ox 93 09/06/22 16:00 O2 Del Method Room Air 09/06/22 04:00 O2 Flow Rate 5 09/03/22 09:23 09/06/22 09/06/22 09/06/22 06:59 14:59 22:59 Intake Total 300 / 1788.35 950 / 950 320 / 1270 Output Total 1050 / 2775 800 / 800 Balance -750 / -986.65 950 / 950 -480 / 470 Weight last 48 hrs Weight 83.915 kg Physical Exam Narrative: Son-in-law at bedside. Const: COMMON NORMALS: alert GENERAL APPEARANCE: cooperative ORIENTATION/CONSCIOUSNESS: Yes awake HENMT: COMMON NORMALS: oropharynx normal Neck/C-Spine: COMMON NORMALS: no JVD Resp: COMMON NORMALS: normal respiratory effort and clear to auscultation bilaterally AUSCULTATION: clear to auscultation bilaterally Cardio: COMMON NORMALS: no JVD, regular rhythm, S1 normal heart sound present, S2 normal heart sound present and No murmurs present (Cardio) RHYTHM: regular rhythm HEART SOUNDS: S1 normal heart sound present and S2 normal heart sound present GI: COMMON NORMALS: Normal to inspection, nondistended, normoactive bowel sounds present, Soft to palpation and non-tender PALPATION: Yes Soft to palpation Extremity: COMMON NORMALS: no joint enlargement and no pedal edema Neuro: COMMON NORMALS: moves all extremities SENSORIUM/ORIENTATION: Yes alert Skin: COMMON NORMALS: no rashes or lesions noted GENERAL SKIN EXAM: no rashes or lesions noted Urinary Catheter Management: Richardson: Cath Placed During This Visit: yes Reason for Continuing Indwelling Catheter: Other Urinary Catheter Date of Insertion: 09/02/22 Urinary Catheter Time of Insertion: 00:59 Data 09/06/22 04:39 09/06/22 04:39 Micro: Microbiology 09/03/22 08:45 Gram Stain - Final Prostate Abscess Culture - Final Strep species, alpha hemolytic A&P Assessment and plan (1) Atrial fibrillation with rapid ventricular response: (2) Deep tissue injury: (3) Dementia: (4) Acute kidney injury: (5) Diabetes mellitus: Qualifiers: Diabetes mellitus type: type 2 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 Doing better this morning, although slightly more subdued. Continue treatment of underlying conditions as below. Reorient. Mobilize with therapy. Looking over his medications I do not see anything that should be additionally contributing to delirium. Was on morphine before which now is . Will not resume. is concerned for possible dementia as well, may benefit from further assessment after discharge with neurology once out of acute illness. Urinary tract infection Drainage culture noted, not yet identified alphahemolytic strep species. Follow. Continue broad-spectrum IV antibiotics. Will need a longer antibiotic course after discharge. Urology deciding regarding serial imaging. Off fluconazole. Urology documentation noted. Repeat imaging considered at the end of antibiotic course or if symptoms change. Further consideration to alternative to self-catheterization. Sepsis Sepsis resolved. Leukocytosis noted resolved. Afebrile. No tachycardia. Follow-up CBC. Treat underlying condition as above New A-fib with RVR Low-dose metoprolol. Eliquis. He is doing well from cardiology standpoint, documentation noted, cardiology has signed off. Hemoglobin maintained at 11.2. Follow-up CBC. Telemetry monitoring. Hypomagnesemia: Level noted 1.8. Follow-up magnesium level. Hypophosphatemia: Improving. Follow-up phosphorus. Non-ST elevation [place] Heparin drip has been discontinued, he switched to low-dose Eliquis. Chest pain-free. Cont aspirin, BB, statin. Continue telemetry monitoring. History of CAD, CABG, stent not on aspirin at home. Cardiology documentation noted. Cardiology signed off. Lactic acidosis -Likely secondary to sepsis, UTI High anion gap metabolic acidosis improved History of CAD, no complaints of chest pain Hypomagnesemia, monitor has been replaced Type 2 diabetes mellitus -History of Lantus 12 units every morning -Low-dose sliding scale Ascending aortic aneurysm 4.3 cm will need follow-up. Back pain: Tylenol available, opiates or other agents that may contribute to delirium. Allow morphine to . Add lidocaine patch. Physical deconditioning, functional decline: PT, OT. L hand IV was somewhat bothersome to him, discussed with RN will reassess. Goals of care discussion patient and 's states that he is a DNR/DNI Lovenox for DVT prophylaxis He has been doing well, heart rates have been under control, no chest pain. Continue care on medical surgical floor. Attestations Medical Necessity Statement*: Continue admission for assessment management of complicated UTI, prostate abscess, acute encephalopathy, disposition planning arrangements. Diagnoses Atrial fibrillation with rapid ventricular response I48.91 Deep tissue injury T14.8XXA Dementia F03.90 Acute kidney injury N17.9 Diabetes mellitus E11.9 Diabetes mellitus type: type 2 Diabetes mellitus care home insulin use: without care home use Sepsis A41.9 UTI (urinary tract infection) N39.0 Chronic prostatitis N41.1 BPH NOS w ur obs/LUTS N40.1 CAD (coronary artery disease) I25.10 Acute encephalopathy G93.40 NSTEMI (non-ST elevated myocardial infarction) I21.4 Hypomagnesemia E83.42 Prostate abscess N41.2 Lactic acidosis E87.20 High anion gap metabolic acidosis E87.29 Goals of care, counseling/discussion Z71.89
[2022-09-06] MEDS: atorvastatin 40 mg Tablet PO (20:37)
[2022-09-06 20:45] LABS: Glucose Point of Care 193 mg/dL (70-110)
[2022-09-06 23:49] VITALS: BP 129/78; PULSE 91; RESP 17; TEMP 37.1; O2SAT 94
[2022-09-07] MEDS: pantoprazole 40 mg SDV IVP (00:35)
[2022-09-07 04:00] VITALS: BP 129/78; BP 145/74; PULSE 91; PULSE 95; RESP 17; TEMP 36.7; TEMP 37.1; O2SAT 92
[2022-09-07] MEDS: insulin glargine 100 units/1 mL 12 UNIT SUBCUT (05:28)
[2022-09-07] MEDS: ascorbic acid 500 mg Tablet PO (05:28)
[2022-09-07] MEDS: meropenem 1,000 MG in sodium chloride 0.9% (plus) 50 ML 100 MG IV ×3 (05:28→20:46)
[2022-09-07 06:29] LABS: Basophils % 0.4 %; Eosinophils # 0.1 10^3/uL (0.0-0.8); Eosinophils % 1.4 %; Hematocrit 36.2 % (42.0-52.0); Hemoglobin 11.9 g/dL (11.7-16.6); Lymphocytes # 1.6 10^3/uL (0.8-4.8); Lymphocytes % 16.6 %; Mean Corpuscular HGB Conc 32.9 g/dL (30.0-36.0); Mean Corpuscular Hemoglobin 29.5 pg (28.0-34.0); Mean Corpuscular Volume 89.6 fl (80-94); Mean Platelet Volume 11.8 fL (7.4-10.4); Monocytes % 10.5 %; Neutrophils # 6.89 10^3/uL (1.8-7.7); Neutrophils % 70.5 %; Nucleated Red Blood Cells % 0 %; Platelet Count 265 10^3/cmm (130-400); Red Blood Count 4.04 10^6/uL (4.1-5.3); Red Cell Distribution Width 13.2 % (12.1-15.1); White Blood Count 9.8 10^3/uL (4.0-10.0)
[2022-09-07 07:18] LABS: Glucose Point of Care 236 mg/dL (70-110)
[2022-09-07 07:42] LABS: Anion Gap 12.3 (5-19); Blood Urea Nitrogen 8 mg/dL (8-23); Calcium 7.9 mg/dL (8.5-10.5); Carbon Dioxide 21 mmol/L (22-29); Chloride 97 mmol/L (98-107); Creatinine Clr Calc Pharmacy 77.9003; Glucose 211 mg/dL (65-115); Osmolality Calculated 269 mOsm/kg (285-295); Potassium 3.3 mmol/L (3.5-5.1); Sodium 127 mmol/L (136-145)
[2022-09-07 07:43] VITALS: BP 131/76; PULSE 92; RESP 17; TEMP 36.6; O2SAT 91
[2022-09-07] MEDS: insulin lispro 100 unit/1 mL SUBCUT ×2 (09:11→12:38)
[2022-09-07] MEDS: finasteride 5 mg Tablet PO (09:13)
[2022-09-07] MEDS: apixaban 5 mg Tablet 2.5 MG PO (09:13)
[2022-09-07] MEDS: metoprolol tartrate 25 mg Tablet 12.5 MG PO (09:14)
[2022-09-07] MEDS: aspirin 81 mg EC Tablet PO (09:14)
[2022-09-07] MEDS: tamsulosin 0.4 mg Capsule PO ×2 (09:14→17:09)
[2022-09-07 10:04] LABS: Vancomycin Trough 20.8 ug/mL (10-15)
[2022-09-07 11:16] VITALS: BP 128/73; PULSE 87; RESP 19; TEMP 36.4; O2SAT 94
--- NOTE | 2022-09-07 11:19 | PM.PN ---
Subjective Subjective: Urology follow-up: Postop day #4 drainage of prostatic abscess No fever. Marked improvement in perineal discomfort and pain. He can sit now without having significant discomfort Catheter draining clear urine. Clear sensorium. Better mood Benign exam. CULTURE RESULTS: Strep species, alpha hemolytic, heavy. No growth of gram-negative bacteria despite moderate gram-negative rods seen on Gram stain. Recommendations: I reviewed again the option of converting to a suprapubic tube in order to get the catheter out of his urethra long-term and to avoid reinstrumentation via [facility]. Encouraged he and his to think about that option. Currently that would be postponed until he is near the end of his antibiotic therapy or after. We also reviewed imaging. And as well and recommended that to be postponed until we are close to the end of antibiotic therapy. Arrangements are being made for SNF care. At discharge we will set up his follow-up CT scan. We will continue the discussion about a suprapubic tube or not on an outpatient basis Vitals/I&O/Wt Last Vital Signs Temp 97.6 F 09/07/22 11:16 Pulse 87 09/07/22 11:16 Resp 19 H 09/07/22 11:16 BP 128/73 09/07/22 11:16 Pulse Ox 94 09/07/22 11:16 O2 Del Method Room Air 09/07/22 04:00 O2 Flow Rate 5 09/03/22 09:23 09/06/22 09/07/22 09/07/22 22:59 06:59 14:59 Intake Total 610 / 1560 300 / 1860 290 / 290 Output Total 1600 / 1600 800 / 2400 600 / 600 Balance -990 / -40 -500 / -540 -310 / -310 Physical Exam Narrative: Alert, responsive, oriented No acute distress. Seems to be in a better mood today. Catheter functioning well, urine is clear. No significant discharge around the catheter. No labored respiration or wheezes Abdomen soft nontender Urinary Catheter Management: Richardson: Cath Placed During This Visit: yes Reason for Continuing Indwelling Catheter: Other Urinary Catheter Date of Insertion: 09/02/22 Urinary Catheter Time of Insertion: 00:59 Data 09/07/22 05:50 09/07/22 05:50 Micro: Microbiology 09/03/22 08:45 Gram Stain - Final Prostate Abscess Culture - Final Strep species, alpha hemolytic A&P Assessment and plan (1) Prostate abscess: Clinically doing well following abscess drainage. 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 Bladder currently managed by urethral Richardson with continued conversation today with as well about possible suprapubic tube to take the foreign body out of the urethra and prostate long-term (3) BPH NOS w ur obs/LUTS: Longstanding Plan 1. We will make arrangements for follow-up in my office after CT scan toward the end of his IV antibiotic therapy 2. We will also continue the conversation about suprapubic tube long-term for bladder management given the events of prostatic abscess Attestations Medical Necessity Statement*: See attending Coding Level of Care Code Acute Code for [facility] Diagnoses Prostate abscess N41.2 Urinary retention R33.9 BPH NOS w ur obs/LUTS N40.1
[2022-09-07 12:05] LABS: Glucose Point of Care 150 mg/dL (70-110)
[2022-09-07 15:57] VITALS: BP 103/65; PULSE 89; RESP 18; TEMP 36.8; O2SAT 91
[2022-09-07 16:21] LABS: Glucose Point of Care 130 mg/dL (70-110)
[2022-09-07] MEDS: vancomycin 1,250 MG/250 ML PIGGYBACK 200 MG IV (17:35)
--- NOTE | 2022-09-07 17:48 | PC.NURSE ---
This nurse spoke with patients , Simi via phone and updated her on his care this evening.
[2022-09-07 19:37] VITALS: BP 146/68; PULSE 111; RESP 19; TEMP 36.8; O2SAT 95
--- NOTE | 2022-09-07 20:47 | PC.NURSE ---
Patient refuses oral medications. States I don't want no medicine, take it and shove it . Nurse attempted to provide education on the importance of the medication and reason for use and unsuccessful. Patient reports I don't want that shit .
[2022-09-07 21:13] LABS: Glucose Point of Care 254 mg/dL (70-110)
--- NOTE | 2022-09-07 22:41 | P.PN_ITS ---
Subjective Subjective: States he is doing fair. No chest pain or pressure, no trouble breathing, no abdominal pain. No perineal pain. Vitals/I&O/Wt Last Vital Signs Temp 98.2 F 09/07/22 19:37 Pulse 111 H 09/07/22 19:37 Resp 19 H 09/07/22 19:37 BP 146/68 09/07/22 19:37 Pulse Ox 95 09/07/22 19:37 O2 Del Method Room Air 09/07/22 04:00 O2 Flow Rate 5 09/03/22 09:23 09/07/22 09/07/22 09/07/22 06:59 14:59 22:59 Intake Total 300 / 1860 530 / 530 710 / 1240 Output Total 800 / 2400 850 / 850 500 / 1350 Balance -500 / -540 -320 / -320 210 / -110 Physical Exam Narrative: at bedside. Const: COMMON NORMALS: alert GENERAL APPEARANCE: cooperative ORIENTATION/CONSCIOUSNESS: Yes awake HENMT: COMMON NORMALS: oropharynx normal Neck/C-Spine: COMMON NORMALS: no JVD Resp: COMMON NORMALS: normal respiratory effort and clear to auscultation bilaterally AUSCULTATION: clear to auscultation bilaterally Cardio: COMMON NORMALS: no JVD, regular rhythm, S1 normal heart sound present, S2 normal heart sound present and No murmurs present (Cardio) RHYTHM: regular rhythm HEART SOUNDS: S1 normal heart sound present and S2 normal heart sound present GI: COMMON NORMALS: Normal to inspection, nondistended, normoactive bowel sounds present, Soft to palpation and non-tender PALPATION: Yes Soft to palpation Extremity: COMMON NORMALS: no joint enlargement and no pedal edema Neuro: COMMON NORMALS: moves all extremities SENSORIUM/ORIENTATION: Yes alert Skin: COMMON NORMALS: no rashes or lesions noted GENERAL SKIN EXAM: no rashes or lesions noted Urinary Catheter Management: Richardson: Cath Placed During This Visit: yes Reason for Continuing Indwelling Catheter: Other Urinary Catheter Date of Insertion: 09/02/22 Urinary Catheter Time of Insertion: 00:59 Data 09/07/22 05:50 09/07/22 05:50 A&P Assessment and plan (1) Atrial fibrillation with rapid ventricular response: (2) Deep tissue injury: (3) Dementia: (4) Acute kidney injury: (5) Diabetes mellitus: Qualifiers: Diabetes mellitus type: type 2 Diabetes mellitus long term care phlebotomist insulin use: without long term care phlebotomist use (6) Sepsis: (7) UTI (urinary tract infection): (8) Chronic prostatitis: (9) BPH NOS w ur obs/LUTS: (10) CAD (coronary artery disease): (11) Acute encephalopathy: (12) NSTEMI (non-ST elevated myocardial infarction): (13) Hypomagnesemia: (14) Prostate abscess: (15) Lactic acidosis: (16) High anion gap metabolic acidosis: (17) Goals of care, counseling/discussion: Plan Acute encephalopathy Improved. Doing better this morning. Continue treatment of underlying conditions as below. Reorient. Mobilize with therapy. Looking over his medications I do not see anything that should be additionally contributing to delirium. Was on morphine before which now is . Will not resume. is concerned for possible dementia as well, may benefit from further assessment after discharge with neurology once out of acute illness. Urinary tract infection Noted alphahemolytic strep on final culture of the prostate drainage. Continue broad-spectrum IV antibiotics. Will need a longer antibiotic course after discharge. Urology will want to follow-up imaging closer to end of antibiotic course to confirm resolution unless symptoms return or other concerning findings. Discussed with him and his . Off fluconazole. Discussed with urology. Note appreciated. Further consideration to alternative to self-catheterization. Sepsis Sepsis resolved. Leukocytosis noted resolved. Afebrile. No tachycardia. Follow-up CBC. Treat underlying condition as above New A-fib with RVR Low-dose metoprolol. Eliquis. He is doing well from cardiology standpoint, documentation noted, cardiology has signed off. Hemoglobin maintained at 11.9. Follow-up CBC. Telemetry monitoring. Hypomagnesemia: Level noted 1.8. Follow-up magnesium level. Hypophosphatemia: Improving. Follow-up phosphorus. Non-ST elevation [place] Heparin drip has been discontinued, he switched to low-dose Eliquis. Chest pain-free. Cont aspirin, BB, statin. Continue telemetry monitoring. History of CAD, CABG, stent not on aspirin at home. Cardiology documentation noted. Cardiology signed off. Lactic acidosis -Likely secondary to sepsis, UTI High anion gap metabolic acidosis improved History of CAD, no complaints of chest pain Hypomagnesemia, monitor has been replaced Type 2 diabetes mellitus -History of Lantus 12 units every morning -Low-dose sliding scale Ascending aortic aneurysm 4.3 cm will need follow-up. Back pain: Tylenol available, opiates or other agents that may contribute to delirium. Allow morphine to . Add lidocaine patch. Physical deconditioning, functional decline: PT, OT. L hand IV infiltrated. Mild erythema on the dorsal proximal hand/wrist. Discus sed to elevate. Monitor. Constipation: Add MiraLAX. Oropharyngeal dysphagia: Continue dysphagia diet. Will need follow-up for additional assessment. Goals of care discussion patient and 's states that he is a DNR/DNI Lovenox for DVT prophylaxis He has been doing well, heart rates have been under control, no chest pain. Continue care on medical surgical floor. Attestations Medical Necessity Statement*: Continue admission for assessment management of complicated UTI, prostate abscess, acute encephalopathy, disposition planning arrangements. Diagnoses Atrial fibrillation with rapid ventricular response I48.91 Deep tissue injury T14.8XXA Dementia F03.90 Acute kidney injury N17.9 Diabetes mellitus E11.9 Diabetes mellitus type: type 2 Diabetes mellitus long term care phlebotomist insulin use: without skilled nursing use Sepsis A41.9 UTI (urinary tract infection) N39.0 Chronic prostatitis N41.1 BPH NOS w ur obs/LUTS N40.1 CAD (coronary artery disease) I25.10 Acute encephalopathy G93.40 NSTEMI (non-ST elevated myocardial infarction) I21.4 Hypomagnesemia E83.42 Prostate abscess N41.2 Lactic acidosis E87.20 High anion gap metabolic acidosis E87.29 Goals of care, counseling/discussion Z71.89
[2022-09-08] VITALS (11 sets, daily range): BP systolic 109–132; BP diastolic 63–80; PULSE 80–95; RESP 16–24; TEMP 36.3–37.1; O2SAT 91–98
[2022-09-08] MEDS: pantoprazole 40 mg SDV IVP (01:58)
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
[2022-09-08] MEDS: vancomycin 1,250 MG/250 ML PIGGYBACK 200 MG IV ×2 (03:56→17:03)
[2022-09-08] MEDS: insulin glargine 100 units/1 mL 12 UNIT SUBCUT (05:22)
[2022-09-08] MEDS: meropenem 1,000 MG in sodium chloride 0.9% (plus) 50 ML 100 MG IV ×3 (05:22→21:42)
[2022-09-08 06:26] LABS: Glucose Point of Care 156 mg/dL (70-110)
[2022-09-08] MEDS: insulin lispro 100 unit/1 mL SUBCUT ×2 (07:43→12:53)
[2022-09-08] MEDS: acetaminophen 325 mg Tablet 650 MG PO ×2 (07:46→14:45)
[2022-09-08] MEDS: finasteride 5 mg Tablet PO (07:55)
[2022-09-08] MEDS: metoprolol tartrate 25 mg Tablet 12.5 MG PO ×2 (08:09→20:28)
[2022-09-08] MEDS: tamsulosin 0.4 mg Capsule PO ×2 (08:09→17:03)
[2022-09-08] MEDS: apixaban 5 mg Tablet 2.5 MG PO ×2 (08:09→20:28)
[2022-09-08] MEDS: aspirin 81 mg EC Tablet PO (08:10)
[2022-09-08] MEDS: polyethylene glycol 3350 Pkt 17 gm PO ×2 (08:10→17:03)
[2022-09-08 11:18] LABS: Glucose Point of Care 160 mg/dL (70-110)
--- NOTE | 2022-09-08 12:25 | PM.PN ---
Subjective Subjective: This morning patient is stating that he does not want suprapubic catheter because he is very concerned about the quality of intimacy after that intervention is at the bedside Had discussion in detail, I will update Dr. Cowan today quality engineering manager working to get him placed at a SNF Vitals/I&O/Wt Last Vital Signs Temp 98.0 F 09/08/22 12:00 Pulse 81 09/08/22 12:00 Resp 16 09/08/22 12:00 BP 109/63 09/08/22 12:00 Pulse Ox 94 09/08/22 12:00 O2 Del Method Room Air 09/08/22 12:00 O2 Flow Rate 5 09/03/22 09:23 09/07/22 09/08/22 09/08/22 22:59 06:59 14:59 Intake Total 710 / 1240 300 / 1540 200 / 200 Output Total 1250 / 2100 1000 / 3100 Balance -540 / -860 -700 / -1560 200 / 200 Physical Exam Narrative: Patient is laying supine No active complaints Awake and alert at the bedside Nonfocal neuro exam Currently on room air Richardson catheter draining yellow-colored urine No signs of edema of legs EOMI, PERRLA Urinary Catheter Management: Richardson: Cath Placed During This Visit: yes Reason for Continuing Indwelling Catheter: Other Urinary Catheter Date of Insertion: 09/02/22 Urinary Catheter Time of Insertion: 00:59 Data 09/07/22 05:50 09/07/22 05:50 Micro: Microbiology 09/01/22 22:22 Blood Culture - Final Blood 09/01/22 22:20 Blood Culture - Final Blood A&P Assessment and plan (1) Chronic prostatitis: (2) BPH NOS w ur obs/LUTS: (3) Balanitis: (4) Hx of heart artery stent: (5) 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: (7) Prostate abscess: (8) Acute encephalopathy: (9) Atrial fibrillation with rapid ventricular response: (10) Dementia: (11) Multiple falls: Plan Acute metabolic encephalopathy: Resolved UTI with gram-negative papo final cultures history report is pending continue IV antibiotics for now Sepsis: Resolved New onset A-fib RVR Currently rate controlled Low-dose metoprolol and Eliquis NSTEMI: Type II Heparin drip turned off Cardiology signed off Type 2 diabetes: Sliding scale AAA 4.3 cm outpatient follow-up Physical deconditioning will need PT and SNF placement at discharge Constipation: Resolved Bowel movement yesterday DNR/DNI Dr. Cowan updated Patient does not want suprapubic catheter placement Attestations Medical Necessity Statement*: Awaiting placement Diagnoses Chronic prostatitis N41.1 BPH NOS w ur obs/LUTS N40.1 Balanitis N48.1 Hx of heart artery stent Z95.5 S/P CABG (coronary artery bypass graft) Z95.1 Chronic retention of urine R33.9 Prostate abscess N41.2 Acute encephalopathy G93.40 Atrial fibrillation with rapid ventricular response I48.91 Dementia F03.90 Multiple falls R29.6
[2022-09-08 16:48] LABS: Glucose Point of Care 131 mg/dL (70-110)
[2022-09-08 17:53] LABS: Basophils % 0.4 %; Eosinophils # 0.3 10^3/uL (0.0-0.8); Hematocrit 37.2 % (42.0-52.0); Hemoglobin 11.9 g/dL (11.7-16.6); Lymphocytes # 1.6 10^3/uL (0.8-4.8); Lymphocytes % 19.3 %; Mean Corpuscular Volume 90.5 fl (80-94); Mean Platelet Volume 10.7 fL (7.4-10.4); Monocytes # 0.8 10^3/uL (0.2-0.9); Monocytes % 9.2 %; Neutrophils # 5.67 10^3/uL (1.8-7.7); Neutrophils % 67.6 %; Nucleated Red Blood Cells % 0 %; Platelet Count 306 10^3/cmm (130-400); Red Blood Count 4.11 10^6/uL (4.1-5.3); Red Cell Distribution Width 13.2 % (12.1-15.1); White Blood Count 8.4 10^3/uL (4.0-10.0)
[2022-09-08 18:09] LABS: Anion Gap 12.4 (5-19); Blood Urea Nitrogen 9 mg/dL (8-23); Carbon Dioxide 25 mmol/L (22-29); Chloride 102 mmol/L (98-107); Glucose 149 mg/dL (65-115); Osmolality Calculated 283 mOsm/kg (285-295); Potassium 3.4 mmol/L (3.5-5.1); Sodium 136 mmol/L (136-145)
[2022-09-08 18:11] LABS: Creatinine Clr Calc Pharmacy 77.9003
[2022-09-08] MEDS: atorvastatin 40 mg Tablet PO (20:28)
[2022-09-08 20:49] LABS: Glucose Point of Care 170 mg/dL (70-110)
[2022-09-09] VITALS (11 sets, daily range): BP systolic 125–163; BP diastolic 67–90; PULSE 75–100; RESP 15–18; TEMP 36.7–36.8; O2SAT 93–97
[2022-09-09] MEDS: pantoprazole 40 mg SDV IVP (01:25)
[2022-09-09 03:17] LABS: Vancomycin Trough 18.1 ug/mL (10-15)
[2022-09-09] MEDS: vancomycin 1,000 MG in sodium chloride 0.9% 250 ML 250 MG IV (04:09)
[2022-09-09] MEDS: meropenem 1,000 MG in sodium chloride 0.9% (plus) 50 ML 100 MG IV (05:56)
[2022-09-09] MEDS: ascorbic acid 500 mg Tablet PO (05:57)
[2022-09-09] MEDS: insulin glargine 100 units/1 mL 12 UNIT SUBCUT (05:58)
[2022-09-09 06:02] LABS: Glucose Point of Care 133 mg/dL (70-110)
[2022-09-09 06:38] LABS: Glucose Point of Care 142 mg/dL (70-110)
[2022-09-09] MEDS: finasteride 5 mg Tablet PO (08:18)
[2022-09-09] MEDS: polyethylene glycol 3350 Pkt 17 gm PO (08:18)
[2022-09-09] MEDS: tamsulosin 0.4 mg Capsule PO ×2 (08:19→18:11)
[2022-09-09] MEDS: metoprolol tartrate 25 mg Tablet 12.5 MG PO ×2 (08:19→20:27)
[2022-09-09] MEDS: apixaban 5 mg Tablet 2.5 MG PO ×2 (08:19→20:27)
[2022-09-09] MEDS: aspirin 81 mg EC Tablet PO (08:19)
[2022-09-09] MEDS: insulin lispro 100 unit/1 mL SUBCUT ×2 (08:20→18:11)
--- NOTE | 2022-09-09 10:47 | PM.PN ---
Subjective Subjective: This morning patient is able to work with physical therapy is concerned that she were not able to take care of him Richardson catheter draining clear urine No overnight events Patient endorsing a bowel movement No active pain No overnight events Hypokalemia noted Vitals/I&O/Wt Last Vital Signs Temp 98.2 F 09/09/22 08:00 Pulse 89 09/09/22 08:00 Resp 16 09/09/22 08:00 BP 144/86 09/09/22 08:00 Pulse Ox 94 09/09/22 07:37 O2 Del Method Room Air 09/09/22 07:37 O2 Flow Rate 5 09/03/22 09:23 09/08/22 09/09/22 09/09/22 22:59 06:59 14:59 Intake Total 930 / 1420 300 / 1720 120 / 120 Output Total 350 / 350 700 / 1050 Balance 580 / 1070 -400 / 670 120 / 120 Physical Exam Narrative: This morning patient is laying supine Later he was working with PT No active symptoms GCS 15 Nonfocal neuro exam Fatigued and lethargic Euvolemic Abdomen soft Richardson catheter draining normal yellow-colored urine Abdomen soft Urinary Catheter Management: Richardson: Cath Placed During This Visit: yes Reason for Continuing Indwelling Catheter: Other Urinary Catheter Date of Insertion: 09/02/22 Urinary Catheter Time of Insertion: 00:59 Data 09/08/22 17:44 09/08/22 17:44 Micro: Microbiology 09/01/22 22:22 Blood Culture - Final Blood 09/01/22 22:20 Blood Culture - Final Blood A&P Assessment and plan (1) Chronic prostatitis: (2) BPH NOS w ur obs/LUTS: (3) S/P CABG (coronary artery bypass graft): (4) Hx of heart artery stent: (5) Dementia: (6) Incomplete bladder emptying: (7) Chronic retention of urine: (8) Prostate abscess: (9) NSTEMI (non-ST elevated myocardial infarction): (10) Acute encephalopathy: (11) Atrial fibrillation with rapid ventricular response: Plan Prostate abscess status post drainage 150 cc was drained Culture showing alphahemolytic strep and gram-negative papo Considering previous gram-negative papo urine culture I will switch patient to ceftriaxone, Patient has been afebrile Patient does not want suprapubic catheter placement, Dr. Cowan has been updated New onset A-fib not in RVR currently on low-dose Eliquis and AV nnamdi blocking agent Sepsis: Resolved NSTEMI: Type II PR AAA 4.3 cm blood pressure has been stable Constipation: Resolved DNR/DNI Awaiting placement Daily PT, is not able to take care of him at home Attestations Medical Necessity Statement*: Awaiting placement, culture and sensitivity report is pending Diagnoses Chronic prostatitis N41.1 BPH NOS w ur obs/LUTS N40.1 S/P CABG (coronary artery bypass graft) Z95.1 Hx of heart artery stent Z95.5 Dementia F03.90 Incomplete bladder emptying R33.9 Chronic retention of urine R33.9 Prostate abscess N41.2 NSTEMI (non-ST elevated myocardial infarction) I21.4 Acute encephalopathy G93.40 Atrial fibrillation with rapid ventricular response I48.91
[2022-09-09] MEDS: potassium chloride oral liq 20 mEq/15 mL UDC 40 MEQ PO (11:31)
[2022-09-09 11:54] LABS: Glucose Point of Care 133 mg/dL (70-110)
--- NOTE | 2022-09-09 14:43 | PC.SOCIAL ---
IMM updated IMM dated and initialed and copy placed in chart and given to patient
--- NOTE | 2022-09-09 15:24 | PC.NURSE ---
1520 - PT IN ROOM WITH . PT AGITATED AND YELLING AT AND STAFF. EASILY REDIRECTED AND CALMED.
[2022-09-09 16:45] LABS: Glucose Point of Care 185 mg/dL (70-110)
[2022-09-09] MEDS: atorvastatin 40 mg Tablet PO (20:27)
[2022-09-09] MEDS: acetaminophen 325 mg Tablet 650 MG PO (20:27)
[2022-09-09 20:52] LABS: Glucose Point of Care 135 mg/dL (70-110)
[2022-09-10] VITALS: BP 127/73; PULSE 101; RESP 15; TEMP 36.6; O2SAT 94
[2022-09-10] MEDS: pantoprazole 40 mg SDV IVP (00:11)
[2022-09-10 03:30] VITALS: BP 127/73; PULSE 101; RESP 15; TEMP 36.6
[2022-09-10 04:00] VITALS: BP 121/68; PULSE 88; RESP 15; TEMP 36.6; O2SAT 93
[2022-09-10] MEDS: ascorbic acid 500 mg Tablet PO (05:34)
[2022-09-10 06:25] LABS: Anion Gap 13.1 (5-19); Blood Urea Nitrogen 8 mg/dL (8-23); Calcium 8.6 mg/dL (8.5-10.5); Carbon Dioxide 24 mmol/L (22-29); Chloride 104 mmol/L (98-107); Glucose 161 mg/dL (65-115); Osmolality Calculated 286 mOsm/kg (285-295); Potassium 4.1 mmol/L (3.5-5.1); Sodium 137 mmol/L (136-145)
[2022-09-10 06:27] LABS: Creatinine Clr Calc Pharmacy 77.9003
--- NOTE | 2022-09-10 06:30 | PM.DCS ---
Discharge Providers Date of Admission: 09/02/22 01:00 Date of Discharge: September 10, 2022 Attending Provider at Admission: Trell Champagne MD Attending Provider at Discharge: Ludy Wahl MD Primary Care Provider: Byron Donis MD Diagnoses at Discharge Discharge Diagnosis (1) Chronic prostatitis: Status: Acute (2) BPH NOS w ur obs/LUTS: Status: Acute (3) S/P CABG (coronary artery bypass graft): Status: Acute Permanent problem details: 2011 (4) Hx of heart artery stent: Status: Acute (5) Dementia: Status: Acute (6) Incomplete bladder emptying: Status: Acute (7) Chronic retention of urine: Status: Acute (8) Prostate abscess: Status: Acute (9) NSTEMI (non-ST elevated myocardial infarction): Status: Acute (10) Acute encephalopathy: Status: Acute (11) Atrial fibrillation with rapid ventricular response: Status: Acute Reason for Visit Reason for Visit: cant void Hospital Course Hospital Course 82M on presentation with sepsis, acute encephalopathy, complicated UTI with large prostate abscess. Treated with antibiotics, urology took for drainage and drained 150 cc of purulent material. Growing alphahemolytic strep. Hospitalization complicated by A-fib with RVR, troponin elevation before the procedure, cardiology saw him, went in as a high risk patient. He will need prolonged course of antibiotics for prostate abscess/prostatitis at discharge. Urology will want additional imaging to be scheduled close to and of antibiotic course to confirm resolution. Symptomatically he is doing much better. As he is quite deconditioned, is not able to take care of him at home, patient has refused suprapubic catheter placement that was recommended by Dr. Cowan. He will follow-up with Dr. Cowan outpatient. He will get levofloxacin and cefpodoxime 1 week course. I have updated Dr. Cowan at the time of discharge, he will make arrangements for follow-up CT scan of abdomen pelvis to monitor resolution of prostatic abscess Physical Exam Narrative: No active symptoms GCS 15 Nonfocal neuro exam Fatigued and lethargic Euvolemic Abdomen soft Richardson catheter draining normal yellow-colored urine Abdomen soft Urinary Catheter Management: Richardson: Cath Placed During This Visit: yes Reason for Continuing Indwelling Catheter: Acute Urinary Retention or Obstruction Urinary Catheter Date of Insertion: 09/02/22 Urinary Catheter Time of Insertion: 00:59 Discharge Data Studies Completed and Pending Completed Studies During Hospitalization Category Date Time Status CTA chest CT abdomen pelvis [CT angio chest w abd pel w Cat Scan 09/01/22 22:52 Completed con] Stat CXRP [XR chest 1V portable [id number]] Routine Exams 09/03/22 17:52 Completed XR chest 1V portable [id number] Stat Exams 09/01/22 22:02 Completed Blood Cultures ([facility]) Routine Lab 09/01/22 22:20 Completed Blood Cultures ([facility]) Routine Lab 09/01/22 22:22 Completed CV. echo complete* [id number] Routine Ultrasound 09/02/22 01:00 Completed Radiology Impressions Chest/Abdomen/Pelvis CT 09/01/22 22:52 IMPRESSION: 1. Negative for pulmonary embolus. 2. Cardiomegaly. 3. Sternotomy wires. 4. Coronary artery atherosclerotic calcifications. 5. Patchy bilateral atelectasis versus minimal infiltrate. 6. Scattered prominent subcentimeter short axis nonspecific mediastinal lymph nodes. 7. Ascending thoracic aorta dilated to 4.3 cm. IMPRESSION: 1. Edema seen about the urinary bladder, please correlate for cystitis. 2. Richardson catheter in the urinary bladder with air presumed iatrogenic. 3. Prostate gland enlarged with a 6.8 cm cystic component, perhaps reflecting an infectious process, please correlate clinically. 4. Cholelithiasis. 5. Constipation. 6. Bilateral renal cysts, negative for follow up advised. 7. Diverticulosis without diverticulitis. 8. Small hiatal hernia. 9. Right adrenal 2.7 cm indeterminate nodule, dedicated nonemergent adrenal imaging could further characterize this. COMMENTS: Consistent with the [employer]'s Incidental Findings Committee white paper (J Am Leilani Radiol 2018): Any incidental renal lesion less than 1 cm or classified as too small to characterize, or any incidental cystic renal lesion characterized as simple-appearing, is likely benign. No follow-up imaging is recommended for these lesions per consensus recommendations based on imaging criteria. Chest X-Ray 09/03/22 17:52 IMPRESSION: No acute findings. Laboratory Results WBC 8.4 10^3/uL (4.0-10.0) 09/08/22 17:44 RBC 4.11 10^6/uL (4.1-5.3) 09/08/22 17:44 Hgb 11.9 g/dL (11.7-16.6) 09/08/22 17:44 Hct 37.2 % (42.0-52.0) L 09/08/22 17:44 MCV 90.5 fl (80-94) 09/08/22 17:44 MCH 29.0 pg (28.0-34.0) 09/08/22 17:44 MCHC 32.0 g/dL (30.0-36.0) 09/08/22 17:44 RDW 13.2 % (12.1-15.1) 09/08/22 17:44 Plt Count 306 10^3/cmm (130-400) 09/08/22 17:44 MPV 10.7 fL (7.4-10.4) H 09/08/22 17:44 Neut % (Auto) 67.6 % 09/08/22 17:44 Lymph % (Auto) 19.3 % 09/08/22 17:44 [place] % (Auto) 9.2 % 09/08/22 17:44 Eos % (Auto) 3.0 % 09/08/22 17:44 Baso % (Auto) 0.4 % 09/08/22 17:44 Neut # (Auto) 5.67 10^3/uL (1.8-7.7) 09/08/22 17:44 Lymph # (Auto) 1.6 10^3/uL (0.8-4.8) 09/08/22 17:44 [place] # (Auto) 0.8 10^3/uL (0.2-0.9) 09/08/22 17:44 Eos # (Auto) 0.3 10^3/uL (0.0-0.8) 09/08/22 17:44 Baso # (Auto) 0.0 10^3/uL (0.0-0.1) 09/08/22 17:44 Nucleated RBC % (auto) 0 % 09/08/22 17:44 Nucleated RBCs # 0.0 /100WBC 09/08/22 17:44 APTT 51.5 SECONDS (23.9-36.7) H 09/05/22 03:57 Sodium 137 mmol/L (136-145) 09/10/22 05:44 Potassium 4.1 mmol/L (3.5-5.1) 09/10/22 05:44 Chloride 104 mmol/L (98-107) 09/10/22 05:44 Carbon Dioxide 24 mmol/L (22-29) 09/10/22 05:44 Anion Gap 13.1 (5-19) 09/10/22 05:44 BUN 8 mg/dL (8-23) 09/10/22 05:44 Creatinine 0.5 mg/dL (0.7-1.2) L 09/10/22 05:44 GFR Calculation Not Reportable 09/10/22 05:44 Glucose 161 mg/dL (65-115) H 09/10/22 05:44 POC Glucose 135 mg/dL (70-110) H 09/09/22 20:49 Calculated Osmolality 286 mOsm/kg (285-295) 09/10/22 05:44 Lactic Acid 1.2 mmol/L (0.5-2.2) 09/03/22 03:16 Lactic Acid (Sepsis) 2.2 mmol/L (0.5-2.2) 09/02/22 00:38 Lactate 1.9 mmol/L (0.5-2.2) 09/05/22 03:57 Calcium 8.6 mg/dL (8.5-10.5) 09/10/22 05:44 Phosphorus 2.4 mg/dL (2.5-4.5) L 09/06/22 04:39 Magnesium 1.8 mg/dL (1.7-2.3) 09/06/22 04:39 Total Bilirubin 0.3 mg/dL (0.15-1.2) 09/05/22 03:57 AST 10 U/L (0-40) 09/05/22 03:57 ALT 10 U/L (0-41) 09/05/22 03:57 Alkaline Phosphatase 67 U/L (40-130) 09/05/22 03:57 Creatine Kinase 15 U/L (39-308) L 09/05/22 03:57 Troponin T Baseline 120 ng/L (0-15) H* 09/01/22 22:20 Troponin T 120 Minute 150.2 ng/L (0-15) H 09/02/22 00:38 Delta Troponin T 30.2 ABS# (0-10) H* 09/02/22 00:38 Troponin T Hi Sens 6Hr 267.5 ng/L (0-15) H 09/02/22 05:15 Troponin T Hi Sens 6Hr Delta 147.5 ng/L (0-12) H* 09/02/22 05:15 C-Reactive Protein 96.2 mg/L (0.0-4.9) H 09/05/22 03:57 NT-Pro-B Natriuret Pep 9165 pg/mL (0-450) H 09/05/22 03:57 Total Protein 5.4 g/dL (6.6-8.7) L 09/05/22 03:57 Albumin 1.9 g/dL (3.5-5.2) L 09/05/22 03:57 Globulin 3.5 g/dL (1.3-4.6) 09/05/22 03:57 Procalcitonin 11.62 ng/mL (0-0.5) H 09/04/22 01:45 TSH 2.06 uIU/mL (0.27-4.20) 09/03/22 03:16 Urine Color Yellow (Yellow) 09/01/22 22:29 Urine Appearance Turbid (CLEAR) A 09/01/22 22: Urine pH 5 (5-7) 09/01/22 22: Ur Specific [place] 1.015 (1.005-1.030) 09/01/22 22:29 Urine Protein Trace (Negative) 09/01/22 22: Urine Glucose (UA) 2+ (Normal) H 09/01/22 22: Urine Ketones 1+ (Negative) H 09/01/22 22: Urine Blood 3+ (Negative) H 09/01/22 22: Urine Nitrate Negative (Negative) 09/01/22 22: Urine Bilirubin Neg (Negative) 09/01/22 22: Urine Urobilinogen Norm mg/dL (Negative) 09/01/22 22: Ur Leukocyte Esterase 2+ (Negative) H 09/01/22 22:29 Urine RBC 0-4 /hpf (0-2) H 09/01/22 22:29 Urine WBC Too numerous to cnt /hpf (0-5) H 09/01/22 22:29 Ur Squamous Epith Cells 0-4 /hpf (0-5) H 09/01/22 22:29 Amorphous Sediment Not Reportable 09/01/22 22:29 Urine Bacteria Trace /hpf (NONE) 09/01/22 22:29 Urine Yeast 4+ /hpf H 09/01/22 22:29 Vancomycin Trough 18.1 ug/mL (10-15) H 09/09/22 02:56 Vitals Last Vital Signs Temp 97.8 F 09/10/22 04:00 Pulse 88 09/10/22 04:00 Resp 15 09/10/22 04:00 BP 121/68 09/10/22 04:00 Pulse Ox 93 09/10/22 04:00 O2 Del Method Room Air 09/10/22 04:00 O2 Flow Rate 5 09/03/22 09:23 Discharge Plan Discharge Patient Disposition: Home Health Service Condition: Stable Prescriptions: New Eliquis 5 mg Tablet 5 mg PO BID@0900,2100 Qty: 60 3RF cefpodoxime 200 mg tablet 200 mg PO BID Qty: 14 0RF Rx Instructions: must administer with a meal/food levofloxacin 750 mg tablet 750 mg PO DAILY 7 Days Qty: 7 0RF metoprolol tartrate 25 mg tablet 25 mg PO BID Qty: 60 2RF Continued acetaminophen [Tylenol Extra Strength] 500 mg tablet 500 mg PO Q6H PRN (Reason: Pain) melatonin 10 mg capsule 10 mg PO BEDTIME PRN (Reason: Sleep) tamsulosin 0.4 mg capsule 0.4 mg PO BID Qty: 60 12RF finasteride 5 mg tablet 5 mg PO DAILY@0730 Qty: 30 12RF fluconazole 100 mg tablet 100 mg PO DAILY 21 Days Qty: 21 0RF Rx Instructions: for 21 days ascorbic acid (vitamin C) [Vitamin C] 500 mg tablet 500 mg PO QAM cetirizine [Allergy Relief (cetirizine)] 10 mg Tablet 10 mg PO BEDTIME cholecalciferol (vitamin D3) [Vitamin D3] 25 mcg (1,000 unit) Tablet 25 mcg PO QAM zinc acetate 50 mg (zinc) Capsule 50 mg PO QAM nitroglycerin [Nitrostat] 0.4 mg Tablet, Sublingual 0.4 mg SUBLINGUAL Q5M PRN (Reason: Chest Pain) Rx Instructions: do not exceed 3 doses per episode vitamin B complex Tablet 1 tab PO QAM metformin 500 mg tablet 500 mg PO DAILY Qty: 30 0RF (DME) pen needle, diabetic [Pen Needle] 29 gauge x 1/2 needle See Rx Instructions .Route Qty: 100 0RF Rx Instructions: As directed vitamin A 2,400 mcg Capsule 2,400 mcg PO DAILY Vitamin B-12 2,500 mcg Tablet, Sublingual 2,500 mcg SUBLINGUAL DAILY insulin glargine 100 unit/mL (3 mL) insulin pen 24 unit SUBCUT QAM Discontinued cefuroxime axetil 500 mg tablet 500 mg PO BID Qty: 60 0RF Discharge Orders: Discharge Order (Routine); Ordered 09/10/22 Ordered By: Ludy Wahl Referrals: [facility] [Outside] Gabe Cowan MD [Physician] - 4-7 days Byron Donis MD [Primary Care Provider] - 09/17/22 10:30 am Patient Instructions: Opioid Safety Discharge Attestations Time Spent in Discharge Care*: greater than 30 min Status at Discharge: Cognitive status at discharge: mildly impaired cognition, Behavioral status at discharge: cooperative and can be uncooperative, Quality Metrics Clinical Quality Measures [ No reported AMI, CVA or VTE this stay] Coding Level of Care Code Acute Code for Chg Fwd Diagnoses Chronic prostatitis N41.1 BPH NOS w ur obs/LUTS N40.1 S/P CABG (coronary artery bypass graft) Z95.1 Hx of heart artery stent Z95.5 Dementia F03.90 Incomplete bladder emptying R33.9 Chronic retention of urine R33.9 Prostate abscess N41.2 NSTEMI (non-ST elevated myocardial infarction) I21.4 Acute encephalopathy G93.40 Atrial fibrillation with rapid ventricular response I48.91
[2022-09-10] MEDS: insulin glargine 100 units/1 mL 12 UNIT SUBCUT (06:40)
[2022-09-10 06:41] LABS: Glucose Point of Care 151 mg/dL (70-110)
[2022-09-10 07:59] VITALS: BP 128/82; PULSE 71; RESP 18; TEMP 36.7; O2SAT 94
[2022-09-10] MEDS: finasteride 5 mg Tablet PO (08:35)
[2022-09-10] MEDS: metoprolol tartrate 25 mg Tablet 12.5 MG PO (08:35)
[2022-09-10] MEDS: insulin lispro 100 unit/1 mL SUBCUT ×2 (08:35→12:17)
[2022-09-10] MEDS: apixaban 5 mg Tablet 2.5 MG PO (08:35)
[2022-09-10] MEDS: aspirin 81 mg EC Tablet PO (08:35)
[2022-09-10] MEDS: tamsulosin 0.4 mg Capsule PO (08:35)
[2022-09-10] MEDS: cefTRIAXone 1,000 MG in sodium chloride 0.9% (plus) 50 ML 100 MG IV (08:36)
--- NOTE | 2022-09-10 10:49 | PC.NURSE ---
Discharge is delayed due to not being able to do pickup until noon
[2022-09-10 11:29] VITALS: BP 127/81; PULSE 90; RESP 18; TEMP 36.9; O2SAT 94
[2022-09-10 11:59] LABS: Glucose Point of Care 151 mg/dL (70-110)
[2022-09-10 12:57] VITALS: BP 127/81; PULSE 90; RESP 18; TEMP 36.9; O2SAT 94
== END 2022-09-10 12:58 | disposition home health service (06) | DRG 871 ==
LOC: ER 09-02 00:13 → ICU 09-02 00:22 → MEDSURG 09-05 16:17
PROVIDERS: Internal Medicine; Urology; Admitting Provider Family Medicine; Emergency Provider Emergency Medicine; PCP Family Medicine; Visit Provider Internal Medicine
PROC: 0VB03ZX Excision of Prostate, Percutaneous Approach, Diagnostic (ICD-10-PCS; CPT 76942; principal; 2022-09-03 07:00)
DX: A41.9 Sepsis, unspecified organism (principal); G93.41 Metabolic encephalopathy; I21.A1 Myocardial infarction type 2; N41.2 Abscess of prostate; F03.911 Unspecified dementia, unspecified severity, with agitation; N17.9 Acute kidney failure, unspecified; E87.20 Acidosis, unspecified; B95.4 Other streptococcus as the cause of diseases classified elsewhere; I48.91 Unspecified atrial fibrillation; Z79.84 Long term (current) use of oral hypoglycemic drugs; Z79.4 Long term (current) use of insulin; N40.1 Benign prostatic hyperplasia with lower urinary tract symptoms; N39.498 Other specified urinary incontinence; R33.8 Other retention of urine; R39.14 Feeling of incomplete bladder emptying; N30.20 Other chronic cystitis without hematuria; I25.10 Atherosclerotic heart disease of native coronary artery without angina pectoris; Z95.5 Presence of coronary angioplasty implant and graft; Z95.1 Presence of aortocoronary bypass graft; N41.1 Chronic prostatitis; N48.1 Balanitis; K21.9 Gastro-esophageal reflux disease without esophagitis; E11.9 Type 2 diabetes mellitus without complications; E83.42 Hypomagnesemia; E87.6 Hypokalemia; R13.10 Dysphagia, unspecified; K59.00 Constipation, unspecified; Z66 Do not resuscitate; D32.9 Benign neoplasm of meninges, unspecified; I71.40 Abdominal aortic aneurysm, without rupture, unspecified
CPT/HCPCS: 36415; 36416; 51702; 71045; 71275; 74177; 80048; 80053; 80202; 81001; 82550; 82962; 83605; 83735; 83880; 84100; 84145; 84443; 84484; 85025; 85730; 86140; 87040; 87070; 87075; 87086; 87205; 92507; 92526; 92610; 93005; 93306; 94664; 96365; 96367; 96372; 96375; 96376; 97110; 97116; 97162; 97166; 97530; 97535; 99285; C9113; J0690; J0696; J1450; J1630; J1644; J1815; J2185; J2250; J2270; J2370; J2704; J3010; J3370; J3475; J7030; J7040; J7050; J7120; Q3014; Q9967

== ENCOUNTER 2022-09-11 12:49 | Emergency (ER) | payer MEDICARE, SELFPAY ==
[2022-09-11 12:51] VITALS: BP 131/82; PULSE 90; RESP 19; TEMP 36.9; O2SAT 98; BMI 24.4
--- NOTE | 2022-09-11 13:47 | W.ED.PSYCHS ---
HPI - Psych General: Chief Complaint: Psychiatric Symptoms Stated Complaint: SI Time Seen by Provider: 09/11/22 13:13 Source: patient Mode of arrival: EMS History of Present Illness: This patient was transported from his home via EMS. I obtained some history from the patient himself and the remainder of the history was obtained via secondhand knowledge to include a affidavit completed by a RN name Charisma anguiano from the home health agency. This patient was recently admitted and discharged from this facility with encephalopathic changes due to what was thought to be a complicated UTI and a prostatic abscess. Allegedly the patient has been been somewhat upset with his recent illness and is expressing some of those thoughts to his which was overheard on the telephone by individual completing the affidavit. Aided in the affidavit that there was some question of whether he did not want to live anymore and he did not want to be in his home anymore. There is no firsthand information available to me at this time of the patient's wishes. He admitted to me that he is tired of getting stuck all the time and did not want any of the attention that he had been recently receiving. He denied to me any specific thoughts of desiring to harm himself or harm others. Apparently the home health nurse who overheard conversation on the telephone contacted local authorities to include PD and EMS who proceeded to transport the patient to the emergency department. Associated symptoms: Deny homicidal ideation or suicidal ideation Review of Systems Const: Denies: fever(s) Card: Denies: chest pain Resp: Denies: dyspnea GI: Denies: abdominal pain, vomiting or diarrhea Psych: Reports: memory loss; Denies: suicidal ideation or homicidal ideation [facility] ED PFSH: Medical History Acute encephalopathy Acute kidney injury Agitation Alcohol use Ascending aortic aneurysm Atrial fibrillation with rapid ventricular response Balanitis Bed sore BPH NOS w ur obs/LUTS CAD (coronary artery disease) Chronic cystitis Chronic prostatitis Chronic retention of urine Deep tissue injury Delirium Dementia Dementia Diabetes Diabetes mellitus Elevated lactic acid level Erectile dysfunction GERD (gastroesophageal reflux disease) Goals of care, counseling/discussion High anion gap metabolic acidosis History of brain tumor Hyperglycemia Hypomagnesemia Incomplete bladder emptying Lactic acidosis Multiple falls NSTEMI (non-ST elevated myocardial infarction) Prostate abscess Pyuria Self-catheterizes urinary bladder Sepsis Transaminitis Urinary incontinence Urinary retention UTI (urinary tract infection) Yeast infection Surgical History H/O brain surgery 2010 meningioma R Hx of heart artery stent Hx of umbilical hernia repair S/P CABG (coronary artery bypass graft) 2011 Family History Father CAD (coronary artery disease) Diabetes Cancer unknown Mother CAD (coronary artery disease) Diabetes Other Dementia Denies family history of Clotting disorder Hyperlipidemia Psychiatric illness Chronic kidney disease (CKD) Anesthesia complication Bleeding disorder Lung disease Hypertension Stroke Social History Smoking and tobacco status: never smoked Alcohol intake: current Alcohol intake frequency: 0-2 Drinks per Day Substance/Drug Use: never Adopted: No Caregiver/support person: No Lives independently: No Household members: spouse Marital status: Current occupational status: retired Current gender identity: Male Physical Exam Narrative: EXAM NARRATIVE: The patient appears to be comfortable and he is cooperative during our interview. He is able to answer questions in a fluent fashion. Const: COMMON NORMALS: no acute distress, average body habitus and alert GENERAL APPEARANCE: cooperative and comfortable ORIENTATION/CONSCIOUSNESS: Yes awake and Yes oriented to person HENMT: COMMON NORMALS: normocephalic, Normal nasal mucous membranes and turbinates present, moist oral mucous membranes and oropharynx normal HEAD & SCALP: normocephalic NOSE: Normal nasal mucous membranes and turbinates present Eye: COMMON NORMALS: Equal, round and reactive pupils present, EOMs intact bilaterally and conjunctivae normal CONJUNCTIVA: Yes conjunctivae normal PUPIL: Yes Equal, round and reactive pupils present Neck/C-Spine: COMMON NORMALS: full ROM, no JVD and No carotid bruits Chest: COMMONS NORMALS: normal inspection of the chest and normal palpation of entire chest wall Resp: COMMON NORMALS: normal respiratory effort, No retractions, No use of accessory muscles and clear to auscultation bilaterally AUSCULTATION: clear to auscultation bilaterally Cardio: COMMON NORMALS: no JVD, regular rate and Peripheral pulses 2+ throughout RATE: regular rate HEART SOUNDS: Murmur heart sound present PERIPHERAL PULSES: Peripheral pulses 2+ throughout GI: COMMON NORMALS: Normal to inspection, nondistended, normoactive bowel sounds present and Soft to palpation PALPATION: Yes Soft to palpation : COMMON NORMALS: Yes no CVA tenderness BLADDER/KIDNEY EXAM: Yes catheter in place Catheter type (Male): urethral (Draining clear urine) and Yes no CVA tenderness Back/Pelvis: COMMON NORMALS: no CVA tenderness, thoracic and lumbar spine normal to inspection and no thoracic nor lumbar tenderness Extremity: COMMON NORMALS: normal to inspection, full ROM, capillary refill normal, no calf tenderness and no pedal edema Neuro: COMMON NORMALS: moves all extremities, no focal motor deficits and no sensory deficits noted SENSORIUM/ORIENTATION: Yes alert and Yes oriented to person SPEECH: speech normal MOTOR EXAM: 5/5 motor strength present throughout Psych: COMMON NORMALS: mental status grossly normal and speech normal ATTITUDE: Yes calm ACTIVITY/MOTOR BEHAVIOR: Yes appropriate eye contact SPEECH: Yes normal speech MOOD & AFFECT: Yes apathetic THOUGHT PROCESS: Circumstantial thought process present THOUGHT CONTENT: Yes Normal thought content present Skin: COMMON NORMALS: no rashes or lesions noted GENERAL SKIN EXAM: no rashes or lesions noted Course Reevaluation(s): Reevaluation #1: Not clear from the patient's current presentation what the best course of action is at this point. We need more background information regarding his family their wishes etc. The patient certainly does not appear to be actively suicidal or a threat to himself but more consistent with a mildly demented angry octogenarian who is frustrated because of his recent hospitalization and its attendant disruption of his usual lifestyle. We have asked health social work professor to assist us in providing more background information and appropriate management. Time: 13:59 Reevaluation #2: I spoke to Dr. Ramirez who is the attending hospitalist caring for him at time of discharge. He relates that Mr. Aparicio voiced essentially the feeling that he did not want to go to a longterm, #2 if anything occurred that would result in his demise he did not want to hasten that but he also did not want anything heroically done to prevent that from occurring. They did attempt to evaluate him for longterm placement however he became and independently ambulatory and otherwise could do most of his ADLs and physical therapy thought that there would be no benefit from longterm placement. Time: 15:23 Reevaluation #3: I spoke with the of the patient. She related to me that she did not have any significant concerns about him being anything other than frustrated and cantankerous about the chain of events that have occurred over the past week or so with a hospitalization etc. She states he has not had a history of suicidality etc. She is comfortable with him coming home. She did request a different walker so that he could get around the home more successfully than the current walker he has. She related that the events that occurred today transpired predominantly because of the home health nurse overhearing him speaking while she was on the telephone with one of her coworkers. Time: 17:02 Vital Signs: Vital signs: Vital Signs Temperature 98.4 F 09/11/22 12:51 Pulse Rate 90 09/11/22 12:51 Respiratory Rate 19 H 09/11/22 12:51 Blood Pressure 131/82 09/11/22 12:51 Pulse Oximetry 98 09/11/22 12:51 Oxygen Delivery Me thod Room Air 09/11/22 12:51 MDM - Psych Medical Decision Making This patient was transported by EMS from his home. He had been recently hospitalized for a prostatic abscess and effectively treated and assessed for appropriateness for home care and was discharged the day prior to arrival here. Allegedly one of the home health RNs overheard over telephone conversation verbiage that the patient vocalized regarding frustrations about various current events in his life to include his catheter, home health evaluation etc. She interpreted that there was some risk of self-harm and notified Police Department and EMS who proceeded to transport the patient to the emergency department. There was an affidavit completed however the affidavit had an incorrect name and did not have any firsthand knowledge of any suicidal concerns and only had hearsay information. The patient was evaluated in the emergency department and did not claim any plans or desires to actively cause his or harm others. He did admit to being frustrated with his current illness and hospitalization. I was able to eventually contact his spouse who collaborated the events above and specifically state that she was not concerned that he was a risk to harm himself. She states that he has mild dementia and sometimes becomes frustrated and disorganized because of that condition. She was extremely comfortable and happy to take him home to continue home care. Medical Records I reviewed the patient's medical records. Reviewed discharge summary from recent hospitalization. The patient had been evaluated and felt to be appropriate to be discharged home and this is collaborated by discussion with Dr. Ramirez the attending hospitalist. Lab Data I reviewed the patient's lab results. Discharge Plan Discharge Patient Disposition: Home Clinical Impression: Mild dementia, Abscess of prostate Condition: Stable Prescriptions: No Action acetaminophen [Tylenol Extra Strength] 500 mg tablet 500 mg PO Q6H PRN (Reason: Pain) melatonin 10 mg capsule 10 mg PO BEDTIME PRN (Reason: Sleep) tamsulosin 0.4 mg capsule 0.4 mg PO BID Qty: 60 12RF finasteride 5 mg tablet 5 mg PO DAILY@0730 Qty: 30 12RF fluconazole 100 mg tablet 100 mg PO DAILY 21 Days Qty: 21 0RF Rx Instructions: for 21 days ascorbic acid (vitamin C) [Vitamin C] 500 mg tablet 500 mg PO QAM cetirizine [Allergy Relief (cetirizine)] 10 mg Tablet 10 mg PO BEDTIME cholecalciferol (vitamin D3) [Vitamin D3] 25 mcg (1,000 unit) Tablet 25 mcg PO QAM zinc acetate 50 mg (zinc) Capsule 50 mg PO QAM nitroglycerin [Nitrostat] 0.4 mg Tablet, Sublingual 0.4 mg SUBLINGUAL Q5M PRN (Reason: Chest Pain) Rx Instructions: do not exceed 3 doses per episode vitamin B complex Tablet 1 tab PO QAM metformin 500 mg tablet 500 mg PO DAILY Qty: 30 0RF (DME) pen needle, diabetic [Pen Needle] 29 gauge x 1/2 needle See Rx Instructions .Route Qty: 100 0RF Rx Instructions: As directed vitamin A 2,400 mcg Capsule 2,400 mcg PO DAILY cyanocobalamin (vitamin B-12) [Vitamin B-12] 2,500 mcg Tablet, Sublingual 2,500 mcg SUBLINGUAL DAILY insulin glargine 100 unit/mL (3 mL) insulin pen 24 unit SUBCUT QAM Eliquis 5 mg Tablet 5 mg PO BID@0900,2100 Qty: 60 3RF cefpodoxime 200 mg tablet 200 mg PO BID Qty: 14 0RF Rx Instructions: must administer with a meal/food levofloxacin 750 mg tablet 750 mg PO DAILY 7 Days Qty: 7 0RF metoprolol tartrate 25 mg tablet 25 mg PO BID Qty: 60 2RF Discharge Orders: Discharge ED (Routine); Ordered 09/11/22 Ordered By: Ubaldo Rowell Referrals: Byron Donis MD [Primary Care Provider] - Discharge Diet: Usual diet Discharge Activity: Increase activity as tolerated Patient Instructions: Opioid Safety, Pain Management Activity Restrictions/Additional Instructions: As we discussed no evidence at this time of any change in your condition that would require further intervention. You should continue all the usual prescribed medications. You should continue to use your catheter until Dr. Cowan sees you and decides if when it needs to be removed. We have provided a leg bag that you can use when you are up and about during the day but this will need to be changed more frequently than your other Richardson bag. Follow-up fevers or other concerning symptoms at any time return to this or the nearest emergency department. Coding Level of Care Code ED Shipping Track Supervisor for Starr Cobb
[2022-09-11 19:16] VITALS: BP 128/71; PULSE 89; RESP 16; O2SAT 93
== END 2022-09-11 19:27 | disposition home or self-care (01) ==
PROVIDERS: Emergency Provider Emergency Medicine; PCP Family Medicine
DX: F03.A0 Unspecified dementia, mild, without behavioral disturbance, psychotic disturbance, mood disturbance, and anxiety (principal); N41.2 Abscess of prostate; Z79.01 Long term (current) use of anticoagulants; Z79.4 Long term (current) use of insulin; Z95.1 Presence of aortocoronary bypass graft; I25.10 Atherosclerotic heart disease of native coronary artery without angina pectoris; E11.9 Type 2 diabetes mellitus without complications; I25.2 Old myocardial infarction
CPT/HCPCS: 99282

== ENCOUNTER 2022-09-25 16:35 | Emergency (ER) | payer MEDICARE, SELFPAY ==
[2022-09-25 16:49] VITALS: BP 124/78; PULSE 89; RESP 16; TEMP 36.7; O2SAT 96
--- NOTE | 2022-09-25 18:40 | ED_ITS ---
HPI - Male Genitourinary General: Chief complaint: Urogenital-Male Stated complaint: cath issues Time Seen by Provider: 09/25/22 18:37 History of Present Illness: Patient is an 82-year-old male who comes to the ED with catheter complaint. The StatLock on patient's leg is fallen off and causing problems keeping Richardson catheter tube in place. He is also started having some white drainage at the meatus of penis and on the outside of catheter tubing. Endorses some mild discomfort due to catheter on occasions but denies any other symptoms such as fever, chills, nausea/vomiting or any abdominal pain. No blood in urine. Patient has been having some white discharge in Richardson bag. Patient was straight cathing himself for the past year until he had some issues of acute urinary retention last month and had an abscess on his prostate that he had drained. He was supposed to see Dr. Cowan at his office last week to have Richardson catheter removed but he missed appointment. Patient is currently taking antibiotic as prescribed. Associated symptoms: Deny dysuria, hematuria, nausea or vomiting Review of Systems Const: Denies: fever(s), chills or fatigue Eyes: Denies: change in vision or eye discomfort ENMT: Denies: throat pain, odynophagia, nasal discharge or nasal congestion Card: Denies: chest pain, palpitations, edema, swelling of feet/ankles, dyspnea on exertion or orthopnea Resp: Denies: dyspnea, productive cough or non-productive cough GI: Denies: abdominal pain, nausea, vomiting, diarrhea, constipation or hematochezia : Reports: penile discharge (Purulent discharge at meatus outside of catheter) and other (Richardson catheter problems.); Denies: flank pain, difficulty urinating, dysuria or hematuria Musc: Denies: neck pain, back pain or extremity swelling Skin/Breast: Denies: rash or new lesions Neuro: Denies: headache(s), numbness in extremities or weakness in extremities [facility] ED PFSH: Medical History (Updated 09/26/22 @ 02:01 by Gabe Cowan MD) Acute encephalopathy Acute kidney injury Agitation Alcohol use Ascending aortic aneurysm Atrial fibrillation with rapid ventricular response Balanitis Bed sore BPH NOS w ur obs/LUTS CAD (coronary artery disease) Chronic cystitis Chronic prostatitis Chronic retention of urine Deep tissue injury Delirium Dementia Dementia Diabetes Diabetes mellitus Elevated lactic acid level Erectile dysfunction GERD (gastroesophageal reflux disease) Goals of care, counseling/discussion High anion gap metabolic acidosis History of brain tumor Hyperglycemia Hypomagnesemia Incomplete bladder emptying Lactic acidosis Multiple falls NSTEMI (non-ST elevated myocardial infarction) Prostate abscess Pyuria Self-catheterizes urinary bladder Sepsis Transaminitis Urinary incontinence Urinary retention UTI (urinary tract infection) Yeast infection Surgical History H/O brain surgery 2010 meningioma R Hx of heart artery stent Hx of umbilical hernia repair S/P CABG (coronary artery bypass graft) 2012 Family History Father CAD (coronary artery disease) Diabetes Cancer unknown Mother CAD (coronary artery disease) Diabetes Other Dementia Denies family history of Clotting disorder Hyperlipidemia Psychiatric illness Chronic kidney disease (CKD) Anesthesia complication Bleeding disorder Lung disease Hypertension Stroke Social History Smoking and tobacco status: never smoked Alcohol intake: current Alcohol intake frequency: 0-2 Drinks per Day Substance/Drug Use: never Adopted: No Caregiver/support person: No Lives independently: No Household members: spouse Marital status: Current occupational status: retired Current gender identity: Male Physical Exam Const: COMMON NORMALS: patient oriented x3 HENMT: COMMON NORMALS: normocephalic HEAD & SCALP: normocephalic MOUTH: Normal oral and palatal mucosa present THROAT: posterior oropharynx normal and uvula midline Neck/C-Spine: COMMON NORMALS: supple GENERAL: Yes normal visual inspection Resp: COMMON NORMALS: normal respiratory effort, No retractions, No use of accessory muscles and clear to auscultation bilaterally AUSCULTATION: clear to auscultation bilaterally Cardio: COMMON NORMALS: regular rate, regular rhythm, S1 normal heart sound present, S2 normal heart sound present, No gallops present (Cardio), No clicks present (Cardio), No murmurs present (Cardio) and Peripheral pulses 2+ throughout RATE: regular rate RHYTHM: regular rhythm HEART SOUNDS: S1 normal heart sound present and S2 normal heart sound present PERIPHERAL PULSES: Peripheral pulses 2+ throughout GI: COMMON NORMALS: Normal to inspection, nondistended, normoactive bowel sounds present, Soft to palpation, non-tender and no masses PALPATION: Yes Soft to palpation : COMMON NORMALS: Yes no CVA tenderness BLADDER/KIDNEY EXAM: Yes no CVA tenderness OTHER: Patient has indwelling Richardson catheter placed correctly. Catheter does not have StatLock. there is some purulent discharge at meatus around the catheter tubing. No erythema, swelling or warmth noted. Back/Pelvis: COMMON NORMALS: no CVA tenderness Extremity: COMMON NORMALS: normal to inspection Neuro: COMMON NORMALS: patient oriented x3 GAIT: Yes Normal gait present Skin: GENERAL SKIN EXAM: dry skin Course Vital Signs: Vital signs: Vital Signs Temperature 98.1 F 09/25/22 16:49 Pulse Rate 89 09/25/22 16:49 Respiratory Rate 16 09/25/22 16:49 Blood Pressure 124/78 09/25/22 16:49 Pulse Oximetry 96 09/25/22 16:49 Oxygen Delivery Me thod Room Air 09/25/22 16:49 [facility] - Male Medical Decision Making Patient is an 82-year-old male who comes to the ED with catheter complaint. The StatLock on patient's leg is fallen off and causing problems keeping Richardson catheter tube in place. He is also started having some white drainage at the meatus of penis and on the outside of catheter tubing. Endorses some mild discomfort due to catheter on occasions but denies any other symptoms such as fever, chills, nausea/vomiting or any abdominal pain. No blood in urine. Patient has been having some white discharge in Richardson bag. Patient was straight cathing himself for the past year until he had some issues of acute urinary retention last month and had an abscess on his prostate that he had drained. He was supposed to see Dr. Cowan at his office last week to have Richardson catheter removed but he missed appointment. Vitals are stable. Patient appears nontoxic in no acute distress. Patient has indwelling Richardson catheter placed correctly. Catheter does not have StatLock. there is some purulent discharge at meatus around the catheter tubing. No erythema, swelling or warmth noted. UA shows a lot of white blood cells. No other signs of UTI. Richardson catheter was removed by nurse and patient was feeling a lot better afterwards. Patient was given a shot of Rocephin here in the ED and then was stable for discharge home. He is diagnosed with Richardson catheter problem and encounter to remove Richardson catheter. He was told to continue taking his previously prescribed antibiotic and follow- up with Dr. Cowan at his neck schedule appointment. Return to ED precautions given. Patient understood and agreed with plan. Lab Data I reviewed the patient's lab results. Laboratory Results Urine Color Yellow (Yellow) 09/25/22 19:09 Urine Appearance Hazy (CLEAR) A 09/25/22 19:09 Urine pH 6 (5-7) 09/25/22 19:09 Ur Specific [place] 1.010 (1.005-1.030) 09/25/22 19:09 Urine Protein Neg (Negative) 09/25/22 19:09 Urine Glucose (UA) Norm (Normal) 09/25/22 19:09 Urine Ketones Negative (Negative) 09/25/22 19:09 Urine Blood 3+ (Negative) H 09/25/22 19:09 Urine Nitrate Negative (Negative) 09/25/22 19:09 Urine Bilirubin Neg (Negative) 09/25/22 19:09 Urine Urobilinogen Norm mg/dL (Negative) 09/25/22 19:09 Ur Leukocyte Esterase 2+ (Negative) H 09/25/22 19:09 Urine RBC 5-10 /hpf (0-2) H 09/25/22 19:09 Urine WBC 55-80 /hpf (0-5) H 09/25/22 19:09 Ur Squamous Epith Cells 0-4 /hpf (0-5) H 09/25/22 19:09 Amorphous Sediment Trace /hpf 09/25/22 19:09 Urine Bacteria 1+ /hpf (NONE) H 09/25/22 19:09 Discharge Plan Discharge Patient Disposition: Home Clinical Impression: Encounter for Richardson catheter removal Richardson catheter problem Qualifiers: Encounter type: initial encounter Qualified Code(s): T83.9XXA - Unspecified complication of genitourinary prosthetic device, implant and graft, initial encounter Condition: Stable Prescriptions: No Action acetaminophen [Tylenol Extra Strength] 500 mg tablet 500 mg PO Q6H PRN (Reason: Pain) melatonin 10 mg capsule 10 mg PO BEDTIME PRN (Reason: Sleep) tamsulosin 0.4 mg capsule 0.4 mg PO BID Qty: 60 12RF finasteride 5 mg tablet 5 mg PO DAILY@0730 Qty: 30 12RF fluconazole 100 mg tablet 100 mg PO DAILY 21 Days Qty: 21 0RF Rx Instructions: for 21 days ascorbic acid (vitamin C) [Vitamin C] 500 mg tablet 500 mg PO QAM cetirizine [Allergy Relief (cetirizine)] 10 mg Tablet 10 mg PO BEDTIME cholecalciferol (vitamin D3) [Vitamin D3] 25 mcg (1,000 unit) Tablet 25 mcg PO QAM zinc acetate 50 mg (zinc) Capsule 50 mg PO QAM nitroglycerin [Nitrostat] 0.4 mg Tablet, Sublingual 0.4 mg SUBLINGUAL Q5M PRN (Reason: Chest Pain) Rx Instructions: do not exceed 3 doses per episode vitamin B complex Tablet 1 tab PO QAM metformin 500 mg tablet 500 mg PO DAILY Qty: 30 0RF (DME) pen needle, diabetic [Pen Needle] 29 gauge x 1/2 needle See Rx Instructions .Route Qty: 100 0RF Rx Instructions: As directed vitamin A 2,400 mcg Capsule 2,400 mcg PO DAILY cyanocobalamin (vitamin B-12) [Vitamin B-12] 2,500 mcg Tablet, Sublingual 2,500 mcg SUBLINGUAL DAILY insulin glargine 100 unit/mL (3 mL) insulin pen 24 unit SUBCUT QAM Eliquis 5 mg Tablet 5 mg PO BID@0900,2100 Qty: 60 3RF cefpodoxime 200 mg tablet 200 mg PO BID Qty: 14 0RF Rx Instructions: must administer with a meal/food metoprolol tartrate 25 mg tablet 25 mg PO BID Qty: 60 2RF Discharge Orders: Discharge ED (Routine); Ordered 09/25/22 Ordered By: Roberth Cobb Referrals: Pablo Rasheed, [Primary Care Provider] - Discharge Diet: Regular Discharge Activity: Increase activity as tolerated Activity Restrictions/Additional Instructions: Follow-up with Dr. Cowan at your scheduled appointment this coming Thursday, September 29. Continue taking home medications as previously prescribed and finish taking your antibiotic as well.. Return to the ER or your medical provider if condition worsens. Please read and understand discharge instructions. Thank you for choosing [facility] for your healthcare needs today. Please realize this is an emergency room and that we are providing you with a medical screening exam and this may not be complete and all inclusive of all the testing and or work up that you may need to determine your ailment or severity of your illness. It is very important that you follow up as instructed or that you return to the Emergency Department should you have concerns or if your condition changes or worsens in any way. Coding Level of Care Code ED Instructor Bridge for Starr Cobb
[2022-09-25 19:47] LABS: Urine Appearance Hazy (CLEAR); Urine Color Yellow (Yellow); pH Urine 6 (5-7)
[2022-09-25 19:48] LABS: Add Urine Microscopic? YES; Amorphous Sediment Urine TRACE /hpf; Bacteria Urine 1+ /hpf; Bilirubin Urine Neg (Negative); Blood Urine 3+ (Negative); Glucose Urine UA Norm (Normal); Ketones Urine Negative (Negative); Leukocyte Esterase Urine 2+ (Negative); Nitrate Urine Negative (Negative); Protein Urine Neg (Negative); Squamous Epithelial Cell Urine 0-4 /hpf (0-5); Urobilinogen Urine Norm (Negative); WBC Urine 55-80 /hpf (0-5)
[2022-09-25 19:49] LABS: Add Urine Culture? Yes
[2022-09-25] MEDS: cefTRIAXone 1,000 MG in water for injection-sterile 2.1 ML 1 MG IM (20:15)
== END 2022-09-25 20:39 | disposition home or self-care (01) ==
PROVIDERS: Emergency Provider Physician Assistant; PCP Electrodiagnostic Medicine
DX: T83.9XXA Unspecified complication of genitourinary prosthetic device, implant and graft, initial encounter (principal); Z46.6 Encounter for fitting and adjustment of urinary device; Z79.01 Long term (current) use of anticoagulants; Z79.84 Long term (current) use of oral hypoglycemic drugs; Z95.1 Presence of aortocoronary bypass graft; I25.10 Atherosclerotic heart disease of native coronary artery without angina pectoris; F03.90 Unspecified dementia, unspecified severity, without behavioral disturbance, psychotic disturbance, mood disturbance, and anxiety; E11.9 Type 2 diabetes mellitus without complications; I25.2 Old myocardial infarction; Y73.8 Miscellaneous gastroenterology and urology devices associated with adverse incidents, not elsewhere classified
CPT/HCPCS: 36415; 81001; 87086; 96372; 99284; J0696

== ENCOUNTER → 2022-09-29 12:36 | Outpatient (BNVA) | payer MEDICARE, SELFPAY | PROVIDERS: PCP Electrodiagnostic Medicine; Visit Provider Urology | DX: R33.9 Retention of urine, unspecified (principal); B37.49 Other urogenital candidiasis; N41.2 Abscess of prostate; N40.1 Benign prostatic hyperplasia with lower urinary tract symptoms | CPT/HCPCS: 51798; 99213 ==

== ENCOUNTER 2023-03-07 21:05 | Emergency (ER) | payer MEDICARE, SELFPAY ==
[2023-03-07 21:09] VITALS: BP 130/86; PULSE 105; RESP 18; TEMP 36.5; O2SAT 98; BMI 29.4
== END 2023-03-07 22:46 | disposition left against medical advice (07) ==
PROVIDERS: Emergency Provider Family Medicine; PCP Electrodiagnostic Medicine
DX: Z53.21 Procedure and treatment not carried out due to patient leaving prior to being seen by health care provider (principal)
CPT/HCPCS: 99285